=== PATIENT | male | born 1960 | race African-American/Black ===

== ENCOUNTER 2017-01-04 01:29 | Emergency (ER) | payer MEDICARE ==
[2017-01-04 01:52] VITALS: BP 118/75; PULSE 77; RESP 18; TEMP 97.4
[2017-01-04] MEDS ORDERED: ITRACONAZOLE ORAL SUSP 1,500 MG/150 ML BOTTLE PO STA (01:56)
[2017-01-04] MEDS ORDERED: ITRACONAZOLE 100 MG CAP PO STA (02:02)
--- NOTE | 2017-01-04 02:22 | ED ---
Recheck HPI - General Chief Complaint: Recheck/Abnormal Lab/Rx Stated Complaint: Med Refill Time Seen by Provider: 01/04/17 01:55 Source: patient Mode of arrival: ambulatory Limitations: no limitations - History of Present Illness Initial Comments: This patient is a 56-year-old man who is status post lung transplant. Patient states that he takes Sporanox daily as part of his transplant regimen. He has run out of the Sporanox which has reportedly been shipped to him. He requests a dose for tonight and prescription for a few days worth until his new supply arrives. The patient denies any symptoms currently. No fever or chills. No chest pain, dyspnea, or cough. MD Complaint: medication refill request -: hour(s) Returns Today for: request for prescription Context: ran out of medication Associated Symptoms: none - Related Data Home Medications Medication Instructions Recorded Confirmed Aspirin 81 mg PO DAILY 01/04/17 01/04/17 Calcium Carbonate [Tums] 500 mg PO BID 01/04/17 01/04/17 Cyproheptadine HCl [Periactin] 4 mg PO TID 01/04/17 01/04/17 Darbepoetin Carlito [Aranesp] 40 mcg WEEKLY 01/04/17 01/04/17 Ergocalciferol (Vitamin D2) 50,000 unit PO WEEKLY 01/04/17 01/04/17 [Vitamin D2] Folic Acid 1 mg PO DAILY 01/04/17 01/04/17 Gabapentin [Neurontin] 300 mg PO BID 01/04/17 01/04/17 Magnesium Oxide [Mag-Ox] 400 mg PO DAILY 01/04/17 01/04/17 Metoprolol Succinate [Toprol XL] 25 mg PO DAILY 01/04/17 01/04/17 Ondansetron [Zofran] 4 mg PO Q6HR PRN 01/04/17 01/04/17 Pantoprazole Sodium 40 mg PO BID 01/04/17 01/04/17 Tacrolimus [Tacrolimus] 3 mg PO BID 01/04/17 01/04/17 Valganciclovir HCl 450 mg PO WEEKLY 01/04/17 01/04/17 predniSONE [predniSONE TAPER] 5 mg PO DAILY 01/04/17 01/04/17 Previous Rx's Medication Instructions Recorded Itraconazole Oral Susp [Sporanox 200 mg PO DAILY #2000 mg 01/04/17 Oral Susp] Allergies Allergy/AdvReac Type Severity Reaction Status Date / Time meperidine [From Demerol] Allergy Rash/Hives Verified 01/04/17 01:52 Review of Systems ROS Statement: Those systems with pertinent positive or pertinent negative responses have been documented in the HPI. ROS Other: All systems not noted in ROS Statement are negative. Constitutional: Denies: fever, chills Respiratory: Denies: cough, dyspnea, wheezes, hemoptysis Cardiovascular: Denies: chest pain, palpitations Past Medical History Past Medical History: Diabetes Mellitus, Hypertension, Mitral Valve Prolapse ( MVP), Renal Disease Additional Past Medical History / Comment(s): Sarcodosis, Dialysis History of Any Multi-Drug Resistant Organisms: C-DIFF Date of last positivie culture/infection: April 2016 Past Surgical History: Back Surgery, Orthopedic Surgery Additional Past Surgical History / Comment(s): Bilateral lung transplant, Past Psychological History: No Psychological Hx Reported Smoking Status: Never smoker Past Alcohol Use History: None Reported Past Drug Use History: None Reported General Exam Limitations: no limitations General appearance: alert, in no apparent distress Respiratory exam: Present: normal lung sounds bilaterally. Absent: respiratory distress, wheezes, rales, rhonchi, stridor Cardiovascular Exam: Present: regular rate, normal rhythm, normal heart sounds. Absent: systolic murmur, diastolic murmur, rubs, gallop Course Vital Signs 01/04/17 01:43 Temperature 97.4 F L Pulse Rate 77 Respiratory 18 Rate Blood Pressure 118/75 O2 Sat by Pulse 98 Oximetry Disposition Clinical Impression: Encounter for medication refill Disposition: HOME SELF-CARE Condition: Good Instructions: Medicine Refill (ED) Prescriptions: Itraconazole Oral Susp [Sporanox Oral Susp] 200 mg PO DAILY #2000 mg Referrals: Hernán Qureshi DO [Primary Care Provider] - 1-2 days
== END 2017-01-04 02:24 | disposition home or self-care (01) ==
LOC: EC 01:29
DX: Z76.0 Encounter for issue of repeat prescription (principal); Z94.2 Lung transplant status; Z88.5 Allergy status to narcotic agent
CPT/HCPCS: 99281

== ENCOUNTER 2017-06-13 09:22 | Day surgery (SDC) | payer MEDICARE ==
[2017-06-12 08:55] VITALS: BMI 25.7
[~2017-06-13 09:22] MED LIST: LACTATED RINGERS 1,000 ML IV SCH; LIDOCAINE 1% 20 ML VIAL (10MG/ML) FOR IV START INTRADERMA PRN
[2017-06-13 09:39] VITALS: TEMP 97.6
[2017-06-13] MEDS ORDERED: SODIUM CHLORIDE 0.9% 1,000 ML IV ONE ×2 (09:46)
[2017-06-13 09:49] LABS: Glucose,Whole Blood 72 mg/dL (75-99)
[2017-06-13] MEDS ORDERED: PROPOFOL 10 MG/ML 20 ML VIAL IV ONE (09:59)
[2017-06-13] MEDS ORDERED: LIDOCAINE 1% INJ 10MG/ML (20 ML MDV) ONE (09:59)
[2017-06-13 10:11] LABS: Calcium 9.2 mg/dL (8.4-10.2); Potassium 3.9 mmol/L (3.5-5.1)
[2017-06-13 10:13] LABS: Anisocytosis Slight; Basophils % (A) 0 %; CH 29.5; CHCM 31.2; Eosinophils % (A) 0 %; HCT 34.1 % (39.0-53.0); HDW 2.47; HGB 10.3 gm/dL (13.0-17.5); Luc % (Auto) 2; Lymphocytes # (A) 1.3 k/uL (1.0-4.8); Lymphocytes % (A) 21 %; MCH 28.8 pg (25.0-35.0); MCHC 30.3 g/dL (31.0-37.0); MCV 95.1 fL (80.0-100.0); Mean Platelet Volume 11.3; Monocytes # (A) 0.4 k/uL (0-1.0); Monocytes % (A) 6 %; Neutrophils # (A) 4.5 k/uL (1.3-7.7); Neutrophils % (A) 71 %; RBC 3.58 m/uL (4.30-5.90); RDW 18.2 % (11.5-15.5); WBC 6.4 k/uL (3.8-10.6); WBC (Perox) 6.61
--- NOTE | 2017-06-13 10:21 | P.PCN ---
Date of Procedure: 06/13/17 Preoperative Diagnosis: Postoperative Diagnosis: Procedure(s) Performed: BRIEF HISTORY: Patient is a 57-year-old pleasant white female, scheduled for an elective colonoscopy as a part of evaluation of change in bowel habits. The patient is status post lung transplant performed with a diagnosis of a year ago. PROCEDURE PERFORMED: Colonoscopy. PREOPERATIVE DIAGNOSIS: Change in bowel habits. IV sedation per Anesthesia. PROCEDURE: After informed consent was obtained, the patient, was brought into the endoscopy unit. IV sedation was administered by Anesthesia under continuous monitoring. Digital rectal examination was normal. Initially the Olympus CF- 160 flexible video colonoscope was then inserted in the rectum, gradually advanced into the cecum without any difficulty. Careful examination was performed as the scope was gradually being withdrawn. Ileocecal valve and the appendiceal orifice were visualized and appeared normal. Prep was excellent. Mucosa of the cecum, ascending colon, transverse colon, descending colon, sigmoid colon, and rectum appeared normal. Scattered sigmoid diverticulosis seen. Retroflexion was performed in the rectum and small internal hemorrhoids were seen. The patient tolerated the procedure well. IMPRESSION: Normal-appearing colon from rectum to cecum with no evidence of colorectal neoplasia. Scattered sigmoid diverticulosis Small internal hemorrhoids RECOMMENDATIONS: Findings of this examination were discussed with the patient as well as his family. He was advised to have a repeat screening colonoscopy in 5 years. Implants: Indications for Procedure: Operative Findings: Description of Procedure:
[2017-06-13 10:49] VITALS: RESP 18
[2017-06-13 10:52] VITALS: BP 112/64; PULSE 69
== END 2017-06-13 11:29 | disposition home or self-care (01) ==
LOC: ORWHC2ENDO 09:22
PROVIDERS: ATTEND Internal Medicine Gastroenterology
DX: K57.30 Diverticulosis of large intestine without perforation or abscess without bleeding (principal); K64.8 Other hemorrhoids; I50.9 Heart failure, unspecified; E11.9 Type 2 diabetes mellitus without complications; I12.0 Hypertensive chronic kidney disease with stage 5 chronic kidney disease or end stage renal disease; N18.6 End stage renal disease; Z99.2 Dependence on renal dialysis; Z86.718 Personal history of other venous thrombosis and embolism; Z88.5 Allergy status to narcotic agent; K21.9 Gastro-esophageal reflux disease without esophagitis; Z95.810 Presence of automatic (implantable) cardiac defibrillator; Z94.2 Lung transplant status; Z79.82 Long term (current) use of aspirin; Z79.899 Other long term (current) drug therapy
CPT/HCPCS: 80048; 85025; 45378; J2001; J2704

== ENCOUNTER → 2017-10-08 | Outpatient (CLI) | payer MEDICARE ==
--- NOTE | 2017-10-08 11:48 | CT ---
EXAMINATION TYPE: CT abdomen wo con DATE OF EXAM: 10/08/2017 COMPARISON: 12/04/2012 HISTORY: 57-year-old male with abdominal pain, diarrhea TECHNIQUE: Contiguous axial scanning of the abdomen without IV contrast. Coronal and sagittal reconst ructions performed. CT DLP: 558 mGycm Automated exposure control for dose reduction was used. FINDINGS: Heart is upper limits of normal in size. Median sternotomy wires are present. Retained epicardial pac er leads. Right ventricular pacer lead. Trace right effusion. Strandy atelectasis at the left base. Borderline aneurysmal lower descending thoracic aorta at 3.0 cm. Some surgical material at the GE junction. Noncontrast appearance of the liver, adrenal glands, right kidney, and atrophic pancreas show no yue s abnormality. IVC filter is present. There is a punctate 1 mm nonobstructive left lower pole renal calculus, axial image 40. Redemonstrate d 2.5 cm lateral midpole left renal cyst and a subcentimeter hypodensity anteriorly at the lower pole too small for accurate CT characterization, also likely a cyst. The spleen is upper limits of normal in size at 12.2 cm but appears prominently thickened up to 7.4 c m versus 5.67 m, previously. Gallbladder is collapsed with a small calculi. No dilated small bowel, free fluid, or free air. No mesenteric or retroperitoneal lymphadenopathy. Small to moderate-sized omental fat-containing umbilical hernia. Some stranding here suspected to rep resent omental vessels. Normal appendix. Mild stool burden. No pericolonic inflammatory change.. Bones: Degenerative changes at the right SI joint and disc bulging in the lower lumbar spine. No osse ous destructive process. IMPRESSION: 1. SMALL TO MODERATE SIZED OMENTAL FAT-CONTAINING UMBILICAL HERNIA WAS PRESENT IN 2012 WELL. 2. PUNCTATE NONOBSTRUCTIVE LEFT LOWER POLE RENAL CALCULUS. 3. BORDERLINE SPLENOMEGALY WITH SPLEEN SIZE INCREASED FROM 2012. 4. CHOLELITHIASIS AND IVC FILTER.
== END | disposition home or self-care (01) ==
LOC: RADCTMAIN 09:47
PROVIDERS: ATTEND Family Medicine
DX: K42.9 Umbilical hernia without obstruction or gangrene (principal); N20.0 Calculus of kidney; R16.1 Splenomegaly, not elsewhere classified; K80.20 Calculus of gallbladder without cholecystitis without obstruction
CPT/HCPCS: 74150

== ENCOUNTER 2018-03-22 17:10 | Emergency (ER) | payer MEDICARE ==
[2018-03-22 17:25] VITALS: RESP 18; TEMP 98
[2018-03-22] MEDS ORDERED: SODIUM CHLORIDE 0.9% 1,000 ML IV STA (17:49)
[2018-03-22] MEDS ORDERED: MORPHINE SULFATE 4 MG/ML SYRINGE IV STA (17:49)
[2018-03-22] MEDS ORDERED: ONDANSETRON 4 MG/2 ML VIAL IVP STA (17:49)
[2018-03-22] MEDS ORDERED: cefTRIAXone IN SWFI 2,000 MG/20 ML SYRINGE IVP STA (17:49)
--- NOTE | 2018-03-22 17:57 | ED ---
General Adult HPI - General Chief complaint: Recheck/Abnormal Lab/Rx Stated complaint: Arm swelling Time Seen by Provider: 03/22/18 17:35 Source: patient Mode of arrival: ambulatory Limitations: no limitations - History of Present Illness Initial comments: 57 years old male had vascular surgery on Saturday at [facility] and 19 miles, he a fistula for about a year ago now left arm upper extremity is quite swollen he feels throbbing there arm is swollen from the left axilla over the left upper arm elbow left forearm and the left hand dorsal surface surface - Related Data Home Medications Medication Instructions Recorded Confirmed Aspirin 81 mg PO DAILY 01/04/17 06/13/17 Calcium Carbonate [Tums] 500 mg PO BID 01/04/17 06/13/17 Cyproheptadine HCl [Periactin] 4 mg PO TID 01/04/17 06/13/17 Darbepoetin Carlito [Aranesp] 40 mcg INJ MOWEFR 01/04/17 06/13/17 Ergocalciferol (Vitamin D2) 50,000 unit PO TH 01/04/17 06/13/17 [Vitamin D2] Folic Acid 1 mg PO DAILY 01/04/17 06/13/17 Ondansetron [Zofran] 4 mg PO Q6HR PRN 01/04/17 06/13/17 Pantoprazole Sodium 40 mg PO BID 01/04/17 06/13/17 Tacrolimus [Tacrolimus] 1.5 mg PO BID 01/04/17 06/13/17 Valganciclovir HCl 450 mg PO WEEKLY 01/04/17 06/13/17 predniSONE [predniSONE TAPER] 5 mg PO DAILY 01/04/17 06/13/17 amLODIPine [Norvasc] 5 mg PO SUTUTHSA 06/12/17 06/13/17 Previous Rx's Medication Instructions Recorded Itraconazole Oral Susp [Sporanox 200 mg PO DAILY #2000 mg 01/04/17 Oral Susp] Allergies Allergy/AdvReac Type Severity Reaction Status Date / Time meperidine [From Demerol] Allergy Rash/Hives Verified 03/22/18 17:25 Review of Systems ROS Statement: Those systems with pertinent positive or pertinent negative responses have been documented in the HPI. ROS Other: All systems not noted in ROS Statement are negative. Past Medical History Past Medical History: Diabetes Mellitus, Dialysis, Deep Vein Thrombosis (DVT), GERD/Reflux, Hypertension, Mitral Valve Prolapse (MVP), Renal Disease Additional Past Medical History / Comment(s): Sarcodosis, History of Any Multi-Drug Resistant Organisms: C-DIFF Date of last positivie culture/infection: April 2016 MDRO Source:: STOOL Past Surgical History: AICD, Back Surgery, Orthopedic Surgery, Pacemaker Additional Past Surgical History / Comment(s): Bilateral lung [id number]- 2016. COLONOSCOPY. RT HAND SURGERY. HEMODIALYSIS CATH. AV SHUNT LT ARM- Past Anesthesia/Blood Transfusion Reactions: Motion Sickness Type of Cardiac Device: Permanent Pacemaker, AICD Device Placement Date:: 03-28-2011 Past Psychological History: No Psychological Hx Reported Smoking Status: Never smoker Past Alcohol Use History: None Reported Past Drug Use History: None Reported - Past Family History Father Family Medical History: Cancer General Exam - General Exam Comments Initial Comments: General: The patient is awake and alert, noticed mild to moderate distress because of left arm swelling Skin: Skin is warm and dry and no rashes or lesions are noted. Eye: Pupils are equal, round and reactive to light, extra-ocular movements are intact; there is normal conjunctiva bilaterally. Ears, nose, mouth and throat: There are moist mucous membranes and no oral lesions. Neck: The neck is supple, there is no tenderness or JVD. Cardiovascular: There is a regular rate and rhythm. No murmur, rub or gallop is appreciated. Respiratory: To auscultation bilateral, no wheezing no rhonchi no distress respiratory gibson noticed Gastrointestinal: Soft, non-distended, non-tender abdomen without masses or organomegaly noted. There is no rebound or guarding present. Bowel sounds are unremarkable. Back: There is no tenderness to palpation in the midline. There is no obvious deformity. Musculoskeletal: Active arm is quite swollen, it swelling starts from the left axilla, proximal left upper extremity circumference is about twice the size of the right one the left forearm is quite swollen, capillary refill is within normal range. Her pulses are palpable him a no neurological deficit noticed him a pulses seems diminished compared to the right extremity week confirmed the wound with the Doppler Neurological: CN II-XII intact, Cranial nerves III through XII are intact. There are no obvious motor or sensory deficits. Coordination appears grossly intact. Speech is normal. Psychiatric: Cooperative, appropriate mood & affect, normal judgment. Limitations: no limitations Course Vital Signs 03/22/18 17:20 Temperature 98.0 F Pulse Rate 81 Respiratory 18 Rate Blood Pressure 118/68 O2 Sat by Pulse 100 Oximetry , Blood work was ordered ultrasound of the left upper extremity was ordered an empiric antibiotics were ordered. After that I spoke with the emergency physician Dr. Torres from [facility], she agreed that we don't need to do any blood work here that would further delay the transfer I did initially order some now patient is given ago in her family car. Patient and the family wanted to drive down there this said they have been there before they do not want ambulance at this point area, patient was giving him morphine and Zofran blood work and the venous and arterial Dopplers were held off to expedite the transfer - Reevaluation(s) Reevaluation #1: Medical differential diagnosis includes DVT, arterial occlusion, hematoma, seroma, compartment syndrome 03/22/18 18:22 Disposition Clinical Impression: Left arm swelling Disposition: OTHER INSTITUTION NOT DEFINED Condition: Fair Is patient prescribed a controlled substance at d/c from ED?: No If prescribed controlled substance>3 days was MAPS reviewed?: No When asked, does pt state using other controlled substances?: No Referrals: Hernán Qureshi DO [Primary Care Provider] - 1-2 days - Out of Hospital Transfer - Req. Specs Out of Hospital Transfer - Requested Specifics: Other Emergency Center ([facility] accepted the patient, patient was accepted by Dr. Torres.)
[2018-03-22 18:27] VITALS: BP 121/69; PULSE 79
== END 2018-03-22 18:39 | disposition other institution (70) ==
LOC: EC 17:10
DX: M79.89 Other specified soft tissue disorders (principal); Z98.890 Other specified postprocedural states; K21.9 Gastro-esophageal reflux disease without esophagitis; I10 Essential (primary) hypertension; N28.9 Disorder of kidney and ureter, unspecified; Z86.718 Personal history of other venous thrombosis and embolism; Z94.2 Lung transplant status; Z95.810 Presence of automatic (implantable) cardiac defibrillator; Z99.2 Dependence on renal dialysis; Z88.5 Allergy status to narcotic agent; Z79.52 Long term (current) use of systemic steroids; Z79.82 Long term (current) use of aspirin; Z79.899 Other long term (current) drug therapy
CPT/HCPCS: 99284

== ENCOUNTER 2018-04-29 11:29 | Emergency (ER) | payer MEDICARE ==
[2018-04-29 11:44] VITALS: RESP 18
[2018-04-29] MEDS ORDERED: SODIUM CHLORIDE 0.9% 500 ML IV ONE (12:13)
[2018-04-29] MEDS ORDERED: DICYCLOMINE 20 MG TAB PO STA (12:13)
[2018-04-29] MEDS ORDERED: ONDANSETRON 4 MG/2 ML VIAL IVP STA (12:13)
--- NOTE | 2018-04-29 12:17 | ED ---
General Adult HPI - General Chief complaint: Nausea/Vomiting/Diarrhea Stated complaint: Vomiting Time Seen by Provider: 04/29/18 11:52 Source: patient Mode of arrival: wheelchair Limitations: no limitations - History of Present Illness Initial comments: Patient is a 58-year-old male with a medical history lung transplant, sarcoidosis, end-stage renal disease currently on dialysis who presents with a chief complaint of nausea, vomiting and diarrhea since yesterday. The patient states that he ate at [employer] 2 hours prior to the onset of his symptoms. The patient states that he thinks he got food poisoning. He cannot identify any other inciting incidences. There are no aggravating or alleviating factors. Timing is been constant. Patient's dialysis schedule is Saturday, Saturday, Saturday. The patient states that he feels dehydrated because he had dialysis just prior to the onset of his symptoms. - Related Data Home Medications Medication Instructions Recorded Confirmed Aspirin 81 mg PO DAILY 01/04/17 04/29/18 Darbepoetin Carlito [Aranesp] 40 mcg INJ MOWEFR 01/04/17 04/29/18 Ergocalciferol (Vitamin D2) 50,000 unit PO TH 01/04/17 04/29/18 [Vitamin D2] Folic Acid 1 mg PO DAILY 01/04/17 04/29/18 Ondansetron [Zofran] 4 mg PO Q6HR PRN 01/04/17 04/29/18 Pantoprazole Sodium 40 mg PO BID 01/04/17 04/29/18 Tacrolimus [Tacrolimus] 3 mg PO BID 01/04/17 04/29/18 Valganciclovir HCl 450 mg PO MOWEFR 01/04/17 04/29/18 amLODIPine [Norvasc] 5 mg PO DAILY 06/12/17 04/29/18 Atorvastatin [Lipitor] 10 mg PO HS 04/29/18 04/29/18 Itraconazole [Sporanox] 100 mg PO BID 04/29/18 04/29/18 Montelukast [Singulair] 10 mg PO HS 04/29/18 04/29/18 predniSONE 5 mg PO DAILY 04/29/18 04/29/18 Previous Rx's Medication Instructions Recorded Dicyclomine [Bentyl] 20 mg PO QID #20 tablet 04/29/18 Ondansetron Odt [Zofran Odt] 4 mg PO Q8HR PRN #12 tab 04/29/18 Allergies Allergy/AdvReac Type Severity Reaction Status Date / Time meperidine [From Demerol] Allergy Rash/Hives Verified 04/29/18 11:44 Review of Systems ROS Statement: Those systems with pertinent positive or pertinent negative responses have been documented in the HPI. ROS Other: All systems not noted in ROS Statement are negative. Past Medical History Past Medical History: Diabetes Mellitus, Dialysis, Deep Vein Thrombosis (DVT), GERD/Reflux, Hypertension, Mitral Valve Prolapse (MVP), Renal Disease Additional Past Medical History / Comment(s): Sarcodosis, History of Any Multi-Drug Resistant Organisms: C-DIFF Date of last positivie culture/infection: April 2016 MDRO Source:: STOOL Past Surgical History: AICD, Back Surgery, Orthopedic Surgery, Pacemaker Additional Past Surgical History / Comment(s): Bilateral lung [id number]-3-05- 2016. COLONOSCOPY. RT HAND SURGERY. HEMODIALYSIS CATH. AV SHUNT LT ARM- Past Anesthesia/Blood Transfusion Reactions: Motion Sickness Type of Cardiac Device: Permanent Pacemaker, AICD Device Placement Date:: 03-28-2011 Past Psychological History: No Psychological Hx Reported Smoking Status: Never smoker Past Alcohol Use History: None Reported Past Drug Use History: None Reported - Past Family History Father Family Medical History: Cancer General Exam Limitations: no limitations General appearance: alert, in no apparent distress Head exam: Present: atraumatic, normocephalic Eye exam: Present: normal appearance ENT exam: Present: normal exam Neck exam: Present: normal inspection Respiratory exam: Present: normal lung sounds bilaterally. Absent: respiratory distress, wheezes Cardiovascular Exam: Present: regular rate, normal rhythm, other (Patient has a dialysis cath on the right anterior chest.) GI/Abdominal exam: Present: soft. Absent: distended, tenderness Rectal exam: Present: deferred Extremities exam: Present: normal inspection, other (Patient has a dialysis graft in the left medial upper extremity. There is an old dialysis fistula in the left before meals fossa.) Neurological exam: Present: alert, oriented X3, normal gait Psychiatric exam: Present: normal affect, normal mood Skin exam: Present: warm, dry, intact Course Vital Signs 04/29/18 04/29/18 11:42 14:19 Temperature 98.4 F Pulse Rate 85 84 Respiratory 18 18 Rate Blood Pressure 133/75 129/79 O2 Sat by Pulse 98 98 Oximetry Procedures - Phlebotomy Reason for Blood Draw by MD: MD to place line Estimated cc's Blood Obtained: 30 (US guided IV ) Medical Decision Making - Medical Decision Making Patient presents with a chief complaint of nausea, vomiting and diarrhea. On initial evaluation, vitals are stable, patient is in no acute distress. He will be given 500 mL of IV fluid. Basic labs will be checked along with EKG. Patient given Zofran and Bentyl for symptomatically relief. EKG performed at 12 :51 PM shows normal sinus rhythm with right axis deviation, ventricular rate is 82 bpm. EKG is otherwise unremarkable. 1:46 PM Reevaluation, patient's symptoms have improved. Laboratory evaluation is unremarkable. Potassium is 5.4, there are no significant EKG changes. Patient was given a by mouth challenge and is now able to tolerate by mouth. Patient is stable for discharge. He is instructed to follow up with primary care 1-2 days, return to the emergency department if symptoms worsen or change. - Lab Data Result diagrams: 04/29/18 12:47 04/29/18 12:47 Lab Results 04/29/18 04/29/18 Range/Units 12:47 12:47 WBC 10.0 (3.8-10.6) k/uL RBC 4.59 (4.30-5.90) m/uL Hgb 13.5 (13.0-17.5) gm/dL Hct 42.2 (39.0-53.0) % MCV 91.8 (80.0-100.0) fL MCH 29.4 (25.0-35.0) pg MCHC 32.1 (31.0-37.0) g/dL RDW 16.3 H (11.5-15.5) % Plt Count 103 L (150-450) k/uL Neutrophils % 72 % Lymphocytes % 18 % Monocytes % 8 % Eosinophils % 0 % Basophils % 0 % Neutrophils # 7.1 (1.3-7.7) k/uL Lymphocytes # 1.8 (1.0-4.8) k/uL Monocytes # 0.8 (0-1.0) k/uL Eosinophils # 0.0 (0-0.7) k/uL Basophils # 0.0 (0-0.2) k/uL Anisocytosis Slight Sodium 142 (137-145) mmol/L Potassium 5.3 H (3.5-5.1) mmol/L Chloride 98 (98-107) mmol/L Carbon Dioxide 24 (22-30) mmol/L Anion Gap 20 mmol/L BUN 57 H (9-20) mg/dL Creatinine 11.11 H* (0.66-1.25) mg/dL Est GFR (CKD-EPI)AfAm 5 (>60 ml/min/1.73 sqM) Est GFR (CKD-EPI)NonAf 4 (>60 ml/min/1.73 sqM) Glucose 147 H (74-99) mg/dL Calcium 7.4 L (8.4-10.2) mg/dL Magnesium 1.6 (1.6-2.3) mg/dL Total Bilirubin 0.5 (0.2-1.3) mg/dL AST 22 (17-59) U/L ALT 24 (21-72) U/L Alkaline Phosphatase 107 (38-126) U/L Total Protein 7.1 (6.3-8.2) g/dL Albumin 4.6 (3.5-5.0) g/dL Lipase 43 (23-300) U/L Disposition Clinical Impression: Food poisoning Disposition: HOME SELF-CARE Condition: Good Instructions: Acute Nausea and Vomiting (ED) Prescriptions: Dicyclomine [Bentyl] 20 mg PO QID #20 tablet Ondansetron Odt [Zofran Odt] 4 mg PO Q8HR PRN #12 tab PRN Reason: Nausea Is patient prescribed a controlled substance at d/c from ED?: No Referrals: Hernán Qureshi DO [Primary Care Provider] - 1-2 days
[2018-04-29 13:11] LABS: Albumin 4.6 g/dL (3.5-5.0); Calcium 7.4 mg/dL (8.4-10.2); Magnesium 1.6 mg/dL (1.6-2.3); Potassium 5.3 mmol/L (3.5-5.1); Total Bilirubin 0.5 mg/dL (0.2-1.3); Total Protein 7.1 g/dL (6.3-8.2)
[2018-04-29 13:25] LABS: Anisocytosis Slight; Basophils % (A) 0 %; Eosinophils % (A) 0 %; HCT 42.2 % (39.0-53.0); HGB 13.5 gm/dL (13.0-17.5); Lymphocytes # (A) 1.8 k/uL (1.0-4.8); Lymphocytes % (A) 18 %; MCH 29.4 pg (25.0-35.0); MCHC 32.1 g/dL (31.0-37.0); MCV 91.8 fL (80.0-100.0); Mean Platelet Volume 8.9; Monocytes # (A) 0.8 k/uL (0-1.0); Monocytes % (A) 8 %; Neutrophils # (A) 7.1 k/uL (1.3-7.7); Neutrophils % (A) 72 %; Platelet Count 103 k/uL (150-450); RBC 4.59 m/uL (4.30-5.90); RDW 16.3 % (11.5-15.5)
[2018-04-29 15:24] VITALS: BP 133/79; PULSE 80; TEMP 97.2
== END 2018-04-29 15:22 | disposition home or self-care (01) ==
LOC: EC 11:29
DX: A05.9 Bacterial foodborne intoxication, unspecified (principal); I12.0 Hypertensive chronic kidney disease with stage 5 chronic kidney disease or end stage renal disease; N18.6 End stage renal disease; K21.9 Gastro-esophageal reflux disease without esophagitis; D86.9 Sarcoidosis, unspecified; Z79.52 Long term (current) use of systemic steroids; Z79.82 Long term (current) use of aspirin; Z79.899 Other long term (current) drug therapy; Z88.5 Allergy status to narcotic agent; Z99.2 Dependence on renal dialysis
CPT/HCPCS: 99284; 96374; 36415; 93005; 80053; 83690; 83735; 85025; J2405

== ENCOUNTER 2018-10-29 12:17 | Day surgery (SDC) | payer MEDICARE ==
[2018-10-28 08:40] VITALS: BMI 26.3
[~2018-10-29 12:17] MED LIST changes: -LACTATED RINGERS 1,000 ML IV SCH; -LIDOCAINE 1% 20 ML VIAL (10MG/ML) FOR IV START INTRADERMA PRN; +ceFAZolin 1,000 MG in SODIUM CHLORIDE 0.9% IRRIGATIO 250 ML IRRIGATION ONE; +ceFAZolin IN SWFI 2 GM/20 ML SYRINGE IVP ONE
[2018-10-29] MEDS ORDERED: MIDAZOLAM 2 MG/2 ML VIAL ONE (13:45)
[2018-10-29] MEDS ORDERED: KETAMINE 10 MG/ML 20 ML VIAL ONE (13:45)
[2018-10-29] MEDS ORDERED: fentaNYL (PF) 50 MCG/ML 2 ML AMP ONE (13:45)
[2018-10-29] MEDS ORDERED: PROPOFOL 10 MG/ML 20 ML VIAL IV ONE (13:45)
[2018-10-29 13:54] LABS: Glucose,Whole Blood 79 mg/dL (75-99)
[2018-10-29] MEDS ORDERED: LIDOCAINE 1% INJ 10MG/ML (20 ML MDV) ONE (14:03)
[2018-10-29] MEDS ORDERED: LIDOCAINE 1% INJ 10MG/ML (20 ML MDV) SQ ONE (14:19)
[2018-10-29] MEDS: SODIUM CHLORIDE 0.9% 1,000 ML IV SCH (14:20)
[2018-10-29] MEDS ORDERED: HYDROcodone/APAP 5-325MG 1 EACH TAB PO PRN (15:07)
--- NOTE | 2018-10-29 15:27 | P.PCN ---
Date of Procedure: 10/29/18 Preoperative Diagnosis: Battery depletion, status post AICD implantation Postoperative Diagnosis: The same Procedure(s) Performed: Generator change, DFT testing Description of Procedure: This is a 58-year-old gentleman with history of sick sinus syndrome and also sarcoidosis, status post AICD implantation. Patient reached [facility] and was brought in for elective battery replacement. Patient also has neutropenia and has been getting Neupogen injection. His white count yesterday is about 4000. Patient family were explained the risks and benefits of the procedure which they fully understood and accepted. CONSENT: I have discussed the risks and benefits as related to the above mentioned procedure and both sedation/analgesia as well as necessary blood product administration. The patient has indicated understanding and acceptance of the risks of the procedure discussed. PROCEDURE: Patient was brought to the lab in a fasting state. Department of anesthesia provided IV anesthesia analgesia during the procedure.. The skin over the existing pulse generator was infiltrated with lidocaine. An incision was made in the skin and was deepened until the pectoral fascia was exposed. Hemostasis was obtained. There were extensive adhesions and careful dissection and freeing of medications and removal of capsule was Undertaken. The existing pulse generator was pulled out of the pocket. The leads were disconnected and were checked for thresholds. Conscious Sedation: Provided by department of anesthesia Duration 44 minutes THRESHOLDS: ATRIAL: The minimal patient threshold was 0.7 V at a pulse width of 0.4. The impedance is 494 P-wave: 0.9 mV VENTRICULAR: The minimum patient threshold was 1 V at pulse width of 1 ms. The impedance is 551. R-wave: 6.9 mV Shock impedance: RIGHT VENTRICLE IS 40 OHMS AND SVC IS 51 OHMS. THE LEADS: ATRIAL: This is manufactured by [employer]. Model number is 5076-52. The serial number is [id number] VENTRICULAR: This is manufactured by [employer]. Model number is 6947-65 and the serial number is [id number] THE EXPLANTED DEVICE: The explanted device is manufactured by [employer]. Serial number is [id number]. The model number is [id number] THE NEW DEVICE: This is manufactured by [employer]. Model number is [id number] and the serial number is [id number]. new The leads were then connected to a new pulse generator. Pacemaker seems to function normally. DFT TESTING: Patient was given a deep anesthesia by department of anesthesia. VF was induced with T shock. This was appropriately detected. A single shock of 15 J converted back to sinus rhythm. Patient tolerated the procedure well The pocket was irrigated with antibiotics. The pocket was closed in the usual fashion. Pectoral fascia was closed with 2-0 Prolene, the subcutaneous tissue was closed with 3-0 Prolene and the skin was closed with 4-0 Prolene. Patient tolerated the procedure well . Patient will be monitored for the next 24 hours. Prophylactic antibiotics be continued. Patient will be discharged home tomorrow if stable. PROGRAMMING: Jonah programming is programmed to AAIR to DDDR mode with a rate of 60 to 1:30. Ventricular fibrillation zone is programmed to a rate of 182. The shocks were programmed to 25 J followed by 35 J times 5V at fast ventricle tachycardia is programmed to a rate of 182-222. The therapies are programmed to burst pacing followed by shocks of 15 J followed by 25 J followed by 35 J 4. PLAN:. Continue prophylactic antibiotics. Continue monitoring on telemetry unit FALLOW UP: In one week in the office
[2018-10-29] MEDS ORDERED: ONDANSETRON 4 MG TAB PO PRN (15:38)
[2018-10-29] MEDS ORDERED: DARBEPOETIN ALFA 40 MCG INJ SCH (15:38)
[2018-10-29 16:09] LABS: Glucose,Whole Blood 85 mg/dL (75-99)
[2018-10-29] MEDS ORDERED: INSULIN LISPRO (For Pump) 100 UNIT/ML VIAL SQ-PUMP SCH (17:30)
[2018-10-29] MEDS: INSULIN ASPART 100 UNIT/ML 1 ML 10 ML VIAL SQ SCH ×2 (17:41→21:34)
[2018-10-29] MEDS: MAGNEBIND PO SCH ×2 (17:42→21:30)
[2018-10-29] MEDS: DICYCLOMINE 20 MG TAB PO SCH ×2 (17:45→21:29)
[2018-10-29] MEDS: PANTOPRAZOLE 40 MG TABLET PO SCH (17:45)
[2018-10-29] MEDS ORDERED: ATORVASTATIN 10 MG TAB PO SCH (21:00)
[2018-10-29] MEDS ORDERED: MONTELUKAST 10 MG TAB PO SCH (21:00)
[2018-10-29 21:01] LABS: Glucose,Whole Blood 218 mg/dL (75-99)
[2018-10-29] MEDS: ACETAMINOPHEN TAB 325 MG TAB PO PRN (21:26)
[2018-10-29] MEDS: ceFAZolin IN SWFI 2 GM/20 ML SYRINGE IVP SCH (21:27)
[2018-10-29] MEDS: DOCUSATE 100 MG CAP PO SCH (21:27)
[2018-10-29] MEDS: TACROLIMUS 1 MG CAP PO SCH (21:28)
[2018-10-30] MEDS: ceFAZolin IN SWFI 2 GM/20 ML SYRINGE IVP SCH ×2 (02:11→09:10)
[2018-10-30] MEDS: SODIUM CHLORIDE 0.9% 1,000 ML IV SCH (02:38)
[2018-10-30 06:45] LABS: Glucose,Whole Blood 109 mg/dL (75-99)
[2018-10-30] MEDS: INSULIN ASPART 100 UNIT/ML 1 ML 10 ML VIAL SQ SCH ×2 (07:55→11:58)
[2018-10-30] MEDS: PANTOPRAZOLE 40 MG TABLET PO SCH (08:01)
[2018-10-30] MEDS: DOCUSATE 100 MG CAP PO SCH (08:01)
[2018-10-30] MEDS: ACETAMINOPHEN TAB 325 MG TAB PO PRN (08:02)
[2018-10-30] MEDS: TACROLIMUS 1 MG CAP PO SCH (08:04)
[2018-10-30] MEDS: MAGNEBIND PO SCH (08:05)
[2018-10-30] MEDS: DICYCLOMINE 20 MG TAB PO SCH (08:05)
--- NOTE | 2018-10-30 08:29 | P.DS ---
Providers Date of admission: 10/29/2018 Attending physician: Rosalee Holman Primary care physician: Hernán Qureshi - Discharge Diagnosis(es) (1) Cardiac defibrillator in place Current Visit: Yes Status: Acute (2) ICD (implantable cardioverter-defibrillator) battery depletion Current Visit: Yes Status: Acute (3) History of lung transplant Current Visit: Yes Status: Acute (4) Leukopenia Current Visit: Yes Status: Acute (5) Sarcoidosis Current Visit: Yes Status: Acute Hospital Course: This 58-year-old gentleman with history of sick sinus syndrome and also sarcoidosis, who had AICD implantation was noted to have evidence of battery depletion. Patient is also status post lung transplant and known neutropenia. Patient was treated with Neupogen with a white count of about 4000. Patient had a battery replacement, Yesterday. Patient tolerated the procedure well. Patient also had DFT testing. Patient had extensive adhesions requiring careful dissection and was noted to have bruising. His dressing today shows some staining and there appears to be soft hematoma. No active bleeding noted. Patient is feeling better. He is completing his antibiotic course. He'll be discharged home later after completion of the antibiotics. He'll keep the dressing dry until seen in the office. Patient was given prophylactic antibiotics for one week. No heavy lifting, pushing or pulling with left arm. Patient will report if he has any fever, chills, or ankle swelling. Follow-up in the office in one week. Plan - Discharge Summary Discharge Rx Participant: No New Discharge Prescriptions: New Cephalexin [Keflex] 500 mg PO Q8HR #20 cap Continue Aspirin 81 mg PO DAILY Valganciclovir HCl 450 mg PO MOWEFR Pantoprazole Sodium 40 mg PO BID Tacrolimus 4 mg PO BID Ondansetron [Zofran] 4 mg PO Q6HR PRN PRN Reason: Nausea Folic Acid 1 mg PO DAILY Ergocalciferol (Vitamin D2) [Vitamin D2] 50,000 unit PO TH Darbepoetin Carlito [Aranesp] 40 mcg INJ MOWE amLODIPine [Norvasc] 5 mg PO DAILY Montelukast [Singulair] 10 mg PO HS Itraconazole [Sporanox] 200 mg PO DAILY predniSONE 5 mg PO DAILY Atorvastatin [Lipitor] 10 mg PO HS Dicyclomine [Bentyl] 20 mg PO QID #20 tablet Docusate [Colace] 100 mg PO BID Magnebind 300 2 tab PO TID Insulin Glargine [Lantus] 8 unit SQ DAILY Insulin Lispro [humaLOG] 0 units SQ ACHS Discharge Medication List Aspirin 81 mg PO DAILY 01/04/17 [History] Darbepoetin Carlito [Aranesp] 40 mcg INJ MOWE 01/04/17 [History] Ergocalciferol (Vitamin D2) [Vitamin D2] 50,000 unit PO TH 01/04/17 [History] Folic Acid 1 mg PO DAILY 01/04/17 [History] Ondansetron [Zofran] 4 mg PO Q6HR PRN 01/04/17 [History] Pantoprazole Sodium 40 mg PO BID 01/04/17 [History] Tacrolimus 4 mg PO BID 01/04/17 [History] Valganciclovir HCl 450 mg PO MOWEFR 01/04/17 [History] amLODIPine [Norvasc] 5 mg PO DAILY 06/12/17 [History] Atorvastatin [Lipitor] 10 mg PO HS 04/29/18 [History] Dicyclomine [Bentyl] 20 mg PO QID #20 tablet 04/29/18 [Rx] Itraconazole [Sporanox] 200 mg PO DAILY 04/29/18 [History] Montelukast [Singulair] 10 mg PO HS 04/29/18 [History] predniSONE 5 mg PO DAILY 04/29/18 [History] Docusate [Colace] 100 mg PO BID 09/22/18 [History] Magnebind 300 2 tab PO TID 09/22/18 [History] Insulin Glargine [Lantus] 8 unit SQ DAILY 10/29/18 [History] Insulin Lispro [humaLOG] 0 units SQ ACHS 10/29/18 [History] Cephalexin [Keflex] 500 mg PO Q8HR #20 cap 10/30/18 [Rx] Discharge Disposition: HOME SELF-CARE
[2018-10-30] MEDS ORDERED: ITRACONAZOLE 100 MG CAP PO SCH (09:00)
[2018-10-30] MEDS ORDERED: INSULIN DETEMIR 100 UNIT/ML 10 ML VIAL SQ SCH (09:00)
[2018-10-30] MEDS ORDERED: amLODIPine 5 MG TAB PO SCH (09:00)
[2018-10-30] MEDS ORDERED: predniSONE 5 MG TAB PO SCH (09:00)
[2018-10-30] MEDS ORDERED: ERGOCALCIFEROL 50,000 UNIT CAP PO SCH (09:00)
[2018-10-30 11:41] LABS: Glucose,Whole Blood 114 mg/dL (75-99)
[2018-10-30] MEDS ORDERED: FOLIC ACID 1 MG TAB PO SCH (12:00)
[2018-10-30 12:11] VITALS: BP 122/77; PULSE 72; RESP 16; TEMP 97.7
[2018-11-05] MEDS ORDERED: DARBEPOETIN ALFA 40 MCG INJ SCH (02:36)
== END 2018-10-30 15:52 | disposition home or self-care (01) ==
LOC: CATHEP 12:17 → 1SOBS 15:00 → CATHEP 10-30 15:52
PROVIDERS: ATTEND Internal Medicine Cardiovascular Disease
DX: I49.5 Sick sinus syndrome (principal); Z45.02 Encounter for adjustment and management of automatic implantable cardiac defibrillator; D86.9 Sarcoidosis, unspecified; Z95.810 Presence of automatic (implantable) cardiac defibrillator; Z94.2 Lung transplant status; D70.9 Neutropenia, unspecified; I13.2 Hypertensive heart and chronic kidney disease with heart failure and with stage 5 chronic kidney disease, or end stage renal disease; I50.32 Chronic diastolic (congestive) heart failure; N18.6 End stage renal disease; E11.22 Type 2 diabetes mellitus with diabetic chronic kidney disease; Z99.2 Dependence on renal dialysis; Z79.4 Long term (current) use of insulin; E78.5 Hyperlipidemia, unspecified; Z88.5 Allergy status to narcotic agent; Z79.82 Long term (current) use of aspirin; Z79.51 Long term (current) use of inhaled steroids; Z79.899 Other long term (current) drug therapy
CPT/HCPCS: 93641; 33263; 96372 ×2; C1721; J2250; J0690 ×3; J7507 ×2; J2001; J3010; J2704; J7512; Q5101 ×2

== ENCOUNTER 2018-10-31 06:14 | Emergency (ER) | payer MEDICARE ==
[2018-10-31 06:21] VITALS: BP 122/81; PULSE 69; RESP 16; TEMP 98
--- NOTE | 2018-10-31 06:23 | ED ---
General Adult HPI - General Chief complaint: Recheck/Abnormal Lab/Rx Stated complaint: Post Op Bleeding Time Seen by Provider: 10/31/18 06:22 Source: patient Mode of arrival: ambulatory Limitations: no limitations - History of Present Illness Initial comments: Joaquina Avery is a pleasant 58-year-old gentleman with an extensive and complicated past medical history most significant for pacemaker placement in the left chest by Dr. Barnes on October 29. Patient reports he was doing well after the pacemaker was placed, he did have multiple episodes of vomiting immediately postoperative however that resolved within a couple of hours. Patient reports he was doing well however he woke up this morning to get ready for dialysis and noticed that the dressing over his new pacemaker was saturated with blood so he came to the ER to have the wound checked. Patient denies other complaints. - Related Data Home Medications Medication Instructions Recorded Confirmed Aspirin 81 mg PO DAILY 01/04/17 10/29/18 Darbepoetin Carlito [Aranesp] 40 mcg INJ MOWE 01/04/17 10/29/18 Ergocalciferol (Vitamin D2) 50,000 unit PO TH 01/04/17 10/29/18 [Vitamin D2] Folic Acid 1 mg PO DAILY 01/04/17 10/29/18 Ondansetron [Zofran] 4 mg PO Q6HR PRN 01/04/17 10/29/18 Pantoprazole Sodium 40 mg PO BID 01/04/17 10/29/18 Tacrolimus 4 mg PO BID 01/04/17 10/29/18 Valganciclovir HCl 450 mg PO MOWEFR 01/04/17 10/29/18 amLODIPine [Norvasc] 5 mg PO DAILY 06/12/17 10/29/18 Atorvastatin [Lipitor] 10 mg PO HS 04/29/18 10/29/18 Itraconazole [Sporanox] 200 mg PO DAILY 04/29/18 10/29/18 Montelukast [Singulair] 10 mg PO HS 04/29/18 10/29/18 predniSONE 5 mg PO DAILY 04/29/18 10/29/18 Docusate [Colace] 100 mg PO BID 09/22/18 10/29/18 Magnebind 300 2 tab PO TID 09/22/18 10/29/18 Insulin Glargine [Lantus] 8 unit SQ DAILY 10/29/18 10/29/18 Insulin Lispro [humaLOG] 0 units SQ ACHS 10/29/18 10/29/18 Previous Rx's Medication Instructions Recorded Dicyclomine [Bentyl] 20 mg PO QID #20 tablet 04/29/18 Cephalexin [Keflex] 500 mg PO Q8HR #20 cap 10/30/18 Allergies Allergy/AdvReac Type Severity Reaction Status Date / Time meperidine [From Demerol] Allergy Rash/Hives Verified 10/29/18 10:19 Review of Systems ROS Statement: Those systems with pertinent positive or pertinent negative responses have been documented in the HPI. ROS Other: All systems not noted in ROS Statement are negative. Past Medical History Past Medical History: Diabetes Mellitus, Dialysis, Deep Vein Thrombosis (DVT), GERD/Reflux, Hypertension, Mitral Valve Prolapse (MVP), Renal Disease Additional Past Medical History / Comment(s): See Dr Holman's H&P, Sarcodosis,Hemodialysis MoWeFr,hx dvt left leg History of Any Multi-Drug Resistant Organisms: C-DIFF Date of last positivie culture/infection: April 2016 MDRO Source:: STOOL Past Surgical History: AICD, Back Surgery, Orthopedic Surgery, Pacemaker Additional Past Surgical History / Comment(s): Bilateral lung transplant w/ valve replacement(not sure which valve)-04-25-2016. COLONOSCOPY. RT HAND SURGERY. HEMODIALYSIS CATH. AV SHUNT LT UPPER ARM- 06/11/17 Past Anesthesia/Blood Transfusion Reactions: Motion Sickness Type of Cardiac Device: Permanent Pacemaker, AICD Device Placement Date:: 03-28-2011 Past Psychological History: No Psychological Hx Reported Smoking Status: Former smoker - Past Family History Father Family Medical History: Cancer, Osteoarthritis (OA) General Exam - General Exam Comments Initial Comments: Physical Exam GENERAL: Chronically ill-appearing HENT: Normocephalic, Atraumatic. EYES: PERRL, EOMI PULMONARY: Unlabored respirations. CARDIOVASCULAR: There is a regular rate and rhythm without any murmurs gallops or rubs. Pacemaker in place over left chest, well-healing, ABDOMEN: Soft and nontender with normal bowel sounds. SKIN: surgical incision has mild oozing from medial aspect of the incision : Deferred NEUROLOGIC: Patient is alert and oriented x3. Moving all extremities spontaneously MUSCULOSKELETAL: Normal extremities with adequate strength and full range of motion. No lower extremity swelling or edema. No calf tenderness. PSYCHIATRIC: Normal psychiatric evaluation. Limitations: no limitations Limitations: no limitations Course Vital Signs 10/31/18 06:17 Temperature 98.0 F Pulse Rate 69 Respiratory 16 Rate Blood Pressure 122/81 O2 Sat by Pulse 100 Oximetry Medical Decision Making - Medical Decision Making Patient was seen and evaluated, patient has mild oozing from medial aspect of incision, incision is otherwise healing well with no bleeding. There is no surrounding erythema. Patient reassured that the wound is healing well. On stressing was applied. Patient is discharged home in stable condition. Disposition Clinical Impression: Visit for wound check Disposition: HOME SELF-CARE Condition: Good Instructions: Care For Your Absorbable Stitches (ED) Is patient prescribed a controlled substance at d/c from ED?: No Referrals: Hernán Qureshi DO [Primary Care Provider] - 1-2 days Time of Disposition: 06:57
== END 2018-10-31 07:04 | disposition home or self-care (01) ==
LOC: EC 06:14
DX: Z48.01 Encounter for change or removal of surgical wound dressing (principal); K21.9 Gastro-esophageal reflux disease without esophagitis; I12.9 Hypertensive chronic kidney disease with stage 1 through stage 4 chronic kidney disease, or unspecified chronic kidney disease; E11.22 Type 2 diabetes mellitus with diabetic chronic kidney disease; N18.9 Chronic kidney disease, unspecified; Z99.2 Dependence on renal dialysis; Z86.718 Personal history of other venous thrombosis and embolism; Z87.891 Personal history of nicotine dependence; Z95.810 Presence of automatic (implantable) cardiac defibrillator; Z94.2 Lung transplant status; Z79.52 Long term (current) use of systemic steroids; Z79.4 Long term (current) use of insulin; Z79.82 Long term (current) use of aspirin; Z79.899 Other long term (current) drug therapy; Z88.5 Allergy status to narcotic agent
CPT/HCPCS: 99282

== ENCOUNTER → 2019-09-15 | Day surgery (SDC) | payer MEDICARE, BC ==
[2019-09-10 12:40] VITALS: BMI 26.4
[~2019-09-15] MED LIST changes: +BENZOCAINE SPRAY 1 CAN MUCOUS MEM ONE; +MIDAZOLAM 2 MG/2 ML VIAL IV ONE; +SODIUM CHLORIDE 0.9% 1,000 ML IV ONE; +SODIUM CHLORIDE 0.9% 1,000 ML IV SCH; -ceFAZolin 1,000 MG in SODIUM CHLORIDE 0.9% IRRIGATIO 250 ML IRRIGATION ONE; -ceFAZolin IN SWFI 2 GM/20 ML SYRINGE IVP ONE; +fentaNYL (PF) 50 MCG/ML 2 ML AMP IV ONE; +fentaNYL (PF) 50 MCG/ML 2 ML AMP ONE
[2019-09-15 07:30] VITALS: RESP 18; TEMP 97.8
--- NOTE | 2019-09-15 08:21 | P.PCN ---
Date of Procedure: 09/15/19 Preoperative Diagnosis: Atrial fibrillation Postoperative Diagnosis: The same Procedure(s) Performed: Attempted DIMITRY Description of Procedure: This patient is brought in for DIMITRY. Patient was given IV sedation with the 1.5 milligrams Versed, and also 50 mics of fentanyl. The throat was sprayed with Cetacaine. An Omni probe was introduced into the oropharynx. Patient had large tongue and narrow oropharynx. Difficult to advance the probe into the oropharynx. Because of technical difficulties and patient be inability to cooperate, the procedure was canceled. No immediate complications. Will discuss with Dr. Ramos regarding further management.
[2019-09-15 11:52] VITALS: PULSE 58
[2019-09-15 11:53] VITALS: BP 149/91
== END | disposition home or self-care (01) ==
LOC: CATHCVL 06:32
PROVIDERS: ATTEND Internal Medicine Cardiovascular Disease
DX: I48.0 Paroxysmal atrial fibrillation (principal); Z53.8 Procedure and treatment not carried out for other reasons; E78.5 Hyperlipidemia, unspecified; D86.9 Sarcoidosis, unspecified; E78.00 Pure hypercholesterolemia, unspecified; E11.22 Type 2 diabetes mellitus with diabetic chronic kidney disease; I13.2 Hypertensive heart and chronic kidney disease with heart failure and with stage 5 chronic kidney disease, or end stage renal disease; N18.5 Chronic kidney disease, stage 5; I50.32 Chronic diastolic (congestive) heart failure; Z99.2 Dependence on renal dialysis; Z94.0 Kidney transplant status; Z95.810 Presence of automatic (implantable) cardiac defibrillator; Z79.4 Long term (current) use of insulin; Z79.82 Long term (current) use of aspirin; Z79.52 Long term (current) use of systemic steroids; Z79.01 Long term (current) use of anticoagulants; Z79.899 Other long term (current) drug therapy; Z88.5 Allergy status to narcotic agent
CPT/HCPCS: 93312; J2250; J3010

== ENCOUNTER 2019-12-29 16:23 | Observation (INO) | payer MEDICARE, BC ==
--- NOTE | 2019-12-29 14:57 | NM ---
EXAMINATION TYPE: NM pul vent and perfuse DATE OF EXAM: 12/29/2019 COMPARISON: Chest x-ray 12/29/2019 HISTORY: Shortness of breath TECHNIQUE: Utilizing inhalation of 38 mCi Tc 99m DTPA aerosol and intravenous injection of 5.2 mCi o f Tc 99m MAA, ventilation and perfusion images are acquired post injection in multiple projections. FINDINGS: There is reduced uptake and ventilation images diffusely involving the mid and upper lung zones. This results in severely limited exam. Artifact from the cardiac device is seen overlying the left hemith orax. Be matched defects involving the apex of the right lung and bilateral lower lobe. IMPRESSION: Intermediate probability for pulmonary embolism
--- NOTE | 2019-12-29 15:02 | XR ---
EXAMINATION TYPE: XR chest 2V DATE OF EXAM: 12/29/2019 COMPARISON: 03/17/2015 TECHNIQUE: PA and lateral views submitted. HISTORY: Shortness of breath FINDINGS: Heart is enlarged and is postoperative change and cardiac device. Tiny bilateral effusions and diffus e interstitial pattern. Biapical thickening. There is a 3 mm nodule in the bilateral lung apex. IMPRESSION: 1. Correlate for mild CHF otherwise consider interstitial pneumonitis. 2. There is a small 3 mm nodule within the bilateral lung apices. Findings are too small to character ize, but may represent small granuloma. Short-term follow up CT of the chest could be obtained.
--- NOTE | 2019-12-29 17:15 | ED ---
General Adult HPI - General Chief complaint: Shortness of Breath Stated complaint: Dyspnea Time Seen by Provider: 12/29/19 16:49 Source: patient, family, RN notes reviewed Mode of arrival: wheelchair Limitations: no limitations - History of Present Illness Initial comments: Patient is a pleasant 9-year-old male presenting to the emergency Department wit h complaints of cough and dyspnea. Symptoms have been present 5- 6 days. No upper respiratory symptoms. No fevers. Patient does have history of previous blood clots. Patient is on Coumadin however is levels recently have been low. Patient did recently have clot removed from his fistula on the left side. Patient saw his doctor today and take an additional amount of Coumadin for a total of 5 mg. Patient had chest x-ray and VQ scan done today. VQ scan showed intermediate probability and patient was advised come to emergency department. No leg pain or leg swelling. Patient has known history of blood clots in his legs as well. Patient also does have IVC filter - Related Data Home Medications Medication Instructions Recorded Confirmed Aspirin 81 mg PO DAILY 01/04/17 09/15/19 Darbepoetin Carlito [Aranesp] 40 mcg INJ MOWE 01/04/17 09/15/19 Ergocalciferol (Vitamin D2) 50,000 unit PO TH 01/04/17 09/15/19 [Vitamin D2] Folic Acid 1 mg PO DAILY 01/04/17 09/15/19 Ondansetron [Zofran] 4 mg PO Q6HR PRN 01/04/17 09/15/19 Pantoprazole Sodium 40 mg PO BID 01/04/17 09/15/19 amLODIPine [Norvasc] 5 mg PO DAILY 06/12/17 09/15/19 Atorvastatin [Lipitor] 10 mg PO HS 04/29/18 09/15/19 Itraconazole [Sporanox] 200 mg PO DAILY 04/29/18 09/15/19 Montelukast [Singulair] 10 mg PO HS 04/29/18 09/15/19 predniSONE 5 mg PO DAILY 04/29/18 09/15/19 Magnebind 300 2 tab PO BID 09/22/18 09/15/19 Calcium Acetate [Phoslo] 1,334 mg PO BID 09/10/19 09/15/19 Dapsone 100 mg PO MOWEFR 09/10/19 09/15/19 Erythromycin [Chaitanya-Tab] 250 mg PO MOWEFR 09/10/19 09/15/19 Fluticasone Propionate 110 Mcg 1 puff INHALATION DAILY 09/10/19 09/15/19 [Flovent 110 Mcg Inhaler (Bulk)] Tacrolimus [Prograf] 2.5 mg PO HS 09/10/19 09/15/19 Tacrolimus [Prograf] 3 mg PO QAM 09/10/19 09/15/19 Allergies Allergy/AdvReac Type Severity Reaction Status Date / Time meperidine [From Demerol] Allergy Rash/Hives Verified 12/29/19 16:31 Review of Systems ROS Statement: Those systems with pertinent positive or pertinent negative responses have been documented in the HPI. ROS Other: All systems not noted in ROS Statement are negative. Constitutional: Denies: fever Eyes: Denies: eye pain ENT: Denies: ear pain Respiratory: Reports: cough, dyspnea Cardiovascular: Denies: chest pain Endocrine: Denies: fatigue Gastrointestinal: Denies: abdominal pain Genitourinary: Denies: dysuria Musculoskeletal: Denies: back pain Skin: Denies: rash Neurological: Denies: headache Past Medical History Past Medical History: Diabetes Mellitus, Deep Vein Thrombosis (DVT), Hypertension, Renal Disease Additional Past Medical History / Comment(s): See Dr Holman's H&P,Sarcodosis,Hemodialysis MoWeFr,hx dvt left leg History of Any Multi-Drug Resistant Organisms: C-DIFF Date of last positivie culture/infection: April 2016 MDRO Source:: STOOL Past Surgical History: AICD, Back Surgery, Orthopedic Surgery, Pacemaker Additional Past Surgical History / Comment(s): Bilateral lung transplant w/ valve replacement(not sure which valve)-04-25-2016. COLONOSCOPY. RT HAND SURGERY. HEMODIALYSIS CATH. AV SHUNT LT UPPER ARM- 06/11/17 Past Anesthesia/Blood Transfusion Reactions: Motion Sickness Type of Cardiac Device: Permanent Pacemaker, AICD Device Placement Date:: 03-28-2011 Past Psychological History: No Psychological Hx Reported Smoking Status: Former smoker Past Alcohol Use History: None Reported Past Drug Use History: None Reported - Past Family History Father Family Medical History: Cancer, Osteoarthritis (OA) General Exam Limitations: no limitations General appearance: alert, in no apparent distress Head exam: Present: normocephalic Eye exam: Present: normal appearance, PERRL ENT exam: Present: normal oropharynx Neck exam: Present: normal inspection Respiratory exam: Present: normal lung sounds bilaterally Cardiovascular Exam: Present: regular rate, normal rhythm GI/Abdominal exam: Present: soft. Absent: tenderness Extremities exam: Present: normal inspection, other (Left arm fistula). Absent: pedal edema Back exam: Present: normal inspection Neurological exam: Present: alert Psychiatric exam: Present: normal affect, normal mood Skin exam: Present: normal color Course Vital Signs 12/29/19 12/29/19 12/29/19 16:26 17:01 17:30 Temperature 97.4 F L Pulse Rate 72 82 Respiratory 20 22 15 Rate Blood Pressure 136/94 137/82 O2 Sat by Pulse 98 96 Oximetry 12/29/19 12/29/19 18:00 19:30 Temperature Pulse Rate 84 86 Respiratory 18 18 Rate Blood Pressure 132/85 134/90 O2 Sat by Pulse 95 98 Oximetry EKG Findings - EKG Comments: EKG Findings:: Normal sinus rhythm at 80. WI 1:30. QRS 82. QT 44. QTC 465. Right axis. Normal QRS. No acute ST change. Medical Decision Making - Medical Decision Making Patient reevaluated and resting comfortably in bed. Patient and family updated on results and plan. Case was discussed in detail with Dr. Gary, who will admit covering for Dr. Qureshi. He does request CTA of the chest with contrast and consult to nephrology for dialysis tomorrow. Only nephrology consult at this time. He does recommend heparin as well. Dr. Desai was also consult and who agrees with this and will do dialysis tomorrow. Patient and family updated regarding plan - Lab Data Result diagrams: 12/29/19 17:05 12/29/19 17:05 Lab Results 12/29/19 12/29/19 12/29/19 Range/Units 11:15 17:05 17:05 WBC 7.6 (3.8-10.6) k/uL RBC 3.98 L (4.30-5.90) m/uL Hgb 11.3 L (13.0-17.5) gm/dL Hct 37.2 L (39.0-53.0) % MCV 93.4 (80.0-100.0) fL MCH 28.5 (25.0-35.0) pg MCHC 30.5 L (31.0-37.0) g/dL RDW 18.4 H (11.5-15.5) % Plt Count 107 L (150-450) k/uL Neutrophils % 69 % Lymphocytes % 19 % Monocytes % 6 % Eosinophils % 3 % Basophils % 0 % Neutrophils # 5.2 (1.3-7.7) k/uL Lymphocytes # 1.4 (1.0-4.8) k/uL Monocytes # 0.5 (0-1.0) k/uL Eosinophils # 0.2 (0-0.7) k/uL Basophils # 0.0 (0-0.2) k/uL Hypochromasia Slight Anisocytosis Slight PT (9.0-12.0) sec INR (<1.2) APTT (22.0-30.0) sec Sodium 140 (137-145) mmol/L Potassium 5.5 H (3.5-5.1) mmol/L Chloride 96 L (98-107) mmol/L Carbon Dioxide 31 H (22-30) mmol/L Anion Gap 13 mmol/L BUN 58 H 60 H (9-20) mg/dL Creatinine 11.68 H* 12.22 H* (0.66-1.25) mg/dL Est GFR (CKD-EPI)AfAm 5 5 (>60 ml/min/1.73 sqM) Est GFR (CKD-EPI)NonAf 4 4 (>60 ml/min/1.73 sqM) Glucose 132 H (74-99) mg/dL Calcium 9.1 (8.4-10.2) mg/dL Total Bilirubin 0.5 (0.2-1.3) mg/dL AST 24 (17-59) U/L ALT 15 (4-49) U/L Alkaline Phosphatase 91 (38-126) U/L NT-Pro-B Natriuret Pep pg/mL Total Protein 7.5 (6.3-8.2) g/dL Albumin 4.3 (3.5-5.0) g/dL Influenza Type A RNA (Not Detectd) Influenza Type B (PCR) (Not Detectd) 12/29/19 12/29/19 12/29/19 Range/Units 17:05 17:05 17:27 WBC (3.8-10.6) k/uL RBC (4.30-5.90) m/uL Hgb (13.0-17.5) gm/dL Hct (39.0-53.0) % MCV (80.0-100.0) fL MCH (25.0-35.0) pg MCHC (31.0-37.0) g/dL RDW (11.5-15.5) % Plt Count (150-450) k/uL Neutrophils % % Lymphocytes % % Monocytes % % Eosinophils % % Basophils % % Neutrophils # (1.3-7.7) k/uL Lymphocytes # (1.0-4.8) k/uL Monocytes # (0-1.0) k/uL Eosinophils # (0-0.7) k/uL Basophils # (0-0.2) k/uL Hypochromasia Anisocytosis PT 11.8 (9.0-12.0) sec INR 1.2 H (<1.2) APTT 28.7 (22.0-30.0) sec Sodium (137-145) mmol/L Potassium (3.5-5.1) mmol/L Chloride (98-107) mmol/L Carbon Dioxide (22-30) mmol/L Anion Gap mmol/L BUN (9-20) mg/dL Creatinine (0.66-1.25) mg/dL Est GFR (CKD-EPI)AfAm (>60 ml/min/1.73 sqM) Est GFR (CKD-EPI)NonAf (>60 ml/min/1.73 sqM) Glucose (74-99) mg/dL Calcium (8.4-10.2) mg/dL Total Bilirubin (0.2-1.3) mg/dL AST (17-59) U/L ALT (4-49) U/L Alkaline Phosphatase (38-126) U/L NT-Pro-B Natriuret Pep 7520 pg/mL Total Protein (6.3-8.2) g/dL Albumin (3.5-5.0) g/dL Influenza Type A RNA Not Detected (Not Detectd) Influenza Type B (PCR) Not Detected (Not Detectd) - Radiology Data Radiology results: report reviewed (VQ scan indeterminate probability. Chest x- ray shows diffuse interstitial pattern, correlate for mild CHF or pneumonitis) Disposition Clinical Impression: Dyspnea, History of lung transplant, CRF (chronic renal failure) Disposition: ADMITTED IP TO THIS HOSP Is patient prescribed a controlled substance at d/c from ED?: No Referrals: Hernán Qureshi DO [Primary Care Provider] - 1-2 days Decision Time: 19:47
[2019-12-29 17:33] LABS: INR 1.2 (<1.2); Partial Thromboplastin Time 28.7 sec (22.0-30.0); Prothrombin Time 11.8 sec (9.0-12.0)
[2019-12-29 17:37] LABS: Albumin 4.3 g/dL (3.5-5.0); Calcium 9.1 mg/dL (8.4-10.2); Potassium 5.5 mmol/L (3.5-5.1); Total Bilirubin 0.5 mg/dL (0.2-1.3); Total Protein 7.5 g/dL (6.3-8.2)
[2019-12-29 17:54] LABS: Anisocytosis Slight; Basophils % (A) 0 %; Eosinophils # (A) 0.2 k/uL (0-0.7); Eosinophils % (A) 3 %; HCT 37.2 % (39.0-53.0); HGB 11.3 gm/dL (13.0-17.5); Hypochromasia Slight; Lymphocytes # (A) 1.4 k/uL (1.0-4.8); Lymphocytes % (A) 19 %; MCH 28.5 pg (25.0-35.0); MCHC 30.5 g/dL (31.0-37.0); MCV 93.4 fL (80.0-100.0); Mean Platelet Volume 10.5; Monocytes # (A) 0.5 k/uL (0-1.0); Monocytes % (A) 6 %; Neutrophils # (A) 5.2 k/uL (1.3-7.7); Neutrophils % (A) 69 %; Platelet Count 107 k/uL (150-450); RBC 3.98 m/uL (4.30-5.90); RDW 18.4 % (11.5-15.5); WBC 7.6 k/uL (3.8-10.6)
[2019-12-29] MEDS ORDERED: HEPARIN SODIUM,PORCINE 10,000 UNIT/ML 1 ML VIAL IV ONE (19:47)
[2019-12-29] MEDS ORDERED: HEPARIN SODIUM,PORCINE 5,000 UNIT/ML 1 ML VIAL IV PRN (19:47)
[2019-12-29] MEDS ORDERED: NALOXONE 0.4 MG/ML 1 ML VIAL IV PRN (19:49)
[2019-12-29] MEDS ORDERED: IPRATROPIUM-ALBUTEROL 3 ML NEB INHALATION PRN (19:51)
[2019-12-29] MEDS ORDERED: SODIUM CHLORIDE 0.9% 1,000 ML IV SCH (20:00)
[2019-12-29] MEDS ORDERED: HEPARIN SOD,PORK IN 0.45% NACL 25,000 UNIT in 0.45% NACL 1 250ML.BAG IV SCH (20:00)
--- NOTE | 2019-12-29 21:01 | CT ---
EXAMINATION TYPE: CT angio chest DATE OF EXAM: 12/29/2019 COMPARISON: None HISTORY: SOB CT DLP: 483.6 mGycm Automated exposure control for dose reduction was used. CONTRAST: Performed with IV Contrast, patient injected with 80 mL of Isovue 370. There are 3-D post processed images. There is some groundglass interstitial infiltrate in both lungs. Heart is enlarged. There are sternal wires. There is a left axillary pacemaker. Thoracic aorta is atheromatous without evidence of aneury sm. There is no dissection. The ascending aorta measures 3.8 cm. I see no filling defects in the pulmonary arteries. There is no mediastinal adenopathy. There is no e vidence of focal bone destruction. There is small right pleural effusion. There is minimal pleural ca lcification on the right side. There are bilateral renal cortical cysts. Spleen is large and measures 13 cm. IMPRESSION: No evidence of pulmonary embolism. Cardiomegaly and pulmonary edema that could relate to congestive h eart failure. Interstitial pulmonary infiltrates also consistent with the history of sarcoidosis.
[2019-12-29] MEDS ORDERED: ONDANSETRON 4 MG TAB PO PRN (22:37)
[2019-12-29] MEDS ORDERED: MONTELUKAST 10 MG TAB PO SCH (22:45)
[2019-12-29] MEDS ORDERED: ATORVASTATIN 10 MG TAB PO SCH (22:45)
[2019-12-29] MEDS ORDERED: METOPROLOL TARTRATE 25 MG TAB PO SCH (22:45)
[2019-12-29] MEDS ORDERED: CALCIUM CARB-MAG CARB-FOLIC 1 EACH TAB PO SCH (23:00)
[2019-12-29] MEDS ORDERED: WARFARIN 2.5 MG TAB PO SCH (23:00)
[2019-12-29] MEDS: INSULIN ASPART (NovoLOG) 100 UNIT/ML VIAL SQ SCH (23:31)
[2019-12-29] MEDS: TACROLIMUS 1 MG CAP PO SCH (23:31)
[2019-12-29 23:50] LABS: Glucose,Whole Blood 332 mg/dL (75-99)
[2019-12-30] MEDS ORDERED: PANTOPRAZOLE 40 MG TABLET PO SCH ×2 (00:30→09:00)
[2019-12-30 06:19] LABS: Anisocytosis Slight; Basophils % (A) 0 %; Eosinophils # (A) 0.2 k/uL (0-0.7); Eosinophils % (A) 3 %; HCT 35.4 % (39.0-53.0); HGB 10.8 gm/dL (13.0-17.5); Hypochromasia Slight; Lymphocytes # (A) 1.1 k/uL (1.0-4.8); Lymphocytes % (A) 19 %; MCH 28.7 pg (25.0-35.0); MCHC 30.5 g/dL (31.0-37.0); MCV 94.3 fL (80.0-100.0); Mean Platelet Volume 9.6; Monocytes # (A) 0.5 k/uL (0-1.0); Monocytes % (A) 8 %; Neutrophils % (A) 66 %; RBC 3.76 m/uL (4.30-5.90); RDW 18.4 % (11.5-15.5); WBC 6.1 k/uL (3.8-10.6)
[2019-12-30 06:21] LABS: Platelet Count 93 k/uL (150-450)
[2019-12-30 06:27] LABS: INR 1.3 (<1.2); Partial Thromboplastin Time 87.4 sec (22.0-30.0); Prothrombin Time 13.2 sec (9.0-12.0)
[2019-12-30 06:59] LABS: Glucose,Whole Blood 94 mg/dL (75-99)
[2019-12-30] MEDS: INSULIN ASPART (NovoLOG) 100 UNIT/ML VIAL SQ SCH (07:03)
[2019-12-30 07:13] LABS: Calcium 8.7 mg/dL (8.4-10.2); Potassium 5.4 mmol/L (3.5-5.1)
[2019-12-30] MEDS ORDERED: CALCIUM ACETATE 667 MG TAB PO SCH (07:30)
[2019-12-30] MEDS ORDERED: FLUTICASONE 110 MCG INHALER INHALATION SCH (08:00)
[2019-12-30] MEDS ORDERED: AZITHROMYCIN 250 MG TAB PO SCH (09:00)
[2019-12-30] MEDS ORDERED: DAPSONE 25 MG TAB PO SCH ×2 (09:00→20:00)
[2019-12-30] MEDS ORDERED: amLODIPine 5 MG TAB PO SCH (09:00)
[2019-12-30] MEDS ORDERED: LIDOCAINE-PRILOCAINE 2.5-2.5% CREAM 5 GM TUBE TOPICAL PRN (09:00)
[2019-12-30] MEDS ORDERED: predniSONE 5 MG TAB PO SCH (09:00)
[2019-12-30] MEDS ORDERED: APIXABAN 5 MG TAB PO SCH (10:15)
[2019-12-30] MEDS: TACROLIMUS 1 MG CAP PO SCH (10:28)
[2019-12-30 12:42] LABS: Hepatitis B Surface AB- Quant 14.1 mIU/mL; Hepatitis B Surface Antibody Reactive (Non-Reactive); Hepatitis B Surface Antigen Non-Reactive (Non-Reactive)
--- NOTE | 2019-12-30 14:20 | P.HPIM ---
History of Present Illness H&P Date: 12/30/19 Chief Complaint: Cough TU HISTORY AND PHYSICAL AND DISCHARGE SUMMARY: This is a 59-year-old -Russian male patient of Dr. Qureshi with past medical history of sarcoidosis with multiorgan involvement status post bilateral lung transplant done at [facility] in 2014, end-stage renal disease on hemodialysis Saturday via left arm AV fistula followed by Dr. Desai, DVT of the left lower extremity on Coumadin, hypertension, diabetes mellitus type 2, high-grade AV block and paroxysmal atrial fibrillation status post dual-chamber AICD, hypertension, chronic diastolic heart failure, pulmonary hypertension and chronic cor pulmonale, chronic thrombocytopenia. Patient complains of a cough for 7 days with little sputum production. He states he was slowly gradually getting worse. He denies any lower extremity edema. He sleeps with 4 pillows which is unchanged. His last dialysis was on Saturday with removal of 1.6 L. He states on October 29 he was taken off some of his anti-rejection medications. Patient has been on Coumadin which she states is for DVT. He states he tried Xarelto in the past but developed hematuria. His INR has been subtherapeutic and he took double dose of Coumadin yesterday as advised by his PCP. There was concern the patient may have a pulmonary embolism and patient was sent in to [facility] by his PCP for evaluation. VQ scan showed intermediate probability for pulmonary embolism. He had a chest x-ray reported as correlate for mild heart failure. 3 mm nodule bilateral lung apices. He was started on heparin drip which patient refuses he was afraid of getting fluid overload with IV fluids and heparin drip. This apparently was discontinued. He subsequently underwent a CAT scan and she'll of the chest that showed no evidence of pulmonary embolism. There could relate to congestive heart failure. Interstitial pulmonary trace also consistent with history of sarcoidosis. EKG was a normal sinus rhythm rate of [address] changes. WBC 7.6, hemoglobin 11.3, platelet count 107. INR 1.2. Sodium 140, potassium 5.5, chloride 96, CO2 31, BUN 16 creatinine 12.22. Blood sugar 132. ProBNP 7520. Liver function tests within normal limits. Influenza testing negative. Hepatitis was B surface antibody reactive. Patient was ordered for hemodialysis but due to machine malfunction this was delayed until later in the day. Consults in place with pulmonary medicine and nephrology and patient to be admitted to the cardiac stepdown unit, currently waiting for bed in the emergency center. Patient has an appointment with his pulmonary doctor at [facility] tomorrow and wanted to make it to his appointment but will try to contact [facility] physician and reschedule. Patient also had clots removed from AV fistula Saturday. Patient was evaluated by Dr. Damon in the emergency center and he recommended the patient be discharged home and plan follow up with his appointment at [facility] in the morning. Patient was instructed by Dr. Damon to resume anticoagulation to keep INR between 2 and 3 and discharged home on Coumadin 5 mg for 3 days and have his level checked by his primary care. Review of Systems Constitutional: Reports fatigue, Denies chills, Denies fever Eyes: denies blurred vision, denies pain Ears, nose, mouth and throat: Denies dysphagia, Denies nasal congestion, Denies nasal discharge, Denies sore throat, Denies vertigo Cardiovascular: Reports dyspnea on exertion, Reports shortness of breath, Denies chest pain, Denies edema, Denies leg edema Respiratory: Reports cough, Reports cough with sputum, Reports dyspnea, Denies excessive sputum, Denies hemoptysis, Denies home oxygen, Denies wheezing Gastrointestinal: Denies abdominal pain, Denies diarrhea, Denies loss of appetite, Denies nausea, Denies vomiting Genitourinary: Denies dysuria Musculoskeletal: Denies frequent falls, Denies gait dysfunction, Denies myalgias Integumentary: Denies pruritus, Denies rash, Denies wounds Neurological: Denies change in mentation, Denies change in speech, Denies numbness, Denies weakness Psychiatric: Denies anxiety, Denies depression Endocrine: Denies fatigue, Denies weight change Past Medical History Past Medical History: Diabetes Mellitus, Deep Vein Thrombosis (DVT), Hypertension, Renal Disease Additional Past Medical History / Comment(s): See Dr Holman's H&P,Sarcodosis,Hemodialysis MoWeFr,hx dvt left leg. 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 COLONOSCOPY. RT HAND SURGERY. HEMODIALYSIS CATH. AV SHUNT LT UPPER ARM- 06/11/17 Past Anesthesia/Blood Transfusion Reactions: Motion Sickness Type of Cardiac Device: Permanent Pacemaker, AICD Device Placement Date:: 03-28-2011 Past Psychological History: No Psychological Hx Reported Smoking Status: Never smoker Past Alcohol Use History: None Reported Additional Past Alcohol Use History / Comment(s): Patient states that he is a lifelong nonsmoker. No marijuana, illicit drug use or alcohol use. Patient lives with his fianc. Past Drug Use History: None Reported - Past Family History Father Family Medical History: Cancer, Osteoarthritis (OA) Additional Family Medical History / Comment(s): Father is with history of leukemia and sarcoidosis. Strong family history of sarcoidosis on his father's side. Mother Additional Family Medical History / Comment(s): Mother is after her fifth myocardial infarction with history of diabetes. Brother(s) Additional Family Medical History / Comment(s): Patient has a brother and sister with sarcoidosis. Patient has 6 children with no major medical problems. None have been diagnosed with sarcoidosis. Medications and Allergies Home Medications Medication Instructions Recorded Confirmed Type Darbepoetin Carlito [Aranesp] 40 mcg INJ MOWE 01/04/17 12/29/19 History Ergocalciferol (Vitamin D2) 50,000 unit PO TH 01/04/17 12/29/19 History [Vitamin D2] Ondansetron [Zofran] 4 mg PO Q6HR PRN 01/04/17 12/29/19 History Pantoprazole Sodium 40 mg PO DAILY 01/04/17 12/29/19 History amLODIPine [Norvasc] 5 mg PO DAILY 06/12/17 12/29/19 History Atorvastatin [Lipitor] 10 mg PO HS 04/29/18 12/29/19 History Montelukast [Singulair] 10 mg PO HS 04/29/18 12/29/19 History predniSONE 5 mg PO DAILY 04/29/18 12/29/19 History Magnebind 300 2 tab PO TID 09/22/18 12/29/19 History Calcium Acetate [Phoslo] 667 mg PO TID 09/10/19 12/29/19 History Dapsone 100 mg PO MOWEFR 09/10/19 12/29/19 History Fluticasone Propionate 110 Mcg 1 puff INHALATION DAILY 09/10/19 12/29/19 History [Flovent 110 Mcg Inhaler (Bulk)] Tacrolimus [Prograf] 4 mg PO BID 09/10/19 12/29/19 History Azithromycin 250 mg PO MOWEFR 12/29/19 12/29/19 History Lidocaine-Prilocaine Cream [Emla 1 applic TOPICAL BID 12/29/19 12/29/19 History Cream 2.5%/2.5%] Metoprolol Tartrate 12.5 mg PO BID 12/29/19 12/29/19 History Warfarin [Coumadin] 1.25 mg PO TUTH 12/29/19 12/29/19 History Warfarin [Coumadin] 2.5 mg PO SUMOWEFRSA 12/29/19 12/29/19 History Allergies Allergy/AdvReac Type Severity Reaction Status Date / Time meperidine [From Demerol] Allergy Rash/Hives Verified 12/29/19 20:53 Physical Exam Vitals: Vital Signs Temp Pulse Pulse Resp BP BP Pulse Ox 12/30/19 07:29 97.2 F L 74 18 119/77 91 L 12/30/19 03:22 97.5 F L 85 17 125/80 96 12/29/19 23:05 83 17 136/84 98 12/29/19 20:30 84 16 135/89 12/29/19 19:30 86 18 134/90 98 12/29/19 18:00 84 18 132/85 95 12/29/19 17:30 82 15 137/82 96 12/29/19 17:01 22 12/29/19 16:26 97.4 F L 72 20 136/94 98 Intake and Output 12/29/19 12/30/19 12/30/19 22:59 06:59 14:59 Intake Total 99.688 Output Total 0 Balance 0 99.688 Intake: Intake, IV Titration 99.688 Amount Heparin Sod,Pork in 0.45% 99.688 NaCl 25,000 unit In 0.45 % NaCl 1 250ml.bag @ 18 UNITS/KG/HR 14.696 mls/hr IV .[id number] [facility] Rx#: [id number] Output: Urine 0 Other: Voiding Method Urinal # Voids 0 Weight 81.647 kg Gen: This is a 59-year-old F can Russian male. He is laying on the ER stretcher and appears to be comfortable at rest. Occasional cough noted. HEENT: Head is atraumatic, normocephalic. Pupils equal, round. Sclerae is ani cteric. NECK: Supple. No JVD. No lymphadenopathy. No thyromegaly. LUNGS: Crackles to the bilateral bases. No intercostal retractions. No accessory muscle usage. HEART: Regular rate and rhythm. No murmur. ABDOMEN: Soft. Bowel sounds are present. No masses. No tenderness. EXTREMITIES: No pedal edema. No calf tenderness. Dorsalis pedis palpable bilaterally. AV fistula to the left arm. NEUROLOGICAL: Patient is awake, alert and oriented x3. Cranial nerves 2 through 12 are grossly intact. Results CBC & Chem 7: 12/30/19 05:52 12/30/19 05:52 Labs: Abnormal Lab Results - Last 24 Hours (Table) 12/29/19 12/29/19 12/29/19 Range/Units 11:15 17:05 17:05 RBC 3.98 L (4.30-5.90) m/uL Hgb 11.3 L (13.0-17.5) gm/dL Hct 37.2 L (39.0-53.0) % MCHC 30.5 L (31.0-37.0) g/dL RDW 18.4 H (11.5-15.5) % Plt Count 107 L (150-450) k/uL PT (9.0-12.0) sec INR (<1.2) APTT (22.0-30.0) sec Potassium 5.5 H (3.5-5.1) mmol/L Chloride 96 L (98-107) mmol/L Carbon Dioxide 31 H (22-30) mmol/L BUN 58 H 60 H (9-20) mg/dL Creatinine 11.68 H* 12.22 H* (0.66-1.25) mg/dL Glucose 132 H (74-99) mg/dL POC Glucose (mg/dL) (75-99) mg/dL 12/29/19 12/29/19 12/30/19 Range/Units 17:05 23:18 02:30 RBC (4.30-5.90) m/uL Hgb (13.0-17.5) gm/dL Hct (39.0-53.0) % MCHC (31.0-37.0) g/dL RDW (11.5-15.5) % Plt Count (150-450) k/uL PT (9.0-12.0) sec INR 1.2 H (<1.2) APTT >200.0 H* (22.0-30.0) sec Potassium (3.5-5.1) mmol/L Chloride (98-107) mmol/L Carbon Dioxide (22-30) mmol/L BUN (9-20) mg/dL Creatinine (0.66-1.25) mg/dL Glucose (74-99) mg/dL POC Glucose (mg/dL) 332 H (75-99) mg/dL 12/30/19 12/30/19 12/30/19 Range/Units 05:52 05:52 05:52 RBC 3.76 L (4.30-5.90) m/uL Hgb 10.8 L (13.0-17.5) gm/dL Hct 35.4 L (39.0-53.0) % MCHC 30.5 L (31.0-37.0) g/dL RDW 18.4 H (11.5-15.5) % Plt Count 93 L (150-450) k/uL PT 13.2 H (9.0-12.0) sec INR 1.3 H (<1.2) APTT 87.4 H (22.0-30.0) sec Potassium 5.4 H (3.5-5.1) mmol/L Chloride (98-107) mmol/L Carbon Dioxide (22-30) mmol/L BUN 71 H (9-20) mg/dL Creatinine 13.02 H* (0.66-1.25) mg/dL Glucose (74-99) mg/dL POC Glucose (mg/dL) (75-99) mg/dL Thrombosis Risk Factor Assmnt - DVT/VTE Prophylaxis DVT/VTE Prophylaxis: Pharmacologic Prophylaxis ordered - Choose All That Apply Any of the Below Risk Factors Present?: Yes Each Factor Represents 1 point: Age 41-60 years, Medical pt on bed rest, Obesity (BMI >25) Other Risk Factors: Yes Each Risk Factor Represents 3 Points: History of DVT/PE Other congenital or acquired thrombophilia - If yes, enter type in comment: No Thrombosis Risk Factor Assessment Total Risk Factor Score: 6 Thrombosis Risk Factor Assessment Level: High Risk Assessment and Plan Plan: 1. Cough and shortness of breath secondary to fluid overload, acute on chronic diastolic heart failure. Patient scheduled for hemodialysis today. CTA of the chest ruled out pulmonary embolism, influenza testing negative. Consult with Dr. Damon. 2. History of sarcoidosis with multiorgan involvement status post bilateral lung transplant done at [facility] in 2014. Patient to reschedule [facility] appointment. Continue azithromycin 250 mg Saturday, dapsone 100 mg Saturday, prednisone 5 mg daily, Prograf 4 mg twice daily, Flovent daily, singular 10 mg at bedtime, DuoNeb treatments 4 times daily as needed. 3. End-stage renal disease on hemodialysis Saturday via left arm AV fistula. Consult with nephrology. Continue PhosLo 667 mg 3 times daily, mag #400 mg 3 times daily. 4. DVT of the left lower extremity. Patient is subtherapeutic on Coumadin. Coumadin will be discontinued. Heparin discontinued as patient refuses. Patient will be started on eliquis 5 mg twice daily. 5. Diabetes mellitus type 2. Continue NovoLog scale before meals and at bedtime 6. Hypertension. Continue amlodipine 5 mg daily, Lopressor 12.5 mg twice daily. 7. History of high-grade AV block and paroxysmal atrial fibrillation status post dual-chamber AICD. Continue Lopressor 12.5 mg twice daily. 8. History of pulmonary hypertension and chronic cor pulmonale. 9. Chronic thrombocytopenia. 10. Recent clot removal from AV fistula. 11. Anemia of chronic kidney disease, stable. 12. GERD and GI prophylaxis. Protonix. 13. DVT prophylaxis. Eliquis. Patient placed as an observation status. Discharge plan: home Discharge Medication List Darbepoetin Carlito [Aranesp] 40 mcg INJ MOWE 01/04/17 [History] Ergocalciferol (Vitamin D2) [Vitamin D2] 50,000 unit PO TH 01/04/17 [History] Ondansetron [Zofran] 4 mg PO Q6HR PRN 01/04/17 [History] Pantoprazole Sodium 40 mg PO DAILY 01/04/17 [History] amLODIPine [Norvasc] 5 mg PO DAILY 06/12/17 [History] Atorvastatin [Lipitor] 10 mg PO HS 04/29/18 [History] Montelukast [Singulair] 10 mg PO HS 04/29/18 [History] predniSONE 5 mg PO DAILY 04/29/18 [History] Magnebind 300 2 tab PO TID 09/22/18 [History] Calcium Acetate [Phoslo] 667 mg PO TID 09/10/19 [History] Dapsone 100 mg PO MOWEFR 09/10/19 [History] Fluticasone Propionate 110 Mcg [Flovent 110 Mcg Inhaler (Bulk)] 1 puff INHALATION DAILY 09/10/19 [History] Tacrolimus [Prograf] 4 mg PO BID 09/10/19 [History] Azithromycin 250 mg PO MOWEFR 12/29/19 [History] Lidocaine-Prilocaine Cream [Emla Cream 2.5%/2.5%] 1 applic TOPICAL BID 12/29/19 [History] Metoprolol Tartrate 12.5 mg PO BID 12/29/19 [History] Warfarin [Coumadin] 1.25 mg PO TUTH 12/29/19 [History] Warfarin [Coumadin] 2.5 mg PO SUMOWEFRSA 12/29/19 [History] Impression and plan of care have been directed as dictated by the signing physician. Sydney Gallegos nurse practitioner acting as scribe for signing physician.
--- NOTE | 2019-12-30 15:39 | P.CNPUL ---
History of Present Illness Consult date: 12/30/19 Reason for consult: dyspnea History of present illness: A very pleasant 59-year-old -[place] male patient with known history of pulmonary sarcoidosis complicated by pulmonary fibrosis subsequent bilateral lung transportation it was done in [facility] back in 2014. Postop, the patient developed acute kidney injury ultimately developed end-stage renal disease and currently is on hemodialysis 3 times a week Mondays and Wednesdays and Fridays through a AV fistula in the left upper extremity. The patient also has CHF, cardiomyopathy, dual-chamber AICD placement, chronic systolic and diastolic heart failure, hypertension, secondary pulmonary hypertension with cor pulmonale and he also states that he has undergone some sort of an aortic valve surgery possibly 8 CAD. The patient has diabetes mellitus type 2, hypertension and he is also seeking kidney transplantation. In fact he has a follow-up appointment at the [facility] regarding this issue. The patient has also had history of DVT. He is on anticoagulation for now. Utilizes Coumadin. He came into the MRSA problem yesterday because of worsening shortness of breath. CT angios German was done. No evidence of any pulmonary embolism. Note that the VQ scan was of an intermediate probability but the CT angiogram showed no evidence of any PE. It showed some limited groundglass changes and the patient felt that he was having some increased fluid overload. This morning, the patient was given dialysis and he completed dialysis. His proBNP level was 7 5 20. A total of 2.5 L of fluid was removed and the patient felt much better. He feels that his breathing is back to his baseline. I took him off oxygen. He denies having any chest pain. No cough sputum production chest that is so wheezing. No leukocytosis. No other complaints. His immunosuppression medications include a combination of Prograf and prednisone. He is a nonsmoker. No history of any acute or chronic lung rejection. Review of Systems Constitutional: Reports fatigue, Denies chills, Denies fever Eyes: denies blurred vision, denies pain Ears, nose, mouth and throat: Denies dysphagia, Denies nasal congestion, Denies nasal discharge, Denies sore throat, Denies vertigo Cardiovascular: Reports dyspnea on exertion, Reports shortness of breath, Denies chest pain, Denies edema, Denies leg edema Respiratory: Reports cough, Reports cough with sputum, Reports dyspnea, Denies excessive sputum, Denies hemoptysis, Denies home oxygen, Denies wheezing Gastrointestinal: Denies abdominal pain, Denies diarrhea, Denies loss of appetite, Denies nausea, Denies vomiting Genitourinary: Denies dysuria Musculoskeletal: Denies frequent falls, Denies gait dysfunction, Denies myalgias Integumentary: Denies pruritus, Denies rash, Denies wounds Neurological: Denies change in mentation, Denies change in speech, Denies numbness, Denies weakness Psychiatric: Denies anxiety, Denies depression Endocrine: Denies fatigue, Denies weight change Past Medical History Past Medical History: Diabetes Mellitus, Deep Vein Thrombosis (DVT), Hypertension, Renal Disease Additional Past Medical History / Comment(s): Sarcoidosis, bilateral lung transplantation, end-stage renal disease currently on hemodialysis, history of DVT mental anticoagulation with warfarin, diabetes mellitus type 2, high degree AV block and the patient has been approximately atrial fibrillation and the patient has a dual-chamber AICD placement, CHF with chronic systolic and diastolic heart failure, hypertension, secondary pulmonary hypertension, History of Any Multi-Drug Resistant Organisms: C-DIFF Date of last positivie culture/infection: April 2016 MDRO Source:: STOOL Past Surgical History: AICD, Back Surgery, Orthopedic Surgery, Pacemaker Additional Past Surgical History / Comment(s): Bilateral lung transplant w/ valve replacement(not sure which valve)-04-25-2016. COLONOSCOPY. RT HAND SURGERY. HEMODIALYSIS CATH. AV SHUNT LT UPPER ARM- 06/11/17 Past Anesthesia/Blood Transfusion Reactions: Motion Sickness Type of Cardiac Device: Permanent Pacemaker, AICD Device Placement Date:: 03-28-2011 Past Psychological History: No Psychological Hx Reported Smoking Status: Never smoker Past Alcohol Use History: None Reported Additional Past Alcohol Use History / Comment(s): Patient states that he is a lifelong nonsmoker. No marijuana, illicit drug use or alcohol use. Patient lives with his fianc. Past Drug Use History: None Reported - Past Family History Father Family Medical History: Cancer, Osteoarthritis (OA) Additional Family Medical History / Comment(s): Father is with history of leukemia and sarcoidosis. Strong family history of sarcoidosis on his father's side. Mother Additional Family Medical History / Comment(s): Mother is after her fifth myocardial infarction with history of diabetes. Brother(s) Additional Family Medical History / Comment(s): Patient has a brother and sister with sarcoidosis. Patient has 6 children with no major medical problems. None have been diagnosed with sarcoidosis. Medications and Allergies Home Medications Medication Instructions Recorded Confirmed Type Darbepoetin Carlito [Aranesp] 40 mcg INJ MOWE 01/04/17 12/29/19 History Ergocalciferol (Vitamin D2) 50,000 unit PO TH 01/04/17 12/29/19 History [Vitamin D2] Ondansetron [Zofran] 4 mg PO Q6HR PRN 01/04/17 12/29/19 History Pantoprazole Sodium 40 mg PO DAILY 01/04/17 12/29/19 History amLODIPine [Norvasc] 5 mg PO DAILY 06/12/17 12/29/19 History Atorvastatin [Lipitor] 10 mg PO HS 04/29/18 12/29/19 History Montelukast [Singulair] 10 mg PO HS 04/29/18 12/29/19 History predniSONE 5 mg PO DAILY 04/29/18 12/29/19 History Magnebind 300 2 tab PO TID 09/22/18 12/29/19 History Calcium Acetate [Phoslo] 667 mg PO TID 09/10/19 12/29/19 History Dapsone 100 mg PO MOWEFR 09/10/19 12/29/19 History Fluticasone Propionate 110 Mcg 1 puff INHALATION DAILY 09/10/19 12/29/19 History [Flovent 110 Mcg Inhaler (Bulk)] Tacrolimus [Prograf] 4 mg PO BID 09/10/19 12/29/19 History Azithromycin 250 mg PO MOWEFR 12/29/19 12/29/19 History Lidocaine-Prilocaine Cream [Emla 1 applic TOPICAL BID 12/29/19 12/29/19 History Cream 2.5%/2.5%] Metoprolol Tartrate 12.5 mg PO BID 12/29/19 12/29/19 History Warfarin [Coumadin] 1.25 mg PO TUTH 12/29/19 12/29/19 History Warfarin [Coumadin] 2.5 mg PO SUMOWEFRSA 12/29/19 12/29/19 History Allergies Allergy/AdvReac Type Severity Reaction Status Date / Time meperidine [From Demerol] Allergy Rash/Hives Verified 12/29/19 20:53 Physical Exam Vitals: Vital Signs Temp Pulse Pulse Resp BP BP Pulse Ox 12/30/19 14:31 97.8 F 87 18 132/97 98 12/30/19 07:29 97.2 F L 74 18 119/77 91 L 12/30/19 03:22 97.5 F L 85 17 125/80 96 12/29/19 23:05 83 17 136/84 98 12/29/19 20:30 84 16 135/89 12/29/19 19:30 86 18 134/90 98 12/29/19 18:00 84 18 132/85 95 12/29/19 17:30 82 15 137/82 96 12/29/19 17:01 22 12/29/19 16:26 97.4 F L 72 20 136/94 98 Intake and Output 12/30/19 12/30/19 12/30/19 06:59 14:59 22:59 Intake Total 99.688 Balance 99.688 Intake: Intake, IV Titration 99.688 Amount Heparin Sod,Pork in 0.45% 99.688 NaCl 25,000 unit In 0.45 % NaCl 1 250ml.bag @ 18 UNITS/KG/HR 14.696 mls/hr IV .Q17H1M [facility] Rx#: [id number] Other: Voiding Method Urinal # Voids 0 Gen. appearance, comfortable likely distress currently on room air oxygen pulse ox is around 92% Head exam was generally normal. There was no scleral icterus or corneal arcus. Mucous membranes were moist. Neck was supple and without jugular venous distension, thyromegaly, or carotid bruits. Carotids were easily palpable bilaterally. There was no adenopathy. Lungs were clear to auscultation and percussion, and with normal diaphragmatic excursion. No wheezes or rales were noted. Cardiac exam revealed the PMI to be normally situated and sized. The rhythm was regular and no extrasystoles were noted during several minutes of auscultation. The first and second heart sounds were normal and physiologic splitting of the second heart sound was noted. There were no murmurs, rubs, clicks, or gallops. The patient has a normal sinus rhythm. Abdominal exam revealed normal bowel sounds. The abdomen was soft, non-tender, and without masses, organomegaly, or appreciable enlargement of the abdominal aorta. Examination of the extremities revealed easily palpable radial, femoral and pedal pulses. There was no cyanosis, clubbing or edema. The patient has a functioning AV fistula in the left upper extremity. Examination of the skin revealed no evidence of significant rashes, suspicious appearing nevi or other concerning lesions. Neurologically awake and alert and there is no focal neurological deficits. Results - Laboratory Findings CBC and BMP: 12/30/19 05:52 12/30/19 05:52 PT/INR, D-dimer PT 13.2 sec (9.0-12.0) H 12/30/19 05:52 INR 1.3 (<1.2) H 12/30/19 05:52 Abnormal lab findings: Abnormal Labs 12/29/19 12/29/19 12/29/19 02:30 11:15 17:05 RBC 3.98 L Hgb 11.3 L Hct 37.2 L MCHC 30.5 L RDW 18.4 H Plt Count 107 L PT INR APTT Potassium Chloride Carbon Dioxide BUN 58 H Creatinine 11.68 H* Glucose POC Glucose (mg/dL) Hep Bs Antibody Reactive H 12/29/19 12/29/19 12/29/19 17:05 17:05 23:18 RBC Hgb Hct MCHC RDW Plt Count PT INR 1.2 H APTT Potassium 5.5 H Chloride 96 L Carbon Dioxide 31 H BUN 60 H Creatinine 12.22 H* Glucose 132 H POC Glucose (mg/dL) 332 H Hep Bs Antibody 12/30/19 12/30/19 12/30/19 02:30 05:52 05:52 RBC 3.76 L Hgb 10.8 L Hct 35.4 L MCHC 30.5 L RDW 18.4 H Plt Count 93 L PT 13.2 H INR 1.3 H APTT >200.0 H* 87.4 H Potassium Chloride Carbon Dioxide BUN Creatinine Glucose POC Glucose (mg/dL) Hep Bs Antibody 12/30/19 05:52 RBC Hgb Hct MCHC RDW Plt Count PT INR APTT Potassium 5.4 H Chloride Carbon Dioxide BUN 71 H Creatinine 13.02 H* Glucose POC Glucose (mg/dL) Hep Bs Antibody Assessment and Plan Plan: 1 Acute shortness of breath with an acute hypoxic respiratory failure most likely secondary to fluid overload. The patient told with hemodialysis. A total of 2.5 L of fluid was removed and the patient's pulse ox is 94% on room air for now. CAT scan of the chest was noted. There is no evidence of pneumonia. The some limited unless changes probably related to interstitial fluids. No evidence of any pulmonary embolism. 2 History of sarcoidosis 3 bilateral lung transplantation maintained on immunosuppression with a combination of Prograf and prednisone 4 end-stage renal disease on dialysis 3 times a week 5 diabetes mellitus type 2 6 history of DVT of the left lower extremity within on long-term articulation with warfarin, PT/INR was subtherapeutic at the time of admission 7 chronic anemia with a hemoglobin stable at 10.2 8 cardiomyopathy with systolic and diastolic heart failure. The patient has also history of high-grade AV block and paroxysmal atrial fibrillation. The patient is a dual-chamber AICD in place. There is also a questionable history of aortic valve intervention, possibly a TAVR procedure. I'm not absolutely sure of that. 9 hypertension 10 secondary pulmonary hypertension 11 mild hyperkalemia with a potassium level of 5.5, improved Plan The patient is oxygenation is improved and the patient's pulse ox is 94-95% on room air The patient is not having any wrist with difficulties for now No signs of pneumonia Dialysis was completed and the patient is back to his dry weight. The patient can be discharged home today as the patient has a upcoming appointment treatment clinic in regards to possibility of kidney chest mentation evaluation. Clear for discharge from a pulmonary standpoint Resume anticoagulation and make sure the patient and she is an INR of 2-3 mother patient was discharged home on 5 mg of Coumadin for 3 days and his level to be checked and those need to be adjusted by the primary care.
[2019-12-30 17:26] VITALS: BP 102/81; PULSE 80; RESP 20; TEMP 97.9
[2019-12-30] MEDS ORDERED: WARFARIN 2.5 MG TAB PO SCH (18:00)
--- NOTE | 2019-12-30 20:05 | CONS ---
CONSULTATION REASON FOR CONSULT: End-stage renal disease. HISTORY OF PRESENT ILLNESS: Patient is a 59-year-old -[place] male with end-stage renal disease, on hemodialysis on a Saturday, Saturday, Saturday schedule. He also has a history of double lung transplant at [facility] and is scheduled for an evaluation for kidney transplant at [facility] tomorrow. The patient was admitted to the hospital with complaints of shortness of breath. He recently had intervention on his left arm AV fistula. He did not miss any hemodialysis. Patient denies any fever or chills. No nausea, vomiting or abdominal pain. Patient did have a CT of the chest which did not show any evidence of PE. PAST MEDICAL HISTORY: End-stage renal disease, currently on hemodialysis, type 2 diabetes, history of DVT, sarcoidosis, CKD mineral bone disorder, history of double lung transplant. PAST SURGICAL HISTORY: Lung transplant, cardiac valve replacement, colonoscopy, hand surgery, AV fistula left arm with recent intervention, pacemaker placement, AICD. SOCIAL HISTORY: Negative for smoking, drug abuse or alcohol abuse. MEDICATIONS: Medications at home prior to admission included Aranesp, vitamin D2, Zofran, pantoprazole, Norvasc, Lipitor, Singulair, prednisone, PhosLo, Dapsone, Prograf, azithromycin, Coumadin, metoprolol. ALLERGIES: Include DEMEROL. REVIEW OF SYSTEM: As per HPI. Other systems are negative. PHYSICAL EXAMINATION: On examination, patient is comfortable, awake, not in any acute distress. Blood pressure was 125/80, heart rate of 87 per minute. Patient is afebrile. EXAMINATION OF THE HEART: S1 and S2. EXAMINATION OF LUNGS: Decreased breath sounds at bases. ABDOMEN: Soft, non-tender. Examination of lower extremities shows no significant edema. [facility]ATION [facility] AIDE exam is grossly intact. LABS: Sodium 140, potassium 5.4, chloride 102. BUN 71, creatinine 13.0, hemoglobin 10.8 g/dL. ASSESSMENT: 1. End-stage renal disease, on hemodialysis on a Saturday, Saturday, Saturday schedule via left arm AV fistula. 2. Mild hyperkalemia. 3. Volume overload. Expect improvement with hemodialysis today. The patient wants to be discharged so he can make it to the appointment at [facility] for evaluation for kidney transplant. He will resume his treatment again on Saturday as outpatient. We will plan for increased ultrafiltration; however, patient states that he gets significant cramps with larger UFs. We will discuss this further as outpatient and plan for possible levocarnitine use to help minimize his cramps and maintain adequate dry weight as outpatient. 4. History of double lung transplant. Previous history of sarcoidosis. 5. History of deep venous thrombosis, maintained on Coumadin. 6. Chronic kidney disease mineral bone disorder, maintained on PhosLo. PLAN: Hemodialysis today. If patient is feeling better he could be discharged and follow up as outpatient for repeat dialysis. MMODL / IJN: [id number] /
== END 2019-12-30 17:48 | disposition home or self-care (01) ==
LOC: EC 16:23 → 3SCARD 19:49 → INTOOBSV 19:49 → 3SCARD 12-30 01:40
PROVIDERS: ADMIT Internal Medicine; ATTEND Internal Medicine
DX: E87.70 Fluid overload, unspecified (principal); I50.33 Acute on chronic diastolic (congestive) heart failure; D86.89 Sarcoidosis of other sites; Z94.2 Lung transplant status; N18.6 End stage renal disease; Z99.2 Dependence on renal dialysis; Z95.828 Presence of other vascular implants and grafts; I82.402 Acute embolism and thrombosis of unspecified deep veins of left lower extremity; R79.1 Abnormal coagulation profile; E11.22 Type 2 diabetes mellitus with diabetic chronic kidney disease; I13.2 Hypertensive heart and chronic kidney disease with heart failure and with stage 5 chronic kidney disease, or end stage renal disease; I44.30 Unspecified atrioventricular block; I48.0 Paroxysmal atrial fibrillation; Z95.810 Presence of automatic (implantable) cardiac defibrillator; I27.29 Other secondary pulmonary hypertension; D69.6 Thrombocytopenia, unspecified; D63.1 Anemia in chronic kidney disease; K21.9 Gastro-esophageal reflux disease without esophagitis; M89.8X9 Other specified disorders of bone, unspecified site; E87.5 Hyperkalemia; I42.9 Cardiomyopathy, unspecified; I50.22 Chronic systolic (congestive) heart failure; Z79.01 Long term (current) use of anticoagulants; R91.1 Solitary pulmonary nodule; E66.9 Obesity, unspecified; Z68.27 Body mass index [BMI] 27.0-27.9, adult; Z86.718 Personal history of other venous thrombosis and embolism; Z79.82 Long term (current) use of aspirin; Z79.899 Other long term (current) drug therapy; Z79.52 Long term (current) use of systemic steroids; Z79.2 Long term (current) use of antibiotics; Z79.51 Long term (current) use of inhaled steroids; Z88.5 Allergy status to narcotic agent; Z86.19 Personal history of other infectious and parasitic diseases; Z98.890 Other specified postprocedural states; Z95.2 Presence of prosthetic heart valve; Z87.898 Personal history of other specified conditions; Z87.891 Personal history of nicotine dependence; Z80.6 Family history of leukemia; Z82.61 Family history of arthritis; Z84.89 Family history of other specified conditions; Z82.49 Family history of ischemic heart disease and other diseases of the circulatory system; Z83.3 Family history of diabetes mellitus
CPT/HCPCS: 96376; 96365; 96366 ×2; 99285; 36415; 94640; 93005; 83880; 80053; 80048; 82565; 84520; 85025 ×2; 85610 ×2; 85730 ×2; 86706; 87340; 87502; 71046; 71275; 78582; G0378; G0257; A9540; A9567; J1644 ×2; J7507 ×2; J7512; Q9967; 90935

== ENCOUNTER → 2020-07-21 | Outpatient (CLI) | payer MEDICARE, BC ==
--- NOTE | 2020-07-21 16:10 | CT ---
EXAMINATION TYPE: CT abdomen wo/w con DATE OF EXAM: 07/21/2020 COMPARISON: CT abdomen October 08, 2017. HISTORY: Right kidney cancer. CT DLP: 706.7 mGycm, Automated Exposure Control for Dose Reduction was Utilized. CONTRAST: CT scan of the abdomen is performed with oral and without and with IV Contrast, patient injected with 100ml mL of Isovue 300. FINDINGS: LUNG BASES: Sternal wires partially imaged. Persistent cardiomegaly with partial visualization of pacemaker/defib rillator wire in the right ventricle and epicardial pacer wires. Mild to moderate linear scarring lef t lung base greater than right is present. LIVER/GB: No significant abnormality is appreciated. PANCREAS: Mild generalized cerebral placed atrophy of the pancreas redemonstrated. SPLEEN: Stable mild splenomegaly at 13.1 cm long axis axial image 17. ADRENALS: No significant abnormality is seen. KIDNEYS: Left kidney shows no nephrolithiasis. Postcontrast images show symmetric cortical medullary uptake with a few scattered simple-appearing thin-walled cysts. Largest is partially exophytic measur ing 2.3 cm posterior laterally mid pole level left kidney axial image 37. There is an anterior 1.3 cm partially exophytic thin-walled cyst with thin septa lower pole level axial image 42. Right kidney shows 1-2 obstructing calculi measuring 2 mm in size for reference lower pole medially c oronal image 49. There are multiple embolization coils towards the right renal hilum on current study . Postcontrast images show heterogeneous enhancement with multifocal areas of nonenhancement. In kendall tion there is peripheral low dense rim-enhancing a partially exophytic lesion lower pole level measur ing 6.3 x 6.0 cm-image 37 by roughly 6.5 cm cranial caudal dimension coronal image 48. Lesion has mod erate surrounding ill-defined fluid and fat stranding extending inferiorly. BOWEL: Mild wall thickening and mural enhancement of the distal ileum coronal image 38 for reference. Correlate clinically. LYMPH NODES: No suspicious greater than 1 cm abdominal lymph nodes are appreciated. OSSEOUS STRUCTURES: Mild height loss with some sclerosis superior T10 endplate. OTHER: Stable infrarenal IVC filter. Stable moderate to large sized fat-containing umbilical hernia. IMPRESSION: As above. Right kidney findings presumed posttreatment change related to right kidney rickey plasm. The 6.5 cm low dense partially exophytic lesion laterally mid to lower pole level right kidney favors postsurgical seroma. Other etiologies not excluded. Areas of nonenhancement throughout the ri ght kidney noted, new vascular embolization coils upper pole level right hilar region are noted. Javier elate clinically. Addendum can be performed if more recent outside CT and better history is provided.
== END | disposition home or self-care (01) ==
LOC: RADCTMAIN 14:36
PROVIDERS: ATTEND Family Medicine
DX: C64.1 Malignant neoplasm of right kidney, except renal pelvis (principal); N28.9 Disorder of kidney and ureter, unspecified; Z87.448 Personal history of other diseases of urinary system; Z98.890 Other specified postprocedural states
CPT/HCPCS: 74170; Q9967

== ENCOUNTER 2020-08-16 19:27 | Inpatient (IN) | payer MEDICARE, BC ==
[2020-08-16] MEDS ORDERED: ACETAMINOPHEN SUPPOSITORY 650 MG SUPP RECTAL STA (19:38)
--- NOTE | 2020-08-16 19:43 | ED ---
General Adult HPI - General Chief complaint: Altered Mental Status Stated complaint: Altered Mental Status Time Seen by Provider: 08/16/20 19:33 Source: EMS Mode of arrival: EMS Limitations: altered mental status - History of Present Illness Initial comments: Dictation was produced using PlaySay dictation software. please excuse any grammatical, word or spelling errors. This patient was cared for during a federal and state declared state of [facility] secondary to Covid 19 Chief Complaint: 60-year-old male past medical history DVT, diabetes, ESRD, sarcoidosis presents today with fever and altered mental status. History of Present Illness: It is a 60-year-old male he has multiple comorbidities. Patient has history of end-stage renal disease. He gets dialysis Saturday was a Saturday. He was brought to the emergency department for altered mental status. Patient has been having elevated temperatures. Patient's sister is at bedside to able to provide HPI. Patient began complaining of worsening abdominal symptoms for the last 48 hours. He did go to dialysis yesterday and was en route eventful. Today became confused. Patient unable to provide HPI this time. He is very confused. The ROS documented in this emergency department record has been reviewed and confirmed by me. Those systems with pertinent positive or negative responses have been documented in the HPI. All other systems are other negative and/or noncontributory. PHYSICAL EXAM: General Impression: Alert and oriented x1/3, not in acute distress HEENT: Normocephalic atraumatic, extra-ocular movements intact, pupils equal and reactive to light bilaterally, dry mucous membranes Cardiovascular: Heart regular rate and rhythm Chest: No tachypnea, no retractions Abdomen: abdomen soft, diffuse abdominal tenderness, non-distended, no organomegaly Musculoskeletal: Pulses present and equal in all extremities, no peripheral edema, all joints ranged with medications Motor: no focal deficits noted Neurological: CN II-XII grossly intact, no focal motor or sensory deficits noted, negative Brudzinski's, negative Kernig's, negative Lhermitte's Skin: Intact with no visualized rashes Psych: Normal affect and mood ED course: 60 y Old male presents with fever, altered mental status. His multiple comorbidities. vitals upon arrival shows some dry vomitus 0.7, rest vital signs within acceptable limits. Given patient's fever and altered mental status is concern for severe sepsis. Computed tomography scan of the brain shows no acute processes. Computed tomography scan of the abdomen and pelvis shows no significant no acute findings compared to most previous computed tomography scan. There is a gallstone measuring 2.4 cm without any obvious surrounding inflammatory changes. Chest x- ray is nonacute. Laboratory evaluation shows leukopenia 1.5 the WBCs. Thrombocytopenia measured 55. Metabolic panel shows potassium 6.4. Creatinine is 13.26. Rest of labs unremarkable. At this point there is no obvious source of patient's pyrexia. Given the patient' receives dialysis regularly there is concern for bacteremia. Patient given broad-spectrum antibiotics. Patient is not given 30 mL per KG fluid bolus because he is a dialysis patient does not make urine. Noted to avoid fluid overload we will not provide patient 30 mL per KG bolus. Patient given 1 L.Case was discussed with ICU doctor Dr. Damon who is willing to accept patients care. He is agreeable with broad-spectrum antibiotics. Case is discussed with Dr. Anderson is willing to accept patients cares hospitalist. Case is discussed with Dr. Desai netbackup administrator on-call who will provide dialysis for patient tonight for couple hours. He is agreeable for Apolinar's insulin calcium in the meantime. EKG interpretation: Ventricular rate 87, sinus rhythm, MD interval 140, Q RS 76, QTC 418. No MD prolongation, no QTC prolongation, no ST or T-wave changes noted. . Overall, this EKG is unremarkable - Related Data Home Medications Medication Instructions Recorded Confirmed Pantoprazole Sodium 40 mg PO DAILY 01/04/17 08/16/20 predniSONE 5 mg PO DAILY 04/29/18 08/16/20 Tacrolimus [Prograf] 5 mg PO BID 09/10/19 08/16/20 Lidocaine-Prilocaine Cream [Emla 1 applic TOPICAL DAILY PRN 12/29/19 08/16/20 Cream 2.5%/2.5%] Albuterol Nebulized [Ventolin 2.5 mg INHALATION RT-QID PRN 08/16/20 08/16/20 Nebulized] Ammonium Lactate Cream [Lac-Hydrin 1 applic TOPICAL BID PRN 08/16/20 08/16/20 12% Cream] Benzonatate [Tessalon Perles] 100 mg PO TID PRN 08/16/20 08/16/20 Budesonide [Pulmicort] 1 mg INHALATION RT-QID PRN 08/16/20 08/16/20 Carvedilol [Coreg] 25 mg PO BID 08/16/20 08/16/20 Fluticasone Propionate [Flovent 2 puff INHALATION RT-BID 08/16/20 08/16/20 Hfa 110 mcg] Folic Acid-Vit B Complex-Vit C 1 mg PO DAILY 08/16/20 08/16/20 [Nephrocaps] Metoclopramide [Reglan] 5 mg PO TID PRN 08/16/20 08/16/20 Ondansetron Odt [Zofran Odt] 4 mg PO Q8H PRN 08/16/20 08/16/20 Sulfamethox-Tmp 400-80Mg [Bactrim 1 tab PO DIRECTED 08/16/20 08/16/20 SS 400-80 mg] Tamsulosin HCl [Flomax] 0.4 mg PO DAILY 08/16/20 08/16/20 Valganciclovir HCl 900 mg PO MOWEFR 08/16/20 08/16/20 Warfarin (Unkown Dose) 1 dose PO DAILY 08/16/20 08/16/20 Allergies Allergy/AdvReac Type Severity Reaction Status Date / Time meperidine [From Demerol] Allergy Rash/Hives Verified 08/16/20 20:23 Review of Systems ROS Statement: Those systems with pertinent positive or pertinent negative responses have been documented in the HPI. ROS Other: All systems not noted in ROS Statement are negative. Past Medical History Past Medical History: Diabetes Mellitus, Deep Vein Thrombosis (DVT), Hypertension, Renal Disease Additional Past Medical History / Comment(s): See Dr Holman's H&P,Sarcodosis,Hemodialysis MoWeFr,hx dvt left leg. 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 COLONOSCOPY. RT HAND SURGERY. HEMODIALYSIS CATH. AV SHUNT LT UPPER ARM- 06/11/17 Past Anesthesia/Blood Transfusion Reactions: Motion Sickness Type of Cardiac Device: Permanent Pacemaker, AICD Device Placement Date:: 03-28-2011 Past Psychological History: No Psychological Hx Reported Past Alcohol Use History: None Reported Past Drug Use History: None Reported - Past Family History Father Family Medical History: Cancer, Osteoarthritis (OA) Additional Family Medical History / Comment(s): Father is with history of leukemia and sarcoidosis. Strong family history of sarcoidosis on his father's side. Mother Additional Family Medical History / Comment(s): Mother is after her fifth myocardial infarction with history of diabetes. Brother(s) Additional Family Medical History / Comment(s): Patient has a brother and sister with sarcoidosis. Patient has 6 children with no major medical problems. None have been diagnosed with sarcoidosis. General Exam Limitations: altered mental status Course Vital Signs 08/16/20 19:29 Temperature 102.7 F H Pulse Rate 87 Respiratory 20 Rate Blood Pressure 137/85 O2 Sat by Pulse 100 Oximetry Medical Decision Making - Lab Data Result diagrams: 08/16/20 19:43 08/16/20 19:43 Lab Results 08/16/20 08/16/20 08/16/20 Range/Units 19:43 19:43 19:43 WBC 1.5 L (3.8-10.6) k/uL RBC 4.39 (4.30-5.90) m/uL Hgb 13.6 (13.0-17.5) gm/dL Hct 43.1 (39.0-53.0) % MCV 98.1 (80.0-100.0) fL MCH 31.0 (25.0-35.0) pg MCHC 31.6 (31.0-37.0) g/dL RDW 16.7 H (11.5-15.5) % Plt Count 55 L (150-450) k/uL Anisocytosis Slight Macrocytosis Slight Sodium 137 (137-145) mmol/L Potassium 6.4 H* (3.5-5.1) mmol/L Chloride 97 L (98-107) mmol/L Carbon Dioxide 27 (22-30) mmol/L Anion Gap 13 mmol/L BUN 72 H (9-20) mg/dL Creatinine 13.26 H* (0.66-1.25) mg/dL Est GFR (CKD-EPI)AfAm 4 (>60 ml/min/1.73 sqM) Est GFR (CKD-EPI)NonAf 4 (>60 ml/min/1.73 sqM) Glucose 136 H (74-99) mg/dL Plasma Lactic Acid Kurt 1.7 (0.7-2.0) mmol/L Calcium 9.4 (8.4-10.2) mg/dL Total Bilirubin 0.7 (0.2-1.3) mg/dL AST 46 (17-59) U/L ALT 42 (4-49) U/L Alkaline Phosphatase 143 H (38-126) U/L Total Protein 7.8 (6.3-8.2) g/dL Albumin 4.6 (3.5-5.0) g/dL Critical Care Time Critical Care Time: Yes Total Critical Care Time: 33 Disposition Clinical Impression: Severe sepsis Disposition: ADMITTED IP TO THIS [facility] Condition: Critical Referrals: Hernán Qureshi DO [Primary Care Provider] - 1-2 days Decision Time: 20:48
[2020-08-16] MEDS ORDERED: PIPERACILLIN-TAZOBACTAM 3.375 GM in SODIUM CHLORIDE 0.9% 100 ML IVPB STA (19:50)
[2020-08-16] MEDS ORDERED: VANCOMYCIN IV PER PHARMACY 1 EACH MISC MISCELLANE PRN (19:50)
[2020-08-16 19:56] LABS: Anisocytosis Slight; HCT 43.1 % (39.0-53.0); HGB 13.6 gm/dL (13.0-17.5); MCHC 31.6 g/dL (31.0-37.0); MCV 98.1 fL (80.0-100.0); Macrocytosis Slight; Mean Platelet Volume 10.4; Platelet Count 55 k/uL (150-450); RBC 4.39 m/uL (4.30-5.90); RDW 16.7 % (11.5-15.5); WBC 1.5 k/uL (3.8-10.6)
[2020-08-16] MEDS: SODIUM CHLORIDE 0.9% 500 ML 500 ML IV SCH ×2 (20:00→20:30)
[2020-08-16] MEDS ORDERED: VANCOMYCIN 1,500 MG in SODIUM CHLORIDE 0.9% 250 ML IVPB ONE (20:00)
[2020-08-16 20:08] LABS: Albumin 4.6 g/dL (3.5-5.0); Calcium 9.4 mg/dL (8.4-10.2); Total Bilirubin 0.7 mg/dL (0.2-1.3); Total Protein 7.8 g/dL (6.3-8.2)
--- NOTE | 2020-08-16 20:10 | XR ---
EXAMINATION TYPE: XR chest 1V portable DATE OF EXAM: 08/16/2020 COMPARISON: Chest x-ray and CTA chest December 29 2019 HISTORY: Fever. TECHNIQUE: Single frontal view of the chest is obtained. FINDINGS: There is some chronic parenchymal change bilaterally without suspicious new focal air spac e opacity, pleural effusion, or pneumothorax seen. The cardiac silhouette size remains enlarged with multilead pacemaker/defibrillator redemonstrated. Overlying sternal wires with atherosclerotic and ectatic thoracic aorta redemonstrated The osseous structures are intact. IMPRESSION: Cardiomegaly without acute pulmonary process.
[2020-08-16 20:12] LABS: Potassium 6.4 mmol/L (3.5-5.1)
--- NOTE | 2020-08-16 20:18 | CT ---
EXAMINATION TYPE: CT brain wo con DATE OF EXAM: 08/16/2020 HISTORY: Altered mental status and lethargic post dialysis yesterday. CT DLP: 1276.4 mGycm. Automated Exposure Control for Dose Reduction was Utilized. TECHNIQUE: CT scan of the head is performed without contrast. COMPARISON: CT brain February 02, 2013. FINDINGS: There is no acute intracranial hemorrhage or midline shift identified. There is diffuse v entricular and sulcal prominence consistent with diffuse age-related cerebral atrophy. There is low- attenuation in the periventricular white matter consistent with chronic small vessel ischemic change. The globes are intact and the visualized sinuses are clear. IMPRESSION: No acute intracranial hemorrhage or midline shift. There is [id number] diffuse ag e-related cerebral atrophy and mild chronic small vessel ischemic change currently with interval dege nerative progression from 2013 study noted.
--- NOTE | 2020-08-16 20:24 | CT ---
EXAMINATION TYPE: CT abdomen pelvis w con DATE OF EXAM: 08/16/2020 COMPARISON: CT abdomen July 21, 2020 HISTORY: Altered mental status and lethargic post dialysis yesterday. CT DLP: 1109.7 mGycm, Automated Exposure Control for Dose Reduction was Utilized. CONTRAST: CT scan of the abdomen and pelvis is performed without oral but with IV Contrast, patient injected wi th 100ml mL of Isovue 300. FINDINGS: LUNG BASES: Overlying sternal wires partially imaged. Persistent cardiomegaly and partial visualizati on of right-sided pacemaker along with anterior epicardial pacer wires. Mild to moderate linear scarr ing left lung base redemonstrated. LIVER/GB: Visualized liver remains heterogeneously hypodense consistent with diffuse fatty infiltrati on. Dependent rim dense 2.4 cm gallstone with additional smaller calcified gallstone. No new surround ing inflammatory change. PANCREAS: Stable mild mid body atrophy. SPLEEN: Stable mild splenomegaly at 13.6 cm long axis X image 21. ADRENALS: No significant abnormality is seen. KIDNEYS: Metallic embolization coils right hilar region redemonstrated. Streak artifact limits evalua tion at this level. Persistent symmetric cortical medullary uptake without hydronephrosis bilaterally . A few scattered simple-appearing thin-walled cysts throughout the left kidney including smaller non specific exophytic lesion anteriorly lower pole level. There is persistent lateral right mid to lower renal focal thin-walled fluid collection measuring 5.1 x 5.2 x 6.0 cm axial image 40 and coronal eduin ge 68 felt decreased in size from prior study. [id number] ill-defined fluid inferiorly is redem onstrated also slightly improved BOWEL: Sigmoid colonic diverticulosis. No CT evidence for acute diverticulitis. No suspicious new bow el dilatation. PROSTATE/SEMINAL VESICLES: No gross abnormality seen. LYMPH NODES: No greater than 1cm abdominal or pelvic lymph nodes are appreciated. OSSEOUS STRUCTURES: No significant abnormality is seen. OTHER: Moderate-sized fat-containing umbilical hernia axial image 53 redemonstrated. Stable infrarena l IVC filter IMPRESSION: No significant new or acute finding is seen to account for patient's clinical symptoms. Improving right lateral mid to lower pole thin walled fluid collection and surrounding ill-defined fl uid favors resolving postsurgical change.
[2020-08-16] MEDS ORDERED: ACETAMINOPHEN SUPPOSITORY 650 MG SUPP RECTAL PRN (20:43)
[2020-08-16] MEDS ORDERED: NALOXONE 0.4 MG/ML 1 ML VIAL IV PRN (20:43)
[2020-08-16] MEDS ORDERED: INSULIN REGULAR 100 UNIT/ML VIAL IV ONE (20:46)
[2020-08-16] MEDS ORDERED: DEXTROSE 50% SYRINGE 50 ML IVP STA (20:47)
[2020-08-16] MEDS ORDERED: CALCIUM GLUCONATE 1 GM in SODIUM CHLORIDE 0.9% 100 ML IVPB ONE (20:47)
[2020-08-16 20:57] LABS: Eosinophils # (M) 0.02 k/uL (0-0.7); Lymphocytes # (M) 0.45 k/uL (1.0-4.8); Monocytes # (M) 0.08 k/uL (0-1.0); Neutrophils # (M) 0.96 k/uL (1.3-7.7); Neutrophils % (M) 64 %; Nucleated Red Blood Cells 0 /100 WBC (0-0); Total Cells Counted 100
[2020-08-16 21:00] LABS: INR 1.6 (<1.2); Partial Thromboplastin Time 31.6 sec (22.0-30.0); Prothrombin Time 15.6 sec (9.0-12.0)
[2020-08-16] MEDS: SODIUM CHLORIDE 0.9% 1,000 ML IV SCH ×2 (21:33→22:18)
--- NOTE | 2020-08-16 21:33 | US ---
EXAMINATION TYPE: US gallbladder DATE OF EXAM: 08/16/2020 COMPARISON: EXAMINATION TYPE: US gallbladder DATE OF EXAM: 08/16/2020 COMPARISON: CT earlier today. CLINICAL HISTORY: rule out acute cholecystitis. Rule out acute cholecystitis. Hx mass on right kidney , surgery was performed to remove per patient's sister in the room. EXAM MEASUREMENTS: Liver Length: 17.4 cm Gallbladder Wall: 0.41 cm CBD: Not visualized Right Kidney: 8.1 x 4.9 x 4.6 cm Very limited exam due to gas. Pancreas: Slightly limited Liver: Appears coarse. Measures upper limits of normal. Gallbladder: Hyperechoic areas seen within the gallbladder. Largest appears to measure: 1.0 x 0.7 x 0.8 cm. Wall seen best in sagittal view, measures thickened. Evidence for sonographic Alcazar's sign: Yes CBD: Not visualized Right Kidney: Hyperechoic area seen measurin.9 x 0.8 x 0.4 cm. Complex area seen laterally me asurin.9 x 7.0 x 4.6 cm. Visualized pancreas fairly homogeneous in appearance without worrisome mass or ductal dilatation. Vis ualized liver heterogeneously hyperechoic. No suspicious ductal dilatation. No surrounding ascites. G allbladder has small stones towards the gallbladder neck. Gallbladder wall is mildly thickened at 4 m m. Positive sonographic Alcazar's sign. Right kidney is small in size with poor visualization of perin ephric nonsimple fluid collection laterally mid to lower pole level seen better on recent CT IMPRESSION: Gallstones redemonstrated. Acute cholecystitis cannot be excluded as there is mild gallbl adder wall thickening and positive sonographic Alcazar's sign in patient with right-sided pain. Underl monique hepatocellular disease or fatty infiltration liver felt present. Correlate clinically. Consider HIDA scan follow-up.
[2020-08-16 22:03] LABS: Glucose,Whole Blood 157 mg/dL (75-99)
[2020-08-17] MEDS ORDERED: ONDANSETRON ODT 4 MG TAB PO PRN (03:23)
[2020-08-17] MEDS ORDERED: BUDESONIDE 1 MG/2 ML NEBU INHALATION PRN (03:23)
[2020-08-17] MEDS ORDERED: BENZONATATE 100 MG CAP PO PRN (03:23)
[2020-08-17] MEDS ORDERED: LIDOCAINE-PRILOCAINE 2.5-2.5% CREAM 5 GM TUBE TOPICAL PRN (03:23)
[2020-08-17] MEDS ORDERED: AMMONIUM LACTATE 12% CREAM 140 GM TUBE TOPICAL PRN (03:23)
[2020-08-17] MEDS ORDERED: METOCLOPRAMIDE 5 MG TAB PO PRN (03:23)
[2020-08-17] MEDS ORDERED: ONDANSETRON 4 MG/2 ML VIAL IVP PRN (03:52)
[2020-08-17 03:56] LABS: INR 1.7 (<1.2); Prothrombin Time 16.4 sec (9.0-12.0)
[2020-08-17 04:00] LABS: Albumin 3.7 g/dL (3.5-5.0); Anisocytosis Slight; Calcium 8.5 mg/dL (8.4-10.2); HCT 38.5 % (39.0-53.0); Hypochromasia Slight; MCH 30.7 pg (25.0-35.0); MCHC 31.2 g/dL (31.0-37.0); MCV 98.4 fL (80.0-100.0); Macrocytosis Slight; Magnesium 1.7 mg/dL (1.6-2.3); Mean Platelet Volume 10.6; Phosphorus 5.4 mg/dL (2.5-4.5); Platelet Count 52 k/uL (150-450); Potassium 4.9 mmol/L (3.5-5.1); RBC 3.91 m/uL (4.30-5.90); RDW 16.8 % (11.5-15.5); Total Bilirubin 0.8 mg/dL (0.2-1.3); Total Protein 6.5 g/dL (6.3-8.2); WBC 1.5 k/uL (3.8-10.6)
[2020-08-17 04:35] LABS: Band Neutrophils % 15 %; Monocytes # (M) 0.11 k/uL (0-1.0); Myelocytes # (M) 0.02 k/uL (0); Myelocytes % 1 %; Neutrophils % (M) 64 %; Nucleated Red Blood Cells 0 /100 WBC (0-0); Total Cells Counted 200
[2020-08-17 05:56] LABS: Glucose,Whole Blood 75 mg/dL (75-99)
[2020-08-17] MEDS ORDERED: INSULIN ASPART (NovoLOG) 100 UNIT/ML VIAL SQ SCH (06:00)
[2020-08-17] MEDS ORDERED: Magnesium Replacement Protocol 1 EACH MISC MISCELLANE PRN (06:14)
[2020-08-17] MEDS: MAGNESIUM SULFATE-D5W PMX 1 GM in DEXTROSE/WATER 1 100ML.BAG IVPB SCH ×2 (06:21→08:43)
[2020-08-17] MEDS ORDERED: carvediloL 12.5 MG TAB PO SCH (07:30)
--- NOTE | 2020-08-17 08:06 | XR ---
EXAMINATION TYPE: XR chest 1V DATE OF EXAM: 08/17/2020 CLINICAL HISTORY: Pneumonia TECHNIQUE: Semiupright portable view of the chest COMPARISON: 08/16/2020 chest radiograph FINDINGS: Left-sided dual-chamber AICD, sternotomy wires, mediastinal surgical clips redemonstrated. Cardiomegaly. Pulmonary vasculature normal. No focal consolidation, pleural effusion, or pneumothorax . IMPRESSION: Cardiomegaly. No acute cardiopulmonary process.
[2020-08-17] MEDS: FLUTICASONE 110 MCG INHALER INHALATION SCH ×4 (08:17→20:06)
[2020-08-17] MEDS: TAMSULOSIN 0.4 MG CAP.ER.24H PO SCH (08:41)
[2020-08-17] MEDS: predniSONE 5 MG TAB PO SCH (08:41)
[2020-08-17] MEDS: FOLIC ACID-VIT B COMPLEX-VIT C 1 CAP PO SCH (08:42)
[2020-08-17] MEDS: SULFAMETHOX-TMP 400-80MG 1 EACH TAB PO SCH (08:42)
[2020-08-17] MEDS: TACROLIMUS 1 MG CAP PO SCH ×2 (08:42→20:01)
[2020-08-17] MEDS ORDERED: PANTOPRAZOLE 40 MG TABLET PO SCH (09:00)
[2020-08-17] MEDS ORDERED: WARFARIN PO SCH (09:00)
--- NOTE | 2020-08-17 10:52 | P.CNNES ---
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 Upon presented to the hospital the patient's sister was in the hospital and was able to help for providing history. Patient has been complaining of worsening abdominal symptoms for the last 48 hours. This seems that the patient went for dialysis 2 days ago. Yesterday the patient was confused. Upon asking the patient what brought him to the hospital he stated that he does not know. Workup in the hospital consisted of: Initial Vitals: Blood pressure of 137/85, heart rate of 87, temperature of 102.7 Fahrenheit oral, respiratory of 20 and pulse ox of [address] of the head was reported as no acute intracranial hemorrhage or midline shift. There is mild to moderate diffuse age-related cerebral atrophy and mild chronic small vessel ischemic change currently with interval degenerative aggression from 2013 study noted. I personally reviewed the CT of the head and I don't see any acute ischemia or hemorrhage or any appreciable significant encephalomalacia seen on the CT of the head. There is mild atrophy of the bilateral frontal region that seems appropriate for the patient's age. EKG was reported as sinus rhythm with sinus arrhythmia with short FL rightward axis. Ventricle rate of 87. Borderline EKG. Chest x-ray was reported as cardiomegaly without acute pulmonary process. Ultrasound of the gallbladder was reported as gallstones redemonstrated. Acute cholecystitis cannot be excluded as there is mild gallbladder wall thickening and positive sonographic Alcazar sign in the patient with a right sided pain. Underlying hepatocellular disease or fatty infiltration of liver felt present. Consider HIDA scan follow-up. CT of the abdomen was reported as no significant new or acute finding is seen in the token for the patient clinical symptoms. Improving right lateral mid to lower pole thin wall fluid collection and surrounding ill-defined fluid favors resolving postsurgical change. The patient denied any history of seizures Or family history of the seizures. Regarding the patient's of history: He is a product of term, vaginal delivery and without any complication. Of Note the patient is on prednisone 5 mg daily or sarcoidosis. Patient is also on tacrolimus 5 mg twice a day and that's likely due to his lung transplant. Patient takes Valganciclovir since that the donor was as CMV positive. The patient is on the temporal limbus 5 mg twice a day for his the lung transplant. Review of Systems Review of system: The 12 point system was reviewed and apparent positive and negative per HPI. Past Medical History Past Medical History: Diabetes Mellitus, Deep Vein Thrombosis (DVT), Hypertension, Renal Disease Additional Past Medical History / Comment(s): See Dr Holman's H&P,Sarcodosis,Hemodialysis MoWeFr,hx dvt left leg. 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 COLONOSCOPY. RT HAND SURGERY. HEMODIALYSIS CATH. AV SHUNT LT UPPER ARM- 06/11/17 Past Anesthesia/Blood Transfusion Reactions: Motion Sickness Type of Cardiac Device: Permanent Pacemaker, AICD Device Placement Date:: 03-28-2011 Past Psychological History: No Psychological Hx Reported Smoking Status: Never smoker Past Alcohol Use History: None Reported Additional Past Alcohol Use History / Comment(s): Patient states that he is a lifelong nonsmoker. No marijuana, illicit drug use or alcohol use. Patient josephine sandy with his fianc. Past Drug Use History: None Reported - Past Family History Father Family Medical History: Cancer, Osteoarthritis (OA) Additional Family Medical History / Comment(s): Father is with history of leukemia and sarcoidosis. Strong family history of sarcoidosis on his father's side. Mother Additional Family Medical History / Comment(s): Mother is after her fifth myocardial infarction with history of diabetes. Brother(s) Additional Family Medical History / Comment(s): Patient has a brother and sister with sarcoidosis. Patient has 6 children with no major medical problems. None have been diagnosed with sarcoidosis. Medications and Allergies Home Medications Medication Instructions Recorded Confirmed Type Pantoprazole Sodium 40 mg PO BID 01/04/17 08/17/20 History predniSONE 5 mg PO DAILY 04/29/18 08/17/20 History Tacrolimus [Prograf] 5 mg PO BID 09/10/19 08/17/20 History Lidocaine-Prilocaine Cream [Emla 1 applic TOPICAL DAILY PRN 12/29/19 08/17/20 History Cream 2.5%/2.5%] Albuterol Nebulized [Ventolin 2.5 mg INHALATION RT-QID PRN 08/16/20 08/17/20 History Nebulized] Ammonium Lactate Cream [Lac-Hydrin 1 applic TOPICAL BID PRN 08/16/20 08/17/20 History 12% Cream] Carvedilol [Coreg] 12.5 mg PO BID 08/16/20 08/17/20 History Fluticasone Propionate [Flovent 2 puff INHALATION RT-BID 08/16/20 08/17/20 Hist ory Hfa 110 mcg] Folic Acid-Vit B Complex-Vit C 1 mg PO DAILY 08/16/20 08/17/20 History [Nephrocaps] Metoclopramide [Reglan] 5 mg PO TID PRN 08/16/20 08/17/20 History Ondansetron Odt [Zofran Odt] 4 mg PO Q8H PRN 08/16/20 08/17/20 History Sulfamethox-Tmp 400-80Mg [Bactrim 1 tab PO MOWEFR 08/16/20 08/17/20 History SS 400-80 mg] Tamsulosin HCl [Flomax] 0.4 mg PO DAILY 08/16/20 08/17/20 History Valganciclovir HCl 450 mg PO MOWEFR 08/16/20 08/17/20 History Midodrine [ProAmatine] 5 mg PO DAILY PRN 08/17/20 08/17/20 History Warfarin [Coumadin] 2.5 mg PO MOWETHSA 08/17/20 08/17/20 History Warfarin [Coumadin] 3.75 mg PO SUTUFR 08/17/20 08/17/20 History Allergies Allergy/AdvReac Type Severity Reaction Status Date / Time meperidine [From Demerol] Allergy Rash/Hives Verified 08/16/20 20:23 Physical Examination - Vital Signs Vital Signs: Vital Signs Temp Pulse Resp BP BP Pulse Ox 08/17/20 07:00 69 16 99/65 94 L 08/17/20 06:00 69 16 112/67 92 L 08/17/20 05:00 69 23 112/63 91 L 08/17/20 04:00 100.1 F H 73 16 99/69 90 L 08/17/20 03:00 69 21 108/67 93 L 08/17/20 02:00 68 17 107/61 92 L 08/17/20 01:00 70 23 106/68 93 L 08/17/20 00:27 98.5 F 18 118/73 08/17/20 00:00 98.5 F 66 22 109/71 95 08/16/20 23:00 69 22 121/89 94 L 08/16/20 22:00 102 F H 82 14 111/66 95 08/16/20 21:40 80 22 127/75 96 08/16/20 19:29 102.7 F H 87 20 137/85 100 Intake and Output 08/16/20 08/17/20 08/17/20 22:59 06:59 14:59 Intake Total 20 160 120 Output Total 500 Balance 20 -340 120 Intake: IV 20 160 120 Magnesium Sulfate-D5w Pmx 100 1 gm In Dextrose/Water 1 100ml.bag @ 100 mls/hr IVPB Q1H [facility] Rx#: [id number] Sodium Chloride 0.9% 1, 20 160 20 000 ml @ 20 mls/hr IV . Q24H [facility] Rx#:[id number] Output: Hemodialysis 500 Other: Weight 79.379 kg 73 kg GENERAL: The patient is lying in bed and is not in acute distress. CHEST: The heart rate is regular rate rhythm. No murmurs to auscultation. LUNG: Clear to auscultation bilaterally no wheezing noted throughout. Not labored breathing. ABDOMEN/GI: Bowel sounds present in all 4 quadrants. No tenderness to palpation throughout. NEUROLOGICAL: Higher mental function: The patient is awake, alert, oriented to self, place and time. Patient is following commands. No aphasia and no neglect. Cranial nerves: The pupils are round, equal and reactive to light and accommodation. Visual medina are full to confrontation throughout. Extraocular movement is intact no nystagmus is noted. Facial sensation is normal to touch throughout. The facial strength is normal throughout. Hearing is normal bilaterally to hand rub. Tongue is midline and moved [id number] without any difficulty. No dysarthria is noted. Shoulder shrug is normal bilaterally. Motor: Gait is defered. The strength is 5 over 5 throughout. Normal tone and bulk. Cerebellum: Normal finger to nose heel to chin bilaterally. Sensation: Sensation is normal to touch throughout. Reflexes (right/left): 2+ throughout. Plantars are downgoing bilaterally. Results Patient 1 blood cell is 1.5 on initial presentation and the repeated one. The platelets is 55. Initial potassium is 6.4 on repeated one next day is 4.9. Initial creatinine is 13.26 on repeated the day next day is 9.39. AST 46 ALTs of 42. All call phosphatase is 143 Calcium of 9.4. Plasma lactic acid venous: 1.7. Coagulation study: PT of 15.6, INR 1.6, PTT of 31.6. Patient last hemoglobin A1c was on 06/07/2020 and it was 5.6. - Laboratory Findings CBC and BMP: 08/17/20 02:53 08/17/20 02:53 Abnormal Lab Findings: Abnormal Labs 08/16/20 08/16/20 08/16/20 19:43 19:43 19:43 WBC 1.5 L RBC Hgb Hct RDW 16.7 H Plt Count 55 L Neutrophils # (Manual) 0.96 L Lymphocytes # (Manual) 0.45 L Myelocytes # (Manual) PT 15.6 H INR 1.6 H APTT 31.6 H Sodium Potassium 6.4 H* Chloride 97 L BUN 72 H Creatinine 13.26 H* Glucose 136 H POC Glucose (mg/dL) Phosphorus Alkaline Phosphatase 143 H 08/16/20 08/17/20 08/17/20 22:02 02:53 02:53 WBC 1.5 L RBC 3.91 L Hgb 12.0 L Hct 38.5 L RDW 16.8 H Plt Count 52 L Neutrophils # (Manual) 1.10 L Lymphocytes # (Manual) 0.20 L Myelocytes # (Manual) 0.02 H PT INR APTT Sodium 136 L Potassium Chloride BUN 48 H Creatinine 9.39 H* Glucose POC Glucose (mg/dL) 157 H Phosphorus 5.4 H Alkaline Phosphatase 08/17/20 03:38 WBC RBC Hgb Hct RDW Plt Count Neutrophils # (Manual) Lymphocytes # (Manual) Myelocytes # (Manual) PT 16.4 H INR 1.7 H APTT Sodium Potassium Chloride BUN Creatinine Glucose POC Glucose (mg/dL) Phosphorus Alkaline Phosphatase Assessment and Plan Assessment: 60-year-old gentleman with a medical history of end-stage (M,W,F) via left arm AV fistula renal disease on dialysis, diabetes lightest type II, chronic thrombocytopenia, high degree AV block and proximal atrial fibrillation status post dual chamber AICD, DVT of left lower extremity on Coumadin, 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 Upon presented to the hospital the patient's sister was in the hospital and was able to help for providing history. Patient has been complaining of worsening abdominal symptoms for the last 48 hours. This seems that the patient went for dialysis 2 days ago. Yesterday the patient was confused. 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 Ordered ammonia level and TSH level. He is on Coumadin for his history of the DVT as well as proximal A. fib and his INR was subtherapeutic, not sure if it's because of his chronic thrombocytopenia, that the his primary team is avoiding therapeutic to avoid any bleeding. We'll defer the management to the primary team Regarding the saw possible acute cholecystitis we'll defer the management to the ID team as well as the ICU team. We'll defer patient the management of end-stage renal disease on dialysis to the nephrology. We'll defer the rest of the medical management to the primary team as well as ICU team. the plan was discussed with the patient and his nurse Thank you for the consult. Lyndon York M.D. Neuro-hospitalist Time with Patient: Greater than 30
--- NOTE | 2020-08-17 11:18 | P.NPCON ---
History of Present Illness - Reason for Consult end stage renal disease - History of Present Illness reason for consultation: End-stage renal disease History of present illness: Patient is a 60-year-old male seen in consultation for end-stage renal disease. He is maintained on hemodialysis on Saturday schedule. Patient also has history of bilateral lung transplants for which she follows at [facility]. Patient presented to the hospital with confusion. He tells me that he passed out and doesn't remember much as to why came to the hospital. potassium level was 6.4 on admission and he did undergo a short hemodialysis treatment last night. Repeat potassium level normal. He scheduled to undergo his scheduled dialysis treatment today. He is currently in the intensive care unit. Feels quite lethargic. Does admit to vomiting and loose bowel movements. No chest pain. he did have a temperature of 102.7F on admission. It was 100.1F this morning. Blood cultures are positive for gram-positive cocci. He is maintained on IV vancomycin. He has an AV graft in the left upper extremity for dialysis access. chest x-ray was negative. no acute changes noted on abdomen CT. Vital signs are stable. General: The patient appeared well nourished and normally developed. HEENT: Head exam is unremarkable. Neck is without jugular venous distension. LUNGS: Breath sounds decreased. HEART: Rate and Rhythm are regular. ABDOMEN: soft, nontender. EXTREMITITES: No clubbing, cyanosis, or edema. Past Medical History Past Medical History: Diabetes Mellitus, Deep Vein Thrombosis (DVT), Hypertension, Renal Disease Additional Past Medical History / Comment(s): See Dr Holman's H&P,Sarcodosis,Hemodialysis MoWeFr,hx dvt left leg. 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 COLONOSCOPY. RT HAND SURGERY. HEMODIALYSIS CATH. AV SHUNT LT UPPER ARM- 06/11/17 Past Anesthesia/Blood Transfusion Reactions: Motion Sickness Type of Cardiac Device: Permanent Pacemaker, AICD Device Placement Date:: 03-28-2011 Past Psychological History: No Psychological Hx Reported Smoking Status: Never smoker Past Alcohol Use History: None Reported Additional Past Alcohol Use History / Comment(s): Patient states that he is a lifelong nonsmoker. No marijuana, illicit drug use or alcohol use. Patient lives with his fianc. Past Drug Use History: None Reported - Past Family History Father Family Medical History: Cancer, Osteoarthritis (OA) Additional Family Medical History / Comment(s): Father is with history of leukemia and sarcoidosis. Strong family history of sarcoidosis on his fath er's side. Mother Additional Family Medical History / Comment(s): Mother is after her fifth myocardial infarction with history of diabetes. Brother(s) Additional Family Medical History / Comment(s): Patient has a brother and sister with sarcoidosis. Patient has 6 children with no major medical problems. None have been diagnosed with sarcoidosis. Medications and Allergies Home Medications Medication Instructions Recorded Confirmed Type Pantoprazole Sodium 40 mg PO BID 01/04/17 08/17/20 History predniSONE 5 mg PO DAILY 04/29/18 08/17/20 History Tacrolimus [Prograf] 5 mg PO BID 09/10/19 08/17/20 History Lidocaine-Prilocaine Cream [Emla 1 applic TOPICAL DAILY PRN 12/29/19 08/17/20 History Cream 2.5%/2.5%] Albuterol Nebulized [Ventolin 2.5 mg INHALATION RT-QID PRN 08/16/20 08/17/20 History Nebulized] Ammonium Lactate Cream [Lac-Hydrin 1 applic TOPICAL BID PRN 08/16/20 08/17/20 History 12% Cream] Carvedilol [Coreg] 12.5 mg PO BID 08/16/20 08/17/20 History Fluticasone Propionate [Flovent 2 puff INHALATION RT-BID 08/16/20 08/17/20 History Hfa 110 mcg] Folic Acid-Vit B Complex-Vit C 1 mg PO DAILY 08/16/20 08/17/20 History [Nephrocaps] Metoclopramide [Reglan] 5 mg PO TID PRN 08/16/20 08/17/20 History Ondansetron Odt [Zofran Odt] 4 mg PO Q8H PRN 08/16/20 08/17/20 History Sulfamethox-Tmp 400-80Mg [Bactrim 1 tab PO MOWEFR 08/16/20 08/17/20 History SS 400-80 mg] Tamsulosin HCl [Flomax] 0.4 mg PO DAILY 08/16/20 08/17/20 History Valganciclovir HCl 450 mg PO MOWEFR 08/16/20 08/17/20 History Midodrine [ProAmatine] 5 mg PO DAILY PRN 08/17/20 08/17/20 History Warfarin [Coumadin] 2.5 mg PO MOWETHSA 08/17/20 08/17/20 History Warfarin [Coumadin] 3.75 mg PO SUTUFR 08/17/20 08/17/20 History Allergies Allergy/AdvReac Type Severity Reaction Status Date / Time meperidine [From Demerol] Allergy Rash/Hives Verified 08/16/20 20:23 Physical Exam Vitals: Vital Signs Temp Pulse Resp BP BP Pulse Ox 08/17/20 10:00 68 12 127/72 92 L 08/17/20 09:00 69 20 109/61 94 L 08/17/20 08:19 96 08/17/20 08:00 100.1 F H 70 17 124/64 95 08/17/20 07:00 69 16 99/65 94 L 08/17/20 06:00 69 16 112/67 92 L 08/17/20 05:00 69 23 112/63 91 L 08/17/20 04:00 100.1 F H 73 16 99/69 90 L 08/17/20 03:00 69 21 108/67 93 L 08/17/20 02:00 68 17 107/61 92 L 08/17/20 01:00 70 23 106/68 93 L 08/17/20 00:27 98.5 F 18 118/73 08/17/20 00:00 98.5 F 66 22 109/71 95 08/16/20 23:00 69 22 121/89 94 L 08/16/20 22:00 102 F H 82 14 111/66 95 08/16/20 21:40 80 22 127/75 96 08/16/20 19:29 102.7 F H 87 20 137/85 100 Intake and Output 08/16/20 08/17/20 08/17/20 22:59 06:59 14:59 Intake Total 20 160 280 Output Total 500 0 Balance 20 -340 280 Intake: IV 20 160 280 Magnesium Sulfate-D5w Pmx 200 1 gm In Dextrose/Water 1 100ml.bag @ 100 mls/hr IVPB Q1H [facility] Rx#: [id number] Sodium Chloride 0.9% 1, 20 160 80 000 ml @ 20 mls/hr IV . Q24H [facility] Rx#:[id number] Output: Urine 0 Hemodialysis 500 Other: Weight 79.379 kg 73 kg Results - Lab Results Most recent lab results Calcium 8.5 mg/dL (8.4-10.2) 08/17/20 02:53 Phosphorus 5.4 mg/dL (2.5-4.5) H 08/17/20 02:53 Magnesium 1.7 mg/dL (1.6-2.3) 08/17/20 02:53 08/17/20 02:53 08/17/20 02:53 Assessment and Plan Plan: assessment: 1. end-stage renal disease maintained on hemodialysis on Saturday rid schedule. 2. sepsis secondary to gram-positive bacteremia maintained on IV vancomycin. ?source. No acute changes noted on CT abdomen and pelvis. Possible cholecystitis. 3. History of bilateral lung transplant maintained on Prograf and prednisone. Follows at [facility]. 4. hyperkalemia secondary to chronic kidney disease and Bactrim. Improved postdialysis. 5. Chronic kidney disease mineral bone disease. phosphorus level 5.4. Plan: Hemodialysis today. Check a.m. Prograf level. Follow-up cultures. Monitor vancomycin levels. Target level 15. Follow-up echocardiogram. Thank you for the consultation. I will continue to follow the patient with you during his hospital stay.
[2020-08-17 11:58] LABS: Glucose,Whole Blood 92 mg/dL (75-99)
[2020-08-17] MEDS: INSULIN ASPART (NovoLOG) 100 UNIT/ML VIAL SQ SCH ×3 (12:58→20:02)
--- NOTE | 2020-08-17 13:25 | P.GSCN ---
History of Present Illness Consult date: 08/17/20 Reason for Consult: Right upper quadrant pain History of present illness: This a 6-year-old male with multiple medical issues related to sarcoidosis. Patient has had complaints of abdominal pain. Patient states she's had intermittent right upper quadrant pain for several months. Patient had a ultrasound performed which showed evidence of cholelithiasis and gallbladder wall thickening. Patient's admitted to the ICU for workup of sepsis. 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 Past Medical History Past Medical History: Diabetes Mellitus, Deep Vein Thrombosis (DVT), Hypertension, Renal Disease Additional Past Medical History / Comment(s): See Dr Holman's H&P,Sarcodosis,Hemodialysis MoWeFr,hx dvt left leg. 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 COLONOSCOPY. RT HAND SURGERY. HEMODIALYSIS CATH. AV SHUNT LT UPPER ARM- 06/11/17 Past Anesthesia/Blood Transfusion Reactions: Motion Sickness Type of Cardiac Device: Permanent Pacemaker, AICD Device Placement Date:: 03-28-2011 Past Psychological History: No Psychological Hx Reported Smoking Status: Never smoker Past Alcohol Use History: None Reported Additional Past Alcohol Use History / Comment(s): Patient states that he is a lifelong nonsmoker. No marijuana, illicit drug use or alcohol use. Patient lives with his fianc. Past Drug Use History: None Reported - Past Family History Father Family Medical History: Cancer, Osteoarthritis (OA) Additional Family Medical History / Comment(s): Father is with history of leukemia and sarcoidosis. Strong family history of sarcoidosis on his father's side. Mother Additional Family Medical History / Comment(s): Mother is after her fifth myocardial infarction with history of diabetes. Brother(s) Additional Family Medical History / Comment(s): Patient has a brother and sister with sarcoidosis. Patient has 6 children with no major medical problems. None have been diagnosed with sarcoidosis. Medications and Allergies Home Medications Medication Instructions Recorded Confirmed Type Pantoprazole Sodium 40 mg PO BID 01/04/17 08/17/20 History predniSONE 5 mg PO DAILY 04/29/18 08/17/20 History Tacrolimus [Prograf] 5 mg PO BID 09/10/19 08/17/20 History Lidocaine-Prilocaine Cream [Emla 1 applic TOPICAL DAILY PRN 12/29/19 08/17/20 History Cream 2.5%/2.5%] Albuterol Nebulized [Ventolin 2.5 mg INHALATION RT-QID PRN 08/16/20 08/17/20 History Nebulized] Ammonium Lactate Cream [Lac-Hydrin 1 applic TOPICAL BID PRN 08/16/20 08/17/20 History 12% Cream] Carvedilol [Coreg] 12.5 mg PO BID 08/16/20 08/17/20 History Fluticasone Propionate [Flovent 2 puff INHALATION RT-BID 08/16/20 08/17/20 History Hfa 110 mcg] Folic Acid-Vit B Complex-Vit C 1 mg PO DAILY 08/16/20 08/17/20 History [Nephrocaps] Metoclopramide [Reglan] 5 mg PO TID PRN 08/16/20 08/17/20 History Ondansetron Odt [Zofran Odt] 4 mg PO Q8H PRN 08/16/20 08/17/20 History Sulfamethox-Tmp 400-80Mg [Bactrim 1 tab PO MOWEFR 08/16/20 08/17/20 History SS 400-80 mg] Tamsulosin HCl [Flomax] 0.4 mg PO DAILY 08/16/20 08/17/20 History Valganciclovir HCl 450 mg PO MOWEFR 08/16/20 08/17/20 History Midodrine [ProAmatine] 5 mg PO DAILY PRN 08/17/20 08/17/20 History Warfarin [Coumadin] 2.5 mg PO MOWETHSA 08/17/20 08/17/20 History Warfarin [Coumadin] 3.75 mg PO SUTUFR 08/17/20 08/17/20 History Allergies Allergy/AdvReac Type Severity Reaction Status Date / Time meperidine [From Demerol] Allergy Rash/Hives Verified 08/16/20 20:23 Surgical - Exam Vital Signs Temp Pulse Resp BP Pulse Ox 102.7 F H 87 20 137/85 100 08/16/20 19:29 08/16/20 19:29 08/16/20 19:29 08/16/20 19:29 08/16/20 19:29 - General well developed, well nourished, moderate distress, moderate pain - Eyes PERRL - ENT normal pinna - Neck no masses - Respiratory normal expansion - Cardiovascular Rhythm: regular - Abdomen Abdomen soft. There is tenderness right upper quadrant with palpation. Hernia: umbilical (3 cm umbilical hernia) Results - Labs 08/17/20 02:53 08/17/20 02:53 Abnormal Lab Results - Last 24 Hours (Table) 08/16/20 08/16/20 08/16/20 Range/Units 19:43 19:43 19:43 WBC 1.5 L (3.8-10.6) k/uL RBC (4.30-5.90) m/uL Hgb (13.0-17.5) gm/dL Hct (39.0-53.0) % RDW 16.7 H (11.5-15.5) % Plt Count 55 L (150-450) k/uL Neutrophils # (Manual) 0.96 L (1.3-7.7) k/uL Lymphocytes # (Manual) 0.45 L (1.0-4.8) k/uL Myelocytes # (Manual) (0) k/uL PT 15.6 H (9.0-12.0) sec INR 1.6 H (<1.2) APTT 31.6 H (22.0-30.0) sec Sodium (137-145) mmol/L Potassium 6.4 H* (3.5-5.1) mmol/L Chloride 97 L (98-107) mmol/L BUN 72 H (9-20) mg/dL Creatinine 13.26 H* (0.66-1.25) mg/dL Glucose 136 H (74-99) mg/dL POC Glucose (mg/dL) (75-99) mg/dL Phosphorus (2.5-4.5) mg/dL Alkaline Phosphatase 143 H (38-126) U/L Creatine Kinase (55-170) U/L 08/16/20 08/17/20 08/17/20 Range/Units 22:02 02:53 02:53 WBC 1.5 L (3.8-10.6) k/uL RBC 3.91 L (4.30-5.90) m/uL Hgb 12.0 L (13.0-17.5) gm/dL Hct 38.5 L (39.0-53.0) % RDW 16.8 H (11.5-15.5) % Plt Count 52 L (150-450) k/uL Neutrophils # (Manual) 1.10 L (1.3-7.7) k/uL Lymphocytes # (Manual) 0.20 L (1.0-4.8) k/uL Myelocytes # (Manual) 0.02 H (0) k/uL PT (9.0-12.0) sec INR (<1.2) APTT (22.0-30.0) sec Sodium 136 L (137-145) mmol/L Potassium (3.5-5.1) mmol/L Chloride (98-107) mmol/L BUN 48 H (9-20) mg/dL Creatinine 9.39 H* (0.66-1.25) mg/dL Glucose (74-99) mg/dL POC Glucose (mg/dL) 157 H (75-99) mg/dL Phosphorus 5.4 H (2.5-4.5) mg/dL Alkaline Phosphatase (38-126) U/L Creatine Kinase (55-170) U/L 08/17/20 08/17/20 Range/Units 03:38 09:48 WBC (3.8-10.6) k/uL RBC (4.30-5.90) m/uL Hgb (13.0-17.5) gm/dL Hct (39.0-53.0) % RDW (11.5-15.5) % Plt Count (150-450) k/uL Neutrophils # (Manual) (1.3-7.7) k/uL Lymphocytes # (Manual) (1.0-4.8) k/uL Myelocytes # (Manual) (0) k/uL PT 16.4 H (9.0-12.0) sec INR 1.7 H (<1.2) APTT (22.0-30.0) sec Sodium (137-145) mmol/L Potassium (3.5-5.1) mmol/L Chloride (98-107) mmol/L BUN (9-20) mg/dL Creatinine (0.66-1.25) mg/dL Glucose (74-99) mg/dL POC Glucose (mg/dL) (75-99) mg/dL Phosphorus (2.5-4.5) mg/dL Alkaline Phosphatase (38-126) U/L Creatine Kinase 34 L (55-170) U/L Microbiology - Last 24 Hours (Table) 08/16/20 19:43 Blood Culture Gram Stain - Preliminary Blood Blood Culture - Preliminary Streptococcus species 08/16/20 19:43 Blood Culture - Final Blood Diabetes panel 08/16/20 08/17/20 Range/Units 19:43 02:53 Sodium 137 136 L (137-145) mmol/L Potassium 6.4 H* 4.9 (3.5-5.1) mmol/L Chloride 97 L 99 (98-107) mmol/L Carbon Dioxide 27 27 (22-30) mmol/L BUN 72 H 48 H (9-20) mg/dL Creatinine 13.26 H* 9.39 H* (0.66-1.25) mg/dL Glucose 136 H 82 (74-99) mg/dL Calcium 9.4 8.5 (8.4-10.2) mg/dL AST 46 40 (17-59) U/L ALT 42 34 (4-49) U/L Alkaline Phosphatase 143 H 110 (38-126) U/L Total Protein 7.8 6.5 (6.3-8.2) g/dL Albumin 4.6 3.7 (3.5-5.0) g/dL Thyroid panel 08/17/20 Range/Units 02:53 TSH 0.605 (0.465-4.680) mIU/L Calcium panel 08/16/20 08/17/20 Range/Units 19:43 02:53 Calcium 9.4 8.5 (8.4-10.2) mg/dL Phosphorus 5.4 H (2.5-4.5) mg/dL Albumin 4.6 3.7 (3.5-5.0) g/dL Pituitary panel 08/16/20 08/17/20 08/17/20 Range/Units 19:43 02:53 02:53 Sodium 137 136 L (137-145) mmol/L Potassium 6.4 H* 4.9 (3.5-5.1) mmol/L Chloride 97 L 99 (98-107) mmol/L Carbon Dioxide 27 27 (22-30) mmol/L BUN 72 H 48 H (9-20) mg/dL Creatinine 13.26 H* 9.39 H* (0.66-1.25) mg/dL Glucose 136 H 82 (74-99) mg/dL Calcium 9.4 8.5 (8.4-10.2) mg/dL TSH 0.605 (0.465-4.680) mIU/L Adrenal panel 08/16/20 08/17/20 Range/Units 19:43 02:53 Sodium 137 136 L (137-145) mmol/L Potassium 6.4 H* 4.9 (3.5-5.1) mmol/L Chloride 97 L 99 (98-107) mmol/L Carbon Dioxide 27 27 (22-30) mmol/L BUN 72 H 48 H (9-20) mg/dL Creatinine 13.26 H* 9.39 H* (0.66-1.25) mg/dL Glucose 136 H 82 (74-99) mg/dL Calcium 9.4 8.5 (8.4-10.2) mg/dL Total Bilirubin 0.7 0.8 (0.2-1.3) mg/dL AST 46 40 (17-59) U/L ALT 42 34 (4-49) U/L Alkaline Phosphatase 143 H 110 (38-126) U/L Total Protein 7.8 6.5 (6.3-8.2) g/dL Albumin 4.6 3.7 (3.5-5.0) g/dL - Imaging Additional studies: Ultrasound the abdomen shows evidence of cholelithiasis and thickened gallbladder wall. Positive Alcazar sign Assessment and Plan Assessment: Cholelithiasis with acute cholecystitis. Patient will be observed currently. He has a complicated medical history. He'll receive supportive care. We will await his blood cultures.
--- NOTE | 2020-08-17 13:33 | P.HPIM ---
History of Present Illness H&P Date: 08/17/20 HISTORY OF PRESENT ILLNESS This is a 59-year-old -Filipino male patient of Dr. Qureshi with past medical history of sarcoidosis with multiorgan involvement status post bilateral lung transplant done at [facility] in 2014, end-stage renal disease on hemodialysis Saturday via left arm AV fistula followed by Dr. Desai, DVT of the left lower extremity on Coumadin, hypertension, diabetes mellitus type 2, high-grade AV block and paroxysmal atrial fibrillation status post dual-chamber AICD, hypertension, chronic diastolic heart failure, pulmonary hypertension and chronic cor pulmonale, chronic thrombocytopenia, patient reported history of mitral valve replacement. Patient presented to [facility] emergency center due to increasing confusion that started yesterday as well as fever. Patient also had abdominal symptoms. At the time of evaluation, patient is confused about why he came in the hospital. He presented with a temperature of 102.7, heart rate 87, blood pressure 137/85, pulse ox 100% on room air. CAT scan of the brain revealed no acute intracranial hemorrhage or midline shift. Mild to moderate diffuse age-related cerebral atrophy and mild chronic small vessel ischemic change with interval progression since 2012. EKG was a sinus rhythm with sinus arrhythmia at rate of 87. Chest x-ray reveals cardiomegaly without acute pulmonary process. Ultrasound gallbladder revealed gallstones redemonstrated. Acute cholecystitis cannot be excluded as there is mild gallbladder wall thickening in positive sonographic Alcazar sign. Hepatocellular disease or fatty filtration of the liver felt present. Consider HIDA scan. CAT scan of the abdomen showed no significant new or acute finding. Initial lab work revealed a WBC 1.5, hemoglobin 13.6, platelet count 55. INR 1.6. Sodium 137, potassium 6.4, chloride 97, CO2 27, BUN 72, creatinine 13.26. When sugar 136. Alkaline phosphatase 143, AST 46 and ALT 42. TSH 0.605. Patient was admitted to the intensive care unit and consults in place with utilization review rn, neurology, infectious disease, nephrology, general surgery. Patient continues to have confusion. Blood cultures subsequently positive for Streptococcus and repeat blood culture ordered. Patient normally does not have any urine production. REVIEW OF SYSTEMS Unable to obtain due to mental status changes. SOCIAL HISTORY Patient is a lifelong nonsmoker. No marijuana, illicit drug use or alcohol use. Patient lives with his fianc. He normally drives himself to dialysis treatments. FAMILY HISTORY Father is with history of leukemia and sarcoidosis. There is a strong family history of sarcoidosis on the father's side. Mother is after her fifth myocardial infarction with history of diabetes. Patient has 1 brother and 1 sister with sarcoidosis. He has 6 children with no major medical problems and none have been diagnosed with sarcoidosis. PHYSICAL EXAMINATION Gen: This is a 60-year-old -Filipino male. He is resting in ICU bed and appears to be comfortable. Patient continues to mild confusion. HEENT: Head is atraumatic, normocephalic. Pupils equal, round. Sclerae is anicteric. NECK: Supple. No JVD. No lymphadenopathy. No thyromegaly. LUNGS: Clear to auscultation. No wheezes or rhonchi. No intercostal retractions. HEART: Regular rate and rhythm. Systolic murmur. ABDOMEN: Soft. Bowel sounds are present. No masses. No tenderness. EXTREMITIES: No pedal edema. No calf tenderness. Dorsalis pedis palpable bilaterally. AV fistula to the left arm. NEUROLOGICAL: Patient is awake, alert and oriented to person, place, he cannot remember why he came in the hospital or details regarding that, patient able to remember the dose on Valcyte. Cranial nerves 2 through 12 are grossly intact. ASSESSMENT AND PLAN 1. Sepsis with streptococcal bacteremia, source to be identified. Patient has been admitted into the intensive care unit. Consult with infectious disease. Patient is currently on vancomycin and ceftriaxone will be added. Repeat blood cultures been ordered. 2. Septic metabolic encephalopathy. Continue treatment as in #1. Consult with neurology appreciated. EEG has been ordered for today. 3. Leukopenia possibly secondary to sepsis but has been low in past. 4. Thrombocytopenia, chronic most likely exacerbated by sepsis. 5. Hyperkalemia, resolved. 6. End-stage renal disease. Patient underwent hemodialysis last evening and repeat scheduled for today. Nephrology consult appreciated.. 7. History of sarcoidosis with multiorgan involvement status post bilateral lung transplant at [facility] in 2014 . Continue antirejection medication as prescribed at home. 8. Possible cholecystitis, not thought to be source of sepsis. Consult with general surgery. 9. DVT of the left lower extremity on chronic Coumadin. Continue Coumadin, pharmacy to dose. 10. Diabetes mellitus type 2. 11. History of high-grade AV block and paroxysmal atrial fibrillation status post dual-chamber AICD. Continue Lopressor 12.5 mg twice daily. 12. Hypertension Patient will be admitted to the hospital for a minimum of 2 night stay. DISCHARGE PLAN Most likely return home. Impression and plan of care have been directed as dictated by the signing physician. Sydney Gallegos nurse practitioner acting as scribe for signing physician. Past Medical History Past Medical History: Diabetes Mellitus, Deep Vein Thrombosis (DVT), Hyper tension, Renal Disease Additional Past Medical History / Comment(s): See Dr Holman's H&P,Sarcodosis,Hemodialysis MoWeFr,hx dvt left leg. 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 COLONOSCOPY. RT HAND SURGERY. HEMODIALYSIS CATH. AV SHUNT LT UPPER ARM- 06/11/17 Past Anesthesia/Blood Transfusion Reactions: Motion Sickness Type of Cardiac Device: Permanent Pacemaker, AICD Device Placement Date:: 03-28-2011 Past Psychological History: No Psychological Hx Reported Smoking Status: Never smoker Past Alcohol Use History: None Reported Additional Past Alcohol Use History / Comment(s): Patient states that he is a lifelong nonsmoker. No marijuana, illicit drug use or alcohol use. Patient lives with his fianc. Past Drug Use History: None Reported - Past Family History Father Family Medical History: Cancer, Osteoarthritis (OA) Additional Family Medical History / Comment(s): Father is with history of leukemia and sarcoidosis. Strong family history of sarcoidosis on his father's side. Mother Additional Family Medical History / Comment(s): Mother is after her fifth myocardial infarction with history of diabetes. Brother(s) Additional Family Medical History / Comment(s): Patient has a brother and sister with sarcoidosis. Patient has 6 children with no major medical problems. None have been diagnosed with sarcoidosis. Medications and Allergies Home Medications Medication Instructions Recorded Confirmed Type Pantoprazole Sodium 40 mg PO BID 01/04/17 08/17/20 History predniSONE 5 mg PO DAILY 04/29/18 08/17/20 History Tacrolimus [Prograf] 5 mg PO BID 09/10/19 08/17/20 History Lidocaine-Prilocaine Cream [Emla 1 applic TOPICAL DAILY PRN 12/29/19 08/17/20 History Cream 2.5%/2.5%] Albuterol Nebulized [Ventolin 2.5 mg INHALATION RT-QID PRN 08/16/20 08/17/20 History Nebulized] Ammonium Lactate Cream [Lac-Hydrin 1 applic TOPICAL BID PRN 08/16/20 08/17/20 History 12% Cream] Carvedilol [Coreg] 12.5 mg PO BID 08/16/20 08/17/20 History Fluticasone Propionate [Flovent 2 puff INHALATION RT-BID 08/16/20 08/17/20 History Hfa 110 mcg] Folic Acid-Vit B Complex-Vit C 1 mg PO DAILY 08/16/20 08/17/20 History [Nephrocaps] Metoclopramide [Reglan] 5 mg PO TID PRN 08/16/20 08/17/20 History Ondansetron Odt [Zofran Odt] 4 mg PO Q8H PRN 08/16/20 08/17/20 History Sulfamethox-Tmp 400-80Mg [Bactrim 1 tab PO MOWEFR 08/16/20 08/17/20 History SS 400-80 mg] Tamsulosin HCl [Flomax] 0.4 mg PO DAILY 08/16/20 08/17/20 History Valganciclovir HCl 450 mg PO MOWEFR 08/16/20 08/17/20 History Midodrine [ProAmatine] 5 mg PO DAILY PRN 08/17/20 08/17/20 History Warfarin [Coumadin] 2.5 mg PO MOWETHSA 08/17/20 08/17/20 History Warfarin [Coumadin] 3.75 mg PO SUTUFR 08/17/20 08/17/20 History Allergies Allergy/AdvReac Type Severity Reaction Status Date / Time meperidine [From Demerol] Allergy Rash/Hives Verified 08/16/20 20:23 Physical Exam Vitals: Vital Signs Temp Pulse Resp BP BP Pulse Ox 08/17/20 08:19 96 08/17/20 08:00 100.1 F H 70 17 124/64 95 08/17/20 07:00 69 16 99/65 94 L 08/17/20 06:00 69 16 112/67 92 L 08/17/20 05:00 69 23 112/63 91 L 08/17/20 04:00 100.1 F H 73 16 99/69 90 L 08/17/20 03:00 69 21 108/67 93 L 08/17/20 02:00 68 17 107/61 92 L 08/17/20 01:00 70 23 106/68 93 L 08/17/20 00:27 98.5 F 18 118/73 08/17/20 00:00 98.5 F 66 22 109/71 95 08/16/20 23:00 69 22 121/89 94 L 08/16/20 22:00 102 F H 82 14 111/66 95 08/16/20 21:40 80 22 127/75 96 08/16/20 19:29 102.7 F H 87 20 137/85 100 Intake and Output 08/16/20 08/17/20 08/17/20 22:59 06:59 14:59 Intake Total 20 160 240 Output Total 500 Balance 20 -340 240 Intake: IV 20 160 240 Magnesium Sulfate-D5w Pmx 200 1 gm In Dextrose/Water 1 100ml.bag @ 100 mls/hr IVPB Q1H [facility] Rx#: [id number] Sodium Chloride 0.9% 1, 20 160 40 000 ml @ 20 mls/hr IV . Q24H [facility] Rx#:[id number] Output: Hemodialysis 500 Other: Weight 79.379 kg 73 kg Results CBC & Chem 7: 08/18/20 03:55 08/18/20 03:55 Labs: Abnormal Lab Results - Last 24 Hours (Table) 08/16/20 08/16/20 08/16/20 Range/Units 19:43 19:43 19:43 WBC 1.5 L (3.8-10.6) k/uL RBC (4.30-5.90) m/uL Hgb (13.0-17.5) gm/dL Hct (39.0-53.0) % RDW 16.7 H (11.5-15.5) % Plt Count 55 L (150-450) k/uL Neutrophils # (Manual) 0.96 L (1.3-7.7) k/uL Lymphocytes # (Manual) 0.45 L (1.0-4.8) k/uL Myelocytes # (Manual) (0) k/uL PT 15.6 H (9.0-12.0) sec INR 1.6 H (<1.2) APTT 31.6 H (22.0-30.0) sec Sodium (137-145) mmol/L Potassium 6.4 H* (3.5-5.1) mmol/L Chloride 97 L (98-107) mmol/L BUN 72 H (9-20) mg/dL Creatinine 13.26 H* (0.66-1.25) mg/dL Glucose 136 H (74-99) mg/dL POC Glucose (mg/dL) (75-99) mg/dL Phosphorus (2.5-4.5) mg/dL Alkaline Phosphatase 143 H (38-126) U/L 08/16/20 08/17/20 08/17/20 Range/Units 22:02 02:53 02:53 WBC 1.5 L (3.8-10.6) k/uL RBC 3.91 L (4.30-5.90) m/uL Hgb 12.0 L (13.0-17.5) gm/dL Hct 38.5 L (39.0-53.0) % RDW 16.8 H (11.5-15.5) % Plt Count 52 L (150-450) k/uL Neutrophils # (Manual) 1.10 L (1.3-7.7) k/uL Lymphocytes # (Manual) 0.20 L (1.0-4.8) k/uL Myelocytes # (Manual) 0.02 H (0) k/uL PT (9.0-12.0) sec INR (<1.2) APTT (22.0-30.0) sec Sodium 136 L (137-145) mmol/L Potassium (3.5-5.1) mmol/L Chloride (98-107) mmol/L BUN 48 H (9-20) mg/dL Creatinine 9.39 H* (0.66-1.25) mg/dL Glucose (74-99) mg/dL POC Glucose (mg/dL) 157 H (75-99) mg/dL Phosphorus 5.4 H (2.5-4.5) mg/dL Alkaline Phosphatase (38-126) U/L 08/17/20 Range/Units 03:38 WBC (3.8-10.6) k/uL RBC (4.30-5.90) m/uL Hgb (13.0-17.5) gm/dL Hct (39.0-53.0) % RDW (11.5-15.5) % Plt Count (150-450) k/uL Neutrophils # (Manual) (1.3-7.7) k/uL Lymphocytes # (Manual) (1.0-4.8) k/uL Myelocytes # (Manual) (0) k/uL PT 16.4 H (9.0-12.0) sec INR 1.7 H (<1.2) APTT (22.0-30.0) sec Sodium (137-145) mmol/L Potassium (3.5-5.1) mmol/L Chloride (98-107) mmol/L BUN (9-20) mg/dL Creatinine (0.66-1.25) mg/dL Glucose (74-99) mg/dL POC Glucose (mg/dL) (75-99) mg/dL Phosphorus (2.5-4.5) mg/dL Alkaline Phosphatase (38-126) U/L Microbiology - Last 24 Hours (Table) 08/16/20 19:43 Blood Culture Gram Stain - Preliminary Blood 08/16/20 19:43 Blood Culture - Final Blood Thrombosis Risk Factor Assmnt - Choose All That Apply Each Factor Represents 1 point: Age 41-60 years, Medical pt on bed rest, Sepsis (< 1month) Other Risk Factors: Yes Each Risk Factor Represents 2 Points: Patient confined to bed Each Risk Factor Represents 3 Points: History of DVT/PE Thrombosis Risk Factor Assessment Total Risk Factor Score: 8 Thrombosis Risk Factor Assessment Level: High Risk
--- NOTE | 2020-08-17 13:49 | P.CNPUL ---
History of Present Illness Consult date: 08/17/20 Chief complaint: Altered mental status, fever History of present illness: This is a 59-year-old -[place] male patient is known to me from previous evaluation. 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 back in 2014 and the patient has been maintained on immunosuppressive agents in addition to long-term treatment with Bactrim, Zithromax and ganciclovir due to his positive CMV status.. The patient also has end-stage renal disease and currently is on hemo dialysis 3 times a week. He also has other comorbidities including cardiomyopathy and the patient has a dual-chamber AICD in place and addition to history of hypertension, chronic secondary pulmonary hypertension and cor pulmonale, previous history of mitral valve replacement, hypertension and prev ious history of DVT of the left lower extremity maintained on anticoagulation with warfarin on outpatient basis. Noted the patient undergoes hemodialysis through his AV fistula which is present in the left upper extremity. He also is known to have an umbilical hernia which has not caused any issues over the years. The patient came into the ED yesterday because of an altered mental status. He was also having high-grade fever. He had a temperature of 102.7. He was hemodynamically stable with a pulse ox of 99% on room air. Chest x-ray shows cardiomegaly. The ICD was in a good location. No acute pulmonary infiltrates. CAT scan of the brain showed no acute abnormalities. He has mild to moderate diffuse age-related atrophy on the CAT scan of the brain. No evidence of any acute bleeds. EKG showed a sinus rhythm. Based on some abdominal discomfort, the patient has been given a CAT scan of the abdomen that showed no significant abnormalities in the gallbladder. There was an umbilical hernia. There was also some on complicated diverticulosis. The cystic structure in the right kidney was noted. This has gone small in size. I'm assuming this in the same location where the patient had a bleed within the cyst and has right kidney. As for the ultrasound the of the gallbladder, it was abnormal with some mild gallbladder wall thickening and positive sonographic Alcazar's signs. There was hepatocellular disease/fatty infiltration of the liver. The patient's AST was 46, ALT is 42 and alkaline phosphatase 143. Note that his examination is not quite reliable as the patient is having some mild diffuse tenderness throughout his abdominal wall. The blood cultures showing g hany-positive cocci and the patient was given a dose of vancomycin pending further cultures. The preliminary findings is consistent with Streptococcus. The patient is immunosuppressed as mentioned. The patient has a white second of 1.5. The patient has 15% bands. The patient has a BUN of 48 with a creatinine of 9.3. Sodium level is at 136. The ammonia level is at 34. TSH is within normal limits. CPK is at 34. Glucose of 82. INR is 1.7 of the of 16.4. Note that this is a subtherapeutic PT/INR as the patient has been taking warfarin on outpatient basis. Review of Systems Constitutional: Reports fever, Reports weakness Eyes: denies as per HPI, denies blurred vision, denies bulging eye, denies decreased vision, denies diplopia, denies discharge, denies dry eye, denies irritation, denies itching, denies pain, denies photophobia, denies loss of peripheral vision, denies loss of vision, denies tunnel vision/blind spots Ears: deny: decreased hearing, ear discharge, earache, tinnitus Ears, nose, mouth and throat: Reports as per HPI Cardiovascular: Reports as per HPI Respiratory: Reports as per HPI Gastrointestinal: Reports as per HPI, Reports abdominal pain Genitourinary: Reports as per HPI (Patient is on hemodialysis) Musculoskeletal: Reports as per HPI Musculoskeletal: absent: ankle pain, ankle stiffness, ankle swelling Integumentary: Reports as per HPI Neurological: Reports as per HPI, Reports confusion Psychiatric: Reports as per HPI Endocrine: Reports as per HPI Hematologic/Lymphatic: Reports as per HPI Allergic/Immunologic: Reports as per HPI Past Medical History Past Medical History: Diabetes Mellitus, Deep Vein Thrombosis (DVT), Hypertension, Renal Disease Additional Past Medical History / Comment(s): Sarcoidosis, 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 hx dvt left leg, 12/25/19 clots removed from left arm fistula History of Any Multi-Drug Resistant Organisms: C-DIFF Date of last positivie culture/infection: April 2016 MDRO Source:: STOOL Past Surgical History: AICD, Back Surgery, Orthopedic Surgery, Pacemaker Additional Past Surgical History / Comment(s): Bilateral lung transplant w/ valve replacement(not sure which valve)-04-25-2016. COLONOSCOPY. RT HAND SURGERY. HEMODIALYSIS CATH. AV SHUNT LT UPPER ARM- 06/11/17 Past Anesthesia/Blood Transfusion Reactions: Motion Sickness Type of Cardiac Device: Permanent Pacemaker, AICD Device Placement Date:: 03-28-2011 Past Psychological History: No Psychological Hx Reported Smoking Status: Never smoker Past Alcohol Use History: None Reported Additional Past Alcohol Use History / Comment(s): Patient states that he is a lifelong nonsmoker. No marijuana, illicit drug use or alcohol use. Patient lives with his fianc. Past Drug Use History: None Reported - Past Family History Father Family Medical History: Cancer, Osteoarthritis (OA) Additional Family Medical History / Comment(s): Father is with history of leukemia and sarcoidosis. Strong family history of sarcoidosis on his father's side. Mother Additional Family Medical History / Comment(s): Mother is after her fifth myocardial infarction with history of diabetes. Brother(s) Additional Family Medical History / Comment(s): Patient has a brother and sister with sarcoidosis. Patient has 6 children with no major medical problems. None have been diagnosed with sarcoidosis. Medications and Allergies Home Medications Medication Instructions Recorded Confirmed Type Pantoprazole Sodium 40 mg PO BID 01/04/17 08/17/20 History predniSONE 5 mg PO DAILY 04/29/18 08/17/20 History Tacrolimus [Prograf] 5 mg PO BID 09/10/19 08/17/20 History Lidocaine-Prilocaine Cream [Emla 1 applic TOPICAL DAILY PRN 12/29/19 08/17/20 History Cream 2.5%/2.5%] Albuterol Nebulized [Ventolin 2.5 mg INHALATION RT-QID PRN 08/16/20 08/17/20 History Nebulized] Ammonium Lactate Cream [Lac-Hydrin 1 applic TOPICAL BID PRN 08/16/20 08/17/20 History 12% Cream] Carvedilol [Coreg] 12.5 mg PO BID 08/16/20 08/17/20 History Fluticasone Propionate [Flovent 2 puff INHALATION RT-BID 08/16/20 08/17/20 History Hfa 110 mcg] Folic Acid-Vit B Complex-Vit C 1 mg PO DAILY 08/16/20 08/17/20 History [Nephrocaps] Metoclopramide [Reglan] 5 mg PO TID PRN 08/16/20 08/17/20 History Ondansetron Odt [Zofran Odt] 4 mg PO Q8H PRN 08/16/20 08/17/20 History Sulfamethox-Tmp 400-80Mg [Bactrim 1 tab PO MOWEFR 08/16/20 08/17/20 History SS 400-80 mg] Tamsulosin HCl [Flomax] 0.4 mg PO DAILY 08/16/20 08/17/20 History Valganciclovir HCl 450 mg PO MOWEFR 08/16/20 08/17/20 History Midodrine [ProAmatine] 5 mg PO DAILY PRN 08/17/20 08/17/20 History Warfarin [Coumadin] 2.5 mg PO MOWETHSA 08/17/20 08/17/20 History Warfarin [Coumadin] 3.75 mg PO SUTUFR 08/17/20 08/17/20 History Allergies Allergy/AdvReac Type Severity Reaction Status Date / Time meperidine [From Demerol] Allergy Rash/Hives Verified 08/16/20 20:23 Physical Exam Vitals: Vital Signs Temp Pulse Resp BP BP Pulse Ox 08/17/20 13:00 70 18 112/64 94 L 08/17/20 12:00 98.7 F 80 26 H 110/80 94 L 08/17/20 11:00 74 26 H 110/76 93 L 08/17/20 10:00 68 12 127/72 92 L 08/17/20 09:00 69 20 109/61 94 L 08/17/20 08:19 96 08/17/20 08:00 100.1 F H 70 17 124/64 95 08/17/20 07:00 69 16 99/65 94 L 08/17/20 06:00 69 16 112/67 92 L 08/17/20 05:00 69 23 112/63 91 L 08/17/20 04:00 100.1 F H 73 16 99/69 90 L 08/17/20 03:00 69 21 108/67 93 L 08/17/20 02:00 68 17 107/61 92 L 08/17/20 01:00 70 23 106/68 93 L 08/17/20 00:27 98.5 F 18 118/73 08/17/20 00:00 98.5 F 66 22 109/71 95 08/16/20 23:00 69 22 121/89 94 L 08/16/20 22:00 102 F H 82 14 111/66 95 08/16/20 21:40 80 22 127/75 96 08/16/20 19:29 102.7 F H 87 20 137/85 100 Intake and Output 08/16/20 08/17/20 08/17/20 22:59 06:59 14:59 Intake Total 20 160 590 Output Total 500 0 Balance 20 -340 590 Intake: IV 20 160 340 Magnesium Sulfate-D5w Pmx 200 1 gm In Dextrose/Water 1 100ml.bag @ 100 mls/hr IVPB Q1H [facility] Rx#: [id number] Sodium Chloride 0.9% 1, 20 160 140 000 ml @ 20 mls/hr IV . Q24H [facility] Rx#:[id number] Oral 250 Output: Urine 0 Hemodialysis 500 Other: Weight 79.379 kg 73 kg Gen. appearance, comfortable likely distress currently on room air oxygen pulse ox is around 92% Head exam was generally normal. There was no scleral icterus or corneal arcus. Mucous membranes were moist. Neck was supple and without jugular venous distension, thyromegaly, or carotid bruits. Carotids were easily palpable bilaterally. There was no adenopathy. Lungs were clear to auscultation and percussion, and with normal diaphragmatic excursion. No wheezes or rales were noted. Cardiac exam revealed the PMI to be normally situated and sized. The rhythm was regular and no extrasystoles were noted during several minutes of auscultation. The first and second heart sounds were normal and physiologic splitting of the second heart sound was noted. There were no murmurs, rubs, clicks, or gallops. The patient has a normal sinus rhythm. Abdominal exam revealed normal bowel sounds. The abdomen was soft, tender, and without masses, organomegaly, or appreciable enlargement of the abdominal aorta. The patient has some mild direct tenderness throughout the abdominal wall. There is an umbilical hernia which is easily reducible. There is some limited right upper quadrant tenderness. There is also limited periumbilical and left lower quadrant and left upper quadrant tenderness also. Examination of the extremities revealed easily palpable radial, femoral and pedal pulses. There was no cyanosis, clubbing or edema. The patient has a functioning AV fistula in the left upper extremity. Examination of the skin revealed no evidence of significant rashes, suspicious appearing nevi or other concerning lesions. Neurologically awake and alert and there is no focal neurological deficits. Results - Laboratory Findings CBC and BMP: 08/17/20 02:53 08/17/20 02:53 PT/INR, D-dimer PT 16.4 sec (9.0-12.0) H 08/17/20 03:38 INR 1.7 (<1.2) H 08/17/20 03:38 Abnormal lab findings: Abnormal Labs 08/16/20 08/16/20 08/16/20 19:43 19:43 19:43 WBC 1.5 L RBC Hgb Hct RDW 16.7 H Plt Count 55 L Neutrophils # (Manual) 0.96 L Lymphocytes # (Manual) 0.45 L Myelocytes # (Manual) PT 15.6 H INR 1.6 H APTT 31.6 H Sodium Potassium 6.4 H* Chloride 97 L BUN 72 H Creatinine 13.26 H* Glucose 136 H POC Glucose (mg/dL) Phosphorus Alkaline Phosphatase 143 H Creatine Kinase 08/16/20 08/17/20 08/17/20 22:02 02:53 02:53 WBC 1.5 L RBC 3.91 L Hgb 12.0 L Hct 38.5 L RDW 16.8 H Plt Count 52 L Neutrophils # (Manual) 1.10 L Lymphocytes # (Manual) 0.20 L Myelocytes # (Manual) 0.02 H PT INR APTT Sodium 136 L Potassium Chloride BUN 48 H Creatinine 9.39 H* Glucose POC Glucose (mg/dL) 157 H Phosphorus 5.4 H Alkaline Phosphatase Creatine Kinase 08/17/20 08/17/20 03:38 09:48 WBC RBC Hgb Hct RDW Plt Count Neutrophils # (Manual) Lymphocytes # (Manual) Myelocytes # (Manual) PT 16.4 H INR 1.7 H APTT Sodium Potassium Chloride BUN Creatinine Glucose POC Glucose (mg/dL) Phosphorus Alkaline Phosphatase Creatine Kinase 34 L Assessment and Plan Plan: 1 sepsis secondary to gram-positive bacteria, likely Streptococcus and we are still awaiting final cultures and sensitivities. The patient was given vancomycin in the emergency department. Exact source is not clear. Doubt pneumonia. Could be a skin source. There is also the possibility of an acute cholecystitis although this may not be truly the source of bacteremia in this patient. The patient is currently afebrile hemodynamically stable. 2 altered mental status secondary to above, improving 3 chronic neutropenia and the patient has been on Prograf as an i mmunosuppressive agents with a white cell count of 1.5, and the patient is maintained on a combination of Prograft/prednisone in addition to Zithromax and Bactrim and Valcyte on outpatient basis 4 History of sarcoidosis, stage IV requiring transportation that was done at [facility] second 2014 5 bilateral lung transplantation maintained on immunosuppression with a combination of Prograf and prednisone 6 end-stage renal disease on dialysis 3 times a week 7 diabetes mellitus type 2 8 history of DVT of the left lower extremity within on long-term articulation with warfarin, PT/INR was subtherapeutic at the time of admission 9 chronic anemia 10 cardiomyopathy with systolic and diastolic heart failure. The patient has also history of high-grade AV block and paroxysmal atrial fibrillation. The patient is a dual-chamber AICD in place. There is also a questionable history of aortic valve intervention, possibly a TAVR procedure. I'm not absolutely sure of that. 11 hypertension 12 secondary pulmonary hypertension 13 umbilical hernia without evidence of any strangulation or incarceration 14 diverticulosis, complicated 15 bleeding right renal cyst most coiling/embolization, and the repeat CAT scan of the abdomen and pelvis that was done yesterday showed an interval reduction in the patient's collection in the right kidney which is currently measuring 5.1 x 6 cm in size and has decreased in size compared to the previous CAT scan from July 2020. Plan May drop the IV vancomycin once the culture sensitivities are available and continue with IV Rocephin Surgical evaluation regarding the gallbladder abnormality The patient's fever pattern will be monitored Check Prograft level Check echocardiogram to assess the valve and LV function. The patient has had a previous valve surgery which probably is a TaVR versus a mitral valve procedure Continue hemodialysis per nephrology Continue anticoagulation with warfarin at a regular dose with daily monitoring of the PT/INR We'll continue to follow and keep the patient ICU for now.
--- NOTE | 2020-08-17 14:21 | EEG ---
ELECTROENCEPHALOGRAM REPORT DATE OF SERVICE: 08/17/2020 CLINICAL HISTORY: This is a 60-year-old gentleman with a history of end-stage renal disease on dialysis, sarcoidosis, status post lung transplant, who presented to the Emergency Department on 08/16/2020 for altered mental status. This video EEG was obtained to evaluate for seizure and epileptiform activity. RELEVANT MEDICATION: The patient is not on any centrally active medication. EEG TYPE: A routine 21 channel was performed with video using the 10-20 electrode placement system. DESCRIPTION: Wakefulness is only obtained. During wakefulness, there is a posterior dominant rhythm of [id number] voltage that is poorly react poorly reactive of 6-7 hertz activity over the bilateral hemisphere. There are occasional anterior to posterior lag with triphasic morphology seen during stimulated state.There is no physiological stage 2 sleep seen. There are frequent moderate to high voltage of 1-2 hertz generalized rhythmic delta activity with frontal predominance (GRDA). ACTIVATION PROCEDURE: Photic stimulation did not evoke a posterior driving response. Hyperventilation was not performed because of the patient clinical history. EEG DIAGNOSIS: This is an abnormal routine EEG with background slowing, as well as generalized rhythmic delta activity and triphasic are suggestive of moderate encephalopathy. The triphasic waves are likely due to toxic-metabolic abnormality. There are no focal slowing, epileptiform activity or seizures seen during this study. Clinical correlation is recommended. ERUM / NASRINN: [id number] / MTDD
[2020-08-17] MEDS: ALBUTEROL NEBULIZED 2.5 MG/3 ML INHALATION PRN ×2 (15:34→19:59)
[2020-08-17] MEDS ORDERED: VANCOMYCIN 1,500 MG in SODIUM CHLORIDE 0.9% 250 ML IVPB ONE ×2 (16:00→21:00)
[2020-08-17 16:47] LABS: Glucose,Whole Blood 106 mg/dL (75-99)
[2020-08-17] MEDS: PANTOPRAZOLE 40 MG TABLET PO SCH (17:27)
[2020-08-17] MEDS: carvediloL 12.5 MG TAB PO SCH (17:27)
[2020-08-17] MEDS ORDERED: WARFARIN 3 MG TAB PO ONE (18:00)
--- NOTE | 2020-08-17 19:18 | ECHOF ---
Referral Reason:positive blood culture MEASUREMENTS -------- HEIGHT: 180.3 cm WEIGHT: 72.6 kg BP: 127/72 RVIDd: 2.9 cm (< 3.3) IVSd: 1.5 cm (0.6 - 1.1) LVIDd: 4.7 cm (3.9 - 5.3) LVPWd: 1.5 cm (0.6 - 1.1) IVSs: 1.9 cm LVIDs: 3.2 cm LVPWs: 1.8 cm LA Diam: 3.8 cm (2.7 - 3.8) LAESV Index (A-L): 25.15 ml/m Ao Diam: 3.9 cm (2.0 - 3.7) AV Cusp: 2.6 cm (1.5 - 2.6) MV EXCURSION: 18.872 mm (> 18.000) MV EF SLOPE: 96 mm/s (70 - 150) EPSS: 0.9 cm MV E Antonino: 0.93 m/s MV DecT: 204 ms MV A Antonino: 0.73 m/s MV E/A Ratio: 1.27 RAP: 5.00 mmHg RVSP: 35.84 mmHg FINDINGS -------- Paced rhythm. This was a technically good study. The left ventricular size is normal. There is moderate concentric left ventricular hypertrophy. O verall left ventricular systolic function is low-normal with, an EF between 50 - 55 %. Apical septu m LV wall motion is hypokinetic. The right ventricle is normal in size. Normal LA size by volume 22+/-6 ml/m2. The right atrium is normal in size. Interatrial and interventricular septum intact. The aortic valve is trileaflet and appears structurally normal. The mitral valve is normal. Mild tricuspid regurgitation present. There is mild pulmonary hypertension. The right ventricular systolic pressure, as measured by Doppler, is 35.84mmHg. There is no pulmonic regurgitation present. The aortic root is dilated measuring 3.9cm. Normal inferior vena cava with normal inspiratory collapse consistent with estimated right atrial pre ssure of 5 mmHg. There is no pericardial effusion. CONCLUSIONS -------- 1. The left ventricular size is normal. 2. There is moderate concentric left ventricular hypertrophy. 3. Overall left ventricular systolic function is low-normal with, an EF between 50 - 55 %. 4. Apical septum LV wall motion is hypokinetic. 5. Mild tricuspid regurgitation present. 6. There is mild pulmonary hypertension. 7. The right ventricular systolic pressure, as measured by Doppler, is 35.84mmHg. 8. The aortic root is dilated measuring 3.9cm. 9. There is no pericardial effusion. PESTICIDE APPLICATOR: Gabrielle Boudreaux RDCS
[2020-08-17 19:59] LABS: Glucose,Whole Blood 187 mg/dL (75-99)
--- NOTE | 2020-08-17 22:42 | P.CONS ---
History of Present Illness - Reason for Consult Consult date: 08/17/20 Sepsis Requesting physician: Jean-Paul Monroe - Chief Complaint Fever and confusion x one day - History of Present Illness Patient is 60-year-old male with a past medical history significant for end-stage renal disease on hemodialysis Saturday through the left arm AV fistula patient has been brought to [facility] ER last night for evaluation of mental status changes and elevated temperature patient seemed to be confused by his sister and apparently the patient complaining of abdominal symptoms mostly abdominal pain for the last 2 days in addition to some vomiting, patient on presentation to the hospital did have a temperature of 102F patient was leukopenic with a white count 1.5 patient did have normal liver enzymes, patient did have CT of abdominal pelvis which was reported to be negative, there was improving the right lateral mid to lower pole and one for collection surrounding ill-defined fluid. Was resolving postsurgical change, ultrasound of the gallbladder did shows gallstone redemonstrated acute cholestasis cannot be excluded patient has been admitted to the ICU has been treated with Rocephin and vancomycin infectious disease was consulted concern for possible sepsis patient is currently not on any pressor support and is undergoing hemodialysis, patient chest x-ray reported negative for any acute cardiopulmonary process Review of Systems Positive point has been mentioned in the HPI rest of the systems are negative Past Medical History Past Medical History: Diabetes Mellitus, Deep Vein Thrombosis (DVT), Hypertension, Renal Disease Additional Past Medical History / Comment(s): See Dr Holman's H&P,Sarcodosis,Hemodialysis MoWeFr,hx dvt left leg. 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 COLONOSCOPY. RT HAND SURGERY. HEMODIALYSIS CATH. AV SHUNT LT UPPER ARM- 06/11/17 Past Anesthesia/Blood Transfusion Reactions: Motion Sickness Type of Cardiac Device: Permanent Pacemaker, AICD Device Placement Date:: 03-28-2011 Past Psychological History: No Psychological Hx Reported Smoking Status: Never smoker Past Alcohol Use History: None Reported Additional Past Alcohol Use History / Comment(s): Patient states that he is a lifelong nonsmoker. No marijuana, illicit drug use or alcohol use. Patient lives with his fianc. Past Drug Use History: None Reported - Past Family History Father Family Medical History: Cancer, Osteoarthritis (OA) Additional Family Medical History / Comment(s): Father is with history of leukemia and sarcoidosis. Strong family history of sarcoidosis on his father's side. Mother Additional Family Medical History / Comment(s): Mother is after her fifth myocardial infarction with history of diabetes. Brother(s) Additional Family Medical History / Comment(s): Patient has a brother and sister with sarcoidosis. Patient has 6 children with no major medical problems. None have been diagnosed with sarcoidosis. Medications and Allergies Home Medications Medication Instructions Recorded Confirmed Type Pantoprazole Sodium 40 mg PO BID 01/04/17 08/17/20 History predniSONE 5 mg PO DAILY 04/29/18 08/17/20 History Tacrolimus [Prograf] 5 mg PO BID 09/10/19 08/17/20 History Lidocaine-Prilocaine Cream [Emla 1 applic TOPICAL DAILY PRN 12/29/19 08/17/20 History Cream 2.5%/2.5%] Albuterol Nebulized [Ventolin 2.5 mg INHALATION RT-QID PRN 08/16/20 08/17/20 History Nebulized] Ammonium Lactate Cream [Lac-Hydrin 1 applic TOPICAL BID PRN 08/16/20 08/17/20 History 12% Cream] Carvedilol [Coreg] 12.5 mg PO BID 08/16/20 08/17/20 History Fluticasone Propionate [Flovent 2 puff INHALATION RT-BID 08/16/20 08/17/20 History Hfa 110 mcg] Folic Acid-Vit B Complex-Vit C 1 mg PO DAILY 08/16/20 08/17/20 History [Nephrocaps] Metoclopramide [Reglan] 5 mg PO TID PRN 08/16/20 08/17/20 History Ondansetron Odt [Zofran Odt] 4 mg PO Q8H PRN 08/16/20 08/17/20 History Sulfamethox-Tmp 400-80Mg [Bactrim 1 tab PO MOWEFR 08/16/20 08/17/20 History SS 400-80 mg] Tamsulosin HCl [Flomax] 0.4 mg PO DAILY 08/16/20 08/17/20 History Valganciclovir HCl 450 mg PO MOWEFR 08/16/20 08/17/20 History Midodrine [ProAmatine] 5 mg PO DAILY PRN 08/17/20 08/17/20 History Warfarin [Coumadin] 2.5 mg PO MOWETHSA 08/17/20 08/17/20 History Warfarin [Coumadin] 3.75 mg PO SUTUFR 08/17/20 08/17/20 History Allergies Allergy/AdvReac Type Severity Reaction Status Date / Time meperidine [From Demerol] Allergy Rash/Hives Verified 08/16/20 20:23 Physical Exam Vitals: Vital Signs Temp Pulse Pulse Resp BP BP Pulse Ox 08/17/20 21:00 67 22 150/83 93 L 08/17/20 20:12 66 16 08/17/20 20:00 98.5 F 64 16 147/91 94 L 08/17/20 19:00 74 19 130/68 92 L 08/17/20 18:00 77 18 138/81 94 L 08/17/20 17:17 98.4 F 73 18 133/80 08/17/20 17:00 66 19 121/59 93 L 08/17/20 16:00 70 23 132/62 94 L 08/17/20 15:47 67 08/17/20 15:36 65 08/17/20 15:00 66 22 118/81 93 L 08/17/20 14:00 70 21 114/72 96 08/17/20 13:00 70 18 112/64 94 L 08/17/20 12:00 98.7 F 80 26 H 110/80 94 L 08/17/20 11:00 74 26 H 110/76 93 L 08/17/20 10:00 68 12 127/72 92 L 08/17/20 09:00 69 20 109/61 94 L 08/17/20 08:19 96 08/17/20 08:00 100.1 F H 70 17 124/64 95 08/17/20 07:00 69 16 99/65 94 L 08/17/20 06:00 69 16 112/67 92 L 08/17/20 05:00 69 23 112/63 91 L 08/17/20 04:00 100.1 F H 73 16 99/69 90 L 08/17/20 03:00 69 21 108/67 93 L 08/17/20 02:00 68 17 107/61 92 L 08/17/20 01:00 70 23 106/68 93 L 08/17/20 00:27 98.5 F 18 118/73 08/17/20 00:00 98.5 F 66 22 109/71 95 08/16/20 23:00 69 22 121/89 94 L 08/16/20 22:00 102 F H 82 14 111/66 95 08/16/20 21:40 80 22 127/75 96 Intake and Output 08/17/20 08/17/20 08/17/20 06:59 14:59 22:59 Intake Total 160 660 740 Output Total 500 0 1000 Balance -340 660 -260 Intake: IV 160 360 140 Magnesium Sulfate-D5w Pmx 200 1 gm In Dextrose/Water 1 100ml.bag @ 100 mls/hr IVPB Q1H [facility] Rx#: [id number] Sodium Chloride 0.9% 1, 160 160 140 000 ml @ 20 mls/hr IV . Q24H [facility] Rx#:[id number] Intake, IV Titration 50 250 Amount Vancomycin 1,500 mg In 250 Sodium Chloride 0.9% 250 ml @ 125 mls/hr IVPB ONCE ONE Rx#:[id number] cefTRIAXone 1 gm In 50 Sodium Chloride 0.9% 50 ml @ 100 mls/hr IVPB Q24HR [facility] Rx#:[id number] Oral 250 350 Output: Urine 0 Hemodialysis 500 1000 Other: # Bowel Movements 1 Weight 73 kg GENERAL DESCRIPTION: Middle-aged male lying in bed, no distress. No tachypnea or accessory muscle of respiration use. HEENT: Shows Pallor , no scleral icterus. Oral mucous membrane is dry. No pharyngeal erythema or thrush NECK: Trachea central, no thyromegaly. LUNGS: Unlabored breathing. Clear to auscultation anteriorly. No wheeze or crackle. HEART: S1, S2, regular rate and rhythm. No loud murmur ABDOMEN: Soft, mild upper abdominal tenderness , guarding or rigidity, no organomegaly EXTREMITIES: No edema of feet. SKIN: No rash, no masses palpable. NEUROLOGICAL: The patient is awake, alert, oriented x3, mood and affect normal. Results CBC & Chem 7: 08/17/20 02:53 08/17/20 02:53 Labs: Abnormal Lab Results - Last 24 Hours (Table) 08/16/20 08/17/20 08/17/20 Range/Units 22:02 02:53 02:53 WBC 1.5 L (3.8-10.6) k/uL RBC 3.91 L (4.30-5.90) m/uL Hgb 12.0 L (13.0-17.5) gm/dL Hct 38.5 L (39.0-53.0) % RDW 16.8 H (11.5-15.5) % Plt Count 52 L (150-450) k/uL Neutrophils # (Manual) 1.10 L (1.3-7.7) k/uL Lymphocytes # (Manual) 0.20 L (1.0-4.8) k/uL Myelocytes # (Manual) 0.02 H (0) k/uL PT (9.0-12.0) sec INR (<1.2) Sodium 136 L (137-145) mmol/L BUN 48 H (9-20) mg/dL Creatinine 9.39 H* (0.66-1.25) mg/dL POC Glucose (mg/dL) 157 H (75-99) mg/dL Phosphorus 5.4 H (2.5-4.5) mg/dL Creatine Kinase (55-170) U/L 08/17/20 08/17/20 08/17/20 Range/Units 03:38 09:48 16:45 WBC (3.8-10.6) k/uL RBC (4.30-5.90) m/uL Hgb (13.0-17.5) gm/dL Hct (39.0-53.0) % RDW (11.5-15.5) % Plt Count (150-450) k/uL Neutrophils # (Manual) (1.3-7.7) k/uL Lymphocytes # (Manual) (1.0-4.8) k/uL Myelocytes # (Manual) (0) k/uL PT 16.4 H (9.0-12.0) sec INR 1.7 H (<1.2) Sodium (137-145) mmol/L BUN (9-20) mg/dL Creatinine (0.66-1.25) mg/dL POC Glucose (mg/dL) 106 H (75-99) mg/dL Phosphorus (2.5-4.5) mg/dL Creatine Kinase 34 L (55-170) U/L 08/17/20 Range/Units 19:58 WBC (3.8-10.6) k/uL RBC (4.30-5.90) m/uL Hgb (13.0-17.5) gm/dL Hct (39.0-53.0) % RDW (11.5-15.5) % Plt Count (150-450) k/uL Neutrophils # (Manual) (1.3-7.7) k/uL Lymphocytes # (Manual) (1.0-4.8) k/uL Myelocytes # (Manual) (0) k/uL PT (9.0-12.0) sec INR (<1.2) Sodium (137-145) mmol/L BUN (9-20) mg/dL Creatinine (0.66-1.25) mg/dL POC Glucose (mg/dL) 187 H (75-99) mg/dL Phosphorus (2.5-4.5) mg/dL Creatine Kinase (55-170) U/L Microbiology - Last 24 Hours (Table) 08/16/20 19:43 Blood Culture Gram Stain - Preliminary Blood Blood Culture - Preliminary Streptococcus species 08/16/20 19:43 Blood Culture - Final Blood Assessment and Plan Assessment: 1- patient presented to hospital with fever and abdominal pain in this patient mild right upper quadrant tenderness patient currently with no other obvious focus of infection in this patient left arm AV graft site looks clean patient is a dialysis patient hardly makes any urine CT of abdominal pelvis did not reveal any other acute abnormality. Chest x-ray has been negative, will need to cover for enteric gram-negative the likely pathogen the patient fever responded to Rocephin (1) Sepsis Current Visit: Yes Status: Acute Code(s): A41.9 - SEPSIS, UNSPECIFIED ORGANISM SNOMED Code(s): 25417611 Plan: 1- Rocephin 1 g daily and to continue 2-discontinue vancomycin We will follow on clinical condition and cultures to further adjust medication if needed Thank you for this consultation will follow this patient with you Time with Patient: Greater than 30
[2020-08-18 04:20] LABS: INR 1.6 (<1.2); Prothrombin Time 16.2 sec (9.0-12.0)
[2020-08-18 04:24] LABS: Anisocytosis Slight; HCT 39.2 % (39.0-53.0); HGB 12.1 gm/dL (13.0-17.5); Hypochromasia Slight; MCH 29.7 pg (25.0-35.0); MCHC 30.9 g/dL (31.0-37.0); MCV 96.2 fL (80.0-100.0); Mean Platelet Volume 10.7; RBC 4.08 m/uL (4.30-5.90); RDW 16.9 % (11.5-15.5)
[2020-08-18 04:27] LABS: Platelet Count 47 k/uL (150-450)
[2020-08-18 04:28] LABS: WBC 1.2 k/uL (3.8-10.6)
[2020-08-18 04:33] LABS: Calcium 8.6 mg/dL (8.4-10.2); Magnesium 2.3 mg/dL (1.6-2.3); Potassium 4.7 mmol/L (3.5-5.1)
[2020-08-18 04:58] LABS: Band Neutrophils % 10 %; Eosinophils # (M) 0.06 k/uL (0-0.7); Lymphocytes # (M) 0.35 k/uL (1.0-4.8); Metamyelocytes # (M) 0.01 k/uL (0); Metamyelocytes % 1 %; Monocytes # (M) 0.06 k/uL (0-1.0); Neutrophils % (M) 51 %; Nucleated Red Blood Cells 0 /100 WBC (0-0); Total Cells Counted 200
[2020-08-18 06:53] LABS: Glucose,Whole Blood 93 mg/dL (75-99)
[2020-08-18] MEDS: INSULIN ASPART (NovoLOG) 100 UNIT/ML VIAL SQ SCH ×4 (06:56→22:18)
[2020-08-18] MEDS: carvediloL 12.5 MG TAB PO SCH ×2 (07:00→17:13)
[2020-08-18] MEDS: PANTOPRAZOLE 40 MG TABLET PO SCH ×2 (07:00→17:13)
[2020-08-18] MEDS: FLUTICASONE 110 MCG INHALER INHALATION SCH ×2 (07:45→20:57)
[2020-08-18] MEDS: FOLIC ACID-VIT B COMPLEX-VIT C 1 CAP PO SCH (08:58)
[2020-08-18] MEDS: predniSONE 5 MG TAB PO SCH (08:58)
[2020-08-18] MEDS: TAMSULOSIN 0.4 MG CAP.ER.24H PO SCH ×2 (08:58→09:08)
[2020-08-18] MEDS: TACROLIMUS 1 MG CAP PO SCH ×2 (08:58→22:18)
--- NOTE | 2020-08-18 10:18 | P.PN ---
Subjective Progress Note Date: 08/18/20 Patient was seen at bedside and he states that he's doing well. He denies of any weakness, numbness or visual disturbance. He feel his thinking more clearly. Objective - Vital Signs Vital signs: Vital Signs Temp 98.4 F 08/18/20 00:00 Pulse 64 08/18/20 07:00 Resp 16 08/18/20 07:00 BP 127/78 08/18/20 07:00 Pulse Ox 95 08/18/20 07:00 Intake & Output 08/17/20 08/18/20 08/18/20 18:59 06:59 18:59 Intake Total 1240 260 Output Total 1000 0 0 Balance 240 260 0 Weight 73.7 kg Intake: IV 440 160 Magnesium Sulfate-D5w Pmx 200 1 gm In Dextrose/Water 1 100ml.bag @ 100 mls/hr IVPB Q1H [facility] Rx#: [id number] Sodium Chloride 0.9% 1, 240 160 000 ml @ 20 mls/hr IV . Q24H [facility] Rx#:[id number] Intake, IV Titration 300 Amount Vancomycin 1,500 mg In 250 Sodium Chloride 0.9% 250 ml @ 125 mls/hr IVPB ONCE ONE Rx#:[id number] cefTRIAXone 1 gm In 50 Sodium Chloride 0.9% 50 ml @ 100 mls/hr IVPB Q24HR [facility] Rx#:[id number] Oral 500 100 Output: Urine 0 0 0 Hemodialysis 1000 Other: # Bowel Movements 1 1 - Exam GENERAL: The patient is lying in bed and is not in acute distress. CHEST: The heart rate is regular rate rhythm. No murmurs to auscultation. LUNG: Clear to auscultation bilaterally no wheezing noted throughout. Not labored breathing. ABDOMEN/GI: Bowel sounds present in all 4 quadrants. No tenderness to palpation throughout. NEUROLOGICAL: Higher mental function: The patient is awake, alert, oriented to self, place and time. Patient is following commands. No aphasia and no neglect. Cranial nerves: The pupils are round, equal and reactive to light and accommodation. Visual medina are full to confrontation throughout. Extraocular movement is intact no nystagmus is noted. Facial sensation is normal to touch throughout. The facial strength is normal throughout. Hearing is normal bilaterally to hand rub. Tongue is midline and moved [id number] without any difficulty. No dysarthria is noted. Shoulder shrug is normal bilaterally. Motor: Gait is defered. The strength is 5 over 5 throughout. Normal tone and bulk. Cerebellum: Normal finger to nose heel to chin bilaterally. Sensation: Sensation is normal to touch throughout. Reflexes (right/left): 2+ throughout. Plantars are downgoing bilaterally. - Labs CBC & Chem 7: 08/18/20 03:55 08/18/20 03:55 Labs: Abnormal Lab Results - Last 24 Hours (Table) 08/17/20 08/17/20 08/17/20 Range/Units 09:48 16:45 19:58 WBC (3.8-10.6) k/uL RBC (4.30-5.90) m/uL Hgb (13.0-17.5) gm/dL MCHC (31.0-37.0) g/dL RDW (11.5-15.5) % Plt Count (150-450) k/uL Neutrophils # (Manual) (1.3-7.7) k/uL Lymphocytes # (Manual) (1.0-4.8) k/uL Metamyelocytes # (Man) (0) k/uL PT (9.0-12.0) sec INR (<1.2) BUN (9-20) mg/dL Creatinine (0.66-1.25) mg/dL POC Glucose (mg/dL) 106 H 187 H (75-99) mg/dL Creatine Kinase 34 L (55-170) U/L 08/18/20 08/18/20 08/18/20 Range/Units 03:55 03:55 03:55 WBC 1.2 L* (3.8-10.6) k/uL RBC 4.08 L (4.30-5.90) m/uL Hgb 12.1 L (13.0-17.5) gm/dL MCHC 30.9 L (31.0-37.0) g/dL RDW 16.9 H (11.5-15.5) % Plt Count 47 L (150-450) k/uL Neutrophils # (Manual) 0.70 L (1.3-7.7) k/uL Lymphocytes # (Manual) 0.35 L (1.0-4.8) k/uL Metamyelocytes # (Man) 0.01 H (0) k/uL PT 16.2 H (9.0-12.0) sec INR 1.6 H (<1.2) BUN 37 H (9-20) mg/dL Creatinine 8.73 H* (0.66-1.25) mg/dL POC Glucose (mg/dL) (75-99) mg/dL Creatine Kinase (55-170) U/L Microbiology - Last 24 Hours (Table) 08/16/20 19:43 Blood Culture Gram Stain - Preliminary Blood Blood Culture - Preliminary Streptococcus species 08/16/20 19:43 Blood Culture - Final Blood Assessment and Plan Assessment: 60-year-old gentleman with a medical history of end-stage (M,W,F) via left arm AV fistula renal disease on dialysis, diabetes lightest type II, chronic thrombocytopenia, high degree AV block and proximal atrial fibrillation status post dual chamber AICD, DVT of left lower extremity on Coumadin, 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 Upon presented to the hospital the patient's sister was in the hospital and was able to help for providing history. Patient has been complaining of worsening abdominal symptoms for the last 48 hours. This seems that the patient went for dialysis 2 days ago. Yesterday the patient was confused. 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 Overall the EEG is suggestive of Moderate encephalopathy. The triphasic morphology is likely due to toxic-metabolic cause. There are no focal slowing, epileptiform discharges or seizure during the study. Ammonia leve <9. TSH: 0.605. He is on Coumadin for his history of the DVT as well as proximal A. fib and his INR was subtherapeutic, not sure if it's because of his chronic thrombocytopenia, that the his primary team is avoiding therapeutic to avoid any bleeding. We'll defer the management to the primary team Regarding the possible acute cholecystitis we'll defer the management to the ID team as well as the ICU team. We'll defer patient the management of end-stage renal disease on dialysis to the nephrology. We'll defer the rest of the medical management to the primary team as well as ICU team. the plan was discussed with the patient and his nurse There is no further work-up from neurology perspective. Will sign off. Please reconsult if needed. Lynodn York M.D. Neuro-hospitalist Time with Patient: Less than 30
--- NOTE | 2020-08-18 10:41 | P.PN ---
Subjective patient is seen in follow-up for end-stage renal disease. He is maintained on hemodialysis on Saturday schedule. Tolerated dialysis well yesterday. Blood cultures positive for non-hemolytic strep. Maintained on antibiotics. Oral intake fair. Hemodynamically stable. No nausea or vomiting. Vital signs are stable. General: The patient appeared well nourished and normally developed. HEENT: Head exam is unremarkable. Neck is without jugular venous distension. LUNGS: Lungs are clear to auscultation and percussion. Breath sounds decreased. HEART: Rate and Rhythm are regular. ABDOMEN: soft, nontender. EXTREMITITES: No clubbing, cyanosis, or edema. Objective - Vital Signs Vital signs: Vital Signs Temp 97.8 F 08/18/20 08:00 Pulse 67 08/18/20 09:00 Resp 16 08/18/20 09:00 BP 145/85 08/18/20 09:00 Pulse Ox 94 L 08/18/20 09:00 Intake & Output 08/17/20 08/18/20 08/18/20 18:59 06:59 18:59 Intake Total 1240 260 100 Output Total 1000 0 0 Balance 240 260 100 Weight 73.7 kg Intake: IV 440 160 0 Magnesium Sulfate-D5w Pmx 200 1 gm In Dextrose/Water 1 100ml.bag @ 100 mls/hr IVPB Q1H [facility] Rx#: [id number] Sodium Chloride 0.9% 1, 240 160 0 000 ml @ 20 mls/hr IV . Q24H [facility] Rx#:[id number] Intake, IV Titration 300 Amount Vancomycin 1,500 mg In 250 Sodium Chloride 0.9% 250 ml @ 125 mls/hr IVPB ONCE ONE Rx#:[id number] cefTRIAXone 1 gm In 50 Sodium Chloride 0.9% 50 ml @ 100 mls/hr IVPB Q24HR [facility] Rx#:[id number] Oral 500 100 100 Output: Urine 0 0 0 Hemodialysis 1000 Other: # Bowel Movements 1 1 1 - Labs CBC & Chem 7: 08/18/20 03:55 08/18/20 03:55 Labs: Abnormal Lab Results - Last 24 Hours (Table) 08/17/20 08/17/20 08/18/20 Range/Units 16:45 19:58 03:55 WBC (3.8-10.6) k/uL RBC (4.30-5.90) m/uL Hgb (13.0-17.5) gm/dL MCHC (31.0-37.0) g/dL RDW (11.5-15.5) % Plt Count (150-450) k/uL Neutrophils # (Manual) (1.3-7.7) k/uL Lymphocytes # (Manual) (1.0-4.8) k/uL Metamyelocytes # (Man) (0) k/uL PT 16.2 H (9.0-12.0) sec INR 1.6 H (<1.2) BUN (9-20) mg/dL Creatinine (0.66-1.25) mg/dL POC Glucose (mg/dL) 106 H 187 H (75-99) mg/dL 08/18/20 08/18/20 Range/Units 03:55 03:55 WBC 1.2 L* (3.8-10.6) k/uL RBC 4.08 L (4.30-5.90) m/uL Hgb 12.1 L (13.0-17.5) gm/dL MCHC 30.9 L (31.0-37.0) g/dL RDW 16.9 H (11.5-15.5) % Plt Count 47 L (150-450) k/uL Neutrophils # (Manual) 0.70 L (1.3-7.7) k/uL Lymphocytes # (Manual) 0.35 L (1.0-4.8) k/uL Metamyelocytes # (Man) 0.01 H (0) k/uL PT (9.0-12.0) sec INR (<1.2) BUN 37 H (9-20) mg/dL Creatinine 8.73 H* (0.66-1.25) mg/dL POC Glucose (mg/dL) (75-99) mg/dL Microbiology - Last 24 Hours (Table) 08/16/20 19:43 Blood Culture Gram Stain - Preliminary Blood Blood Culture - Preliminary Non Hemolytic Strep 08/16/20 19:43 Blood Culture - Final Blood Assessment and Plan Plan: assessment: 1. end-stage renal disease maintained on hemodialysis on Saturday schedule. 2. sepsis secondary to nonhemolytic strep bacteremia maintained on IV vancomyc in. ?source. No acute changes noted on CT abdomen and pelvis. Possible cholecystitis. 3. History of bilateral lung transplant maintained on Prograf and prednisone. Follows at [facility]. 4. hyperkalemia secondary to chronic kidney disease and Bactrim. Improved postdialysis. 5. Chronic kidney disease mineral bone disease. phosphorus level 5.4. Plan: Hemodialysis tomorrow. follow-up Prograf level. Follow-up cultures.
--- NOTE | 2020-08-18 11:23 | P.CRDCN ---
History of Present Illness History of present illness: HISTORY OF PRESENTING ILLNESS This is a pleasant 60-year-old -[place] male past medical history significant for sarcoidosis status post bilateral lung transplantation, end- stage renal disease on hemodialysis, diabetes mellitus, hypertension, nonischemic cardiomyopathy with recent improved LV function, paroxysmal atrial fibrillation and history of DVT in the left leg. He follows in the office with Dr. Holman. We have been asked to see in consultation for cardiac evaluation/clearance for surgery. The patient is seen and examined sitting in bed in no acute distress with his fiance at the bedside. She states yesterday she got home and found him shaking, febrile, confused and vomiting. On arrival to ER he was febrile with a temp of 102.7F. Imaging of his abdomen revealed gallstones with possible cholecystitis and gallbladder wall thickening. He also has positive blood cultures, sepsis, metabolic encephalopathy, leukopenia, hyperkalemia and thrombocytopenia. He has been seen and evaluated by the surgical team and they've planned for clinical observation at this time. Echocardiogram obtained on admission reveals preserved LV systolic function with ejection fraction 50-55%, apical septal wall motion hypokinesia, mild tricuspid regurgitation and mild pulmonary hypertension with an RVSP of 35 mmHg. DIAGNOSTICS EKG reveals atrial paced rhythm heart rate 87. Chest xray negative for an acute cardiopulmonary process. Laboratory reviewed, WBC 1.2, hemoglobin 12.1, platelets 47, INR 1.6, sodium 140, potassium 4.7, creatinine 8.73, magnesium 2.3, TSH 0.605 and ammonia 34. Current cardiac medications include midodrine 5 mg daily as needed, Coreg 12.5 mg twice a day and Coumadin. REVIEW OF SYSTEMS At the time of my exam: CONSTITUTIONAL: Denies fever or chills. CARDIOVASCULAR: Denies chest pain, shortness of breath, orthopnea, PND or palpitations. RESPIRATORY: Denies cough. GASTROINTESTINAL: Denies abdominal pain, diarrhea, constipation, nausea or vom iting. MUSCULOSKELETAL: Denies myalgias. NEUROLOGIC: Denies numbness, tingling or weakness. ENDOCRINE: Denies fatigue, weight change, polydipsia or polyurina. GENITOURINARY: Denies burning, hematuria or urgency with micturation. HEMATOLOGIC: Denies history of anemia or bleeding. PHYSICAL EXAMINATION Blood pressure 145/85 heart rate 67 afebrile and maintaining oxygen saturation on room air. CONSTITUTIONAL: No apparent distress. HEENT: Head is normocephalic. Pupils are equal, round. Sclerae anicteric. Mucous membranes of the mouth are moist. No JVD. Left carotid bruit, possible radiation from a valve. No right carotid bruit noted. CHEST EXAMINATION: Lungs are clear to auscultation. No chest wall tenderness is noted on palpation or with deep breathing. HEART EXAMINATION: Regular rate and rhythm. S1, S2 heard. Systolic ejection murmur at the left sternal border, no gallops or rub. ABDOMEN: Soft, nontender. Positive bowel sounds. EXTREMITIES: 2+ peripheral pulses, no lower extremity edema and no calf tenderness. NEUROLOGIC EXAMINATION: Patient is awake, alert and oriented x3. ASSESSMENT Sepsis with streptococcal bacteremia source unknown Septic metabolic encephalopathy History of sarcoidosis status post bilateral lung transplantation End-stage renal disease on hemodialysis Paroxysmal atrial fibrillation on Coumadin History of nonischemic cardiomyopathy Hypertension Diabetes mellitus PLAN Given his current clinical picture, he is not an appropriate surgical candidate at this time unless surgery is absolutely necessary. Recommend optimization of underlying sepsis first. The patient and his spouse are adamant that they would like surgery performed at the [facility] if any should be required. Thank you kindly for this consultation. Nurse Practitioner note has been reviewed, I agree with a documented findings and plan of care. Patient was seen and examined. Past Medical History Past Medical History: Diabetes Mellitus, Deep Vein Thrombosis (DVT), Hypertension, Renal Disease Additional Past Medical History / Comment(s): See Dr Holman's H&P,Sarcodosis,Hemodialysis MoWeFr,hx dvt left leg. 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 COLONOSCOPY. RT HAND SURGERY. HEMODIALYSIS CATH. AV SHUNT LT UPPER ARM- 06/11/17 Past Anesthesia/Blood Transfusion Reactions: Motion Sickness Type of Cardiac Device: Permanent Pacemaker, AICD Device Placement Date:: 03-28-2011 Past Psychological History: No Psychological Hx Reported Smoking Status: Never smoker Past Alcohol Use History: None Reported Additional Past Alcohol Use History / Comment(s): Patient states that he is a lifelong nonsmoker. No marijuana, illicit drug use or alcohol use. Patient lives with his fianc. Past Drug Use History: None Reported - Past Family History Father Family Medical History: Cancer, Osteoarthritis (OA) Additional Family Medical History / Comment(s): Father is with history of leukemia and sarcoidosis. Strong family history of sarcoidosis on his father's side. Mother Additional Family Medical History / Comment(s): Mother is after her fifth myocardial infarction with history of diabetes. Brother(s) Additional Family Medical History / Comment(s): Patient has a brother and sister with sarcoidosis. Patient has 6 children with no major medical problems. None have been diagnosed with sarcoidosis. Medications and Allergies Home Medications Medication Instructions Recorded Confirmed Type Pantoprazole Sodium 40 mg PO BID 01/04/17 08/17/20 History predniSONE 5 mg PO DAILY 04/29/18 08/17/20 History Tacrolimus [Prograf] 5 mg PO BID 09/10/19 08/17/20 History Lidocaine-Prilocaine Cream [Emla 1 applic TOPICAL DAILY PRN 12/29/19 08/17/20 History Cream 2.5%/2.5%] Albuterol Nebulized [Ventolin 2.5 mg INHALATION RT-QID PRN 08/16/20 08/17/20 History Nebulized] Ammonium Lactate Cream [Lac-Hydrin 1 applic TOPICAL BID PRN 08/16/20 08/17/20 History 12% Cream] Carvedilol [Coreg] 12.5 mg PO BID 08/16/20 08/17/20 History Fluticasone Propionate [Flovent 2 puff INHALATION RT-BID 08/16/20 08/17/20 History Hfa 110 mcg] Folic Acid-Vit B Complex-Vit C 1 mg PO DAILY 08/16/20 08/17/20 History [Nephrocaps] Metoclopramide [Reglan] 5 mg PO TID PRN 08/16/20 08/17/20 History Ondansetron Odt [Zofran Odt] 4 mg PO Q8H PRN 08/16/20 08/17/20 History Sulfamethox-Tmp 400-80Mg [Bactrim 1 tab PO MOWEFR 08/16/20 08/17/20 History SS 400-80 mg] Tamsulosin HCl [Flomax] 0.4 mg PO DAILY 08/16/20 08/17/20 History Valganciclovir HCl 450 mg PO MOWEFR 08/16/20 08/17/20 History Midodrine [ProAmatine] 5 mg PO DAILY PRN 08/17/20 08/17/20 History Warfarin [Coumadin] 2.5 mg PO MOWETHSA 08/17/20 08/17/20 History Warfarin [Coumadin] 3.75 mg PO SUTUFR 08/17/20 08/17/20 History Allergies Allergy/AdvReac Type Severity Reaction Status Date / Time meperidine [From Demerol] Allergy Rash/Hives Verified 08/16/20 20:23 Physical Exam Vitals: Vital Signs Temp Pulse Resp BP BP Pulse Ox 08/17/20 13:00 70 18 112/64 94 L 08/17/20 12:00 98.7 F 80 26 H 110/80 94 L 08/17/20 11:00 74 26 H 110/76 93 L 08/17/20 10:00 68 12 127/72 92 L 08/17/20 09:00 69 20 109/61 94 L 08/17/20 08:19 96 08/17/20 08:00 100.1 F H 70 17 124/64 95 08/17/20 07:00 69 16 99/65 94 L 08/17/20 06:00 69 16 112/67 92 L 08/17/20 05:00 69 23 112/63 91 L 08/17/20 04:00 100.1 F H 73 16 99/69 90 L 08/17/20 03:00 69 21 108/67 93 L 08/17/20 02:00 68 17 107/61 92 L 08/17/20 01:00 70 23 106/68 93 L 08/17/20 00:27 98.5 F 18 118/73 08/17/20 00:00 98.5 F 66 22 109/71 95 08/16/20 23:00 69 22 121/89 94 L 08/16/20 22:00 102 F H 82 14 111/66 95 08/16/20 21:40 80 22 127/75 96 08/16/20 19:29 102.7 F H 87 20 137/85 100 Intake and Output 08/16/20 08/17/20 08/17/20 22:59 06:59 14:59 Intake Total 20 160 590 Output Total 500 0 Balance 20 -340 590 Intake: IV 20 160 340 Magnesium Sulfate-D5w Pmx 200 1 gm In Dextrose/Water 1 100ml.bag @ 100 mls/hr IVPB Q1H [facility] Rx#: [id number] Sodium Chloride 0.9% 1, 20 160 140 000 ml @ 20 mls/hr IV . Q24H [facility] Rx#:[id number] Oral 250 Output: Urine 0 Hemodialysis 500 Other: Weight 79.379 kg 73 kg Results 08/18/20 03:55 08/18/20 03:55 Cardiac Enzymes 08/16/20 08/17/20 Range/Units 19:43 02:53 AST 46 40 (17-59) U/L Coagulation 08/16/20 08/17/20 Range/Units 19:43 03:38 PT 15.6 H 16.4 H (9.0-12.0) sec APTT 31.6 H (22.0-30.0) sec CBC 08/16/20 08/17/20 Range/Units 19:43 02:53 WBC 1.5 L 1.5 L (3.8-10.6) k/uL RBC 4.39 3.91 L (4.30-5.90) m/uL Hgb 13.6 12.0 L (13.0-17.5) gm/dL Hct 43.1 38.5 L (39.0-53.0) % Plt Count 55 L 52 L (150-450) k/uL Comprehensive Metabolic Panel 08/16/20 08/17/20 Range/Units 19:43 02:53 Sodium 137 136 L (137-145) mmol/L Potassium 6.4 H* 4.9 (3.5-5.1) mmol/L Chloride 97 L 99 (98-107) mmol/L Carbon Dioxide 27 27 (22-30) mmol/L BUN 72 H 48 H (9-20) mg/dL Creatinine 13.26 H* 9.39 H* (0.66-1.25) mg/dL Glucose 136 H 82 (74-99) mg/dL Calcium 9.4 8.5 (8.4-10.2) mg/dL AST 46 40 (17-59) U/L ALT 42 34 (4-49) U/L Alkaline Phosphatase 143 H 110 (38-126) U/L Total Protein 7.8 6.5 (6.3-8.2) g/dL Albumin 4.6 3.7 (3.5-5.0) g/dL Current Medications Generic Name Dose Route Start Last Admin Trade Name Freq PRN Reason Stop Dose Admin Acetaminophen 650 mg 08/16/20 20:43 Acetaminophen Suppository 650 Mg Supp RECTAL Q4HR PRN Fever And/ Or Mild Pain Albuterol Sulfate 2.5 mg 08/17/20 03:23 Albuterol Nebulized 2.5 Mg/3 Ml INHALATION RT-QID PRN Shortness Of Breath Benzonatate 100 mg 08/17/20 03:23 Benzonatate 100 Mg Cap PO TID PRN Cough Budesonide 1 mg 08/17/20 03:23 Budesonide 1 Mg/2 Ml Nebu INHALATION RT-QID PRN Shortness Of Breath Carvedilol 12.5 mg 08/17/20 17:30 Carvedilol 12.5 Mg Tab PO BID-W/MEALS [facility] Fluticasone Propionate 2 puff 08/17/20 08:00 08/17/20 08:17 Fluticasone 110 Mcg Inhaler INHALATION 2 puff RT-BID [facility] Administration Sodium Chloride 1,000 mls @ 20 mls/hr 08/16/20 20:45 08/16/20 22:18 Saline 0.9% IV 20 mls/hr .Q24H [facility] Administration Vancomycin HCl 1,500 mg/ 250 mls @ 125 mls/hr 08/17/20 16:00 Sodium Chloride IVPB 08/17/20 17:59 ONCE ONE Ceftriaxone Sodium 1 gm/ 50 mls @ 100 mls/hr 08/17/20 13:00 08/17/20 13:01 Sodium Chloride IVPB 100 mls/hr Q24HR [facility] Administration Insulin Aspart 0 unit 08/17/20 12:30 08/17/20 12:58 Insulin Aspart (Novolog) 100 Unit/Ml Vial SQ Not Given ACHS [facility] Protocol Lactic Acid 1 applic 08/17/20 03:23 Ammonium Lactate 12% Cream 140 Gm Tube TOPICAL BID PRN Dry Skin Lidocaine/Prilocaine 1 applic 08/17/20 03:23 Lidocaine-Prilocaine 2.5-2.5% Cream 5 Gm Tube TOPICAL DAILY PRN PORT ACCESS BEFORE DIALYSIS Metoclopramide HCl 5 mg 08/17/20 03:23 Metoclopramide 5 Mg Tab PO TID PRN Nausea Miscellaneous Information 1 each 08/16/20 19:50 Vancomycin Iv Per Pharmacy 1 Each [facility] [place] DIRECTED PRN Per Protocol Protocol Miscellaneous Information 0 each 08/17/20 05:27 Warfarin Per Pharmacy MISCELLANE DIRECTED PRN NO DOSE Miscellaneous Information 1 each 08/17/20 06:14 Magnesium Replacement Protocol 1 Each Mis MISCELLANE DAILY PRN Per Protocol Protocol Multivit/Ca Carb/B Cmplx/FA/Prenat 1 each 08/17/20 09:00 08/17/20 08:42 Folic Acid-Vit B Complex-Vit C 1 Cap PO 1 each DAILY [facility] Administration Naloxone HCl 0.2 mg 08/16/20 20:43 Naloxone 0.4 Mg/Ml 1 Ml Vial IV Q2M PRN Opioid Reversal Ondansetron HCl 4 mg 08/17/20 03:23 Ondansetron Odt 4 Mg Tab PO Q8H PRN Nausea Ondansetron HCl 4 mg 08/17/20 03:52 08/17/20 03:55 Ondansetron 4 Mg/2 Ml Vial IVP 4 mg Q6HR PRN Administration Nausea And Vomiting Pantoprazole Sodium 40 mg 08/17/20 17:30 Pantoprazole 40 Mg Tablet PO AC-BID [facility] Prednisone 5 mg 08/17/20 09:00 08/17/20 08:41 Prednisone 5 Mg Tab PO 5 mg DAILY [facility] Administration Tacrolimus 5 mg 08/17/20 09:00 08/17/20 08:42 Tacrolimus 1 Mg Cap PO 5 mg BID [facility] Administration Tamsulosin HCl 0.4 mg 08/17/20 09:00 08/17/20 08:41 Tamsulosin 0.4 Mg Cap.Er.24h PO 0.4 mg DAILY [facility] Administration Trimethoprim/Sulfamethoxazole 1 each 08/17/20 09:00 08/17/20 08:42 Sulfamethox-Tmp 400-80mg 1 Each Tab PO 1 each MoWeFr@0900 [facility] Administration Valganciclovir 450 mg 08/19/20 09:00 Valganciclovir 450 Mg Tab PO MoWeFr@0900 [facility] Warfarin Sodium 3 mg 08/17/20 18:00 Warfarin 3 Mg Tab PO 08/17/20 18:01 ONCE@1800 ONE Intake and Output 08/16/20 08/17/20 08/17/20 22:59 06:59 14:59 Intake Total 20 160 590 Output Total 500 0 Balance 20 -340 590 Intake: IV 20 160 340 Magnesium Sulfate-D5w Pmx 200 1 gm In Dextrose/Water 1 100ml.bag @ 100 mls/hr IVPB Q1H [facility] Rx#: [id number] Sodium Chloride 0.9% 20 160 140 000 ml @ 20 mls/hr IV . Q24H [facility] Rx#:[id number] Oral 250 Output: Urine 0 Hemodialysis 500 Other: Weight 79.379 kg 73 kg 08/17/20 02:53 08/17/20 02:53
[2020-08-18 11:41] LABS: Glucose,Whole Blood 153 mg/dL (75-99)
--- NOTE | 2020-08-18 11:57 | P.PN ---
Subjective Progress Note Date: 08/18/20 HISTORY OF PRESENT ILLNESS This is a 59-year-old -[place] male patient of Dr. Qureshi with past medical history of sarcoidosis with multiorgan involvement status post bilateral lung transplant done at [facility] in 2014, end-stage renal disease on hemodialysis Saturday via left arm AV fistula followed by Dr. Desai, DVT of the left lower extremity on Coumadin, hypertension, diabetes mellitus type 2, high-grade AV block and paroxysmal atrial fibrillation status post dual-chamber AICD, hypertension, chronic diastolic heart failure, pulmonary hypertension and chronic cor pulmonale, chronic thrombocytopenia, patient reported history of mitral valve replacement. Patient presented to [facility] emergency center due to increasing confusion that started yesterday as well as fever. Patient also had abdominal symptoms. At the time of evaluation, patient is confused about why he came in the hospital. He presented with a temperature of 102.7, heart rate 87, blood pressure 137/85, pulse ox 100% on room air. CAT scan of the brain revealed no acute intracranial hemorrhage or midline shift. Mild to moderate diffuse age-related cerebral atrophy and mild chronic small vessel ischemic change with interval progression since 2012. EKG was a sinus rhythm with sinus arrhythmia at rate of 87. Chest x-ray reveals cardiomegaly without acute pulmonary process. Ultrasound gallbladder revealed gallstones redemonstrated. Acute cholecystitis cannot be excluded as there is mild gallbladder wall thickening in positive sonographic Alcazar sign. Hepatocellular disease or fatty filtration of the liver felt present. Consider HIDA scan. CAT scan of the abdomen showed no significant new or acute finding. Initial lab work revealed a WBC 1.5, hemoglobin 13.6, platelet count 55. INR 1.6. Sodium 137, potassium 6.4, chloride 97, CO2 27, BUN 72, creatinine 13.26. When sugar 136. Alkaline phosphatase 143, AST 46 and ALT 42. TSH 0.605. Patient was admitted to the intensive care unit and consults in place with contracting engineer, neurology, infectious disease, nephrology, general surgery. Patient continues to have confusion. Blood cultures subsequently positive for Streptococcus and repeat blood culture ordered. Patient normally does not have any urine production. 08/18: Patient is seen and the intensive care unit today. He is awake and alert, mental status is back to baseline. Patient has been afebrile, heart rate 76, b lood pressure 145/85, pulse ox 95% on room air. Repeat blood work reveals WBC 1.2, hemoglobin 12.1, platelet count 47. INR 1.6. Electrolytes normal. BUN 37 creatinine 8.73. Blood sugars running between 92 and 187. TSH 0.605. EEG is abnormal suggestive of moderate encephalopathy. Patient is followed by neurology and has now signed off. Patient is scheduled for hemodialysis tomorrow. Patient was seen by Dr. Holder with recommendations to continue Rocephin, discontinue vancomycin. Patient is also followed by pulmonary medicine and cardiology. General surgery has evaluated the patient with no plan for surgical intervention. Echocardiogram reveals EF of 50-55% with moderate concentric left hypertrophy, mild tricuspid regurgitation, mild pulmonary hypertension. REVIEW OF SYSTEMS Constitutional: No fever, no chills, no night sweats. No weight change. No wea kness, fatigue or lethargy. No daytime sleepiness. EENT: No headache. No blurred vision or double vision, no loss of vision. No loss of Hearing, no ringing in the ears, no dizziness. No nasal drainage or congestion. No epistaxis. No sore throat. Lungs: No shortness of breath, cough, no sputum production. No wheezing. Cardiovascular: No chest pain, no lower extremity edema. No palpitations. No paroxysmal nocturnal dyspnea. No orthopnea. No lightheadedness or dizziness. No syncopal episodes. Abdominal: No abdominal pain. No nausea, vomiting. No diarrhea. No constipation. No bloody or tarry stools.. No loss of appetite. Genitourinary: No dysuria, increased frequency, urgency. No urinary retention. Musculoskeletal: No myalgias. No muscle weakness, no gait dysfunction, no opal quent falls. No back pain. No neck pain. Integumentary: No wounds, no lesions. No rash or pruritus. No unusual bruising. No change in hair or nails. Neurologic: No aphasia. No facial droop. No change in mentation. No head injury. No headache. No paralysis. No paresthesia. Psychiatric: No depression. No anxiety. No mood swings. Endocrine: No abnormal blood sugars. No weight change. No excessive sweating or thirst. No cold intolerance. PHYSICAL EXAMINATION Gen: This is a 60-year-old -[place] male. He is resting in ICU bed and appears to be comfortable. Patient continues to mild confusion. HEENT: Head is atraumatic, normocephalic. Pupils equal, round. Sclerae is anicteric. NECK: Supple. No JVD. No lymphadenopathy. No thyromegaly. LUNGS: Clear to auscultation. No wheezes or rhonchi. No intercostal retractions. HEART: Regular rate and rhythm. Systolic murmur. ABDOMEN: Soft. Bowel sounds are present. No masses. No tenderness. EXTREMITIES: No pedal edema. No calf tenderness. Dorsalis pedis palpable bilaterally. AV fistula to the left arm. NEUROLOGICAL: Patient is awake, alert and oriented to person, place, he cannot remember why he came in the hospital or details regarding that, patient able to remember the dose on Valcyte. Cranial nerves 2 through 12 are grossly intact. ASSESSMENT AND PLAN 1. Sepsis with streptococcal bacteremia, source to be identified. Patient has been admitted into the intensive care unit. Consult with infectious disease. Patient is currently on ceftriaxone. Repeat blood cultures been ordered. 2. Septic metabolic encephalopathy. Continue treatment as in #1. Consult with neurology appreciated. EEG as above. Mental status is back to baseline and neurology has signed off.. 3. Leukopenia possibly secondary to sepsis but has been low in past from antirejection medicine. 4. Thrombocytopenia, chronic most likely exacerbated by sepsis. 5. Hyperkalemia, resolved. 6. End-stage renal disease. Patient underwent hemodialysis last evening and repeat scheduled for today. Nephrology consult appreciated.. 7. History of sarcoidosis with multiorgan involvement status post bilateral lung transplant at [facility] in 2015 . Continue antirejection medication as prescribed at home. 8. Possible cholecystitis, not thought to be source of sepsis. Consult with general surgery. 9. DVT of the left lower extremity on chronic Coumadin. Continue Coumadin, p harmacy to dose. 10. Diabetes mellitus type 2. 11. History of high-grade AV block and paroxysmal atrial fibrillation status post dual-chamber AICD. Continue Lopressor 12.5 mg twice daily. 12. Hypertension 13. GI prophylaxis. Protonix 14. DVT prophylaxis. Coumadin. DISCHARGE PLAN Most likely return home. Impression and plan of care have been directed as dictated by the signing physician. Sydney Gallegos nurse practitioner acting as scribe for signing physician. Objective - Vital Signs Vital signs: Vital Signs Temp 97.8 F 10/08/20 08:00 Pulse 68 08/18/20 08:00 Resp 16 08/18/20 08:00 BP 117/56 08/18/20 08:00 Pulse Ox 95 08/18/20 08:00 Intake & Output 08/17/20 08/18/20 08/18/20 18:59 06:59 18:59 Intake Total 1240 260 100 Output Total 1000 0 0 Balance 240 260 100 Weight 73.7 kg Intake: IV 440 160 0 Magnesium Sulfate-D5w Pmx 200 1 gm In Dextrose/Water 1 100ml.bag @ 100 mls/hr IVPB Q1H [facility] Rx#: [id number] Sodium Chloride 0.9% 1, 240 160 0 000 ml @ 20 mls/hr IV . Q24H [facility] Rx#:[id number] Intake, IV Titration 300 Amount Vancomycin 1,500 mg In 250 Sodium Chloride 0.9% 250 ml @ 125 mls/hr IVPB ONCE ONE Rx#:[id number] cefTRIAXone 1 gm In 50 Sodium Chloride 0.9% 50 ml @ 100 mls/hr IVPB Q24HR [facility] Rx#:[id number] Oral 500 100 100 Output: Urine 0 0 0 Hemodialysis 1000 Other: # Bowel Movements 1 1 1 - Labs CBC & Chem 7: 08/18/20 03:55 08/18/20 03:55 Labs: Abnormal Lab Results - Last 24 Hours (Table) 08/17/20 08/17/20 08/17/20 Range/Units 09:48 16:45 19:58 WBC (3.8-10.6) k/uL RBC (4.30-5.90) m/uL Hgb (13.0-17.5) gm/dL MCHC (31.0-37.0) g/dL RDW (11.5-15.5) % Plt Count (150-450) k/uL Neutrophils # (Manual) (1.3-7.7) k/uL Lymphocytes # (Manual) (1.0-4.8) k/uL Metamyelocytes # (Man) (0) k/uL PT (9.0-12.0) sec INR (<1.2) BUN (9-20) mg/dL Creatinine (0.66-1.25) mg/dL POC Glucose (mg/dL) 106 H 187 H (75-99) mg/dL Creatine Kinase 34 L (55-170) U/L 08/18/20 08/18/20 08/18/20 Range/Units 03:55 03:55 03:55 WBC 1.2 L* (3.8-10.6) k/uL RBC 4.08 L (4.30-5.90) m/uL Hgb 12.1 L (13.0-17.5) gm/dL MCHC 30.9 L (31.0-37.0) g/dL RDW 16.9 H (11.5-15.5) % Plt Count 47 L (150-450) k/uL Neutrophils # (Manual) 0.70 L (1.3-7.7) k/uL Lymphocytes # (Manual) 0.35 L (1.0-4.8) k/uL Metamyelocytes # (Man) 0.01 H (0) k/uL PT 16.2 H (9.0-12.0) sec INR 1.6 H (<1.2) BUN 37 H (9-20) mg/dL Creatinine 8.73 H* (0.66-1.25) mg/dL POC Glucose (mg/dL) (75-99) mg/dL Creatine Kinase (55-170) U/L Microbiology - Last 24 Hours (Table) 08/16/20 19:43 Blood Culture Gram Stain - Preliminary Blood Blood Culture - Preliminary Streptococcus species 08/16/20 19:43 Blood Culture - Final Blood
--- NOTE | 2020-08-18 14:09 | P.PN ---
Subjective Progress Note Date: 08/18/20 CHIEF COMPLAINT: Abdominal pain HISTORY OF PRESENT ILLNESS: Patient seen and examined in the ICU with Dr. ramos. Patient is being followed for cholelithiasis with acute cholecystitis. He does report some abdominal pain. He denies any nausea or vomiting. He did have a low-grade temp yesterday of 100.1. White count 1.2 platelet of 47. Blood culture Streptococcus species. Patient is being treated for sepsis and bacteremia. PHYSICAL EXAM: VITAL SIGNS: Reviewed. GENERAL: Well-developed in no acute distress. HEENT: No sclera icterus. Extraocular movements grossly intact. Moist buccal mucosa. Head is atraumatic, normocephalic. ABDOMEN: Soft. Nondistended. Tenderness right upper quadrant NEUROLOGIC: Alert and oriented. Cranial nerves II through XII grossly intact. ASSESSMENT: 1. Cholelithiasis with acute cholecystitis 2. Sepsis with streptococcal bacteremia PLAN: -Continue close observation due to patient's complicated medical history -Continue supportive care -Continue antibiotics per ID Physician Biological Technical Officer note has been reviewed by physician. Signing provider agrees with the documented findings, assessment, and plan of care. Objective - Vital Signs Vital signs: Vital Signs Temp 97.8 F 08/18/20 08:00 Pulse 67 08/18/20 09:00 Resp 16 08/18/20 09:00 BP 145/85 08/18/20 09:00 Pulse Ox 94 L 08/18/20 09:00 Intake & Output 08/17/20 08/18/20 08/18/20 18:59 06:59 18:59 Intake Total 1240 260 100 Output Total 1000 0 0 Balance 240 260 100 Weight 73.7 kg Intake: IV 440 160 0 Magnesium Sulfate-D5w Pmx 200 1 gm In Dextrose/Water 1 100ml.bag @ 100 mls/hr IVPB Q1H [facility] Rx#: [id number] Sodium Chloride 0.9% 1, 240 160 0 000 ml @ 20 mls/hr IV . Q24H [facility] Rx#:[id number] Intake, IV Titration 300 Amount Vancomycin 1,500 mg In 250 Sodium Chloride 0.9% 250 ml @ 125 mls/hr IVPB ONCE ONE Rx#:[id number] cefTRIAXone 1 gm In 50 Sodium Chloride 0.9% 50 ml @ 100 mls/hr IVPB Q24HR [facility] Rx#:[id number] Oral 500 100 100 Output: Urine 0 0 0 Hemodialysis 1000 Other: # Bowel Movements 1 1 1 - Labs CBC & Chem 7: 08/18/20 03:55 08/18/20 03:55 Labs: Abnormal Lab Results - Last 24 Hours (Table) 08/17/20 08/17/20 08/18/20 Range/Units 16:45 19:58 03:55 WBC (3.8-10.6) k/uL RBC (4.30-5.90) m/uL Hgb (13.0-17.5) gm/dL MCHC (31.0-37.0) g/dL RDW (11.5-15.5) % Plt Count (150-450) k/uL Neutrophils # (Manual) (1.3-7.7) k/uL Lymphocytes # (Manual) (1.0-4.8) k/uL Metamyelocytes # (Man) (0) k/uL PT 16.2 H (9.0-12.0) sec INR 1.6 H (<1.2) BUN (9-20) mg/dL Creatinine (0.66-1.25) mg/dL POC Glucose (mg/dL) 106 H 187 H (75-99) mg/dL 08/18/20 08/18/20 08/18/20 Range/Units 03:55 03:55 11:40 WBC 1.2 L* (3.8-10.6) k/uL RBC 4.08 L (4.30-5.90) m/uL Hgb 12.1 L (13.0-17.5) gm/dL MCHC 30.9 L (31.0-37.0) g/dL RDW 16.9 H (11.5-15.5) % Plt Count 47 L (150-450) k/uL Neutrophils # (Manual) 0.70 L (1.3-7.7) k/uL Lymphocytes # (Manual) 0.35 L (1.0-4.8) k/uL Metamyelocytes # (Man) 0.01 H (0) k/uL PT (9.0-12.0) sec INR (<1.2) BUN 37 H (9-20) mg/dL Creatinine 8.73 H* (0.66-1.25) mg/dL POC Glucose (mg/dL) 153 H (75-99) mg/dL Microbiology - Last 24 Hours (Table) 08/17/20 09:48 Blood Culture - Preliminary Blood No Growth after 24 hours 08/16/20 19:43 Blood Culture Gram Stain - Preliminary Blood Blood Culture - Preliminary Non Hemolytic Strep
--- NOTE | 2020-08-18 14:57 | P.PN ---
Subjective Progress Note Date: 08/18/20 This is a 59-year-old -[place]omin[place] male patient is known to me from previous evaluation. 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 The patient also has end-stage renal disease and currently is on hemodialysis 3 times a week. He also has other comorbidities including cardiomyopathy and the patient has a dual-chamber AICD in place and addition to history of hypertension, chronic secondary pulmonary hypertension and cor pulmonale, previous history of mitral valve replacement, hypertension and previous history of DVT of the left lower extremity maintained on anticoagulation with warfarin on outpatient basis. Noted the patient undergoes hemodialysis through his AV fistula which is present in the left upper extremity. He also is known to have an umbilical hernia which has not caused any issues over the years. The patient came into the ED yesterday because of an altered mental status. He was also having high-grade fever. He had a temperature of 102.7. He was hemodynamically stable with a pulse ox of 99% on room air. Chest x-ray shows cardiomegaly. The ICD was in a good location. No acute pulmonary infiltrates. CAT scan of the brain showed no acute abnormalities. He has mild to moderate diffuse age-related atrophy on the CAT scan of the brain. No evidence of any acute bleeds. EKG showed a sinus rhythm. Based on some abdominal discomfort, the patient has been given a CAT scan of the abdomen that showed no significant abnormalities in the gallbladder. There was an umbilical hernia. There was also some on complicated diverticulosis. The cystic structure in the right kidney was noted. This has gone small in size. I'm assuming this in the same location where the patient had a bleed within the cyst and has right kidney. As for the ultrasound the of the gallbladder, it was abnormal with some mild gallbladder wall thickening and positive sonographic Alcazar's signs. There was hepatocellular disease/fatty infiltration of the liver. The patient's AST was 46, ALT is 42 and alkaline phosphatase 143. Note that his examination is not quite reliable as the patient is having some mild diffuse tenderness throughout his abdominal wall. The blood cultures showing gram-positive cocci and the patient was given a dose of vancomycin pending further cultures. The preliminary findings is consistent w ith Streptococcus. The patient is immunosuppressed as mentioned. The patient has a white second of 1.5. The patient has 15% bands. The patient has a BUN of 48 with a creatinine of 9.3. Sodium level is at 136. The ammonia level is at 34. TSH is within normal limits. CPK is at 34. Glucose of 82. INR is 1.7 of the of 16.4. Note that this is a subtherapeutic PT/INR as the patient has been taking warfarin on outpatient basis. On 08/18/2020 and seeing the patient for a follow-up in the intensive care unit. Note that the patient's blood culture turner machine to be positive for Streptococcus species and final cultures and sensitivities are still pending. The patient on IV Rocephin. Much improved compared to yesterday. No more fever. Hemodynamically stable. Awake and alert and there is no confusional altered mentation at this point in time. No sedated abdominal tenderness. There was a concern for an acute cholecystitis and the patient's liver functions are essentially within normal limits. Also, the patient had a cystic structure in the right kidney which has shrunken in size probably an area of bleed within the cyst involving the right kidney. He is post lung transplantation and is also post cardiac surgery/bypass with an underlying cardiomyopathy and the patient is a dual-chamber AICD in place. The patient has also history of mitral valve repair/basement. Note that a repeat echo cardiac exam was done and the patient was found to have a preserved LV function with an ejection fraction of 50-55%. There was mild pulmonary hypertension. Right ventricular systolic pressure was estimated to be 35 mmHg. Aortic valve appeared to be normal. Mitral valve appeared to be normal. No valvular vegetation. There was a mild aneurysmal dilatation of the aortic with measuring around 3.9 cm in size. No pericardial effusion. RV size is within normal limits. On today's blood work, the patient's white cell count is at 1.2. Platelet count is at 47 with a hemoglobin of 12.1. BUN is 37 with a creatinine of 8.7. INR is at 1.6. Objective - Vital Signs Vital signs: Vital Signs Temp 97.8 F 08/18/20 12:00 Pulse 69 08/18/20 12:00 Resp 22 08/18/20 12:00 BP 160/74 08/18/20 12:00 Pulse Ox 95 08/18/20 12:00 Intake & Output 08/17/20 08/18/20 08/18/20 18:59 06:59 18:59 Intake Total 1240 260 200 Output Total 1000 0 0 Balance 240 260 200 Weight 73.7 kg Intake: IV 440 160 0 Magnesium Sulfate-D5w Pmx 200 1 gm In Dextrose/Water 1 100ml.bag @ 100 mls/hr IVPB Q1H [facility] Rx#: [id number] Sodium Chloride 0.9% 1, 240 160 0 000 ml @ 20 mls/hr IV . Q24H [facility] Rx#:[id number] Intake, IV Titration 300 Amount Vancomycin 1,500 mg In 250 Sodium Chloride 0.9% 250 ml @ 125 mls/hr IVPB ONCE ONE Rx#:[id number] cefTRIAXone 1 gm In 50 Sodium Chloride 0.9% 50 ml @ 100 mls/hr IVPB Q24HR [facility] Rx#:[id number] Oral 500 100 200 Output: Urine 0 0 0 Hemodialysis 1000 Other: # Bowel Movements 1 1 1 - Exam Gen. appearance, comfortable likely distress currently on room air oxygen pulse ox is around 92% Head exam was generally normal. There was no scleral icterus or corneal arcus. Mucous membranes were moist. Neck was supple and without jugular venous distension, thyromegaly, or carotid bruits. Carotids were easily palpable bilaterally. There was no adenopathy. Lungs were clear to auscultation and percussion, and with normal diaphragmatic excursion. No wheezes or rales were noted. Cardiac exam revealed the PMI to be normally situated and sized. The rhythm was regular and no extrasystoles were noted during several minutes of auscultation. The first and second heart sounds were normal and physiologic splitting of the second heart sound was noted. There were no murmurs, rubs, clicks, or gallops. The patient has a normal sinus rhythm. Abdominal exam revealed normal bowel sounds. The abdomen was soft, tender, and without masses, organomegaly, or appreciable enlargement of the abdominal aorta. The patient has some mild direct tenderness throughout the abdominal wall. Th ere is an umbilical hernia which is easily reducible. There is some limited right upper quadrant tenderness. There is also limited periumbilical and left lower quadrant and left upper quadrant tenderness also. Examination of the extremities revealed easily palpable radial, femoral and pedal pulses. There was no cyanosis, clubbing or edema. The patient has a functioning AV fistula in the left upper extremity. Examination of the skin revealed no evidence of significant rashes, suspicious appearing nevi or other concerning lesions. Neurologically awake and alert and there is no focal neurological deficits. - Labs CBC & Chem 7: 08/18/20 03:55 08/18/20 03:55 Labs: Abnormal Lab Results - Last 24 Hours (Table) 08/17/20 08/17/20 08/18/20 Range/Units 16:45 19:58 03:55 WBC (3.8-10.6) k/uL RBC (4.30-5.90) m/uL Hgb (13.0-17.5) gm/dL MCHC (31.0-37.0) g/dL RDW (11.5-15.5) % Plt Count (150-450) k/uL Neutrophils # (Manual) (1.3-7.7) k/uL Lymphocytes # (Manual) (1.0-4.8) k/uL Metamyelocytes # (Man) (0) k/uL PT 16.2 H (9.0-12.0) sec INR 1.6 H (<1.2) BUN (9-20) mg/dL Creatinine (0.66-1.25) mg/dL POC Glucose (mg/dL) 106 H 187 H (75-99) mg/dL 08/18/20 08/18/20 08/18/20 Range/Units 03:55 03:55 11:40 WBC 1.2 L* (3.8-10.6) k/uL RBC 4.08 L (4.30-5.90) m/uL Hgb 12.1 L (13.0-17.5) gm/dL MCHC 30.9 L (31.0-37.0) g/dL RDW 16.9 H (11.5-15.5) % Plt Count 47 L (150-450) k/uL Neutrophils # (Manual) 0.70 L (1.3-7.7) k/uL Lymphocytes # (Manual) 0.35 L (1.0-4.8) k/uL Metamyelocytes # (Man) 0.01 H (0) k/uL PT (9.0-12.0) sec INR (<1.2) BUN 37 H (9-20) mg/dL Creatinine 8.73 H* (0.66-1.25) mg/dL POC Glucose (mg/dL) 153 H (75-99) mg/dL Microbiology - Last 24 Hours (Table) 08/17/20 09:48 Blood Culture - Preliminary Blood No Growth after 24 hours 08/16/20 19:43 Blood Culture Gram Stain - Preliminary Blood Blood Culture - Preliminary Non Hemolytic Strep Assessment and Plan Plan: 1 sepsis secondary to gram-positive bacteria, likely Streptococcus/alphahemolytic strep and we are still awaiting final cultures and sensitivities. The patient is currently on IV Rocephin. 2-D echo cardiac German shows no evidence of any valvular vegetation. 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 10 cardiomyopathy with systolic and diastolic heart failure. The patient has also history of high-grade AV block and paroxysmal atrial fibrillation. The patient is a dual-chamber AICD in place. There is also a questionable history of valvular surgery, probably involving the mitral valve which was probably repairs. 11 hypertension 12 secondary pulmonary hypertension, not so elevated blood pressure based on the most his echocardiogram 13 umbilical hernia without evidence of any strangulation or incarceration 14 diverticulosis, complicated 15 bleeding right renal cyst most coiling/embolization, and the repeat CAT scan of the abdomen and pelvis that was done yesterday showed an interval reduction in the patient's collection in the right kidney which is currently measuring 5.1 x 6 cm in size and has decreased in size compared to the previous CAT scan from July 2020. 16 umbilical hernia 17 chronic anemia/thrombocytopenia Plan IV Rocephin Surgical evaluation regarding the gallbladder abnormality is appreciated The patient's fever pattern will be monitored, currently afebrile and repeat blood cultures been negative Check Prograft level Continue hemodialysis per nephrology Continue anticoagulation with warfarin at a regular dose with daily monitoring of the PT/INR, with careful monitoring of the platelet count 90 the patient's platelet count is below and a dose of the Coumadin was increased up to 4 m to achieve a therapeutic INR of 2-3. We'll continue to follow and keep the patient ICU for now.
[2020-08-18 16:58] LABS: Glucose,Whole Blood 220 mg/dL (75-99)
[2020-08-18] MEDS ORDERED: WARFARIN 2 MG TAB PO ONE (18:00)
[2020-08-18 21:45] LABS: Glucose,Whole Blood 192 mg/dL (75-99)
--- NOTE | 2020-08-18 22:18 | PN ---
PROGRESS NOTE DATE OF SERVICE: 08/18/2020 REASON FOR FOLLOWUP: Fever, likely abdominal source. INTERVAL HISTORY: The patient is currently afebrile. The patient is feeling better. Complaining of feeling nauseated but no vomiting. No abdominal pain. Still complaining of diarrhea. He mentioned he had 3 loose stools today. No chest pain or shortness of breath or cough. PHYSICAL EXAMINATION: Blood pressure 135/84 with a pulse of 64, temperature 97.6. He is 95% on room air. General description is a middle-aged male lying in bed in no distress. RESPIRATORY SYSTEM: Unlabored breathing. Clear to auscultation anteriorly. HEART: S1, S2. Regular rate and rhythm. ABDOMEN: Soft. No tenderness. LABS: Hemoglobin is 12.1, white count 1.2, BUN of 37, creatinine 8.73. Blood culture has nonhemolytic Strep. Repeat blood culture has been negative so far. DIAGNOSTIC IMPRESSION AND PLAN: 1. Patient with fever with possible abdominal source on admission, predominantly nausea, vomiting and diarrhea. The patient had an abnormal ultrasound with a concern for cholecystitis with predominantly GI symptoms. Stool studies have been ordered. The patient's fever responded to the Rocephin; to continue. 2. Positive blood cultures for nonhemolytic Streptococcus that should be covered with the Rocephin. Follow-up blood culture has been negative. Will wait for final identification of this pathogen and will continue with supportive care. MMODL / IJN: [id number] /
[2020-08-18] MEDS: SODIUM CHLORIDE 0.9% 1,000 ML IV SCH (22:34)
[2020-08-19 05:27] LABS: INR 1.6 (<1.2); Prothrombin Time 15.8 sec (9.0-12.0)
[2020-08-19 07:10] LABS: Glucose,Whole Blood 99 mg/dL (75-99)
[2020-08-19] MEDS: INSULIN ASPART (NovoLOG) 100 UNIT/ML VIAL SQ SCH ×4 (07:11→22:22)
[2020-08-19] MEDS: FLUTICASONE 110 MCG INHALER INHALATION SCH ×2 (08:11→22:04)
[2020-08-19] MEDS: PANTOPRAZOLE 40 MG TABLET PO SCH ×2 (08:52→17:18)
[2020-08-19] MEDS: FOLIC ACID-VIT B COMPLEX-VIT C 1 CAP PO SCH (08:52)
[2020-08-19] MEDS: carvediloL 12.5 MG TAB PO SCH ×2 (08:52→17:18)
[2020-08-19] MEDS: predniSONE 5 MG TAB PO SCH (08:52)
[2020-08-19] MEDS: TAMSULOSIN 0.4 MG CAP.ER.24H PO SCH (08:53)
[2020-08-19] MEDS: SULFAMETHOX-TMP 400-80MG 1 EACH TAB PO SCH (08:53)
[2020-08-19] MEDS: TACROLIMUS 1 MG CAP PO SCH ×2 (08:53→22:58)
--- NOTE | 2020-08-19 10:37 | P.PN ---
Subjective patient is seen in follow-up for end-stage renal disease. He is maintained on hemodialysis on Saturday schedule. Blood cultures positive for non-hemolytic strep. Maintained on antibiotics. Oral intake fair. Hemodynamically stable. No nausea or vomiting. overall feels better today. Vital signs are stable. General: The patient appeared well nourished and normally developed. HEENT: Head exam is unremarkable. Neck is without jugular venous distension. LUNGS: Lungs are clear to auscultation and percussion. Breath sounds decreased. HEART: Rate and Rhythm are regular. ABDOMEN: soft, nontender. EXTREMITITES: No clubbing, cyanosis, or edema. Objective - Vital Signs Vital signs: Vital Signs Temp 97.6 F 08/19/20 08:00 Pulse 63 08/19/20 08:00 Resp 14 08/19/20 08:00 BP 122/70 08/19/20 08:00 Pulse Ox 94 L 08/19/20 08:00 Intake & Output 08/18/20 08/19/20 08/19/20 18:59 06:59 18:59 Intake Total 200 0 Output Total 0 0 Balance 200 0 Weight 72.6 kg Intake: IV 0 0 Sodium Chloride 0.9% 1, 0 0 000 ml @ 20 mls/hr IV . Q24H [facility] Rx#:[id number] Oral 200 0 Output: Urine 0 0 Other: Voiding Method Toilet # Bowel Movements 1 1 - Labs CBC & Chem 7: 08/18/20 03:55 08/18/20 03:55 Labs: Abnormal Lab Results - Last 24 Hours (Table) 08/18/20 08/18/20 08/18/20 Range/Units 11:40 16:56 21:43 PT (9.0-12.0) sec INR (<1.2) POC Glucose (mg/dL) 153 H 220 H 192 H (75-99) mg/dL 08/19/20 Range/Units 05:02 PT 15.8 H (9.0-12.0) sec INR 1.6 H (<1.2) POC Glucose (mg/dL) (75-99) mg/dL Microbiology - Last 24 Hours (Table) 08/16/20 19:43 Blood Culture Gram Stain - Final Blood Blood Culture - Final Non Hemolytic Strep 08/17/20 09:48 Blood Culture - Preliminary Blood No Growth after 24 hours Assessment and Plan Plan: assessment: 1. end-stage renal disease maintained on hemodialysis on Saturday schedule. 2. sepsis secondary to nonhemolytic strep bacteremia maintained on IV antibiotics. ?source. No acute changes noted on CT abdomen and pelvis. Possible cholecystitis. 3. History of bilateral lung transplant maintained on Prograf and prednisone. Follows at [facility]. 4. hyperkalemia secondary to chronic kidney disease and Bactrim. Improved postdialysis. 5. Chronic kidney disease mineral bone disease. phosphorus level 5.4. Plan: Hemodialysis today. follow-up Prograf level. add PhosLo with meals.
[2020-08-19 12:02] LABS: Glucose,Whole Blood 184 mg/dL (75-99)
--- NOTE | 2020-08-19 12:03 | P.PN ---
Subjective Progress Note Date: 08/19/20 CHIEF COMPLAINT: Abdominal pain HISTORY OF PRESENT ILLNESS: Patient seen and examined in the ICU. Patient is being followed for cholelithiasis with acute cholecystitis. He does report some abdominal pain. He did have some nausea. He does report abdominal pain that improves with bowel movement. Denies any blood in his stool. His stools are loose. Stools studies were collected today. He is afebrile. Labs are pending for today. Repeat blood cultures negative. Patient scheduled for hemodialysis today PHYSICAL EXAM: VITAL SIGNS: Reviewed. GENERAL: Well-developed in no acute distress. HEENT: No sclera icterus. Extraocular movements grossly intact. Moist buccal mucosa. Head is atraumatic, normocephalic. ABDOMEN: Soft. Nondistended. Diffuse tenderness with palpation NEUROLOGIC: Alert and oriented. Cranial nerves II through XII grossly intact. ASSESSMENT: 1. Cholelithiasis with acute cholecystitis 2. Sepsis with nonhemolytic streptococcal bacteremia 3. End-stage renal disease. Hemodialysis per nephrology 4. History of bilateral lung transplant 5. History of sarcoidosis PLAN: -Continue close observation due to patient's complicated medical history -Continue supportive care -Continue antibiotics per ID Physician [employer] note has been reviewed by physician. Signing provider agrees with the documented findings, assessment, and plan of care. Objective - Vital Signs Vital signs: Vital Signs Temp 97.6 F 08/19/20 08:00 Pulse 63 08/19/20 08:00 Resp 14 08/19/20 08:00 BP 122/70 08/19/20 08:00 Pulse Ox 94 L 08/19/20 08:00 Intake & Output 08/18/20 08/19/20 08/19/20 18:59 06:59 18:59 Intake Total 200 0 Output Total 0 0 Balance 200 0 Weight 72.6 kg Intake: IV 0 0 Sodium Chloride 0.9% 1, 0 0 000 ml @ 20 mls/hr IV . Q24H [facility] Rx#:[id number] Oral 200 0 Output: Urine 0 0 Other: Voiding Method Toilet # Bowel Movements 1 1 - Labs CBC & Chem 7: 08/18/20 03:55 08/18/20 03:55 Labs: Abnormal Lab Results - Last 24 Hours (Table) 08/18/20 08/18/20 08/19/20 Range/Units 16:56 21:43 05:02 PT 15.8 H (9.0-12.0) sec INR 1.6 H (<1.2) POC Glucose (mg/dL) 220 H 192 H (75-99) mg/dL Microbiology - Last 24 Hours (Table) 08/16/20 19:43 Blood Culture Gram Stain - Final Blood Blood Culture - Final Non Hemolytic Strep 08/17/20 09:48 Blood Culture - Preliminary Blood No Growth after 24 hours
[2020-08-19] MEDS: CALCIUM ACETATE 667 MG TAB PO SCH ×2 (12:15→17:18)
--- NOTE | 2020-08-19 13:21 | P.PN ---
Subjective Progress Note Date: 08/19/20 HISTORY OF PRESENT ILLNESS This is a 59-year-old -Citizen Of [place] male patient of Dr. 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 Desai, DVT of the left lower extremity on Coumadin, hypertension, diabetes mellitus type 2, high-grade AV block and paroxysmal atrial fibrillation status post dual-chamber AICD, hypertension, chronic diastolic heart failure, pulmonary hypertension and chronic cor pulmonale, chronic thrombocytopenia, patient reported history of mitral valve replacement. Patient presented to [facility] emergency center due to increasing confusion that started yesterday as well as fever. Patient also had abdominal symptoms. At the time of evaluation, patient is confused about why he came in the hospital. He presented with a temperature of 102.7, heart rate 87, blood pressure 137/85, pulse ox 100% on room air. CAT scan of the brain revealed no acute intracranial hemorrhage or midline shift. Mild to moderate diffuse age-related cerebral atrophy and mild chronic small vessel ischemic change with interval progression since 2012. EKG was a sinus rhythm with sinus arrhythmia at rate of 87. Chest x-ray reveals cardiomegaly without acute pulmonary process. Ultrasound gallbladder revealed gallstones redemonstrated. Acute cholecystitis cannot be excluded as there is mild gallbladder wall thickening in positive sonographic Alcazar sign. Hepatocellular disease or fatty filtration of the liver felt present. Consider HIDA scan. CAT scan of the abdomen showed no significant new or acute finding. Initial lab work revealed a WBC 1.5, hemoglobin 13.6, platelet count 55. INR 1.6. Sodium 137, potassium 6.4, chloride 97, CO2 27, BUN 72, creatinine 13.26. When sugar 136. Alkaline phosphatase 143, AST 46 and ALT 42. TSH 0.605. Patient was admitted to the intensive care unit and consults in place with rn registry, neurology, infectious disease, nephrology, general surgery. Patient continues to have confusion. Blood cultures subsequently positive for Streptococcus and repeat blood culture ordered. Patient normally does not have any urine production. 08/18: Patient is seen and the intensive care unit today. He is awake and alert, mental status is back to baseline. Patient has been afebrile, heart rate 76, b lood pressure 145/85, pulse ox 95% on room air. Repeat blood work reveals WBC 1.2, hemoglobin 12.1, platelet count 47. INR 1.6. Electrolytes normal. BUN 37 creatinine 8.73. Blood sugars running between 92 and 187. TSH 0.605. EEG is abnormal suggestive of moderate encephalopathy. Patient is followed by neurology and has now signed off. Patient is scheduled for hemodialysis tomorrow. Patient was seen by Dr. Holder with recommendations to continue Rocephin, discontinue vancomycin. Patient is also followed by pulmonary medicine and cardiology. General surgery has evaluated the patient with no plan for surgical intervention. Echocardiogram reveals EF of 50-55% with moderate concentric left hypertrophy, mild tricuspid regurgitation, mild pulmonary hypertension. 08/19: Patient remains in the intensive care unit. He is on a Saturday schedule for hemodialysis and followed closely by nephrology. PhosLo added by Dr. Desai. Patient has been afebrile, heart rate 60, blood pressure 114/59, pulse ox 96% on room air. Regarding Patient states that he has a lesion on his right kidney that is being closely followed by [facility]. On CAT scan done on July 21 as an outpatient there is a 6.5 cm low-density partially exophytic lesion laterally mid lower pole right kidney favors postsurgical seroma. On repeat CAT scan from this admission, the fluid collection is measuring 5.1 x 5.2 x 6 cm, decreased in size. Repeat blood work today reveals INR 1.6-pharmacy is dosing Coumadin. Blood sugars are running between 99 and 192. Regarding his leukopenia. Patient states he has had a problem with this since he had transplant done. He has been on Neupogen in the past. Initial blood culture is nonhemolytic strep and finalized. Repeat blood cultures showing no growth at 48 hours. Plan is to increase activity today, PT added. REVIEW OF SYSTEMS Constitutional: No fever, no chills, no night sweats. No weight change. Reports generalized weakness, reports fatigue. EENT: No headache. No blurred vision or double vision, no loss of vision. No loss of Hearing, no ringing in the ears, no dizziness. No nasal drainage or congestion. No epistaxis. No sore throat. Lungs: No shortness of breath, cough, no sputum production. No wheezing. Cardiovascular: No chest pain, no lower extremity edema. No palpitations. No paroxysmal nocturnal dyspnea. No orthopnea. No lightheadedness or dizziness. No syncopal episodes. Abdominal: No abdominal pain. No nausea, vomiting. No diarrhea. No constipation. No bloody or tarry stools.. No loss of appetite. Genitourinary: No urine production. Musculoskeletal: No myalgias. Generalized muscle weakness, no gait dysfunction, no frequent falls. No back pain. No neck pain. Integumentary: No wounds, no lesions. No rash or pruritus. No unusual bruising. No change in hair or nails. Neurologic: No aphasia. No facial droop. No change in mentation. No head injury. No headache. No paralysis. No paresthesia. Psychiatric: No depression. No anxiety. No mood swings. Endocrine: Reports abnormal blood sugars. PHYSICAL EXAMINATION Gen: This is a 60-year-old -Citizen Of [place] male. He is resting in ICU bed and appears to be comfortable. HEENT: Head is atraumatic, normocephalic. Pupils equal, round. Sclerae is anicteric. NECK: Supple. No JVD. No lymphadenopathy. No thyromegaly. LUNGS: Clear to auscultation. No wheezes or rhonchi. No intercostal retractions. HEART: Regular rate and rhythm. Systolic murmur. ABDOMEN: Soft. Bowel sounds are present. No masses. No tenderness. EXTREMITIES: No pedal edema. No calf tenderness. Dorsalis pedis palpable bilaterally. AV fistula to the left arm. NEUROLOGICAL: Patient is awake, alert and oriented 3. Cranial nerves 2 through 12 are grossly intact. ASSESSMENT AND PLAN 1. Sepsis with streptococcal bacteremia, source to be identified. Patient has been admitted into the intensive care unit. Consult with infectious disease. Patient is currently on ceftriaxone. Repeat blood cultures been ordered. 2. Septic metabolic encephalopathy. Continue treatment as in #1. Consult with neurology appreciated. EEG as above. Mental status is back to baseline and neurology has signed off. 3. Leukopenia chronic possibly worsened by sepsis. 4. Thrombocytopenia, chronic most likely exacerbated by sepsis. 5. Hyperkalemia, resolved. 6. End-stage renal disease. Patient underwent hemodialysis last evening and repeat scheduled for today. Nephrology consult appreciated.. 7. 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 Continue antirejection medication as prescribed at home. 8. Possible cholecystitis, not thought to be source of sepsis. Consult with general surgery. No plan for surgical intervention. 9. DVT of the left lower extremity on chronic Coumadin. Continue Coumadin, pharmacy to dose. 10. Diabetes mellitus type 2 uncontrolled with hyperglycemia. Continue insulin scale before meals and at bedtime. 11. History of high-grade AV block and paroxysmal atrial fibrillation status post dual-chamber AICD. Continue Lopressor 12.5 mg twice daily. 12. Hypertension. Continue Coreg 12.5 mg twice daily. 13. GI prophylaxis. Protonix 14. DVT prophylaxis. Coumadin. DISCHARGE PLAN Most likely return home. Impression and plan of care have been directed as dictated by the signing physician. Sydney Gallegos nurse practitioner acting as scribe for signing physician. Objective - Vital Signs Vital signs: Vital Signs Temp 97.9 F 08/19/20 04:00 Pulse 60 08/19/20 04:00 Resp 15 08/19/20 04:00 BP 114/59 08/19/20 04:00 Pulse Ox 96 08/19/20 04:00 Intake & Output 08/18/20 08/19/20 08/19/20 18:59 06:59 18:59 Intake Total 200 0 Output Total 0 0 Balance 200 0 Weight 72.6 kg Intake: IV 0 0 Sodium Chloride 0.9% 1, 0 0 000 ml @ 20 mls/hr IV . Q24H [facility] Rx#:[id number] Oral 200 0 Output: Urine 0 0 Other: Voiding Method Toilet # Bowel Movements 1 1 - Labs CBC & Chem 7: 08/18/20 03:55 08/18/20 03:55 Labs: Abnormal Lab Results - Last 24 Hours (Table) 08/18/20 08/18/20 08/18/20 Range/Units 11:40 16:56 21:43 PT (9.0-12.0) sec INR (<1.2) POC Glucose (mg/dL) 153 H 220 H 192 H (75-99) mg/dL 08/19/20 Range/Units 05:02 PT 15.8 H (9.0-12.0) sec INR 1.6 H (<1.2) POC Glucose (mg/dL) (75-99) mg/dL Microbiology - Last 24 Hours (Table) 08/17/20 09:48 Blood Culture - Preliminary Blood No Growth after 24 hours 08/16/20 19:43 Blood Culture Gram Stain - Preliminary Blood Blood Culture - Preliminary Non Hemolytic Strep
--- NOTE | 2020-08-19 13:54 | P.PN ---
Subjective Progress Note Date: 08/19/20 This is a 59-year-old -[place] male patient is known to me from previous evaluation. The patient has history of lung transplantation related to stage IV sarcoidosis and this was done at the [facility] back in 2014 and the patient has been maintained on immunosuppressive agents in addition to long-term treatment with Bactrim, Zithromax and ganciclovir due to his positive CMV status.. The patient also has end-stage renal disease and currently is on hemodialysis 3 times a week. He also has other comorbidities including cardiomyopathy and the patient has a dual-chamber AICD in place and addition to history of hypertension, chronic secondary pulmonary hypertension and cor pulmonale, previous history of mitral valve replacement, hypertension and previous history of DVT of the left lower extremity maintained on anticoagulation with warfarin on outpatient basis. Noted the patient undergoes hemodialysis through his AV fistula which is present in the left upper extremity. He also is known to have an umbilical hernia which has not caused any issues over the years. The patient came into the ED yesterday because of an altered mental status. He was also having high-grade fever. He had a temperature of 102.7. He was hemodynamically stable with a pulse ox of 99% on room air. Chest x-ray shows cardiomegaly. The ICD was in a good location. No acute pulmonary infiltrates. CAT scan of the brain showed no acute abnormalities. He has mild to moderate diffuse age-related atrophy on the CAT scan of the brain. No evidence of any acute bleeds. EKG showed a sinus rhythm. Based on some abdominal discomfort, the patient has been given a CAT scan of the abdomen that showed no significant abnormalities in the gallbladder. There was an umbilical hernia. There was also some on complicated diverticulosis. The cystic structure in the right kidney was noted. This has gone small in size. I'm assuming this in the same location where the patient had a bleed within the cyst and has right kidney. As for the ultrasound the of the gallbladder, it was abnormal with some mild gallbladder wall thickening and positive sonographic Alcazar's signs. There was hepatocellular disease/fatty infiltration of the liver. The patient's AST was 46, ALT is 42 and alkaline phosphatase 143. Note that his examination is not quite reliable as the patient is having some mild diffuse tenderness throughout his abdominal wall. The blood cultures showing gram-positive cocci and the patient was given a dose of vancomycin pending further cultures. The preliminary findings is consistent w ith Streptococcus. The patient is immunosuppressed as mentioned. The patient has a white second of 1.5. The patient has 15% bands. The patient has a BUN of 48 with a creatinine of 9.3. Sodium level is at 136. The ammonia level is at 34. TSH is within normal limits. CPK is at 34. Glucose of 82. INR is 1.7 of the of 16.4. Note that this is a subtherapeutic PT/INR as the patient has been taking warfarin on outpatient basis. On 08/18/2020 and seeing the patient for a follow-up in the intensive care unit. Note that the patient's blood culture returner to be positive for Streptococcus species and final cultures and sensitivities are still pending. The patient on IV Rocephin. Much improved compared to yesterday. No more fever. Hemodynamically stable. Awake and alert and there is no confusional altered mentation at this point in time. No sedated abdominal tenderness. There was a concern for an acute cholecystitis and the patient's liver functions are essentially within normal limits. Also, the patient had a cystic structure in the right kidney which has shrunken in size probably an area of bleed within the cyst involving the right kidney. He is post lung transplantation and is also post cardiac surgery/bypass with an underlying cardiomyopathy and the patient is a dual-chamber AICD in place. The patient has also history of mitral valve repair/basement. Note that a repeat echo cardiac exam was done and the patient was found to have a preserved LV function with an ejection fraction of 50-55%. There was mild pulmonary hypertension. Right ventricular systolic pressure was estimated to be 35 mmHg. Aortic valve appeared to be normal. Mitral valve appeared to be normal. No valvular vegetation. There was a mild aneurysmal dilatation of the aortic with measuring around 3.9 cm in size. No pericardial effusion. RV size is within normal limits. On today's blood work, the patient's white cell count is at 1.2. Platelet count is at 47 with a hemoglobin of 12.1. BUN is 37 with a creatinine of 8.7. INR is at 1.6. On 08/19/2020, the patient is afebrile. He remains on IV Rocephin regarding alphahemolytic streptococcal bacteremia. The patient's hemodynamics is stable. The patient undergoing dialysis today. No altered mentation. No cough or sputu m production. No chest pain. No shortness of breath. No other significant events overnight. The patient's white cell count is at 1.2 from yesterday's labs. No new labs from today. The patient is on warfarin. The PT/INR is subtherapeutic. The dose has been adjusted deformity grams on a daily basis. PT/INR is being monitored. The patient will be transferred out of the intensive care unit today. No nausea. No vomiting. No abdominal pain. No chest pain. Objective - Vital Signs Vital signs: Vital Signs Temp 97.6 F 08/19/20 08:00 Pulse 63 08/19/20 08:00 Resp 14 08/19/20 08:00 BP 122/70 08/19/20 08:00 Pulse Ox 94 L 08/19/20 08:00 Intake & Output 08/18/20 08/19/20 08/19/20 18:59 06:59 18:59 Intake Total 200 0 Output Total 0 0 Balance 200 0 Weight 72.6 kg Intake: IV 0 0 Sodium Chloride 0.9% 1, 0 0 000 ml @ 20 mls/hr IV . Q24H [facility] Rx#:[id number] Oral 200 0 Output: Urine 0 0 Other: Voiding Method Toilet # Bowel Movements 1 1 - Exam Gen. appearance, comfortable likely distress currently on room air oxygen pulse ox is around 92% Head exam was generally normal. There was no scleral icterus or corneal arcus. Mucous membranes were moist. Neck was supple and without jugular venous distension, thyromegaly, or carotid bruits. Carotids were easily palpable bilaterally. There was no adenopathy. Lungs were clear to auscultation and percussion, and with normal diaphragmatic excursion. No wheezes or rales were noted. Cardiac exam revealed the PMI to be normally situated and sized. The rhythm was regular and no extrasystoles were noted during several minutes of auscultation. The first and second heart sounds were normal and physiologic splitting of the second heart sound was noted. There were no murmurs, rubs, clicks, or gallops. The patient has a normal sinus rhythm. Abdominal exam revealed normal bowel sounds. The abdomen was soft, tender, and without masses, organomegaly, or appreciable enlargement of the abdominal aorta. The patient has some mild direct tenderness throughout the abdominal wall. There is an umbilical hernia which is easily reducible. There is some limited right upper quadrant tenderness. There is also limited periumbilical and left lower quadrant and left upper quadrant tenderness also. Examination of the extremities revealed easily palpable radial, femoral and pedal pulses. There was no cyanosis, clubbing or edema. The patient has a functioning AV fistula in the left upper extremity. Examination of the skin revealed no evidence of significant rashes, suspicious appearing nevi or other concerning lesions. Neurologically awake and alert and there is no focal neurological deficits. - Labs CBC & Chem 7: 08/18/20 03:55 08/18/20 03:55 Labs: Abnormal Lab Results - Last 24 Hours (Table) 08/18/20 08/18/20 08/19/20 Range/Units 16:56 21:43 05:02 PT 15.8 H (9.0-12.0) sec INR 1.6 H (<1.2) POC Glucose (mg/dL) 220 H 192 H (75-99) mg/dL 08/19/20 Range/Units 12:00 PT (9.0-12.0) sec INR (<1.2) POC Glucose (mg/dL) 184 H (75-99) mg/dL Microbiology - Last 24 Hours (Table) 08/17/20 09:48 Blood Culture - Preliminary Blood No Growth after 48 hours 08/16/20 19:43 Blood Culture Gram Stain - Final Blood Blood Culture - Final Non Hemolytic Strep Assessment and Plan Plan: 1 sepsis secondary to alphahemolytic strep The patient is currently on IV Rocephin. Repeat cultures are negative. The patient is afebrile. The patient is hemodynamically stable. No signs of ongoing septicemia. 2 altered mental status secondary to above, recovered 3 chronic neutropenia and the patient has been on Prograf as an immunosuppress jeison agents with a white cell count of 1.2, and the patient is maintained on a combination of Prograft/prednisone in addition to Zithromax and Bactrim and Valcyte on outpatient basis 4 History of sarcoidosis, stage IV requiring transportation that was done at [facility] second 2014 5 bilateral lung transplantation maintained on immunosuppression with a combination of Prograf and prednisone 6 end-stage renal disease on dialysis 3 times a week 7 diabetes mellitus type 2 8 history of DVT of the left lower extremity within on long-term articulation with warfarin, PT/INR was subtherapeutic at the time of admission 9 questionable cholecystitis based on sonographic findings, normal LFTs with relatively benign examination. 10 cardiomyopathy with systolic and diastolic heart failure. The patient has also history of high-grade AV block and paroxysmal atrial fibrillation. The patient is a dual-chamber AICD in place. There is also a questionable history of valvular surgery, probably involving the mitral valve which was probably repairs. 11 hypertension 12 secondary pulmonary hypertension, not so elevated blood pressure based on the most his echocardiogram 13 umbilical hernia without evidence of any strangulation or incarceration 14 diverticulosis, complicated 15 bleeding right renal cyst most coiling/embolization, and the repeat CAT scan of the abdomen and pelvis that was done yesterday showed an interval reduction in the patient's collection in the right kidney which is currently measuring 5.1 x 6 cm in size and has decreased in size compared to the previous CAT scan from July 2020. 16 umbilical hernia 17 chronic anemia/thrombocytopenia Plan IV Rocephin Surgical evaluation regarding the gallbladder abnormality is appreciated The patient's fever pattern is improved Continue hemodialysis per nephrology Continue anticoagulation with warfarin at a regular dose with daily monitoring of the PT/INR, with careful monitoring of the platelet count 90 the patient's platelet count is below and a dose of the Coumadin was increased up to 4 m to achieve a therapeutic INR of 2-3. We'll continue I will transfer this patient out of the intensive care unit cornelia richmond
[2020-08-19 16:46] LABS: Glucose,Whole Blood 103 mg/dL (75-99)
--- NOTE | 2020-08-19 17:16 | PN ---
PROGRESS NOTE DATE OF SERVICE: 08/19/2020 REASON FOR FOLLOWUP: Fever, possible cholecystitis. INTERVAL COURSE: The patient is currently afebrile. The patient is feeling better. Breathing comfortably. Patient denies any further nausea. No vomiting. Abdominal pain has improved. Still has some diarrhea but slowed down. No chest pain, shortness of breath or cough. PHYSICAL EXAMINATION: Blood pressure 122/70 with a pulse of 63, temperature is 97.6, he is 94% on room air. General description is a middle-aged male, lying in bed in no distress. RESPIRATORY SYSTEM: Unlabored breathing, clear to auscultation anteriorly. HEART: S1, S2. Regular rate and rhythm. ABDOMEN: Soft, no tenderness. LABS: Hemoglobin is 12.1, white count 1.2, BUN of 37, creatinine 8.73. Blood cultures with nonhemolytic strep. Blood culture repeat has been negative. DIAGNOSTIC IMPRESSION AND PLAN: Patient admitted to the hospital with sepsis, concern for possible abdominal source and a question of cholecystitis with non-hemolytic strep bacteremia. Rocephin will be continued. Follow up blood cultures have been negative and continue supportive care. MMODL / IJN: [id number] /
[2020-08-19] MEDS ORDERED: WARFARIN 5 MG TAB PO ONE (18:00)
[2020-08-19 20:13] LABS: Glucose,Whole Blood 282 mg/dL (75-99)
[2020-08-19] MEDS: SODIUM CHLORIDE 0.9% 1,000 ML IV SCH ×2 (22:24→22:26)
[2020-08-20 06:29] LABS: Glucose,Whole Blood 159 mg/dL (75-99)
[2020-08-20] MEDS: INSULIN ASPART (NovoLOG) 100 UNIT/ML VIAL SQ SCH ×4 (06:57→21:41)
[2020-08-20] MEDS: carvediloL 12.5 MG TAB PO SCH ×2 (06:57→17:36)
[2020-08-20] MEDS: CALCIUM ACETATE 667 MG TAB PO SCH ×3 (06:57→17:43)
[2020-08-20] MEDS: PANTOPRAZOLE 40 MG TABLET PO SCH ×2 (06:57→17:36)
[2020-08-20 07:53] LABS: Anisocytosis Slight; HCT 37.1 % (39.0-53.0); HGB 11.4 gm/dL (13.0-17.5); Hypochromasia Slight; MCH 30.2 pg (25.0-35.0); MCHC 30.7 g/dL (31.0-37.0); MCV 98.4 fL (80.0-100.0); Macrocytosis Slight; Mean Platelet Volume 10.2; RBC 3.77 m/uL (4.30-5.90); RDW 16.7 % (11.5-15.5)
[2020-08-20 07:58] LABS: INR 1.4 (<1.2); Platelet Count 44 k/uL (150-450); Prothrombin Time 13.7 sec (9.0-12.0); WBC 1.4 k/uL (3.8-10.6)
[2020-08-20 08:05] LABS: Calcium 8.4 mg/dL (8.4-10.2); Potassium 4.8 mmol/L (3.5-5.1)
[2020-08-20] MEDS: FLUTICASONE 110 MCG INHALER INHALATION SCH ×2 (08:43→21:15)
[2020-08-20] MEDS: TAMSULOSIN 0.4 MG CAP.ER.24H PO SCH ×2 (09:05→09:06)
[2020-08-20] MEDS: predniSONE 5 MG TAB PO SCH (09:16)
[2020-08-20] MEDS: TACROLIMUS 1 MG CAP PO SCH ×2 (09:16→22:04)
[2020-08-20] MEDS: FOLIC ACID-VIT B COMPLEX-VIT C 1 CAP PO SCH (09:16)
[2020-08-20] MEDS ORDERED: ACETAMINOPHEN TAB 325 MG TAB PO PRN (11:15)
[2020-08-20 11:31] LABS: Glucose,Whole Blood 115 mg/dL (75-99)
--- NOTE | 2020-08-20 12:32 | P.PN ---
Subjective Progress Note Date: 08/20/20 Principal diagnosis: Sepsis secondary to alphahemolytic strep This is a 59-year-old -[place]aur[place] male patient is known to me from previous evaluation. 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 The patient also has end-stage renal disease and currently is on hemodialysis 3 times a week. He also has other comorbidities including cardiomyopathy and the patient has a dual-chamber AICD in place and addition to history of hypertension, chronic secondary pulmonary hypertension and cor pulmonale, previous history of mitral valve replacement, hypertension and previous history of DVT of the left lower extremity maintained on anticoagulation with warfarin on outpatient basis. Noted the patient undergoes hemodialysis through his AV fistula which is present in the left upper extremity. He also is known to have an umbilical hernia which has not caused any issues over the years. The patient came into the ED yesterday because of an altered mental status. He was also having high-grade fever. He had a tem perature of 102.7. He was hemodynamically stable with a pulse ox of 99% on room air. Chest x-ray shows cardiomegaly. The ICD was in a good location. No acute pulmonary infiltrates. CAT scan of the brain showed no acute abnormalities. He has mild to moderate diffuse age-related atrophy on the CAT scan of the brain. No evidence of any acute bleeds. EKG showed a sinus rhythm. Based on some a bdominal discomfort, the patient has been given a CAT scan of the abdomen that showed no significant abnormalities in the gallbladder. There was an umbilical hernia. There was also some on complicated diverticulosis. The cystic structure in the right kidney was noted. This has gone small in size. I'm assuming this in the same location where the patient had a bleed within the cyst and has right kidney. As for the ultrasound the of the gallbladder, it was abnormal with some mild gallbladder wall thickening and positive sonographic Alcazar's signs. There was hepatocellular disease/fatty infiltration of the liver. The patient's AST was 46, ALT is 42 and alkaline phosphatase 143. Note that his examination is not quite reliable as the patient is having some mild diffuse tenderness throughout his abdominal wall. The blood cultures showing gram-positive cocci and the patient was given a dose of vancomycin pending further cultures. The preliminary findings is consistent with Streptococcus. The patient is immunosuppressed as mentioned. The patient has a white second of 1.5. The patient has 15% bands. The patient has a BUN of 48 with a creatinine of 9.3. Sodium level is at 136. The ammonia level is at 34. TSH is within normal limits. CPK is at 34. Glucose of 82. INR is 1.7 of the of 16.4. Note that this is a subtherapeutic PT/INR as the patient has been taking warfarin on outpatient basis. On 08/18/2020 and seeing the patient for a follow-up in the intensive care unit. 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 The patient on IV Rocephin. Much improved compared to yesterday. No more fever. Hemodynamically stable. Awake and alert and there is no confusional altered mentation at this point in time. No sedated abdominal tenderness. There was a concern for an acute cholecystitis and the patient's liver functions are essentially within normal limits. Also, the patient had a cystic structure in the right kidney which has shrunken in size probably an area of bleed within the cyst involving the right kidney. He is post lung transplantation and is also post cardiac surgery/bypass with an underlying cardiomyopathy and the patient is a dual-chamber AICD in place. The patient has also history of mitral valve repair/basement. Note that a repeat echo cardiac exam was done and the patient was found to have a preserved LV function with an ejection fraction of 50-55%. There was mild pulmonary hypertension. Right ventricular systolic pressure was estimated to be 35 mmHg. Aortic valve appeared to be normal. Mitral valve appeared to be normal. No valvular vegetation. There was a mild aneurysmal dilatation of the aortic with measuring around 3.9 cm in size. No pericardial effusion. RV size is within normal limits. On today's blood work, the patient's white cell count is at 1.2. Platelet count is at 47 with a hemoglobin of 12.1. BUN is 37 with a creatinine of 8.7. INR is at 1.6. On 08/19/2020, the patient is afebrile. He remains on IV Rocephin regarding alphahemolytic streptococcal bacteremia. The patient's hemodynamics is stable. The patient undergoing dialysis today. No altered mentation. No cough or sputum production. No chest pain. No shortness of breath. No other significant events overnight. The patient's white cell count is at 1.2 from yesterday's labs. No new labs from today. The patient is on warfarin. The PT/INR is subtherapeutic. The dose has been adjusted deformity grams on a daily basis. PT/INR is being monitored. The patient will be transferred out of the intensive care unit today. No nausea. No vomiting. No abdominal pain. No chest pain. The patient is seen today 08/20/2020 in follow-up on the selective care unit. He is awake and alert in no acute distress. He denies any shortness of breath, cough or congestion. He is maintaining good O2 saturations in the upper 90s on room air. He's been afebrile. Hemodynamically stable. White count 1.4. Hemoglobin 11.4. INR 1.4. Sodium 138. Potassium 4.8. Creatinine 9.06. Objective - Vital Signs Vital signs: Vital Signs Temp 98.0 F 08/20/20 12:09 Pulse 78 08/20/20 12:09 Resp 18 08/20/20 12:09 BP 118/70 08/20/20 12:09 Pulse Ox 98 08/20/20 11:13 Intake & Output 08/19/20 08/20/20 08/20/20 18:59 06:59 18:59 Intake Total 500 240 Output Total 1300 Balance 500 -1060 Weight 71.7 kg Intake: Oral 500 240 Output: Hemodialysis 1300 Other: Voiding Method Toilet Toilet Toilet # Bowel Movements 1 - Exam Gen. appearance, very pleasant 60-year-old -Maur[place] gentleman, comfortable no acute distress, currently on room air oxygen pulse ox is around 98% Head exam was generally normal. There was no scleral icterus or corneal arcus. Mucous membranes were moist. Neck was supple and without jugular venous distension, thyromegaly, or carotid bruits. Carotids were easily palpable bilaterally. There was no adenopathy. Lungs were clear to auscultation and percussion, and with normal diaphragmatic excursion. No wheezes or rales were noted. Cardiac exam revealed the PMI to be normally situated and sized. The rhythm was regular and no extrasystoles were noted during several minutes of auscultation. The first and second heart sounds were normal and physiologic splitting of the second heart sound was noted. There were no murmurs, rubs, clicks, or gallops. The patient has a normal sinus rhythm. Abdominal exam revealed normal bowel sounds. The abdomen was soft, tender, and without masses, organomegaly, or appreciable enlargement of the abdominal aorta. The patient has some mild direct tenderness throughout the abdominal wall. There is an umbilical hernia which is easily reducible. There is some limited right upper quadrant tenderness. There is also limited periumbilical and left lower quadrant and left upper quadrant tenderness also. Examination of the extremities revealed easily palpable radial, femoral and pedal pulses. There was no cyanosis, clubbing or edema. The patient has a functioning AV fistula in the left upper extremity. Examination of the skin revealed no evidence of significant rashes, suspicious appearing nevi or other concerning lesions. Neurologically awake and alert and there is no focal neurological deficits. - Labs CBC & Chem 7: 08/20/20 07:06 08/20/20 07:06 Labs: Abnormal Lab Results - Last 24 Hours (Table) 08/19/20 08/19/20 08/20/20 Range/Units 16:45 20:05 06:27 WBC (3.8-10.6) k/uL RBC (4.30-5.90) m/uL Hgb (13.0-17.5) gm/dL Hct (39.0-53.0) % MCHC (31.0-37.0) g/dL RDW (11.5-15.5) % Plt Count (150-450) k/uL PT (9.0-12.0) sec INR (<1.2) BUN (9-20) mg/dL Creatinine (0.66-1.25) mg/dL Glucose (74-99) mg/dL POC Glucose (mg/dL) 103 H 282 H 159 H (75-99) mg/dL 08/20/20 08/20/20 08/20/20 Range/Units 07:06 07:06 07:06 WBC 1.4 L* (3.8-10.6) k/uL RBC 3.77 L (4.30-5.90) m/uL Hgb 11.4 L (13.0-17.5) gm/dL Hct 37.1 L (39.0-53.0) % MCHC 30.7 L (31.0-37.0) g/dL RDW 16.7 H (11.5-15.5) % Plt Count 44 L (150-450) k/uL PT 13.7 H (9.0-12.0) sec INR 1.4 H (<1.2) BUN 35 H (9-20) mg/dL Creatinine 9.06 H* (0.66-1.25) mg/dL Glucose 147 H (74-99) mg/dL POC Glucose (mg/dL) (75-99) mg/dL 08/20/20 Range/Units 11:29 WBC (3.8-10.6) k/uL RBC (4.30-5.90) m/uL Hgb (13.0-17.5) gm/dL Hct (39.0-53.0) % MCHC (31.0-37.0) g/dL RDW (11.5-15.5) % Plt Count (150-450) k/uL PT (9.0-12.0) sec INR (<1.2) BUN (9-20) mg/dL Creatinine (0.66-1.25) mg/dL Glucose (74-99) mg/dL POC Glucose (mg/dL) 115 H (75-99) mg/dL Microbiology - Last 24 Hours (Table) 08/17/20 09:48 Blood Culture - Preliminary Blood No Growth after 72 hours 08/19/20 09:30 Stool Culture - Preliminary Stool 08/16/20 19:43 Blood Culture Gram Stain - Final Blood Blood Culture - Final Non Hemolytic Strep Assessment and Plan Assessment: 1 sepsis secondary to alphahemolytic strep The patient is currently on IV Rocephin. Repeat cultures are negative. The patient is afebrile. The patient is hemodynamically stable. No signs of ongoing septicemia. 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 10 cardiomyopathy with systolic and diastolic heart failure. The patient has also history of high-grade AV block and paroxysmal atrial fibrillation. The patient is a dual-chamber AICD in place. There is also a questionable history of valvular surgery, probably involving the mitral valve which was probably repairs. 11 hypertension 12 secondary pulmonary hypertension, not so elevated blood pressure based on the most his echocardiogram 13 umbilical hernia without evidence of any strangulation or incarceration 14 diverticulosis, complicated 15 bleeding right renal cyst most coiling/embolization, and the repeat CAT scan of the abdomen and pelvis that was done yesterday showed an interval reduction in the patient's collection in the right kidney which is currently measuring 5.1 x 6 cm in size and has decreased in size compared to the previous CAT scan from July 2020. 16 umbilical hernia 17 chronic anemia/thrombocytopenia Plan The patient was seen and evaluated by Dr. Damon He is stable from the pulmonary and critical care standpoint Home once cleared medically I, the cosigning physician, performed a history & physical examination of the patient. Lungs sounds are clear. Maintaining good O2 saturations in the 90s on room air. I discussed the assessment and plan of care with my nurse practitioner, Anum Hughes. I attest to the above note as dictated by her.
--- NOTE | 2020-08-20 13:30 | P.PN ---
Subjective Progress Note Date: 08/20/20 This is a 59-year-old -Surinamese male patient of Dr. Qureshi with past medical history of sarcoidosis with multiorgan involvement status post bilateral lung transplant done at [facility] in 2014, end-stage renal disease on hemodialysis Saturday via left arm AV fistula followed by Dr. Desai, DVT of the left lower extremity on Coumadin, hypertension, diabetes mellitus type 2, high-grade AV block and paroxysmal atrial fibrillation status post dual-chamber AICD, hypertension, chronic diastolic heart failure, pulmonary hypertension and chronic cor pulmonale, chronic thrombocytopenia, patient reported history of mitral valve replacement. Patient presented to [facility] emergency center due to increasing confusion that started yesterday as well as fever. Patient also had abdominal symptoms. At the time of evaluation, patient is confused about why he came in the hospital. He presented with a temperature of 102.7, heart rate 87, blood pressure 137/85, pulse ox 100% on room air. CAT scan of the brain revealed no acute intracranial hemorrhage or midline shift. Mild to moderate diffuse age-related cerebral atrophy and mild chronic small vessel ischemic change with interval progression since 2012. EKG was a sinus rhythm with sinus arrhythmia at rate of 87. Chest x-ray reveals cardiomegaly without acute pulmonary process. Ultrasound gallblad thuy revealed gallstones redemonstrated. Acute cholecystitis cannot be excluded as there is mild gallbladder wall thickening in positive sonographic Alcazar sign. Hepatocellular disease or fatty filtration of the liver felt present. Consider HIDA scan. CAT scan of the abdomen showed no significant new or acute finding. Initial lab work revealed a WBC 1.5, hemoglobin 13.6, platelet count 55. INR 1.6. Sodium 137, potassium 6.4, chloride 97, CO2 27, BUN 72, creatinine 13.26. When sugar 136. Alkaline phosphatase 143, AST 46 and ALT 42. TSH 0.605. 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 Patient continues to have confusion. Blood cultures subsequently positive for Streptococcus and repeat blood culture ordered. Patient normally does not have any urine production. 08/18: Patient is seen and the intensive care unit today. He is awake and alert, mental status is back to baseline. Patient has been afebrile, heart rate 76, blood pressure 145/85, pulse ox 95% on room air. Repeat blood work reveals WBC 1.2, hemoglobin 12.1, platelet count 47. INR 1.6. Electrolytes normal. BUN 37 creatinine 8.73. Blood sugars running between 92 and 187. TSH 0.605. EEG is abnormal suggestive of moderate encephalopathy. Patient is followed by neurology and has now signed off. Patient is scheduled for hemodialysis tomorrow. Patient was seen by Dr. Holder with recommendations to continue Rocephin, discontinue vancomycin. Patient is also followed by pulmonary medicine and cardiology. General surgery has evaluated the patient with no plan for surgical intervention. Echocardiogram reveals EF of 50-55% with moderate concentric left hypertrophy, mild tricuspid regurgitation, mild pulmonary hypertension. 08/19: Patient remains in the intensive care unit. He is on a Saturday schedule for hemodialysis and followed closely by nephrology. PhosLo added by Dr. Desai. Patient has been afebrile, heart rate 60, blood pressure 114/59, pulse ox 96% on room air. Regarding Patient states that he has a lesion on his right kidney that is being closely followed by [facility]. On CAT scan done on July 21 as an outpatient there is a 6.5 cm low-density partially exophytic lesion laterally mid lower pole right kidney favors postsurgical seroma. On repeat CAT scan from this admission, the fluid collection is measuring 5.1 x 5.2 x 6 cm, decreased in size. Repeat blood work today reveals INR 1.6-pharmacy is dosing Coumadin. Blood sugars are running between 99 and 192. Regarding his leukopenia. Patient states he has had a problem with this since he had transplant done. He has been on Neupogen in the past. Initial blood culture is nonhemolytic strep and finalized. Repeat blood cultures showing no growth at 48 hours. Plan is to increase activity today, PT added. 08/20: Patient seen today resting in bed, reports he is feeling a little bit better today. On hemodialysis Saturday and followed by nephcolleen parada. Vital signs are stable, patient remains afebrile, pulse 78, blood pressure 140/69, respirations 18, pulse ox 98% on room air. Patient remains on Rocephin IV. Continue to work with PT and increasing activity. Repeat CBC CMP in a.m. REVIEW OF SYSTEMS Constitutional: No fever, no chills, no night sweats. No weight change. Reports generalized weakness, reports fatigue. EENT: No headache. No blurred vision or double vision, no loss of vision. No loss of Hearing, no ringing in the ears, no dizziness. No nasal drainage or congestion. No epistaxis. No sore throat. Lungs: No shortness of breath, cough, no sputum production. No wheezing. Cardiovascular: No chest pain, no lower extremity edema. No palpitations. No paroxysmal nocturnal dyspnea. No orthopnea. No lightheadedness or dizziness. No syncopal episodes. Abdominal: No abdominal pain. No nausea, vomiting. No diarrhea. No constipation. No bloody or tarry stools.. No loss of appetite. Genitourinary: No urine production. Musculoskeletal: No myalgias. Generalized muscle weakness, no gait dysfunction, no frequent falls. No back pain. No neck pain. Integumentary: No wounds, no lesions. No rash or pruritus. No unusual bruising. No change in hair or nails. Neurologic: No aphasia. No facial droop. No change in mentation. No head injury. No headache. No paralysis. No paresthesia. Psychiatric: No depression. No anxiety. No mood swings. Endocrine: Reports abnormal blood sugars. PHYSICAL EXAMINATION Gen: This is a 60-year-old -Surinames[place] male. He is resting in bed and appears to be comfortable. HEENT: Head is atraumatic, normocephalic. Pupils equal, round. Sclerae is anicteric. NECK: Supple. No JVD. No lymphadenopathy. No thyromegaly. LUNGS: Diminished to auscultation. No wheezes or rhonchi. No intercostal retractions. HEART: Regular rate and rhythm. S1, S2. Systolic murmur. ABDOMEN: Soft. Bowel sounds are present. No masses. No tenderness. EXTREMITIES: No pedal edema. No calf tenderness. Dorsalis pedis palpable bilaterally. AV fistula to the left arm. NEUROLOGICAL: Patient is awake, alert and oriented 3. Cranial nerves 2 through 12 are grossly intact. ASSESSMENT AND PLAN 1. Sepsis with streptococcal bacteremia, source to be identified. Patient has been transferred to stepdown unit. Consult with infectious disease. Patient is currently on ceftriaxone. Repeat blood cultures been ordered. 2. Septic metabolic encephalopathy. Continue treatment as in #1. Consult with neurology appreciated. EEG as above. Mental status is back to baseline and neurology has signed off. 3. Leukopenia chronic possibly worsened by sepsis. 4. Thrombocytopenia, chronic most likely exacerbated by sepsis. 5. Hyperkalemia, resolved. 6. End-stage renal disease. Patient underwent hemodialysis last evening and repeat scheduled for today. Nephrology consult appreciated.. 7. History of sarcoidosis with multiorgan involvement status post bilateral lung transplant at [facility] in 2015 . Continue antirejection medication as prescribed at home. 8. Possible cholecystitis, not thought to be source of sepsis. Consult with general surgery. No plan for surgical intervention. 9. DVT of the left lower extremity on chronic Coumadin. Continue Coumadin, pharmacy to dose. 10. Diabetes mellitus type 2 uncontrolled with hyperglycemia. Continue insulin scale before meals and at bedtime. 11. History of high-grade AV block and paroxysmal atrial fibrillation status post dual-chamber AICD. Continue Lopressor 12.5 mg twice daily. 12. Hypertension. Continue Coreg 12.5 mg twice daily. 13. GI prophylaxis. Protonix 14. DVT prophylaxis. Coumadin. DISCHARGE PLAN Most likely return home. Impression and plan of care have been directed as dictated by the signing physician. Camila Acevedo nurse practitioner acting as scribe for signing physician. Objective - Vital Signs Vital signs: Vital Signs Temp 98.0 F 08/20/20 12:09 Pulse 78 08/20/20 12:09 Resp 18 08/20/20 12:09 BP 118/70 08/20/20 12:09 Pulse Ox 98 08/20/20 11:13 Intake & Output 08/19/20 08/20/20 08/20/20 18:59 06:59 18:59 Intake Total 500 240 Output Total 1300 Balance 500 -1060 Weight 71.7 kg Intake: Oral 500 240 Output: Hemodialysis 1300 Other: Voiding Method Toilet Toilet Toilet # Bowel Movements 1 - Labs CBC & Chem 7: 08/20/20 07:06 08/20/20 07:06 Labs: Abnormal Lab Results - Last 24 Hours (Table) 08/19/20 08/19/20 08/20/20 Range/Units 16:45 20:05 06:27 WBC (3.8-10.6) k/uL RBC (4.30-5.90) m/uL Hgb (13.0-17.5) gm/dL Hct (39.0-53.0) % MCHC (31.0-37.0) g/dL RDW (11.5-15.5) % Plt Count (150-450) k/uL PT (9.0-12.0) sec INR (<1.2) BUN (9-20) mg/dL Creatinine (0.66-1.25) mg/dL Glucose (74-99) mg/dL POC Glucose (mg/dL) 103 H 282 H 159 H (75-99) mg/dL 08/20/20 08/20/20 08/20/20 Range/Units 07:06 07:06 07:06 WBC 1.4 L* (3.8-10.6) k/uL RBC 3.77 L (4.30-5.90) m/uL Hgb 11.4 L (13.0-17.5) gm/dL Hct 37.1 L (39.0-53.0) % MCHC 30.7 L (31.0-37.0) g/dL RDW 16.7 H (11.5-15.5) % Plt Count 44 L (150-450) k/uL PT 13.7 H (9.0-12.0) sec INR 1.4 H (<1.2) BUN 35 H (9-20) mg/dL Creatinine 9.06 H* (0.66-1.25) mg/dL Glucose 147 H (74-99) mg/dL POC Glucose (mg/dL) (75-99) mg/dL 08/20/20 Range/Units 11:29 WBC (3.8-10.6) k/uL RBC (4.30-5.90) m/uL Hgb (13.0-17.5) gm/dL Hct (39.0-53.0) % MCHC (31.0-37.0) g/dL RDW (11.5-15.5) % Plt Count (150-450) k/uL PT (9.0-12.0) sec INR (<1.2) BUN (9-20) mg/dL Creatinine (0.66-1.25) mg/dL Glucose (74-99) mg/dL POC Glucose (mg/dL) 115 H (75-99) mg/dL Microbiology - Last 24 Hours (Table) 08/17/20 09:48 Blood Culture - Preliminary Blood No Growth after 72 hours 08/19/20 09:30 Stool Culture - Preliminary Stool 08/16/20 19:43 Blood Culture Gram Stain - Final Blood Blood Culture - Final Non Hemolytic Strep
--- NOTE | 2020-08-20 14:30 | PN ---
PROGRESS NOTE Patient is seen for followup for end-stage renal disease. He is currently maintained on a Saturday, Saturday, Saturday schedule for dialysis. Patient is currently maintained on antibiotics for alpha hemolytic strep bacteremia. He is being followed by ID. He does have a history of bilateral lung transplantation, maintained on immunosuppression. There was concern for a possible infection in his kidney previously. The patient has also had recent episode of bleeding in his right kidney and there was plan for possible nephrectomy down the road. He has been seen by Urology at [facility], not sure if patient has followed up here. Currently he is not being followed by Urology. PHYSICAL EXAMINATION: On examination today, blood pressure was 140/69, heart rate 60 per minute, he is afebrile. Examination of the heart S1, S2. Examination of the lungs, bilateral breath sounds are heard. Abdomen is soft, nontender. Examination of lower extremities shows no significant edema. TELECOMMUNICATIONS FACILITY EXAMINER exam grossly intact. LAB: Show sodium 138, potassium 4.8, chloride 104, BUN 35, creatinine 9.06, hemoglobin 11.4 g/dL, white cell count 1.4. ASSESSMENT: 1. End-stage renal disease, on hemodialysis on a Saturday, Saturday, Saturday schedule. 2. Sepsis with bacteremia with nonhemolytic strep, maintained on IV antibiotics. 3. History of bilateral lung transplant, maintained on Prograf and prednisone, follows at [facility]. 4. Chronic kidney disease mineral bone disorder, fairly stable. 5. History of recent bleeding in the right kidney around April. CT scan currently shows no evidence of hydronephrosis. Multiple cysts are noted in the left kidney and a fluid collection noted in the right kidney as well. PLAN: Continue antibiotics as per ID. Hemodialysis on Saturday. The patient will need to follow up with Urology as there were plans for right nephrectomy down the road. MMODL / IJN: [id number] /
--- NOTE | 2020-08-20 15:16 | P.PN ---
Subjective Progress Note Date: 08/20/20 CHIEF COMPLAINT: Cholecystitis HISTORY OF PRESENT ILLNESS: The patient is a 60-year-old male with end-stage renal disease, hemodialysis, presentation of sepsis including gallstones. No reports of abdominal pain. ROS: No reports of nausea and vomiting. No new chest pain. No productive sputum PHYSICAL EXAM: VITAL SIGNS: Reviewed CONSTITUTIONAL: Well developed and in no acute distress. EYES: Conjuctivae without sclera icterus. Extraocular movements grossly intact. HEAD, EARS, NOSE, THROAT: Moist buccal mucosa. Head is atraumatic, normocephalic. Hears conversational speech. No nasal drainage. NECK: Supple. No thyroidomegaly. RESPIRATORY: Non-labored respirations and equal bilateral excursions. CARDIOVASCULAR: Palpable 2+ radial pulses. ABDOMEN: Soft. No peritonitis. MUSCULOSKELETAL: No clubbing. No cyanosis. SKIN: Good skin turgor. Well perfused. NEUROLOGIC: Cranial nerves II through XII grossly intact. No focal or lateralizing signs. PSYCH: Appropriate affect. Alert and oriented to person, place and time. CLINICAL LABS: White blood cell count low, 1.4 STUDIES: Ultrasound of the gallbladder independently reviewed demonstrate multiple gallstones including thickened gallbladder wall. ASSESSMENT: 1. Gallstone 2. Sepsis PLAN: 1. Recommend IV antibiotics for history of sepsis. 2. No acute surgical intervention at this time due to patient's multiple comor bidities. 3. Abdominal pain is stable. Objective - Vital Signs Vital signs: Vital Signs Temp 98.0 F 08/20/20 12:09 Pulse 78 08/20/20 12:09 Resp 18 08/20/20 12:09 BP 118/70 08/20/20 12:09 Pulse Ox 98 08/20/20 11:13 Intake & Output 08/19/20 08/20/20 08/20/20 18:59 06:59 18:59 Intake Total 500 310 Output Total 1300 Balance 500 -990 Weight 71.7 kg Intake: IV 70 Sodium Chloride 0.9% 1, 20 000 ml @ 20 mls/hr IV . Q24H [facility] Rx#:[id number] cefTRIAXone 1 gm In 50 Sodium Chloride 0.9% 50 ml @ 100 mls/hr IVPB Q24HR [facility] Rx#:[id number] Oral 500 240 Output: Hemodialysis 1300 Other: Voiding Method Toilet Toilet Toilet # Bowel Movements 1 - Labs CBC & Chem 7: 08/20/20 07:06 08/20/20 07:06 Labs: Abnormal Lab Results - Last 24 Hours (Table) 08/19/20 08/19/20 08/20/20 Range/Units 16:45 20:05 06:27 WBC (3.8-10.6) k/uL RBC (4.30-5.90) m/uL Hgb (13.0-17.5) gm/dL Hct (39.0-53.0) % MCHC (31.0-37.0) g/dL RDW (11.5-15.5) % Plt Count (150-450) k/uL PT (9.0-12.0) sec INR (<1.2) BUN (9-20) mg/dL Creatinine (0.66-1.25) mg/dL Glucose (74-99) mg/dL POC Glucose (mg/dL) 103 H 282 H 159 H (75-99) mg/dL 08/20/20 08/20/20 08/20/20 Range/Units 07:06 07:06 07:06 WBC 1.4 L* (3.8-10.6) k/uL RBC 3.77 L (4.30-5.90) m/uL Hgb 11.4 L (13.0-17.5) gm/dL Hct 37.1 L (39.0-53.0) % MCHC 30.7 L (31.0-37.0) g/dL RDW 16.7 H (11.5-15.5) % Plt Count 44 L (150-450) k/uL PT 13.7 H (9.0-12.0) sec INR 1.4 H (<1.2) BUN 35 H (9-20) mg/dL Creatinine 9.06 H* (0.66-1.25) mg/dL Glucose 147 H (74-99) mg/dL POC Glucose (mg/dL) (75-99) mg/dL 08/20/20 Range/Units 11:29 WBC (3.8-10.6) k/uL RBC (4.30-5.90) m/uL Hgb (13.0-17.5) gm/dL Hct (39.0-53.0) % MCHC (31.0-37.0) g/dL RDW (11.5-15.5) % Plt Count (150-450) k/uL PT (9.0-12.0) sec INR (<1.2) BUN (9-20) mg/dL Creatinine (0.66-1.25) mg/dL Glucose (74-99) mg/dL POC Glucose (mg/dL) 115 H (75-99) mg/dL Microbiology - Last 24 Hours (Table) 08/17/20 09:48 Blood Culture - Preliminary Blood No Growth after 72 hours 08/19/20 09:30 Stool Culture - Preliminary Stool Assessment and Plan (1) Gallstones Current Visit: Yes Status: Acute Code(s): K80.20 - CALCULUS OF GALLBLADDER W/O CHOLECYSTITIS W/O OBSTRUCTION SNOMED Code(s): 852779169 (2) Sepsis Current Visit: Yes Status: Acute Code(s): A41.9 - SEPSIS, UNSPECIFIED ORGANISM SNOMED Code(s): 15216886 (3) CRF (chronic renal failure) Current Visit: No Status: Acute Code(s): N18.9 - CHRONIC KIDNEY DISEASE, UNSPECIFIED SNOMED Code(s): 14671545 (4) Leukopenia Current Visit: No Status: Acute Code(s): D72.819 - DECREASED WHITE BLOOD CELL COUNT, UNSPECIFIED SNOMED Code(s): 13765116 (5) Sarcoidosis Current Visit: No Status: Acute Code(s): D86.9 - SARCOIDOSIS, UNSPECIFIED SNOMED Code(s): 69793952
[2020-08-20 17:11] LABS: Glucose,Whole Blood 260 mg/dL (75-99)
[2020-08-20] MEDS ORDERED: WARFARIN 5 MG TAB PO ONE (18:00)
[2020-08-20 20:12] LABS: Glucose,Whole Blood 167 mg/dL (75-99)
--- NOTE | 2020-08-20 20:23 | PN ---
PROGRESS NOTE DATE OF SERVICE: 08/20/2020. REASON FOR FOLLOWUP: Fever and question of cholecystitis. INTERVAL HISTORY: Patient is currently afebrile. The patient has been feeling better. Breathing comfortably. The patient denies having any chest pain. No shortness of breath or cough. Abdominal pain has improved. No further nausea, vomiting or diarrhea. PHYSICAL EXAMINATION: Blood pressure 120/75, pulse of 77, temperature 97.9. He is 100% on room air. General description: The patient is a middle-aged male up in the bed in no distress. Respiratory system: Unlabored breathing, clear to auscultation. Heart S1, S2. Regular rate and rhythm. Abdomen soft, no tenderness. LABS: Hemoglobin 11.4, white count 1.4, BUN of 35, creatinine 9.06. DIAGNOSTIC IMPRESSION AND PLAN: Patient admitted to the hospital with sepsis with non-hemolytic strep bacteremia. Follow-up blood cultures have been negative and question of cholecystitis. Patient overall improvement on Rocephin. Transition to oral antibiotic on discharge to finish a course of therapy. Continue supportive care. MMODL / IJN: [id number] /
[2020-08-20] MEDS: SODIUM CHLORIDE 0.9% 1,000 ML IV SCH (21:42)
[2020-08-21 05:37] VITALS: RESP 16
[2020-08-21 06:31] LABS: Glucose,Whole Blood 103 mg/dL (75-99)
[2020-08-21] MEDS: PANTOPRAZOLE 40 MG TABLET PO SCH (06:47)
[2020-08-21] MEDS: carvediloL 12.5 MG TAB PO SCH (06:47)
[2020-08-21] MEDS: INSULIN ASPART (NovoLOG) 100 UNIT/ML VIAL SQ SCH (06:47)
[2020-08-21] MEDS: CALCIUM ACETATE 667 MG TAB PO SCH (06:47)
[2020-08-21] MEDS: FLUTICASONE 110 MCG INHALER INHALATION SCH (08:09)
[2020-08-21 08:14] LABS: Anisocytosis Slight; HCT 35.9 % (39.0-53.0); HGB 11.2 gm/dL (13.0-17.5); Hypochromasia Moderate; MCH 31.1 pg (25.0-35.0); MCHC 31.1 g/dL (31.0-37.0); MCV 99.8 fL (80.0-100.0); Macrocytosis Slight; Mean Platelet Volume 10.3; RDW 16.3 % (11.5-15.5)
[2020-08-21] MEDS: TAMSULOSIN 0.4 MG CAP.ER.24H PO SCH (08:18)
[2020-08-21 08:19] LABS: INR 1.5 (<1.2); Prothrombin Time 14.9 sec (9.0-12.0)
[2020-08-21 08:21] LABS: Platelet Count 42 k/uL (150-450); WBC 1.4 k/uL (3.8-10.6)
[2020-08-21 08:23] VITALS: BP 136/68; PULSE 66; TEMP 97.8
[2020-08-21 08:24] LABS: Calcium 8.6 mg/dL (8.4-10.2); Potassium 5.2 mmol/L (3.5-5.1)
[2020-08-21] MEDS: FOLIC ACID-VIT B COMPLEX-VIT C 1 CAP PO SCH (08:24)
[2020-08-21] MEDS: predniSONE 5 MG TAB PO SCH (08:24)
[2020-08-21] MEDS: TACROLIMUS 1 MG CAP PO SCH (08:24)
[2020-08-21] MEDS ORDERED: FILGRASTIM-SNDZ 300 MCG/0.5 ML SYRINGE SQ SCH (10:30)
--- NOTE | 2020-08-21 11:15 | P.DS ---
Providers Date of admission: 08/16/20 20:43 Expected date of discharge: 08/21/20 Attending physician: Jean-Paul Monroe Consults: 08/16/20 20:26 Consult Physician Routine Consulting Provider: Rashmi Holder Consult Reason/Comments: sepsis Do you want consulting provider notified?: Yes 08/16/20 20:27 Consult Physician Routine Consulting Provider: Lyndon York Consult Reason/Comments: altered mental status Do you want consulting provider notified?: Yes Consult Physician Routine Consulting Provider: Niharika Peters Consult Reason/Comments: esrd Do you want consulting provider notified?: Yes 08/16/20 20:39 Consult Physician Routine Consulting Provider: Keyonna Damon Consult Reason/Comments: severe sepsis Do you want consulting provider notified?: Already Contacted 08/16/20 22:20 Consult Physician Routine Consulting Provider: Duarte Sanders Consult Reason/Comments: acute cholecystitis Do you want consulting provider notified?: Yes 08/17/20 11:09 Consult Physician Routine Consulting Provider: Joseph Amor Consult Reason/Comments: cardiac clearance Do you want consulting provider notified?: Yes Primary care physician: Hernán Qureshi [facility] Course: This is a 59-year-old -[place] male patient of Dr. 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 Desai, DVT of the left lower extremity on Coumadin, hypertension, diabetes mellitus type 2, high-grade AV block and paroxysmal atrial fibrillation status post dual-chamber AICD, hypertension, chronic diastolic heart failure, pulmonary hypertension and chronic cor pulmonale, chronic thrombocytopenia, patient reported history of mitral valve replacement. Patient presented to [facility] emergency center due to increasing confusion that started yesterday as well as fever. Patient also had abdominal symptoms. At the time of evaluation, patient is confused about why he came in the hospital. He presented with a temperature of 102.7, heart rate 87, blood pressure 137/85, pulse ox 100% on room air. CAT scan of the brain revealed no acute intracranial hemorrhage or midline shift. Mild to moderate diffuse age-related cerebral atrophy and mild chronic small vessel ischemic change with interval progression since 2012. EKG was a sinus rhythm with sinus arrhythmia at rate of 87. Chest x-ray reveals cardiomegaly without acute pulmonary process. Ultrasound gallblad thuy revealed gallstones redemonstrated. Acute cholecystitis cannot be excluded as there is mild gallbladder wall thickening in positive sonographic Alcazar sign. Hepatocellular disease or fatty filtration of the liver felt present. Consider HIDA scan. CAT scan of the abdomen showed no significant new or acute finding. Initial lab work revealed a WBC 1.5, hemoglobin 13.6, platelet count 55. INR 1.6. Sodium 137, potassium 6.4, chloride 97, CO2 27, BUN 72, creatinine 13.26. When sugar 136. Alkaline phosphatase 143, AST 46 and ALT 42. TSH 0.605. Patient was admitted to the intensive care unit and consults in place with motion picture camera lens technician, neurology, infectious disease, nephrology, general surgery. Patient continues to have confusion. Blood cultures subsequently positive for Streptococcus and repeat blood culture ordered. Patient normally does not have any urine production. 08/18: Patient is seen and the intensive care unit today. He is awake and alert, mental status is back to baseline. Patient has been afebrile, heart rate 76, blood pressure 145/85, pulse ox 95% on room air. Repeat blood work reveals WBC 1.2, hemoglobin 12.1, platelet count 47. INR 1.6. Electrolytes normal. BUN 37 creatinine 8.73. Blood sugars running between 92 and 187. TSH 0.605. EEG is abnormal suggestive of moderate encephalopathy. Patient is followed by neurology and has now signed off. Patient is scheduled for hemodialysis tomorrow. Patient was seen by Dr. Holder with recommendations to continue Rocephin, discontinue vancomycin. Patient is also followed by pulmonary medicine and cardiology. General surgery has evaluated the patient with no plan for surgical intervention. Echocardiogram reveals EF of 50-55% with moderate concentric left hypertrophy, mild tricuspid regurgitation, mild pulmonary hypertension. 08/19: Patient remains in the intensive care unit. He is on a Saturday schedule for hemodialysis and followed closely by nephrology. Gail added by Dr. Desai. Patient has been afebrile, heart rate 60, blood pressure 114/59, pulse ox 96% on room air. Regarding Patient states that he has a lesion on his right kidney that is being closely followed by [facility]. On CAT scan done on July 21 as an outpatient there is a 6.5 cm low-density partially exophytic lesion laterally mid lower pole right kidney favors postsurgical seroma. On repeat CAT scan from this admission, the fluid collection is measuring 5.1 x 5.2 x 6 cm, decreased in size. Repeat blood work today reveals INR 1.6-pharmacy is dosing Coumadin. Blood sugars are running between 99 and 192. Regarding his leukopenia. Patient states he has had a problem with this since he had transplant done. He has been on Neupogen in the past. Initial blood culture is nonhemolytic strep and finalized. Repeat blood cultures showing no growth at 48 hours. Plan is to increase activity today, PT added. 08/20: Patient seen today resting in bed, reports he is feeling a little bit better today. On hemodialysis Saturday and followed by nephrology. Vital signs are stable, patient remains afebrile, pulse 78, blood pressure 140/69, respirations 18, pulse ox 98% on room air. Patient remains on Rocephin IV. Continue to work with PT and increasing activity. Repeat CBC CMP in a.m. 08/21: Patient examined at bedside. Patient is okay with being discharged home today, denies any abdominal pain, nausea or vomiting, tolerating diet. Vital signs are stable, patient remains afebrile blood pressure 136/68, heart rate 66, respirations 16, pulse ox 97% on room air. White blood cells 1.4 we will give dose of Neupogen today and continue following with Dr. Peters on outpatient for hemodialysis Saturday and Saturday. Spoke with shraddha Lopez to send patient home on Ceftin 500 mg daily for 10 days. Patient will follow-up with Dr. Titus, Dr Sanders, and Dr. Hernandez as outpatient. Discharge diagnosis 1. Sepsis with streptococcal bacteremia, source to be identified. 2. Septic metabolic encephalopathy. 3. Leukopenia 4. Thrombocytopenia, 5. Hyperkalemia, 6. End-stage renal disease. 7. History of sarcoidosis with multiorgan involvement status post bilateral lung transplant at [facility] in 2014. 8. Possible cholecystitis, not thought to be source of sepsis. 9. DVT of the left lower extremity on chronic Coumadin. 10. Diabetes mellitus type 2 uncontrolled with hyperglycemia. 11. History of high-grade AV block and paroxysmal atrial fibrillation status post dual-chamber AICD. 12. Hypertension. DISCHARGE PLAN Discharge home today Impression and plan of care have been directed as dictated by the signing physician. Camila Acevedo nurse practitioner acting as scribe for signing physician. Patient Condition at Discharge: Stable Plan - Discharge Summary Discharge Rx Participant: No New Discharge Prescriptions: New Cefuroxime Axetil [Ceftin] 500 mg PO DAILY 10 Days #10 tab Calcium Acetate [PhosLo] 667 mg PO TID-W/MEALS #90 tab Continue Pantoprazole Sodium 40 mg PO BID predniSONE 5 mg PO DAILY Tacrolimus [Prograf] 5 mg PO BID Lidocaine-Prilocaine Cream [Emla Cream 2.5%/2.5%] 1 applic TOPICAL DAILY PRN PRN Reason: PORT ACCESS BEFORE DIALYSIS Fluticasone Propionate [Flovent Hfa 110 mcg] 2 puff INHALATION RT-BID Ammonium Lactate Cream [Lac-Hydrin 12% Cream] 1 applic TOPICAL BID PRN PRN Reason: Dry Skin Albuterol Nebulized [Ventolin Nebulized] 2.5 mg INHALATION RT-QID PRN PRN Reason: Shortness Of Breath Carvedilol [Coreg] 12.5 mg PO BID Metoclopramide [Reglan] 5 mg PO TID PRN PRN Reason: Nausea Ondansetron Odt [Zofran ODT] 4 mg PO Q8H PRN PRN Reason: Nausea Tamsulosin HCl [Flomax] 0.4 mg PO DAILY Valganciclovir HCl 450 mg PO MOWEFR Folic Acid-Vit B Complex-Vit C [Nephrocaps] 1 mg PO DAILY Sulfamethox-Tmp 400-80Mg [Bactrim SS 400-80 mg] 1 tab PO MOWEFR Midodrine [ProAmatine] 5 mg PO DAILY PRN PRN Reason: Blood Pressure - Low Warfarin [Coumadin] 3.75 mg PO SUTUFR Warfarin [Coumadin] 2.5 mg PO MOWETHSA Discharge Medication List Pantoprazole Sodium 40 mg PO BID 01/04/17 [History] predniSONE 5 mg PO DAILY 04/29/18 [History] Tacrolimus [Prograf] 5 mg PO BID 09/10/19 [History] Lidocaine-Prilocaine Cream [Emla Cream 2.5%/2.5%] 1 applic TOPICAL DAILY PRN 12/29/19 [History] Albuterol Nebulized [Ventolin Nebulized] 2.5 mg INHALATION RT-QID PRN 08/16/20 [History] Ammonium Lactate Cream [Lac-Hydrin 12% Cream] 1 applic TOPICAL BID PRN 08/16/20 [History] Carvedilol [Coreg] 12.5 mg PO BID 08/16/20 [History] Fluticasone Propionate [Flovent Hfa 110 mcg] 2 puff INHALATION RT-BID 08/16/20 [History] Folic Acid-Vit B Complex-Vit C [Nephrocaps] 1 mg PO DAILY 08/16/20 [History] Metoclopramide [Reglan] 5 mg PO TID PRN 08/16/20 [History] Ondansetron Odt [Zofran ODT] 4 mg PO Q8H PRN 08/16/20 [History] Sulfamethox-Tmp 400-80Mg [Bactrim SS 400-80 mg] 1 tab PO MOWEFR 08/16/20 [History] Tamsulosin HCl [Flomax] 0.4 mg PO DAILY 08/16/20 [History] Valganciclovir HCl 450 mg PO MOWEFR 08/16/20 [History] Midodrine [ProAmatine] 5 mg PO DAILY PRN 08/17/20 [History] Warfarin [Coumadin] 2.5 mg PO MOWETHSA 08/17/20 [History] Warfarin [Coumadin] 3.75 mg PO SUTUFR 08/17/20 [History] Calcium Acetate [PhosLo] 667 mg PO TID-W/MEALS #90 tab 08/21/20 [Rx] Cefuroxime Axetil [Ceftin] 500 mg PO DAILY 10 Days #10 tab 08/21/20 [Rx] Follow up Appointment(s)/Referral(s): Ray Hernandez MD [REFERRING] - 1 Week (Office closed - please call to schedule follow up. ) Hernán Qureshi DO [Primary Care Provider] - 1-2 days (Office closed - please call to schedule follow up. ) Jin Desai DO [STAFF PHYSICIAN] - 1 Week (Office closed - please call to schedule follow up ) Rashmi Holder MD [STAFF PHYSICIAN] - 1 Week (Office closed - please call to schedule follow up. ) Duarte Sanders MD [STAFF PHYSICIAN] - 1 Week (Office closed - please call to schedule follow up. ) Patient Instructions/Handouts: Sepsis (GEN) Discharge Disposition: HOME SELF-CARE
--- NOTE | 2020-08-21 12:02 | P.PN ---
Subjective Progress Note Date: 08/21/20 Principal diagnosis: Sepsis secondary to alphahemolytic strep This is a 59-year-old -Sudanese male patient is known to me from previous evaluation. 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 The patient also has end-stage renal disease and currently is on hemodialysis 3 times a week. He also has other comorbidities including cardiomyopathy and the patient has a dual-chamber AICD in place and addition to history of hypertension, chronic secondary pulmonary hypertension and cor pulmonale, previous history of mitral valve replacement, hypertension and previous history of DVT of the left lower extremity maintained on anticoagulation with warfarin on outpatient basis. Noted the patient undergoes hemodialysis through his AV fistula which is present in the left upper extremity. He also is known to have an umbilical hernia which has not caused any issues over the years. The patient came into the ED yesterday because of an altered mental status. He was also having high-grade fever. He had a tem perature of 102.7. He was hemodynamically stable with a pulse ox of 99% on room air. Chest x-ray shows cardiomegaly. The ICD was in a good location. No acute pulmonary infiltrates. CAT scan of the brain showed no acute abnormalities. He has mild to moderate diffuse age-related atrophy on the CAT scan of the brain. No evidence of any acute bleeds. EKG showed a sinus rhythm. Based on some a bdominal discomfort, the patient has been given a CAT scan of the abdomen that showed no significant abnormalities in the gallbladder. There was an umbilical hernia. There was also some on complicated diverticulosis. The cystic structure in the right kidney was noted. This has gone small in size. I'm assuming this in the same location where the patient had a bleed within the cyst and has right kidney. As for the ultrasound the of the gallbladder, it was abnormal with some mild gallbladder wall thickening and positive sonographic Alcazar's signs. There was hepatocellular disease/fatty infiltration of the liver. The patient's AST was 46, ALT is 42 and alkaline phosphatase 143. Note that his examination is not quite reliable as the patient is having some mild diffuse tenderness throughout his abdominal wall. The blood cultures showing gram-positive cocci and the patient was given a dose of vancomycin pending further cultures. The preliminary findings is consistent with Streptococcus. The patient is immunosuppressed as mentioned. The patient has a white second of 1.5. The patient has 15% bands. The patient has a BUN of 48 with a creatinine of 9.3. Sodium level is at 136. The ammonia level is at 34. TSH is within normal limits. CPK is at 34. Glucose of 82. INR is 1.7 of the of 16.4. Note that this is a subtherapeutic PT/INR as the patient has been taking warfarin on outpatient basis. On 08/18/2020 and seeing the patient for a follow-up in the intensive care unit. Note that the patient's blood culture board turner to be positive for Streptococcus species and final cultures and sensitivities are still pending. The patient on IV Rocephin. Much improved compared to yesterday. No more fever. Hemodynamically stable. Awake and alert and there is no confusional altered mentation at this point in time. No sedated abdominal tenderness. There was a concern for an acute cholecystitis and the patient's liver functions are essentially within normal limits. Also, the patient had a cystic structure in the right kidney which has shrunken in size probably an area of bleed within the cyst involving the right kidney. He is post lung transplantation and is also post cardiac surgery/bypass with an underlying cardiomyopathy and the patient is a dual-chamber AICD in place. The patient has also history of mitral valve repair/basement. Note that a repeat echo cardiac exam was done and the patient was found to have a preserved LV function with an ejection fraction of 50-55%. There was mild pulmonary hypertension. Right ventricular systolic pressure was estimated to be 35 mmHg. Aortic valve appeared to be normal. Mitral valve appeared to be normal. No valvular vegetation. There was a mild aneurysmal dilatation of the aortic with measuring around 3.9 cm in size. No pericardial effusion. RV size is within normal limits. On today's blood work, the patient's white cell count is at 1.2. Platelet count is at 47 with a hemoglobin of 12.1. BUN is 37 with a creatinine of 8.7. INR is at 1.6. On 08/19/2020, the patient is afebrile. He remains on IV Rocephin regarding alphahemolytic streptococcal bacteremia. The patient's hemodynamics is stable. The patient undergoing dialysis today. No altered mentation. No cough or sputum production. No chest pain. No shortness of breath. No other significant events overnight. The patient's white cell count is at 1.2 from yesterday's labs. No new labs from today. The patient is on warfarin. The PT/INR is subtherapeutic. The dose has been adjusted deformity grams on a daily basis. PT/INR is being monitored. The patient will be transferred out of the intensive care unit today. No nausea. No vomiting. No abdominal pain. No chest pain. The patient is seen today 08/20/2020 in follow-up on the selective care unit. He is awake and alert in no acute distress. He denies any shortness of breath, cough or congestion. He is maintaining good O2 saturations in the upper 90s on room air. He's been afebrile. Hemodynamically stable. White count 1.4. Hemoglobin 11.4. INR 1.4. Sodium 138. Potassium 4.8. Creatinine 9.06. The patient is seen today 08/21/2020 in follow-up on the selective care unit. He is currently resting quite comfortably in bed. Some vague mid abdominal discomfort. No nausea or vomiting. Tolerating breakfast. No shortness of breath, cough or congestion. Maintaining good O2 saturations in the 90s on room air. White count 1.4. Hemoglobin 11.2. INR 1.5. Sodium 138. Potassium 5.2. Creatinine 10.82. Due for dialysis tomorrow Objective - Vital Signs Vital signs: Vital Signs Temp 97.8 F 08/21/20 08:00 Pulse 66 08/21/20 08:00 Resp 16 08/21/20 08:00 BP 136/68 08/21/20 08:00 Pulse Ox 97 08/21/20 08:00 Intake & Output 08/20/20 08/21/20 08/21/20 18:59 06:59 18:59 Intake Total 550 200 240 Output Total 1300 Balance -750 200 240 Weight 70.8 kg Intake: IV 70 Sodium Chloride 0.9% 1, 20 000 ml @ 20 mls/hr IV . Q24H [facility] Rx#:[id number] cefTRIAXone 1 gm In 50 Sodium Chloride 0.9% 50 ml @ 100 mls/hr IVPB Q24HR [facility] Rx#:[id number] Oral 480 200 240 Output: Hemodialysis 1300 Other: Voiding Method Toilet Toilet Toilet # Voids 1 - Exam Gen. appearance, very pleasant 60-year-old -Sudanese gentleman, comfor table no acute distress, currently on room air oxygen pulse ox is in the 90s Head exam was generally normal. There was no scleral icterus or corneal arcus. Mucous membranes were moist. Neck was supple and without jugular venous distension, thyromegaly, or carotid bruits. Carotids were easily palpable bilaterally. There was no adenopathy. Lungs were clear to auscultation and percussion, and with normal diaphragmatic excursion. No wheezes or rales were noted. Cardiac exam revealed the PMI to be normally situated and sized. The rhythm was regular and no extrasystoles were noted during several minutes of auscultation. The first and second heart sounds were normal and physiologic splitting of the second heart sound was noted. There were no murmurs, rubs, clicks, or gallops. The patient has a normal sinus rhythm. Abdominal exam revealed normal bowel sounds. The abdomen was soft, tender, and without masses, organomegaly, or appreciable enlargement of the abdominal aorta. The patient has some mild direct tenderness throughout the abdominal wall. There is an umbilical hernia which is easily reducible. There is some limited right upper quadrant tenderness. There is also limited periumbilical and left lower quadrant and left upper quadrant tenderness also. Examination of the extremities revealed easily palpable radial, femoral and pedal pulses. There was no cyanosis, clubbing or edema. The patient has a functioning AV fistula in the left upper extremity. Examination of the skin revealed no evidence of significant rashes, suspicious appearing nevi or other concerning lesions. Neurologically awake and alert and there is no focal neurological deficits. - Labs CBC & Chem 7: 08/21/20 07:58 08/21/20 07:58 Labs: Abnormal Lab Results - Last 24 Hours (Table) 08/20/20 08/20/20 08/21/20 Range/Units 17:08 20:07 06:27 WBC (3.8-10.6) k/uL RBC (4.30-5.90) m/uL Hgb (13.0-17.5) gm/dL Hct (39.0-53.0) % RDW (11.5-15.5) % Plt Count (150-450) k/uL PT (9.0-12.0) sec INR (<1.2) Potassium (3.5-5.1) mmol/L Carbon Dioxide (22-30) mmol/L BUN (9-20) mg/dL Creatinine (0.66-1.25) mg/dL Glucose (74-99) mg/dL POC Glucose (mg/dL) 260 H 167 H 103 H (75-99) mg/dL 08/21/20 08/21/20 08/21/20 Range/Units 07:58 07:58 07:58 WBC 1.4 L* (3.8-10.6) k/uL RBC 3.60 L (4.30-5.90) m/uL Hgb 11.2 L (13.0-17.5) gm/dL Hct 35.9 L (39.0-53.0) % RDW 16.3 H (11.5-15.5) % Plt Count 42 L (150-450) k/uL PT 14.9 H (9.0-12.0) sec INR 1.5 H (<1.2) Potassium 5.2 H (3.5-5.1) mmol/L Carbon Dioxide 21 L (22-30) mmol/L BUN 48 H (9-20) mg/dL Creatinine 10.82 H* (0.66-1.25) mg/dL Glucose 151 H (74-99) mg/dL POC Glucose (mg/dL) (75-99) mg/dL Microbiology - Last 24 Hours (Table) 08/17/20 09:48 Blood Culture - Preliminary Blood No Growth after 72 hours Assessment and Plan Assessment: 1 sepsis secondary to alphahemolytic strep The patient is currently on IV Rocephin. Repeat cultures are negative. The patient is afebrile. The patient is hemodynamically stable. No signs of ongoing septicemia. 2 altered mental status secondary to above, recovered 3 chronic neutropenia and the patient has been on Prograf as an immunosuppressive agents with a white cell count of 1.2, and the patient is maintained on a combination of Prograft/prednisone in addition to Zithromax and Bactrim and Valcyte on outpatient basis 4 History of sarcoidosis, stage IV requiring transportation that was done at [facility] second 2014 5 bilateral lung transplantation maintained on immunosuppression with a combination of Prograf and prednisone 6 end-stage renal disease on dialysis 3 times a week 7 diabetes mellitus type 2 8 history of DVT of the left lower extremity within on long-term articulation with warfarin, PT/INR was subtherapeutic at the time of admission 9 questionable cholecystitis based on sonographic findings, normal LFTs with relatively benign examination. 10 cardiomyopathy with systolic and diastolic heart failure. The patient has also history of high-grade AV block and paroxysmal atrial fibrillation. The patient is a dual-chamber AICD in place. There is also a questionable history of valvular surgery, probably involving the mitral valve which was probably repairs. 11 hypertension 12 secondary pulmonary hypertension, not so elevated blood pressure based on the most his echocardiogram 13 umbilical hernia without evidence of any strangulation or incarceration 14 diverticulosis, complicated 15 bleeding right renal cyst most coiling/embolization, and the repeat CAT scan of the abdomen and pelvis that was done yesterday showed an interval reduction in the patient's collection in the right kidney which is currently measuring 5.1 x 6 cm in size and has decreased in size compared to the previous CAT scan from July 2020. 16 umbilical hernia 17 chronic anemia/thrombocytopenia Plan The patient was seen and evaluated by Dr. Damon Cleared for discharge from the pulmonary and critical care standpoint I, the cosigning physician, performed a history & physical examination of the patient. Lungs sounds are clear. Maintaining good O2 saturations in the 90s on room air. I discussed the assessment and plan of care with my nurse practitioner, Anum Hughes. I attest to the above note as dictated by her.
[2020-08-21] MEDS ORDERED: WARFARIN 3 MG TAB PO ONE (18:00)
== END 2020-08-21 11:30 | disposition home or self-care (01) | DRG 871 ==
LOC: EC 19:27 → 2SICU 20:43 → 3SCARD 08-19 18:33
PROVIDERS: ADMIT Internal Medicine Geriatric Medicine; ATTEND Internal Medicine Geriatric Medicine
PROC: 5A1D70Z Performance of Urinary Filtration, Intermittent, Less than 6 Hours Per Day (ICD-10-PCS; principal; 2020-08-17)
DX: A40.9 Streptococcal sepsis, unspecified (principal); G93.41 Metabolic encephalopathy; N18.6 End stage renal disease; D84.9 Immunodeficiency, unspecified; I13.2 Hypertensive heart and chronic kidney disease with heart failure and with stage 5 chronic kidney disease, or end stage renal disease; I42.8 Other cardiomyopathies; K80.00 Calculus of gallbladder with acute cholecystitis without obstruction; Z94.2 Lung transplant status; I50.32 Chronic diastolic (congestive) heart failure; D69.6 Thrombocytopenia, unspecified; I27.29 Other secondary pulmonary hypertension; D70.9 Neutropenia, unspecified; D63.1 Anemia in chronic kidney disease; K76.0 Fatty (change of) liver, not elsewhere classified; R65.20 Severe sepsis without septic shock; E11.22 Type 2 diabetes mellitus with diabetic chronic kidney disease; Z20.828 Contact with and (suspected) exposure to other viral communicable diseases; E11.65 Type 2 diabetes mellitus with hyperglycemia; I48.0 Paroxysmal atrial fibrillation; Z99.2 Dependence on renal dialysis; D86.9 Sarcoidosis, unspecified; E87.5 Hyperkalemia; I44.30 Unspecified atrioventricular block; K42.9 Umbilical hernia without obstruction or gangrene; K57.90 Diverticulosis of intestine, part unspecified, without perforation or abscess without bleeding; E83.89 Other disorders of mineral metabolism; N28.1 Cyst of kidney, acquired; R55 Syncope and collapse; K76.9 Liver disease, unspecified; Z79.01 Long term (current) use of anticoagulants; Z79.51 Long term (current) use of inhaled steroids; Z79.52 Long term (current) use of systemic steroids; Z79.899 Other long term (current) drug therapy; Z86.718 Personal history of other venous thrombosis and embolism; Z95.2 Presence of prosthetic heart valve; Z95.810 Presence of automatic (implantable) cardiac defibrillator; Z98.890 Other specified postprocedural states; Z88.5 Allergy status to narcotic agent; Z83.3 Family history of diabetes mellitus; Z82.49 Family history of ischemic heart disease and other diseases of the circulatory system; Z80.6 Family history of leukemia; Z82.61 Family history of arthritis; Z84.89 Family history of other specified conditions
CPT/HCPCS: 36415; 70450; 71045; 74177; 76705; 80048; 80053; 80197; 82140; 82550; 83605; 83735; 84100; 84443; 85025; 85027; 85610; 85730; 87040; 87045; 87046; 87077; 87186; 87324; 90935; 93005; 93306; 94640; 95816; 96365; 96368; 96375; 99291

== ENCOUNTER 2020-12-22 22:22 | Inpatient (IN) | payer BC, MEDICARE ==
[2020-12-22] MEDS ORDERED: SODIUM CHLORIDE 0.9% 1,000 ML IV STA ×2 (22:39)
[2020-12-22] MEDS ORDERED: IBUPROFEN 800 MG TAB PO STA (22:39)
[2020-12-22] MEDS ORDERED: ACETAMINOPHEN TAB 500 MG TAB PO STA (22:39)
--- NOTE | 2020-12-22 23:31 | ED ---
Fever HPI - General Chief Complaint: Fever Stated Complaint: Fever Time Seen by Provider: 12/22/20 22:24 Source: patient, EMS, RN notes reviewed, old records reviewed Mode of arrival: EMS Limitations: no limitations - History of Present Illness Initial Comments: This is a 60-year-old male DF for evaluation of fever. Patient is severe fever weakness not feeling well. Refusing covert test and states she's been tested for covert multiple times. He has not of covert. Patient denying any cough or any other symptoms, and is complaining of weakness and fever. Patient does have complex medical history, patient does not participate well in history of present illness, hard to tell if that secondary to choice or just feeling weak MD Complaint: fever, malaise, weakness -: days(s) Temperature Source: subjective, oral Context: sick contacts, multiple patients with similar symptoms Associated Symptoms: chills, nausea, vomiting, weight loss Treatments Prior to Arrival: none - Related Data Home Medications Medication Instructions Recorded Confirmed Pantoprazole Sodium 40 mg PO DAILY 01/04/17 12/22/20 predniSONE 5 mg PO DAILY 04/29/18 12/22/20 Lidocaine-Prilocaine Cream [Emla 1 applic TOPICAL DAILY PRN 12/29/19 12/22/20 Cream 2.5%/2.5%] Ammonium Lactate Cream [Lac-Hydrin 1 applic TOPICAL BID PRN 08/16/20 12/22/20 12% Cream] Carvedilol [Coreg] 25 mg PO MOWEFR@1800 08/16/20 12/22/20 Sulfamethox-Tmp 400-80Mg [Bactrim 1 tab PO MOWEFR 08/16/20 12/22/20 SS 400-80 mg] Valganciclovir HCl 900 mg PO MOWEFR 08/16/20 12/22/20 Midodrine [ProAmatine] 5 mg PO MOWEFR 08/17/20 12/22/20 Warfarin [Coumadin] 2.5 mg PO MO 08/17/20 12/22/20 Warfarin [Coumadin] 3.75 mg PO SUTUWETHFRSA 08/17/20 12/22/20 Calcium Carb-Mag Carb-Folic 1 tab PO QID 12/22/20 12/22/20 [Magnebind 400] Carvedilol [Coreg] 25 mg PO SUTUTHSA@0800,1800 02/11/21 02/11/21 Ondansetron [Zofran] 4 mg PO TID PRN 12/22/20 12/22/20 Triphrocaps 1 tab PO DAILY 12/22/20 12/22/20 Allergies Allergy/AdvReac Type Severity Reaction Status Date / Time meperidine [From Demerol] Allergy Rash/Hives Verified 12/22/20 23:44 Review of Systems ROS Statement: Those systems with pertinent positive or pertinent negative responses have been documented in the HPI. ROS Other: All systems not noted in ROS Statement are negative. Past Medical History Past Medical History: Diabetes Mellitus, Deep Vein Thrombosis (DVT), Hypertension, Renal Disease Additional Past Medical History / Comment(s): See Dr Holman's H&P,Sarcodosis,Hemodialysis MoWeFr,hx dvt left leg. 12/25/19 clots removed from left arm fistula History of Any Multi-Drug Resistant Organisms: C-DIFF Date of last positivie culture/infection: April 2016 MDRO Source:: STOOL Past Surgical History: AICD, Back Surgery, Orthopedic Surgery, Pacemaker Additional Past Surgical History / Comment(s): Bilateral lung transplant w/ va lve replacement(not sure which valve)-04-25-2016. COLONOSCOPY. RT HAND SURGERY. HEMODIALYSIS CATH. AV SHUNT LT UPPER ARM- 06/11/17 Past Anesthesia/Blood Transfusion Reactions: Motion Sickness Type of Cardiac Device: Permanent Pacemaker, AICD Device Placement Date:: 03-28-2011 Past Psychological History: No Psychological Hx Reported Smoking Status: Never smoker Past Alcohol Use History: None Reported Past Drug Use History: None Reported - Past Family History Father Family Medical History: Cancer, Osteoarthritis (OA) Additional Family Medical History / Comment(s): Father is with history of leukemia and sarcoidosis. Strong family history of sarcoidosis on his father's side. Mother Additional Family Medical History / Comment(s): Mother is after her fifth myocardial infarction with history of diabetes. Brother(s) Additional Family Medical History / Comment(s): Patient has a brother and sister with sarcoidosis. Patient has 6 children with no major medical problems. None have been diagnosed with sarcoidosis. General Exam Limitations: no limitations General appearance: alert, in no apparent distress, lethargic, in distress Head exam: Present: atraumatic, normocephalic, normal inspection Eye exam: Present: normal appearance, PERRL, EOMI. Absent: scleral icterus, conjunctival injection, periorbital swelling ENT exam: Present: normal exam, mucous membranes moist Neck exam: Present: normal inspection. Absent: tenderness, meningismus, lymphadenopathy Respiratory exam: Present: normal lung sounds bilaterally. Absent: respiratory distress, wheezes, rales, rhonchi, stridor Cardiovascular Exam: Present: regular rate, normal rhythm, normal heart sounds. Absent: systolic murmur, diastolic murmur, rubs, gallop, clicks GI/Abdominal exam: Present: soft, normal bowel sounds. Absent: distended, tenderness, guarding, rebound, rigid Extremities exam: Present: normal inspection, full ROM, normal capillary refill. Absent: tenderness, pedal edema, joint swelling, calf tenderness Back exam: Present: normal inspection Neurological exam: Present: alert, oriented X3, CN II-XII intact Psychiatric exam: Present: normal affect, normal mood Skin exam: Present: warm, dry, intact, normal color. Absent: rash Course Vital Signs 12/22/20 22:23 Temperature 102.9 F H Pulse Rate 84 Respiratory 16 Rate Blood Pressure 132/75 O2 Sat by Pulse 99 Oximetry Medical Decision Making - Medical Decision Making 60 male DF for evaluation patient here for evaluation of fever not feeling well weakness. Patient has multiple sources for sepsis will admit on broad-spectrum IV antibiotics, neutropenic fever - Lab Data Result diagrams: 12/22/20 23:22 12/22/20 23:22 Lab Results 12/22/20 12/22/20 12/22/20 Range/Units 23:22 23:22 23:22 WBC 0.8 L* (3.8-10.6) k/uL RBC 3.89 L (4.30-5.90) m/uL Hgb 12.2 L (13.0-17.5) gm/dL Hct 38.0 L (39.0-53.0) % MCV 97.7 (80.0-100.0) fL MCH 31.4 (25.0-35.0) pg MCHC 32.2 (31.0-37.0) g/dL RDW 16.2 H (11.5-15.5) % Plt Count 62 L (150-450) k/uL MPV 9.4 Neutrophils # MORGUE TECHNICIAN Differential Comment Manual Slide Review Performed Anisocytosis Slight Macrocytosis Slight PT 16.3 H (9.0-12.0) sec INR 1.6 H (<1.2) APTT 35.0 H (22.0-30.0) sec Sodium 133 L (137-145) mmol/L Potassium 7.2 H* (3.5-5.1) mmol/L Chloride 95 L (98-107) mmol/L Carbon Dioxide 27 (22-30) mmol/L Anion Gap 11 mmol/L BUN 71 H (9-20) mg/dL Creatinine 12.87 H* (0.66-1.25) mg/dL Est GFR (CKD-EPI)AfAm 4 (>60 ml/min/1.73 sqM) Est GFR (CKD-EPI)NonAf 4 (>60 ml/min/1.73 sqM) Glucose 112 H (74-99) mg/dL Plasma Lactic Acid Kurt (0.7-2.0) mmol/L Calcium 8.2 L (8.4-10.2) mg/dL Magnesium 2.0 (1.6-2.3) mg/dL Total Bilirubin 1.0 (0.2-1.3) mg/dL AST 55 (17-59) U/L ALT 40 (4-49) U/L Alkaline Phosphatase 202 H (38-126) U/L Lactate Dehydrogenase 815 H (313-618) U/L C-Reactive Protein 50.0 H (<10.0) mg/L Total Protein 7.5 (6.3-8.2) g/dL Albumin 4.2 (3.5-5.0) g/dL 12/22/20 Range/Units 23:22 WBC (3.8-10.6) k/uL RBC (4.30-5.90) m/uL Hgb (13.0-17.5) gm/dL Hct (39.0-53.0) % MCV (80.0-100.0) fL MCH (25.0-35.0) pg MCHC (31.0-37.0) g/dL RDW (11.5-15.5) % Plt Count (150-450) k/uL MPV Neutrophils # Differential Comment Manual Slide Review Anisocytosis Macrocytosis PT (9.0-12.0) sec INR (<1.2) APTT (22.0-30.0) sec Sodium (137-145) mmol/L Potassium (3.5-5.1) mmol/L Chloride (98-107) mmol/L Carbon Dioxide (22-30) mmol/L Anion Gap mmol/L BUN (9-20) mg/dL Creatinine (0.66-1.25) mg/dL Est GFR (CKD-EPI)AfAm (>60 ml/min/1.73 sqM) Est GFR (CKD-EPI)NonAf (>60 ml/min/1.73 sqM) Glucose (74-99) mg/dL Plasma Lactic Acid Kurt 1.4 (0.7-2.0) mmol/L Calcium (8.4-10.2) mg/dL Magnesium (1.6-2.3) mg/dL Total Bilirubin (0.2-1.3) mg/dL AST (17-59) U/L ALT (4-49) U/L Alkaline Phosphatase (38-126) U/L Lactate Dehydrogenase (313-618) U/L C-Reactive Protein (<10.0) mg/L Total Protein (6.3-8.2) g/dL Albumin (3.5-5.0) g/dL - EKG Data -: EKG Interpreted by Me (EKG is sinus rhythm 82, OK 128 QRS 82 QTC 443) - Radiology Data Radiology results: report reviewed (Chest x-rays negative for acute disease), image reviewed Critical Care Time Critical Care Time: Yes Total Critical Care Time: 31 Disposition Clinical Impression: Leukopenia, Sepsis, Fever, FUO (fever of unknown origin), Neutropenic fever Disposition: ADMITTED IP TO THIS [facility] Condition: Serious Is patient prescribed a controlled substance at d/c from ED?: No Referrals: Hernán Qureshi DO [Primary Care Provider] - 1-2 days
--- NOTE | 2020-12-22 23:45 | XR ---
EXAMINATION TYPE: XR chest 1V portable DATE OF EXAM: 12/22/2020 COMPARISON: 08/17/2020 HISTORY: Pneumonia TECHNIQUE: Single view FINDINGS: Heart is enlarged. There are sternal wires. There is left axillary pacemaker. There is no p ulmonary consolidation. There is coarsening of the lung markings. I see no definite heart failure. IMPRESSION: Coarse lung markings consistent with some pulmonary fibrosis. No obvious heart failure. C ardiomegaly. Chest not significantly different than old exam.
[2020-12-23 00:07] LABS: Albumin 4.2 g/dL (3.5-5.0); Calcium 8.2 mg/dL (8.4-10.2); Total Protein 7.5 g/dL (6.3-8.2)
[2020-12-23 00:09] LABS: INR 1.6 (<1.2); Prothrombin Time 16.3 sec (9.0-12.0)
[2020-12-23 00:10] LABS: Anisocytosis Slight; HGB 12.2 gm/dL (13.0-17.5); MCH 31.4 pg (25.0-35.0); MCHC 32.2 g/dL (31.0-37.0); MCV 97.7 fL (80.0-100.0); Macrocytosis Slight; Mean Platelet Volume 9.4; RBC 3.89 m/uL (4.30-5.90); RDW 16.2 % (11.5-15.5)
[2020-12-23 00:19] LABS: Potassium 7.2 mmol/L (3.5-5.1)
[2020-12-23 00:20] LABS: WBC 0.8 k/uL (3.8-10.6)
[2020-12-23 00:27] LABS: Platelet Count 62 k/uL (150-450)
[2020-12-23] MEDS ORDERED: INSULIN REGULAR 100 UNIT/ML VIAL IV ONE (00:27)
[2020-12-23] MEDS ORDERED: DEXTROSE 50% SYRINGE 50 ML IVP STA (00:27)
[2020-12-23] MEDS ORDERED: SODIUM POLYSTYRENE SULFONATE 15 GM/60 ML BOTTLE PO STA (00:27)
[2020-12-23] MEDS ORDERED: SODIUM BICARB 8.4% 50 ML SYR (1 MEQ/ML) IV STA (00:27)
[2020-12-23] MEDS ORDERED: PIPERACILLIN-TAZOBACTAM 3.375 GM in SODIUM CHLORIDE 0.9% 100 ML IVPB STA (00:49)
[2020-12-23] MEDS: SODIUM CHLORIDE 0.9% 1,000 ML IV SCH ×2 (01:19→09:52)
[2020-12-23 06:22] LABS: Glucose,Whole Blood 97 mg/dL (75-99)
[2020-12-23] MEDS ORDERED: PIPERACILLIN-TAZOBACTAM 3.375 GM in SODIUM CHLORIDE 0.9% 100 ML IVPB SCH (08:00)
[2020-12-23 08:45] LABS: Calcium 7.6 mg/dL (8.4-10.2)
[2020-12-23 08:48] LABS: Anisocytosis Slight; Basophils % (A) 1 %; Eosinophils % (A) 0 %; HCT 32.4 % (39.0-53.0); HGB 10.5 gm/dL (13.0-17.5); Lymphocytes # (A) 0.3 k/uL (1.0-4.8); Lymphocytes % (A) 39 %; MCH 31.7 pg (25.0-35.0); MCHC 32.3 g/dL (31.0-37.0); MCV 98.1 fL (80.0-100.0); Macrocytosis Slight; Mean Platelet Volume 9.6; Monocytes # (A) 0.1 k/uL (0-1.0); Monocytes % (A) 12 %; Neutrophils # (A) 0.3 k/uL (1.3-7.7); Neutrophils % (A) 46 %; RBC 3.31 m/uL (4.30-5.90); RDW 16.2 % (11.5-15.5)
[2020-12-23 08:53] LABS: WBC 0.7 k/uL (3.8-10.6)
[2020-12-23 08:54] LABS: Platelet Count 45 k/uL (150-450)
[2020-12-23] MEDS ORDERED: TACROLIMUS 1 MG CAP PO SCH ×3 (09:00→10:45)
[2020-12-23 09:25] LABS: Poikilocytosis (M) Present
[2020-12-23] MEDS: ENOXAPARIN 40 MG/0.4 ML SYRINGE SQ SCH ×2 (09:38→09:50)
[2020-12-23 09:53] LABS: INR 1.7 (<1.2); Prothrombin Time 16.9 sec (9.0-12.0)
[2020-12-23] MEDS: TACROLIMUS 1 MG CAP PO SCH ×2 (09:59→20:27)
[2020-12-23] MEDS ORDERED: ONDANSETRON 4 MG TAB PO PRN (10:34)
[2020-12-23] MEDS ORDERED: AMMONIUM LACTATE 12% CREAM 140 GM TUBE TOPICAL PRN (10:34)
[2020-12-23 11:56] LABS: Glucose,Whole Blood 89 mg/dL (75-99)
--- NOTE | 2020-12-23 12:02 | P.HPIM ---
History of Present Illness H&P Date: 12/23/20 Chief Complaint: fever HISTORY OF PRESENT ILLNESS This is a 59-year-old -[place]est[place] male patient of Dr. 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 Desai, DVT of the left lower extremity on Coumadin, hypertension, diabetes mellitus type 2, high-grade AV block and paroxysmal atrial fibrillation status post dual-chamber AICD, hypertension, chronic diastolic heart failure, pulmonary hypertension and chronic cor pulmonale, chronic thrombocytopenia, patient reported history of mitral valve replacement. Patient also has history of sepsis with streptococcal bacteremia. Patient presented to emergency center due to fever and diarrhea that he has had for weeks now. He denies any nausea vomiting. He states he has diarrhea 3 times per day. He also is not urinating. He states he drinks 1 glass of water per day. Patient presented with fever of 102.9, heart rate 84, blood pressure 132/75, pulse ox 99% on room air. WBC 0.8, hemoglobin 12.2, platelet count 62. INR 1.6. Initial potassium 7.2 which was rechecked at 4.7 status post Kayexalate, dextrose, regular insulin. Sodium 133, chloride 95, CO2 27, BUN 71 creatinine 12.87. Alkaline phosphatase 202. LDH 815. C-reactive protein 50. Patient refused to have COVID19 testing. Patient admitted to the cardiac stepdown unit and consults requested with nephrology, oncology and infectious disease. REVIEW OF SYSTEMS Constitutional: Reports fever, Reports chills, no night sweats. No weight change. Reports weakness, fatigue or lethargy. No daytime sleepiness. EENT: No headache. No blurred vision or double vision, no loss of vision. No loss of Hearing, no ringing in the ears, no dizziness. No nasal drainage or congestion. No epistaxis. No sore throat. Lungs: Denies shortness of breath, denies cough, no sputum production. No wheezing. Cardiovascular: No chest pain, no lower extremity edema. No palpitations. No paroxysmal nocturnal dyspnea. No orthopnea. No lightheadedness or dizziness. No syncopal episodes. Abdominal: No abdominal pain. No nausea, vomiting. Reports diarrhea. No constipation. No bloody or tarry stools. No loss of appetite. Genitourinary: No dysuria, increased frequency, urgency. No urinary retention. Musculoskeletal: No myalgias. Reports muscle weakness, no gait dysfunction, no frequent falls. No back pain. No neck pain. Integumentary: No wounds, no lesions. No rash or pruritus. No unusual bruising. Neurologic: No aphasia. No facial droop. No change in mentation. No head injury. No headache. No paralysis. No paresthesia. Psychiatric: No depression. No anxiety. No mood swings. Endocrine: No abnormal blood sugars. No weight change. No excessive sweating or thirst. No cold intolerance. SOCIAL HISTORY Patient is a lifelong nonsmoker. No marijuana, illicit drug use or alcohol use. Patient lives with his fianc. He normally drives himself to dialysis treatments. FAMILY HISTORY Father is with history of leukemia and sarcoidosis. There is a strong family history of sarcoidosis on the father's side. Mother is after her fifth myocardial infarction with history of diabetes. Patient has 1 brother and 1 sister with sarcoidosis. He has 6 children with no major medical problems and none have been diagnosed with sarcoidosis. PHYSICAL EXAMINATION Gen: This is a 60-year-old -Palest[place] male. He is resting in chair and appears to be comfortable. HEENT: Head is atraumatic, normocephalic. Pupils equal, round. Sclerae is anicteric. NECK: Supple. No JVD. No lymphadenopathy. No thyromegaly. LUNGS: Clear to auscultation. No wheezes or rhonchi. No intercostal retractions. HEART: Regular rate and rhythm. Systolic murmur. ABDOMEN: Soft. Bowel sounds are present. No masses. No tenderness. EXTREMITIES: No pedal edema. No calf tenderness. Dorsalis pedis palpable bilaterally. AV fistula to the left arm. NEUROLOGICAL: Patient is awake, alert and oriented 3 Cranial nerves 2 through 12 are grossly intact. ASSESSMENT AND PLAN 1. Sepsis with diarrhea. Patient has been admitted into the intensive care unit. Consult with infectious disease. Patient is currently on ceftriaxone and Zosyn. Blood cultures in progress. Stool specimen to be obtained for culture, C. diff and H. pyloridif 2. They're hyperkalemia, improved. Nephrology consult 3. Leukopenia, consult oncology. 4. Thrombocytopenia, chronic most likely exacerbated by sepsis. Consult with oncology 5. End-stage renal disease. Patient underwent hemodialysis last evening and repeat scheduled for today. Nephrology consult appreciated.. 6. 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 Continue antirejection medication as prescribed at home. 7. DVT of the left lower extremity on chronic Coumadin. Continue Coumadin, pharmacy to dose. 8. Diabetes mellitus type 2. 9. History of high-grade AV block and paroxysmal atrial fibrillation status post dual-chamber AICD. Continue Coreg at decreased dose of 12.5 mg daily. 10. Hypertension currently with hypotension. Increase midodrine to 5 mg scheduled 3 times daily and continue Coreg Patient will be admitted to the hospital for a minimum of 2 night stay. DISCHARGE PLAN Most likely return home. Impression and plan of care have been directed as dictated by the signing phys ician. Sydney Gallegos nurse practitioner acting as scribe for signing physician. Past Medical History Past Medical History: Diabetes Mellitus, Deep Vein Thrombosis (DVT), Hypertension, Renal Disease Additional Past Medical History / Comment(s): See Dr Holman's H&P,Sarcodosis,Hemodialysis MoWeFr,hx dvt left leg. 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 COLONOSCOPY. RT HAND SURGERY. HEMODIALYSIS CATH. AV SHUNT LT UPPER ARM- 06/11/17 Past Anesthesia/Blood Transfusion Reactions: Motion Sickness Type of Cardiac Device: Permanent Pacemaker, AICD Device Placement Date:: 03-28-2011 Past Psychological History: No Psychological Hx Reported Smoking Status: Never smoker Past Alcohol Use History: None Reported Additional Past Alcohol Use History / Comment(s): Patient states that he is a lifelong nonsmoker. No marijuana, illicit drug use or alcohol use. Patient lives alone. Past Drug Use History: None Reported - Past Family History Father Family Medical History: Cancer, Osteoarthritis (OA) Additional Family Medical History / Comment(s): Father is with history of leukemia and sarcoidosis. Strong family history of sarcoidosis on his father's side. Mother Additional Family Medical History / Comment(s): Mother is after her fifth myocardial infarction with history of diabetes. Brother(s) Additional Family Medical History / Comment(s): Patient has a brother and sister with sarcoidosis. Patient has 6 children with no major medical problems. None have been diagnosed with sarcoidosis. Medications and Allergies Home Medications Medication Instructions Recorded Confirmed Type Pantoprazole Sodium 40 mg PO DAILY 01/04/17 12/22/20 History predniSONE 5 mg PO DAILY 04/29/18 12/22/20 History Lidocaine-Prilocaine Cream [Emla 1 applic TOPICAL DAILY PRN 12/29/19 12/22/20 History Cream 2.5%/2.5%] Ammonium Lactate Cream [Lac-Hydrin 1 applic TOPICAL BID PRN 08/16/20 12/22/20 History 12% Cream] Carvedilol [Coreg] 25 mg PO MOWEFR@1800 08/16/20 12/22/20 History Sulfamethox-Tmp 400-80Mg [Bactrim 1 tab PO MOWEFR 08/16/20 12/22/20 History SS 400-80 mg] Valganciclovir HCl 900 mg PO MOWEFR 08/16/20 12/22/20 History Midodrine [ProAmatine] 5 mg PO MOWEFR 08/17/20 12/22/20 History Warfarin [Coumadin] 2.5 mg PO MO 08/17/20 12/22/20 History Warfarin [Coumadin] 3.75 mg PO SUTUWETHFRSA 08/17/20 12/22/20 History Calcium Carb-Mag Carb-Folic 1 tab PO QID 12/22/20 12/22/20 History [Magnebind 400] Carvedilol [Coreg] 25 mg PO SUTUTHSA@0800,1800 12/22/20 12/22/20 History Ondansetron [Zofran] 4 mg PO TID PRN 12/22/20 12/22/20 History Triphrocaps 1 tab PO DAILY 12/22/20 12/22/20 History Tacrolimus [Prograf] 3 mg PO BID 12/23/20 12/23/20 History Allergies Allergy/AdvReac Type Severity Reaction Status Date / Time meperidine [From Demerol] Allergy Rash/Hives Verified 12/22/20 23:44 Physical Exam Vitals: Vital Signs Temp Pulse Pulse Resp BP BP Pulse Ox 12/23/20 04:00 98.0 F 66 18 93/56 99 12/23/20 03:55 98.8 F 68 18 95/65 97 12/23/20 01:52 77 20 111/66 97 12/23/20 00:56 100.2 F H 75 16 98 12/22/20 22:23 102.9 F H 84 16 132/75 99 Intake and Output 12/22/20 12/23/20 12/23/20 22:59 06:59 14:59 Other: # Voids 0 # Bowel Movements 0 Weight 74.389 kg 71 kg Results CBC & Chem 7: 12/23/20 08:07 12/23/20 08:07 Labs: Abnormal Lab Results - Last 24 Hours (Table) 12/22/20 12/22/20 12/22/20 Range/Units 23:22 23:22 23:22 WBC 0.8 L* (3.8-10.6) k/uL RBC 3.89 L (4.30-5.90) m/uL Hgb 12.2 L (13.0-17.5) gm/dL Hct 38.0 L (39.0-53.0) % RDW 16.2 H (11.5-15.5) % Plt Count 62 L (150-450) k/uL Neutrophils # (1.3-7.7) k/uL Lymphocytes # (1.0-4.8) k/uL PT 16.3 H (9.0-12.0) sec INR 1.6 H (<1.2) APTT 35.0 H (22.0-30.0) sec Sodium 133 L (137-145) mmol/L Potassium 7.2 H* (3.5-5.1) mmol/L Chloride 95 L (98-107) mmol/L BUN 71 H (9-20) mg/dL Creatinine 12.87 H* (0.66-1.25) mg/dL Glucose 112 H (74-99) mg/dL Calcium 8.2 L (8.4-10.2) mg/dL Alkaline Phosphatase 202 H (38-126) U/L Lactate Dehydrogenase 815 H (313-618) U/L C-Reactive Protein 50.0 H (<10.0) mg/L 12/23/20 12/23/20 12/23/20 Range/Units 08:07 08:07 08:07 WBC 0.7 L* (3.8-10.6) k/uL RBC 3.31 L (4.30-5.90) m/uL Hgb 10.5 L (13.0-17.5) gm/dL Hct 32.4 L (39.0-53.0) % RDW 16.2 H (11.5-15.5) % Plt Count 45 L (150-450) k/uL Neutrophils # 0.3 L* (1.3-7.7) k/uL Lymphocytes # 0.3 L (1.0-4.8) k/uL PT 16.9 H (9.0-12.0) sec INR 1.7 H (<1.2) APTT (22.0-30.0) sec Sodium (137-145) mmol/L Potassium (3.5-5.1) mmol/L Chloride 96 L (98-107) mmol/L BUN 77 H (9-20) mg/dL Creatinine 13.67 H* (0.66-1.25) mg/dL Glucose (74-99) mg/dL Calcium 7.6 L (8.4-10.2) mg/dL Alkaline Phosphatase (38-126) U/L Lactate Dehydrogenase (313-618) U/L C-Reactive Protein (<10.0) mg/L Thrombosis Risk Factor Assmnt - Choose All That Apply Any of the Below Risk Factors Present?: Yes Each Factor Represents 1 point: Age 41-60 years Other Risk Factors: Yes Each Risk Factor Represents 3 Points: History of DVT/PE Other congenital or acquired thrombophilia - If yes, enter type in comment: No Thrombosis Risk Factor Assessment Total Risk Factor Score: 4 Thrombosis Risk Factor Assessment Level: Moderate Risk
[2020-12-23] MEDS: MIDODRINE 5 MG TAB PO SCH ×2 (12:33→19:18)
[2020-12-23] MEDS: FOLIC ACID-VIT B COMPLEX-VIT C 1 CAP PO SCH (12:34)
[2020-12-23] MEDS: predniSONE 5 MG TAB PO SCH (12:34)
[2020-12-23] MEDS: CALCIUM CARB-MAG CARB-FOLIC 1 EACH TAB PO SCH ×3 (12:34→23:50)
[2020-12-23] MEDS: SULFAMETHOX-TMP 400-80MG 1 EACH TAB PO SCH (12:34)
[2020-12-23] MEDS ORDERED: VANCOMYCIN IV PER PHARMACY 1 EACH MISC MISCELLANE PRN (12:35)
[2020-12-23] MEDS ORDERED: VANCOMYCIN 1,250 MG in SODIUM CHLORIDE 0.9% 250 ML IVPB ONE (13:30)
--- NOTE | 2020-12-23 13:34 | P.CONS ---
History of Present Illness - Reason for Consult Consult date: 12/23/20 known Requesting physician: Aditya Hernández - Chief Complaint fever - History of Present Illness Mr. Avery is a AA male pt who has been seen by Dr. Hairston, with multiple medical problems. Has Hx of advanced sarcoidosis with pulmonary hypertension, which led to bilateral lung transplant in mid 2016 at the [facility]. 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 WBC count dropped after starting this med. He was started on neupogen twice a week, which worked quite well at maintaining his WBC count in the normal range. In the spring of 2017 he had to stop due to under- insurance and no longer any foundation support. [facility] recommended observation. Pt did not have any episodes of neutropenic infection thus far. AICD/permanent pacemaker was placed in 2012. He was due for exchange on 09/23/18. However, CBC showed white count of only 1.1 with ANC in the 400 range. Case was discussed with Cardiology who on decided to hold off on the procedure until WBC could be improved. He was then referred to Dr. Hairston for further evaluation and recommendations. Pt is on hemodialysis M,W,F for CKD. The medications pt is on and his chronic conditions are all contributing to loow counts. However, his medications cannot be stopped because of risk of infection/rejection. Pt was advised that generally an ANC of greater than 1000 is considered safe. Usually an ANC of more than 500 would also represent a low risk of spontaneous infection. For procedures ANC greater than 1000 should be sufficient. Pt is admitted with fever, 102.9F on admit, diarrhea, persistent symptoms for the last several days, refused covid testing on admit. He is denying chills, rigors, sore throat, cough is chronic, non-productive, no N,V, abd pain, he is anuric at baseline, no known recent ill contacts. Review of Systems 14 point ROS is neg except as stated in HPI Past Medical History Past Medical History: Diabetes Mellitus, Deep Vein Thrombosis (DVT), Hypertension, Renal Disease, Respiratory Disorder (Hx sarciodosis) Additional Past Medical History / Comment(s): See Dr Holmna's H&P,Sarcodosis,Hemodialysis MoWeFr,hx dvt left leg. 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 COLONOSCOPY. RT HAND SURGERY. HEMODIALYSIS CATH. AV SHUNT LT UPPER ARM- 06/11/17 Past Anesthesia/Blood Transfusion Reactions: Motion Sickness Type of Cardiac Device: Permanent Pacemaker, AICD Device Placement Date:: 03-28-2011 Past Psychological History: No Psychological Hx Reported Smoking Status: Never smoker Past Alcohol Use History: None Reported Additional Past Alcohol Use History / Comment(s): Patient states that he is a lifelong nonsmoker. No marijuana, illicit drug use or alcohol use. Patient lives alone. Past Drug Use History: None Reported - Past Family History Father Family Medical History: Cancer, Osteoarthritis (OA) Additional Family Medical History / Comment(s): Father is with history of leukemia and sarcoidosis. Strong family history of sarcoidosis on his father's side. Mother Additional Family Medical History / Comment(s): Mother is after her fifth myocardial infarction with history of diabetes. Brother(s) Additional Family Medical History / Comment(s): Patient has a brother and sister with sarcoidosis. Patient has 6 children with no major medical problems. None have been diagnosed with sarcoidosis. Medications and Allergies Home Medications Medication Instructions Recorded Confirmed Type Pantoprazole Sodium 40 mg PO DAILY 01/04/17 12/22/20 History predniSONE 5 mg PO DAILY 04/29/18 12/22/20 History Lidocaine-Prilocaine Cream [Emla 1 applic TOPICAL DAILY PRN 12/29/19 12/22/20 History Cream 2.5%/2.5%] Ammonium Lactate Cream [Lac-Hydrin 1 applic TOPICAL BID PRN 08/16/20 12/22/20 History 12% Cream] Carvedilol [Coreg] 25 mg PO MOWEFR@1800 08/16/20 12/22/20 History Sulfamethox-Tmp 400-80Mg [Bactrim 1 tab PO MOWEFR 08/16/20 12/22/20 History SS 400-80 mg] Valganciclovir HCl 900 mg PO MOWEFR 08/16/20 12/22/20 History Midodrine [ProAmatine] 5 mg PO MOWEFR 08/17/20 12/22/20 History Warfarin [Coumadin] 2.5 mg PO MO 08/17/20 12/22/20 History Warfarin [Coumadin] 3.75 mg PO SUTUWETHFRSA 08/17/20 12/22/20 History Calcium Carb-Mag Carb-Folic 1 tab PO QID 12/22/20 12/22/20 History [Magnebind 400] Carvedilol [Coreg] 25 mg PO SUTUTHSA@0800,1800 12/22/20 12/22/20 History Ondansetron [Zofran] 4 mg PO TID PRN 12/22/20 12/22/20 History Triphrocaps 1 tab PO DAILY 12/22/20 12/22/20 History Tacrolimus [Prograf] 3 mg PO BID 12/23/20 12/23/20 History Allergies Allergy/AdvReac Type Severity Reaction Status Date / Time meperidine [From Demerol] Allergy Rash/Hives Verified 12/22/20 23:44 Physical Exam Vitals: Vital Signs Temp Pulse Pulse Resp BP BP Pulse Ox 12/23/20 04:00 98.0 F 66 18 93/56 99 12/23/20 03:55 98.8 F 68 18 95/65 97 12/23/20 01:52 77 20 111/66 97 12/23/20 00:56 100.2 F H 75 16 98 12/22/20 22:23 102.9 F H 84 16 132/75 99 Intake and Output 12/22/20 12/23/20 12/23/20 22:59 06:59 14:59 Other: # Voids 0 # Bowel Movements 0 Weight 74.389 kg 71 kg - Constitutional General appearance: average body habitus, cooperative, no acute distress - EENT Eyes: anicteric sclerae, EOMI ENT: hearing grossly normal, normal oropharynx - Neck Neck: no lymphadenopathy - Respiratory Respiratory: bilateral: diminished - Cardiovascular Rhythm: regular Heart sounds: normal: S1, S2 Abnormal Heart Sounds: no systolic murmur, no diastolic murmur, no rub, no S3 Gallop, no S4 Gallop, no click, no other leg Peripheral Edema: bilateral: Trace - Gastrointestinal General gastrointestinal: no absent bowel sounds, no decreased bowel sounds, no distended, no hepatomegaly, no hyperactive bowel sounds, normal bowel sounds, no organomegaly, no rigid, no scaphoid, soft, no splenomegaly, no tenderness, no umbilical hernia, no ventral hernia - Integumentary Integumentary: normal - Neurologic Neurologic: CNII-XII intact - Musculoskeletal Musculoskeletal: strength equal bilaterally - Psychiatric Psychiatric: A&O x's 3, appropriate affect, intact judgment & insight Results CBC & Chem 7: 12/23/20 08:07 12/23/20 08:07 Labs: Abnormal Lab Results - Last 24 Hours (Table) 12/22/20 12/22/20 12/22/20 Range/Units 23:22 23:22 23:22 WBC 0.8 L* (3.8-10.6) k/uL RBC 3.89 L (4.30-5.90) m/uL Hgb 12.2 L (13.0-17.5) gm/dL Hct 38.0 L (39.0-53.0) % RDW 16.2 H (11.5-15.5) % Plt Count 62 L (150-450) k/uL PT 16.3 H (9.0-12.0) sec INR 1.6 H (<1.2) APTT 35.0 H (22.0-30.0) sec Sodium 133 L (137-145) mmol/L Potassium 7.2 H* (3.5-5.1) mmol/L Chloride 95 L (98-107) mmol/L BUN 71 H (9-20) mg/dL Creatinine 12.87 H* (0.66-1.25) mg/dL Glucose 112 H (74-99) mg/dL Calcium 8.2 L (8.4-10.2) mg/dL Alkaline Phosphatase 202 H (38-126) U/L Lactate Dehydrogenase 815 H (313-618) U/L C-Reactive Protein 50.0 H (<10.0) mg/L 12/23/20 Range/Units 08:07 WBC (3.8-10.6) k/uL RBC (4.30-5.90) m/uL Hgb (13.0-17.5) gm/dL Hct (39.0-53.0) % RDW (11.5-15.5) % Plt Count (150-450) k/uL PT (9.0-12.0) sec INR (<1.2) APTT (22.0-30.0) sec Sodium (137-145) mmol/L Potassium (3.5-5.1) mmol/L Chloride 96 L (98-107) mmol/L BUN 77 H (9-20) mg/dL Creatinine (0.66-1.25) mg/dL Glucose (74-99) mg/dL Calcium 7.6 L (8.4-10.2) mg/dL Alkaline Phosphatase (38-126) U/L Lactate Dehydrogenase (313-618) U/L C-Reactive Protein (<10.0) mg/L Chest x-ray: report reviewed Assessment and Plan (1) FUO (fever of unknown origin) Narrative/Plan: Pancultures pending. Empiric abx. ID consulted Current Visit: Yes Status: Acute Priority: High Code(s): R50.9 - FEVER, UNSPECIFIED SNOMED Code(s): 2577639 (2) Leukopenia Current Visit: Yes Status: Chronic Priority: High Code(s): D72.819 - DECREASED WHITE BLOOD CELL COUNT, UNSPECIFIED SNOMED Code(s): 99663808 (3) Neutropenia Current Visit: Yes Status: Chronic Priority: High Code(s): D70.9 - NEUTROPENIA, UNSPECIFIED SNOMED Code(s): 165181578 (4) Pancytopenia Current Visit: Yes Status: Chronic Priority: High Code(s): D61.818 - OTHER PANCYTOPENIA SNOMED Code(s): 031844085 Plan: Pancytopenia 2/2 chronic comorbid conditions and medication effects. Exacerbation because of acute illness. Treatment of underlying infection, meds to support low counts and supportive care. For leukopenia/neutropenia GCSF initiated. Pt is on prophylactic dose of lovenox and on coumadin with a subtherapeutic INR of 1.6 today. Plt are 45,000. Communication with RN, hold lovenox for plt <50,000. Will monitor closely INR and plt counts. CBC daily
--- NOTE | 2020-12-23 15:49 | CONS ---
CONSULTATION REASON FOR CONSULT: End-stage renal disease. HISTORY OF PRESENT ILLNESS: Patient is a 60-year-old male with end-stage renal disease, on hemodialysis on a Saturday, Saturday, Saturday schedule. Patient was admitted to the hospital with complaints of not feeling well, increased weakness. He did have fever and some diarrhea. No significant cough. The patient refused COVID-19 testing. Patient has a history of bilateral lung transplant in 2014 at [facility] with underlying history of sarcoidosis. He has leukopenia and thrombocytopenia, for which he follows with Hematology and is maintained on Neupogen. PAST MEDICAL HISTORY: Type 2 diabetes, DVT, hypertension, sarcoidosis, history of C difficile colitis, history of DVT in lower extremities, history of paroxysmal atrial fibrillation, cor pulmonale, chronic thrombocytopenia, chronic leukopenia, history of valvular heart disease, history of sepsis with streptococcal bacteremia. PAST SURGICAL HISTORY: ICD placement, AV fistula, lung transplant, colonoscopy, mitral valve replacement. SOCIAL HISTORY: Negative for smoking, drug abuse or alcohol abuse. MEDICATIONS: Medications prior to admission included pantoprazole, prednisone, Coreg, midodrine, Coumadin, Zofran, Prograf. ALLERGIES: ALLERGIES include DEMEROL, which causes rash and hives. REVIEW OF SYSTEMS: As per HPI. Other systems negative. PHYSICAL EXAMINATION: Patient is comfortable, awake, not in any acute distress. Alert, oriented x3. Blood pressure 128/64, heart rate 62 per minute. He is afebrile. Examination of the legs shows no significant lower extremity edema. Abdomen is soft, nontender. [employer]PARER exam is grossly intact. LABS: Hemoglobin 10.5, white cell count 0.7, sodium 138, potassium 5.0; it was 7.2 yesterday. Serum creatinine 13.67. ASSESSMENT: 1. End-stage renal disease, on hemodialysis on a Saturday, Saturday, Saturday schedule. We will arrange for hemodialysis today. 2. Leukopenia. Consult Hematology. 3. Hyperkalemia. Potassium has improved; however, patient will be dialyzed today. 4. Diarrhea. 5. History of sarcoidosis with multi-organ involvement, status post bilateral lung transplant in 2014, maintained on Prograf. 6. History of paroxysmal atrial fibrillation and high-grade AV block, status post pacemaker placement. 7. Hypertension. 8. Chronic kidney disease mineral bone disorder. PLAN: Hemodialysis today. Maintain antibiotics. Consult Hematology. May continue with the Prograf at the current dose for now. Consult Infectious Disease. Thank you for this consultation. Will continue to follow the patient with you during his hospitalization. ERUM / NICOLETTE: [id number] /
[2020-12-23 16:53] LABS: Glucose,Whole Blood 122 mg/dL (75-99)
[2020-12-23] MEDS ORDERED: WARFARIN 2.5 MG TAB PO ONE (18:00)
[2020-12-23] MEDS: FILGRASTIM-SNDZ 480 MCG/0.8 ML SYRINGE SQ SCH (19:18)
--- NOTE | 2020-12-23 20:02 | CONS ---
CONSULTATION DATE OF SERVICE: 12/23/2020 REASON FOR CONSULTATION: Fever and bacteremia. HISTORY OF PRESENT ILLNESS: The patient is a 60-year-old -[place] male with a past medical history significant for sarcoidosis in this patient who is status post bilateral lung transplant at [facility] in 2014. The patient also has history of end-stage renal disease, on hemodialysis Saturday, Saturday, Saturday via left arm AV fistula. 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 The patient presented to [facility] for evaluation of fever and diarrhea. The patient did have a fever of one day duration. He mentioned that he went to dialysis on Saturday and did not have any fever. The patient mentioned he was slightly disoriented and did not remember what happened. However, currently he knows that he is in the hospital. The patient denies having any headache. No URI symptoms. No chest pain or shortness of breath. He did have a chronic cough but no recent worsening. No sputum production. No nausea, no vomiting, no abdominal pain. Did have one loose stool. No blood or mucus in the stool. Denies any pain in his left arm AV fistula site. On presentation to the hospital this patient did have a fever of 102.9 degrees Fahrenheit. He is currently 98% on room air. The patient did have a white count of 0.8, platelet count of 62. Procalcitonin is 61.17. LDH and CRP are elevated. Blood culture is now showing Gram-positive cocci in chains. The patient did have a chest x-ray showing coarse lung markings associated with some pulmonary fibrosis. REVIEW OF SYSTEMS: Positive points have been mentioned in HPI. Rest of the systems are negative. PAST MEDICAL HISTORY: Significant for sarcoidosis, multi-organ involvement, diabetes mellitus, DVT, hypertension, end-stage renal disease. PAST SURGICAL HISTORY: AICD placement. He had bilateral lung transplant, left arm AV fistula for dialysis and mitral valve replacement. SOCIAL HISTORY: No history of smoking, drinking or drug use. FAMILY HISTORY: Father with history of leukemia, sarcoidosis. Mother with history of PR. ALLERGIES: MEPERIDINE. MEDICATIONS: The patient is currently on Coreg, Rocephin 1 gram daily. He is on Lovenox, Zarxio, midodrine, Zofran, Protonix, prednisone, Zosyn, Bactrim DS and Prograf. PHYSICAL EXAMINATION: Blood pressure 138/69 with a pulse of 68, temperature 97.4, T-max of 103. He is 97% on room air. General description is a middle-aged male lying in bed in no distress. No tachypnea or accessory muscle of respiration use. HEENT EXAMINATION: Slight pallor. No scleral icterus. Oral mucous membrane is dry. NECK: Trachea is central. No thyromegaly. LUNGS: Unlabored breathing. Clear to auscultation anteriorly. No wheeze or crackle. HEART: S1, S2. Regular rate and rhythm. ABDOMEN: Soft. No tenderness. No guarding or rigidity. EXTREMITIES: No edema of the feet. SKIN EXAMINATION: No rash or mass palpable. Left arm AV fistula site with no cellulitis. Neurologically the patient is awake, alert, oriented x3. Mood and affect normal. LABS: Hemoglobin is 10.5, white count 0.7, BUN of 7, creatinine 13.67. Elevated procalcitonin and CRP. Blood culture with Gram-positive cocci. DIAGNOSTIC IMPRESSION AND PLAN: Patient who presented to hospital with sepsis in this patient who did have a fever, elevated white count, tachycardia, now with evidence of Gram-positive bacteremia with Streptococcus. Possible endovascular source needs to be ruled out, as the patient does have a history of mitral valve endocarditis staphylococcal bacteremia, as currently no other obvious focus of infection. The patient does not have any significant respiratory symptoms. He is currently 98% on room air. No consolidation was seen on the chest x-ray. Abdomen is soft. Left arm AV fistula is clean. PLAN: 1. Blood culture will be repeated to document clearance of his bacteremia. 2. Will get echocardiogram. 3. Discontinue Zosyn and add vancomycin until final on the positive blood culture. 4. Will follow his clinical condition and culture to further adjust medication if needed. Thank you for this consultation. Will follow this patient along with you. MMODL / IJN: [id number] /
[2020-12-23] MEDS: carvediloL 12.5 MG TAB PO SCH (20:27)
[2020-12-23 20:40] LABS: Glucose,Whole Blood 105 mg/dL (75-99)
[2020-12-24 06:02] LABS: Glucose,Whole Blood 83 mg/dL (75-99)
[2020-12-24] MEDS: MIDODRINE 5 MG TAB PO SCH ×4 (06:43→16:13)
[2020-12-24] MEDS: CALCIUM CARB-MAG CARB-FOLIC 1 EACH TAB PO SCH ×4 (06:44→20:32)
[2020-12-24] MEDS: PANTOPRAZOLE 40 MG TABLET PO SCH (06:44)
[2020-12-24 07:19] LABS: INR 1.7 (<1.2); Prothrombin Time 16.6 sec (9.0-12.0)
[2020-12-24 07:24] LABS: Anisocytosis Slight; HGB 11.4 gm/dL (13.0-17.5); MCH 31.9 pg (25.0-35.0); MCHC 32.5 g/dL (31.0-37.0); MCV 98.2 fL (80.0-100.0); Macrocytosis Slight; Mean Platelet Volume 9.7; RBC 3.57 m/uL (4.30-5.90); RDW 16.3 % (11.5-15.5)
[2020-12-24 07:34] LABS: WBC 1.1 k/uL (3.8-10.6)
[2020-12-24 07:35] LABS: Platelet Count 39 k/uL (150-450)
[2020-12-24 08:46] LABS: Neutrophils % (M) 37 %
[2020-12-24 08:47] LABS: Band Neutrophils % 8 %; Eosinophils # (M) 0.03 k/uL (0-0.7); Lymphocytes # (M) 0.42 k/uL (1.0-4.8); Metamyelocytes # (M) 0.03 k/uL (0); Metamyelocytes % 3 %; Monocytes # (M) 0.13 k/uL (0-1.0); Myelocytes # (M) 0.02 k/uL (0); Myelocytes % 2 %; Nucleated Red Blood Cells 0 /100 WBC (0-0); Total Cells Counted 200
[2020-12-24 08:50] LABS: Tear Drop Cells Present
[2020-12-24] MEDS ORDERED: ENOXAPARIN 30 MG/0.3 ML SYRINGE SQ SCH (09:00)
[2020-12-24] MEDS ORDERED: VANCOMYCIN 1,250 MG in SODIUM CHLORIDE 0.9% 250 ML IVPB ONE (09:00)
[2020-12-24] MEDS: predniSONE 5 MG TAB PO SCH (09:32)
[2020-12-24] MEDS: carvediloL 12.5 MG TAB PO SCH ×2 (09:32→17:50)
[2020-12-24] MEDS: FOLIC ACID-VIT B COMPLEX-VIT C 1 CAP PO SCH (09:33)
[2020-12-24] MEDS: TACROLIMUS 1 MG CAP PO SCH ×2 (09:33→20:31)
--- NOTE | 2020-12-24 09:44 | P.PN ---
Subjective Patient is seen in follow-up for end-stage renal disease. He is maintained on hemodialysis on Saturday schedule. Had dialysis yesterday. No edema. Afebrile this morning. No abdominal pain. No cough. Does complain of diarrhea. Vital signs are stable. General: The patient appeared well nourished and normally developed. HEENT: Head exam is unremarkable. Neck is without jugular venous distension. LUNGS: Breath sounds decreased. HEART: Rate and Rhythm are regular. ABDOMEN: Soft, nontender. EXTREMITITES: No edema. Objective - Vital Signs Vital signs: Vital Signs Temp 98.1 F 12/24/20 09:30 Pulse 80 12/24/20 09:30 Resp 15 12/24/20 09:30 BP 135/75 12/24/20 09:30 Pulse Ox 98 12/24/20 09:30 Intake & Output 12/23/20 12/24/20 12/24/20 18:59 06:59 18:59 Intake Total 125 240 Output Total 350 Balance -225 240 Weight 71.7 kg Intake: Oral 125 240 Output: Urine 350 Other: # Bowel Movements 1 - Labs CBC & Chem 7: 12/24/20 06:12 12/24/20 06:12 Labs: Abnormal Lab Results - Last 24 Hours (Table) 12/22/20 12/23/20 12/23/20 Range/Units 23:22 08:07 16:47 WBC (3.8-10.6) k/uL RBC (4.30-5.90) m/uL Hgb (13.0-17.5) gm/dL Hct (39.0-53.0) % RDW (11.5-15.5) % Plt Count (150-450) k/uL Neutrophils # (Manual) (1.3-7.7) k/uL Lymphocytes # (Manual) (1.0-4.8) k/uL Metamyelocytes # (Man) (0) k/uL Myelocytes # (Manual) (0) k/uL PT 16.9 H (9.0-12.0) sec INR 1.7 H (<1.2) Creatinine (0.66-1.25) mg/dL POC Glucose (mg/dL) 122 H (75-99) mg/dL Procalcitonin 61.17 H (0.02-0.09) ng/mL 12/23/20 12/24/20 12/24/20 Range/Units 20:39 06:12 06:12 WBC 1.1 L* (3.8-10.6) k/uL RBC 3.57 L (4.30-5.90) m/uL Hgb 11.4 L (13.0-17.5) gm/dL Hct 35.0 L (39.0-53.0) % RDW 16.3 H (11.5-15.5) % Plt Count 39 L (150-450) k/uL Neutrophils # (Manual) 0.40 L* (1.3-7.7) k/uL Lymphocytes # (Manual) 0.42 L (1.0-4.8) k/uL Metamyelocytes # (Man) 0.03 H (0) k/uL Myelocytes # (Manual) 0.02 H (0) k/uL PT 16.6 H (9.0-12.0) sec INR 1.7 H (<1.2) Creatinine (0.66-1.25) mg/dL POC Glucose (mg/dL) 105 H (75-99) mg/dL Procalcitonin (0.02-0.09) ng/mL 12/24/20 Range/Units 06:12 WBC (3.8-10.6) k/uL RBC (4.30-5.90) m/uL Hgb (13.0-17.5) gm/dL Hct (39.0-53.0) % RDW (11.5-15.5) % Plt Count (150-450) k/uL Neutrophils # (Manual) (1.3-7.7) k/uL Lymphocytes # (Manual) (1.0-4.8) k/uL Metamyelocytes # (Man) (0) k/uL Myelocytes # (Manual) (0) k/uL PT (9.0-12.0) sec INR (<1.2) Creatinine 10.24 H* (0.66-1.25) mg/dL POC Glucose (mg/dL) (75-99) mg/dL Procalcitonin (0.02-0.09) ng/mL Microbiology - Last 24 Hours (Table) 12/22/20 23:22 Blood Culture Gram Stain - Preliminary Blood Blood Culture - Preliminary Non Hemolytic Strep 12/22/20 23:22 Blood Culture - Final Blood Assessment and Plan Plan: Assessment: 1. End-stage renal disease maintained on hemodialysis on Saturday schedule. 2. History of lung transplant at [facility]. Maintained on Prograf and prednisone. 3. Strep bacteremia maintained on antibiotics. Infectious disease following. 4. Diarrhea. C. diff being ruled out. 5. 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 6. Pancytopenia due to comorbidities as well as medication side effects. Hematology oncology following. Plan: Hemodialysis on Saturday. Follow-up cultures. Follow-up echocardiogram. Monitor vancomycin levels. Target level near 15. Dose to be adjusted for renal function. Check phosphorus level.
[2020-12-24 11:33] LABS: Glucose,Whole Blood 140 mg/dL (75-99)
--- NOTE | 2020-12-24 11:50 | ECHOF ---
Referral Reason:bacteremia, endocarditis MEASUREMENTS -------- HEIGHT: 172.7 cm WEIGHT: 71.7 kg BP: 120/77 RVIDd: 3.0 cm (< 3.3) IVSd: 1.5 cm (0.6 - 1.1) LVIDd: 4.2 cm (3.9 - 5.3) LVPWd: 1.5 cm (0.6 - 1.1) IVSs: 2.0 cm LVIDs: 3.1 cm LVPWs: 2.1 cm LA Diam: 4.0 cm (2.7 - 3.8) LAESV Index (A-L): 28.54 ml/m Ao Diam: 3.9 cm (2.0 - 3.7) AV Cusp: 2.5 cm (1.5 - 2.6) MV EXCURSION: 16.920 mm (> 18.000) MV EF SLOPE: 95 mm/s (70 - 150) EPSS: 0.9 cm MV E Antonino: 0.82 m/s MV DecT: 222 ms MV A Antonino: 0.91 m/s MV E/A Ratio: 0.90 RAP: 5.00 mmHg RVSP: 37.45 mmHg FINDINGS -------- This was a technically good study. The left ventricular size is normal. There is moderate concentric left ventricular hypertrophy. O verall left ventricular systolic function is normal with, an EF between 60 - 65 %. The right ventricle is normal in size. LA is midly dilated 29-33ml/m2. The right atrium is normal in size. Interatrial and interventricular septum intact. The aortic valve is trileaflet and appears structurally normal. Mild mitral annular calcification present. There is trace to mild mitral regurgitation. Mild tricuspid regurgitation present. There is mild pulmonary hypertension. The right ventricular systolic pressure, as measured by Doppler, is 37.45mmHg. Trace/mild (physiologic) pulmonic regurgitation. The aortic root is dilated measuring 3.9cm. Normal inferior vena cava with normal inspiratory collapse consistent with estimated right atrial pre ssure of 5 mmHg. There is no pericardial effusion. CONCLUSIONS -------- 1. The left ventricular size is normal. 2. There is moderate concentric left ventricular hypertrophy. 3. Overall left ventricular systolic function is normal with, an EF between 60 - 65 %. 4. LA is midly dilated 29-33ml/m2. 5. Mild mitral annular calcification present. 6. There is trace to mild mitral regurgitation. 7. Mild tricuspid regurgitation present. 8. There is mild pulmonary hypertension. 9. The right ventricular systolic pressure, as measured by Doppler, is 37.45mmHg. 10. Trace/mild (physiologic) pulmonic regurgitation. 11. The aortic root is dilated measuring 3.9cm. 12. There is no pericardial effusion. SIGN BUILDER: Gabrielle Boudreaux RDCS
--- NOTE | 2020-12-24 16:29 | P.PN ---
Subjective Progress Note Date: 12/24/20 HISTORY OF PRESENT ILLNESS This is a 59-year-old -German male patient of Dr. Qureshi with past medical history of sarcoidosis with multiorgan involvement status post bilateral lung transplant done at [facility] in 2014, end-stage renal disease on hemodialysis Saturday via left arm AV fistula followed by Dr. Desai, DVT of the left lower extremity on Coumadin, hypertension, diabetes mellitus type 2, high-grade AV block and paroxysmal atrial fibrillation status post dual-chamber AICD, hypertension, chronic diastolic heart failure, pulmonary hypertension and chronic cor pulmonale, chronic thrombocytopenia, patient reported history of mitral valve replacement. Patient also has history of sepsis with streptococcal bacteremia. Patient presented to [facility] emergency center due to fever and diarrhea that he has had for weeks now. He denies any nausea vomiting. He states he has diarrhea 3 times per day. He also is not urinating. He states he drinks 1 glass of water per day. Patient presented with fever of 102.9, heart rate 84, blood pressure 132/75, pulse ox 99% on room air. WBC 0.8, hemoglobin 12.2, platelet count 62. INR 1.6. Initial potassium 7.2 which was rechecked at 4.7 status post Kayexalate, dextrose, regular insulin. Sodium 133, chloride 95, CO2 27, BUN 71 creatinine 12.87. Alkaline phosphatase 202. LDH 815. C-reactive protein 50. Patient refused to have COVID19 testing. Patient admitted to the cardiac stepdown unit and consults requested with nephrology, oncology and infectious disease. 12/24: Patient still has some any loose stools at least 4 times per day, brown, non-malodorous, patient has at least 5 C. diff infections in the past, patient thinks that he should be back on valganciclovir for his Clostridium difficile A, patient also takes that he is on the wrong medication for his leukopenia, patient requests Neupogen, however oncology has put him onZarvio he seems to be very impatient, patient has no nausea diminished appetite, no weakness no lightheadedness, patient has positive blood cultures growing nonhemolytic strep, patient was seen by Dr. Mitchell for which recommendation is to go off Zosyn, and start vancomycin. Patient is on Coumadin 2.75 mg once tonight, pharmacy dosing Coumadin. Started on Questran 4 g twice a day, start on Lactinex, and brachial GERD. Stools for C. diff are negative, final patient agreed on getting another Covid test done as baseline during this hospitalization. REVIEW OF SYSTEMS Constitutional: Reports fever, Reports chills, no night sweats. No weight change. Reports weakness, fatigue or lethargy. No daytime sleepiness. EENT: No headache. No blurred vision or double vision, no loss of vision. No loss of Hearing, no ringing in the ears, no dizziness. No nasal drainage or congestion. No epistaxis. No sore throat. Lungs: Denies shortness of breath, denies cough, no sputum production. No wheezing. Cardiovascular: No chest pain, no lower extremity edema. No palpitations. No paroxysmal nocturnal dyspnea. No orthopnea. No lightheadedness or dizziness. No syncopal episodes. Abdominal: No abdominal pain. No nausea, vomiting. Reports diarrhea. No constipation. No bloody or tarry stools. No loss of appetite. Genitourinary: No dysuria, increased frequency, urgency. No urinary retention. Musculoskeletal: No myalgias. Reports muscle weakness, no gait dysfunction, no frequent falls. No back pain. No neck pain. Integumentary: No wounds, no lesions. No rash or pruritus. No unusual bruising. Neurologic: No aphasia. No facial droop. No change in mentation. No head injury. No headache. No paralysis. No paresthesia. Psychiatric: No depression. No anxiety. No mood swings. Endocrine: No abnormal blood sugars. No weight change. No excessive sweating or thirst. No cold intolerance. Objective - Vital Signs Vital signs: Vital Signs Temp 98.1 F 12/24/20 12:00 Pulse 98 12/24/20 12:00 Resp 16 12/24/20 12:00 BP 107/70 12/24/20 12:00 Pulse Ox 99 12/24/20 12:00 Intake & Output 12/23/20 12/24/20 12/24/20 18:59 06:59 18:59 Intake Total 125 720 Output Total 350 Balance -225 720 Weight 71.7 kg Intake: Oral 125 720 Output: Urine 350 Other: # Voids 2 # Bowel Movements 1 1 - Constitutional General appearance: Present: cooperative, no acute distress - EENT Eyes: Present: EOMI, PERRLA, dentition normal - Neck Neck: Present: normal ROM - Respiratory Respiratory: bilateral: CTA, negative: diminished, dullness, rales - Cardiovascular Rhythm: regular Heart sounds: normal: S1, S2 Abnormal Heart Sounds: Absent: systolic murmur, diastolic murmur, rub, S3 Gallop, S4 Gallop, click, other - Gastrointestinal General gastrointestinal: Present: hyperactive bowel sounds, soft - Integumentary Integumentary: Present: decreased turgor, normal - Neurologic Neurologic: Present: CNII-XII intact - Musculoskeletal Musculoskeletal: Present: gait normal, strength equal bilaterally - Psychiatric Psychiatric: Present: A&O x's 3, appropriate affect, intact judgment & insight - Labs CBC & Chem 7: 12/24/20 06:12 12/24/20 06:12 Labs: Abnormal Lab Results - Last 24 Hours (Table) 12/23/20 12/23/20 12/24/20 Range/Units 16:47 20:39 06:12 WBC (3.8-10.6) k/uL RBC (4.30-5.90) m/uL Hgb (13.0-17.5) gm/dL Hct (39.0-53.0) % RDW (11.5-15.5) % Plt Count (150-450) k/uL Neutrophils # (Manual) (1.3-7.7) k/uL Lymphocytes # (Manual) (1.0-4.8) k/uL Metamyelocytes # (Man) (0) k/uL Myelocytes # (Manual) (0) k/uL PT 16.6 H (9.0-12.0) sec INR 1.7 H (<1.2) Creatinine (0.66-1.25) mg/dL POC Glucose (mg/dL) 122 H 105 H (75-99) mg/dL Phosphorus (2.5-4.5) mg/dL 12/24/20 12/24/20 12/24/20 Range/Units 06:12 06:12 06:12 WBC 1.1 L* (3.8-10.6) k/uL RBC 3.57 L (4.30-5.90) m/uL Hgb 11.4 L (13.0-17.5) gm/dL Hct 35.0 L (39.0-53.0) % RDW 16.3 H (11.5-15.5) % Plt Count 39 L (150-450) k/uL Neutrophils # (Manual) 0.40 L* (1.3-7.7) k/uL Lymphocytes # (Manual) 0.42 L (1.0-4.8) k/uL Metamyelocytes # (Man) 0.03 H (0) k/uL Myelocytes # (Manual) 0.02 H (0) k/uL PT (9.0-12.0) sec INR (<1.2) Creatinine 10.24 H* (0.66-1.25) mg/dL POC Glucose (mg/dL) (75-99) mg/dL Phosphorus 5.9 H (2.5-4.5) mg/dL 12/24/20 Range/Units 11:32 WBC (3.8-10.6) k/uL RBC (4.30-5.90) m/uL Hgb (13.0-17.5) gm/dL Hct (39.0-53.0) % RDW (11.5-15.5) % Plt Count (150-450) k/uL Neutrophils # (Manual) (1.3-7.7) k/uL Lymphocytes # (Manual) (1.0-4.8) k/uL Metamyelocytes # (Man) (0) k/uL Myelocytes # (Manual) (0) k/uL PT (9.0-12.0) sec INR (<1.2) Creatinine (0.66-1.25) mg/dL POC Glucose (mg/dL) 140 H (75-99) mg/dL Phosphorus (2.5-4.5) mg/dL Microbiology - Last 24 Hours (Table) 12/22/20 23:22 Blood Culture Gram Stain - Preliminary Blood Blood Culture - Preliminary Non Hemolytic Strep 12/22/20 23:22 Blood Culture - Final Blood Assessment and Plan Plan: ASSESSMENT AND PLAN 1. Sepsis with diarrhea. Patient has been admitted into the intensive care unit. Consult with infectious disease. Patient is currently on ceftriaxone and Zosyn. Blood cultures in progress. Stool specimen to be obtained for culture, C. diff and H. pyloridif 2. hyperkalemia, improved. Nephrology consult with her BMP 3. Leukopenia, consult oncology. On filgrastim hemoglobin 11.4, WBC count of 1.1, INR 1.7 4. Thrombocytopenia, chronic most likely exacerbated by sepsis. Consult with oncology 5. End-stage renal disease. Patient underwent hemodialysis last evening and repeat scheduled for today. Nephrology consult appreciated.. Routine transplant medication started routine transplant medications titrated 6. History of sarcoidosis with multiorgan involvement status post bilateral lung transplant at [facility] in 2014 . Continue antirejection medication as prescribed at home. 7. DVT of the left lower extremity on chronic Coumadin. Continue Coumadin, pharmacy to dose. INRs 1.7 currently 8. Diabetes mellitus type 2. 9. History of high-grade AV block and paroxysmal atrial fibrillation status post dual-chamber AICD. Continue Coreg at decreased dose of 12.5 mg daily. 10. Hypertension currently with hypotension. Increase midodrine to 5 mg scheduled 3 times daily and continue Coreg Patient will be admitted to the hospital for a minimum of 2 night stay. DISCHARGE PLAN Most likely return home.
[2020-12-24 16:44] LABS: Glucose,Whole Blood 164 mg/dL (75-99)
[2020-12-24] MEDS: CHOLESTYRAMINE (WITH SUGAR) 4 GM PACKET PO SCH (17:49)
[2020-12-24] MEDS: LACTOBACILLUS ACIDOPH & BULGAR 1 EACH PACKET PO SCH ×2 (17:50→20:32)
[2020-12-24] MEDS: FILGRASTIM-SNDZ 480 MCG/0.8 ML SYRINGE SQ SCH (17:51)
[2020-12-24] MEDS ORDERED: WARFARIN 2.5 MG TAB PO ONE (18:00)
--- NOTE | 2020-12-24 18:52 | US ---
EXAMINATION TYPE: US venous doppler duplex LE LT DATE OF EXAM: 12/24/2020 6:30 PM COMPARISON: NONE CLINICAL HISTORY: Hx LLE DVT, subtherapeutic INR. SIDE PERFORMED: Left TECHNIQUE: The lower extremity deep venous system is examined utilizing real time linear array sonog annie with graded compression, doppler sonography and color-flow sonography. VESSELS IMAGED: Common Femoral Vein Deep Femoral Vein Greater Saphenous Vein * Femoral Vein Popliteal Vein Small Saphenous Vein * Proximal Calf Veins (* superficial vessels) Left Leg: Appears negative for DVT. Blood flow is seen throughout vessel and vessel is compressible. However there does appear to be echogenic material throughout the popliteal vein, possibly intimal th ickening. IMPRESSION: No evidence of left lower extremity DVT. Possible intimal thickening of the popliteal vein.
[2020-12-24 20:24] LABS: Glucose,Whole Blood 224 mg/dL (75-99)
--- NOTE | 2020-12-24 23:01 | PN ---
PROGRESS NOTE DATE OF SERVICE: 12/24/2020 REASON FOR FOLLOWUP: Streptococcal bacteremia. INTERVAL HISTORY: Patient is currently afebrile. The patient is breathing comfortably. Denies having any chest pain. No shortness of breath. No cough. No abdominal pain. However, has been complaining of diarrhea. PHYSICAL EXAMINATION: Blood pressure 107/67, pulse of 71, temperature 98.1. He is 98% on room air. General description: The patient is a middle-aged male up in the room in no distress. Respiratory system: Unlabored breathing, decreased intensity in breath sounds. No wheeze. Heart S1, S2. Regular rate and rhythm. ABDOMEN: Soft, no tenderness. LABS: Hemoglobin is 11.5, white count 1.1, creatinine 10.24. DIAGNOSTIC IMPRESSION AND PLAN: Patient with Streptococcus bacteremia which is usually of a gut origin and sometimes associated with colon cancer. We will obtain a CT of abdomen and pelvis with oral contrast. Patient is covered with Rocephin, dose to be adjusted to 2 gm daily. Vancomycin discontinued. We will monitor clinical course closely. Repeat blood culture negative so far. MMODL / IJN: [id number] /
[2020-12-25 05:53] LABS: Glucose,Whole Blood 93 mg/dL (75-99)
[2020-12-25] MEDS: MIDODRINE 5 MG TAB PO SCH ×3 (06:47→15:47)
[2020-12-25] MEDS: CALCIUM CARB-MAG CARB-FOLIC 1 EACH TAB PO SCH ×4 (06:47→20:02)
[2020-12-25] MEDS: PANTOPRAZOLE 40 MG TABLET PO SCH (06:47)
[2020-12-25 08:21] LABS: Anisocytosis Slight; HGB 10.7 gm/dL (13.0-17.5); MCHC 31.4 g/dL (31.0-37.0); MCV 98.6 fL (80.0-100.0); Macrocytosis Slight; Mean Platelet Volume 11.4; RBC 3.45 m/uL (4.30-5.90); RDW 16.3 % (11.5-15.5); WBC 1.7 k/uL (3.8-10.6)
[2020-12-25 08:26] LABS: Albumin 3.2 g/dL (3.5-5.0); Calcium 8.2 mg/dL (8.4-10.2); Potassium 4.7 mmol/L (3.5-5.1); Total Bilirubin 0.6 mg/dL (0.2-1.3); Total Protein 6.3 g/dL (6.3-8.2)
[2020-12-25 08:31] LABS: Vancomycin,Random 23.3 ug/mL
[2020-12-25] MEDS: carvediloL 12.5 MG TAB PO SCH ×2 (08:46→17:40)
[2020-12-25] MEDS: metroNIDAZOLE 500 MG TAB PO SCH ×3 (08:46→20:32)
[2020-12-25] MEDS: TACROLIMUS 1 MG CAP PO SCH ×2 (08:47→20:31)
[2020-12-25] MEDS: predniSONE 5 MG TAB PO SCH (08:47)
[2020-12-25] MEDS: LACTOBACILLUS ACIDOPH & BULGAR 1 EACH PACKET PO SCH ×4 (08:47→20:02)
[2020-12-25] MEDS: FOLIC ACID-VIT B COMPLEX-VIT C 1 CAP PO SCH (08:48)
[2020-12-25 08:53] LABS: INR 1.9 (<1.2); Prothrombin Time 18.6 sec (9.0-12.0)
[2020-12-25] MEDS: IOPAMIDOL CONTRAST (ORAL USE) VIAL PO PRN ×2 (08:53→10:04)
--- NOTE | 2020-12-25 08:59 | P.PN ---
Subjective Patient is seen in follow-up for end-stage renal disease. He is maintained on hemodialysis on Saturday schedule. No edema. Afebrile this morning. No abdominal pain. No cough. White count trending up. Vital signs are stable. General: The patient appeared well nourished and normally developed. HEENT: Head exam is unremarkable. Neck is without jugular venous distension. LUNGS: Breath sounds decreased. HEART: Rate and Rhythm are regular. ABDOMEN: Soft, nontender. EXTREMITITES: No edema. Objective - Vital Signs Vital signs: Vital Signs Temp 97.5 F L 12/25/20 08:00 Pulse 70 12/25/20 08:00 Resp 15 12/25/20 08:00 BP 114/58 12/25/20 08:00 Pulse Ox 100 12/25/20 08:00 Intake & Output 12/24/20 12/25/20 12/25/20 18:59 06:59 18:59 Intake Total 1080 600 300 Balance 1080 600 300 Weight 71.7 kg Intake: Oral 1080 600 300 Other: # Voids 2 1 # Bowel Movements 1 - Labs CBC & Chem 7: 12/25/20 07:33 12/25/20 07:33 Labs: Abnormal Lab Results - Last 24 Hours (Table) 12/24/20 12/24/20 12/24/20 Range/Units 06:12 06:12 11:32 WBC (3.8-10.6) k/uL RBC (4.30-5.90) m/uL Hgb (13.0-17.5) gm/dL Hct (39.0-53.0) % RDW (11.5-15.5) % Plt Count 39 L (150-450) k/uL Neutrophils # (Manual) 0.40 L* (1.3-7.7) k/uL Lymphocytes # (Manual) 0.42 L (1.0-4.8) k/uL Metamyelocytes # (Man) 0.03 H (0) k/uL Myelocytes # (Manual) 0.02 H (0) k/uL PT (9.0-12.0) sec INR (<1.2) Carbon Dioxide (22-30) mmol/L BUN (9-20) mg/dL Creatinine (0.66-1.25) mg/dL POC Glucose (mg/dL) 140 H (75-99) mg/dL Calcium (8.4-10.2) mg/dL Phosphorus 5.9 H (2.5-4.5) mg/dL Alkaline Phosphatase (38-126) U/L Albumin (3.5-5.0) g/dL 12/24/20 12/24/20 12/25/20 Range/Units 16:43 20:23 07:33 WBC (3.8-10.6) k/uL RBC (4.30-5.90) m/uL Hgb (13.0-17.5) gm/dL Hct (39.0-53.0) % RDW (11.5-15.5) % Plt Count (150-450) k/uL Neutrophils # (Manual) (1.3-7.7) k/uL Lymphocytes # (Manual) (1.0-4.8) k/uL Metamyelocytes # (Man) (0) k/uL Myelocytes # (Manual) (0) k/uL PT 18.6 H (9.0-12.0) sec INR 1.9 H (<1.2) Carbon Dioxide (22-30) mmol/L BUN (9-20) mg/dL Creatinine (0.66-1.25) mg/dL POC Glucose (mg/dL) 164 H 224 H (75-99) mg/dL Calcium (8.4-10.2) mg/dL Phosphorus (2.5-4.5) mg/dL Alkaline Phosphatase (38-126) U/L Albumin (3.5-5.0) g/dL 12/25/20 12/25/20 Range/Units 07:33 07:33 WBC 1.7 L (3.8-10.6) k/uL RBC 3.45 L (4.30-5.90) m/uL Hgb 10.7 L (13.0-17.5) gm/dL Hct 34.0 L (39.0-53.0) % RDW 16.3 H (11.5-15.5) % Plt Count (150-450) k/uL Neutrophils # (Manual) (1.3-7.7) k/uL Lymphocytes # (Manual) (1.0-4.8) k/uL Metamyelocytes # (Man) (0) k/uL Myelocytes # (Manual) (0) k/uL PT (9.0-12.0) sec INR (<1.2) Carbon Dioxide 21 L (22-30) mmol/L BUN 65 H (9-20) mg/dL Creatinine 14.07 H* (0.66-1.25) mg/dL POC Glucose (mg/dL) (75-99) mg/dL Calcium 8.2 L (8.4-10.2) mg/dL Phosphorus (2.5-4.5) mg/dL Alkaline Phosphatase 147 H (38-126) U/L Albumin 3.2 L (3.5-5.0) g/dL Microbiology - Last 24 Hours (Table) 12/22/20 23:22 Blood Culture Gram Stain - Preliminary Blood Blood Culture - Preliminary Streptococcus bovis 12/23/20 13:06 Blood Culture - Preliminary Blood No Growth after 24 hours 12/24/20 04:46 Stool Culture - Preliminary Stool Assessment and Plan Plan: Assessment: 1. End-stage renal disease maintained on hemodialysis on Saturday schedule. 2. History of lung transplant at [facility] [place]. Maintained on Prograf and prednisone. 3. Strep bacteremia maintained on antibiotics. Infectious disease following. Echocardiogram noted. 4. Diarrhea. Better. C. diff negative. 5. 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 Phosphorus 5.9. 6. Pancytopenia due to comorbidities as well as medication side effects. Hematology oncology following. Plan: Hemodialysis on Saturday. Monitor vancomycin levels. Target level near 15. Dose to be adjusted for renal function.
--- NOTE | 2020-12-25 11:01 | CT ---
EXAMINATION TYPE: CT abdomen pelvis wo con DATE OF EXAM: 12/25/2020 COMPARISON: 08/16/2020 HISTORY: Abodminal pain, strept bovis bacteremia CT DLP: 481.2 mGycm Automated exposure control for dose reduction was used. TECHNIQUE: Helical acquisition of images was performed from the lung bases through the pelvis. FINDINGS: LUNG BASES: Heart is enlarged and there are subsegmental atelectasis or infiltrate. Cardiac leads are noted. Suggestion of an epicardial lead and sternotomy wires. Bilateral gynecomastia. LIVER/GB: Cholelithiasis noted.. PANCREAS: No significant abnormality is seen. SPLEEN: Spleen is enlarged measuring 14 cm correlate for splenic ADRENALS: No significant abnormality is seen. KIDNEYS: Abnormal attenuation surrounding both kidneys with perinephric edema noted. Multiple hypoden sities are seen; which represent and are compatible simple cysts. Others are indeterminate. Nonobstru cting punctate calculi noted bilaterally. There does appear to be fluid attenuation along the lower l ateral margin of the right kidney which measures 5 cm in greatest axis and previously measured 8 cm i n greatest axis and may represent subcapsular perinephric improving fluid collection. Could be on the basis of previous postoperative seroma, perinephric abscess or hematoma. ADENOPATHY: None visualized. OSSEOUS STRUCTURES: Hypertrophic and degenerative changes of the spine. BOWEL: Diverticulosis with no CT evidence of diverticulitis. Bowel gas pattern is nonspecific.. OTHER: Fat-containing periumbilical hernia noted. Aorta of normal caliber. Prostate gland is prominen t in size. IVC filter incidentally noted. IMPRESSION: 1. There is a 3.8 x 2.8 x 5 cm right perinephric or subcapsular fluid collection which is reduced in size and previously measured 5 x 5.2 x 8 cm. Finding was present on 08/16/2020 CT scan. Could relate to a chronic hematoma or seroma. Infectious etiology is not excluded correlate clinically. Findings i mproved from prior exam. 2. Nonobstructing bilateral renal calculi with additional hypodensities bilaterally which are too sma ll to characterize.In3 splenomegaly. 3. Splenomegaly 4 cholelithiasis.
[2020-12-25] MEDS: CHOLESTYRAMINE (WITH SUGAR) 4 GM PACKET PO SCH ×2 (11:08→15:49)
[2020-12-25 11:38] LABS: Glucose,Whole Blood 147 mg/dL (75-99)
[2020-12-25 13:11] LABS: Band Neutrophils % 3 %; Eosinophils # (M) 0.05 k/uL (0-0.7); Lymphocytes # (M) 0.77 k/uL (1.0-4.8); Metamyelocytes # (M) 0.05 k/uL (0); Metamyelocytes % 3 %; Monocytes # (M) 0.19 k/uL (0-1.0); Neutrophils % (M) 35 %; Nucleated Red Blood Cells 0 /100 WBC (0-0); Total Cells Counted 100
[2020-12-25 13:14] LABS: Platelet Count 41 k/uL (150-450)
[2020-12-25 13:15] LABS: Tear Drop Cells Present
--- NOTE | 2020-12-25 13:56 | P.PN ---
Subjective Progress Note Date: 12/25/20 HISTORY OF PRESENT ILLNESS This is a 59-year-old -[place] male patient of Dr. 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 Desai, DVT of the left lower extremity on Coumadin, hypertension, diabetes mellitus type 2, high-grade AV block and paroxysmal atrial fibrillation status post dual-chamber AICD, hypertension, chronic diastolic heart failure, pulmonary hypertension and chronic cor pulmonale, chronic thrombocytopenia, patient reported history of mitral valve replacement. Patient also has history of sepsis with streptococcal bacteremia. Patient presented to [facility] emergency center due to fever and diarrhea that he has had for weeks now. He denies any nausea vomiting. He states he has diarrhea 3 times per day. He also is not urinating. He states he drinks 1 glass of water per day. Patient presented with fever of 102.9, heart rate 84, blood pressure 132/75, pulse ox 99% on room air. WBC 0.8, hemoglobin 12.2, platelet count 62. INR 1.6. Initial potassium 7.2 which was rechecked at 4.7 status post Kayexalate, dextrose, regular insulin. Sodium 133, chloride 95, CO2 27, BUN 71 creatinine 12.87. Alkaline phosphatase 202. LDH 815. C-reactive protein 50. Patient refused to have COVID19 testing. Patient admitted to the cardiac stepdown unit and consults requested with nephrology, oncology and infectious disease. 12/24: Patient still has some any loose stools at least 4 times per day, brown, non-malodorous, patient has at least 5 C. diff infections in the past, patient thinks that he should be back on valganciclovir for his Clostridium difficile A, patient also takes that he is on the wrong medication for his leukopenia, patient requests Neupogen, however oncology has put him onZarvio he seems to be very impatient, patient has no nausea diminished appetite, no weakness no lightheadedness, patient has positive blood cultures growing nonhemolytic strep, patient was seen by Dr. Mitchell for which recommendation is to go off Zosyn, and start vancomycin. Patient is on Coumadin 2.75 mg once tonight, pharmacy dosing Coumadin. Started on Questran 4 g twice a day, start on Lactinex, and brachial GERD. Stools for C. diff are negative, final patient agreed on getting another Covid test done as baseline during this hospitalization. 12/25: Patient so much better, still with liquid stools, repeat times still taking the Questran first dose was last night., no fever no chills, appetite is much better, no lightheadedness no dizziness, blood cultures growing strep bovis, per Dr. Mitchell, this has been increased linkage to known colon cancer, patient has colonoscopy 3 years ago, however his previous colonoscopy recommended it done every year. Saw Dr. Rajan in the past for colonoscopy. Double basic count back to 1.7 hemoglobin 10.7 platelet count 41, INr 1.9, Vanco trough 23 blood sugars between 164-224 REVIEW OF SYSTEMS Constitutional: Reports fever, Reports chills, no night sweats. No weight change. Reports weakness, fatigue or lethargy. No daytime sleepiness. EENT: No headache. No blurred vision or double vision, no loss of vision. No loss of Hearing, no ringing in the ears, no dizziness. No nasal drainage or congestion. No epistaxis. No sore throat. Lungs: Denies shortness of breath, denies cough, no sputum production. No wheezing. Cardiovascular: No chest pain, no lower extremity edema. No palpitations. No paroxysmal nocturnal dyspnea. No orthopnea. No lightheadedness or dizziness. No syncopal episodes. Abdominal: No abdominal pain. No nausea, vomiting. Reports diarrhea. No constipation. No bloody or tarry stools. No loss of appetite. Genitourinary: No dysuria, increased frequency, urgency. No urinary retention. Musculoskeletal: No myalgias. Reports muscle weakness, no gait dysfunction, no frequent falls. No back pain. No neck pain. Integumentary: No wounds, no lesions. No rash or pruritus. No unusual bruising. Neurologic: No aphasia. No facial droop. No change in mentation. No head injury. No headache. No paralysis. No paresthesia. Psychiatric: No depression. No anxiety. No mood swings. Endocrine: No abnormal blood sugars. No weight change. No excessive sweating or thirst. No cold intolerance. Objective - Vital Signs Vital signs: Vital Signs Temp 97.8 F 02/14/21 11:06 Pulse 67 12/25/20 11:06 Resp 15 12/25/20 11:06 BP 139/59 12/25/20 11:06 Pulse Ox 100 12/25/20 11:06 Intake & Output 12/24/20 12/25/20 12/25/20 18:59 06:59 18:59 Intake Total 1080 600 300 Balance 1080 600 300 Weight 71.7 kg Intake: Oral 1080 600 300 Other: # Voids 2 1 # Bowel Movements 1 - Constitutional General appearance: Present: cooperative, no acute distress - EENT Eyes: Present: EOMI, PERRLA, dentition normal, normal appearance - Respiratory Respiratory: bilateral: CTA, negative: diminished, dullness, rales - Cardiovascular Rhythm: irregularly irregular Heart sounds: normal: S1, S2 Abnormal Heart Sounds: Absent: systolic murmur, diastolic murmur, rub, S3 Gallop, S4 Gallop, click, other - Gastrointestinal General gastrointestinal: Present: soft, tenderness (none) - Integumentary Integumentary: Present: decreased turgor, normal - Neurologic Neurologic: Present: CNII-XII intact - Musculoskeletal Musculoskeletal: Present: gait normal, strength equal bilaterally - Psychiatric Psychiatric: Present: A&O x's 3, intact judgment & insight - Labs CBC & Chem 7: 12/25/20 07:33 12/25/20 07:33 Labs: Abnormal Lab Results - Last 24 Hours (Table) 12/24/20 12/24/20 12/25/20 Range/Units 16:43 20:23 07:33 WBC (3.8-10.6) k/uL RBC (4.30-5.90) m/uL Hgb (13.0-17.5) gm/dL Hct (39.0-53.0) % RDW (11.5-15.5) % PT 18.6 H (9.0-12.0) sec INR 1.9 H (<1.2) Carbon Dioxide (22-30) mmol/L BUN (9-20) mg/dL Creatinine (0.66-1.25) mg/dL POC Glucose (mg/dL) 164 H 224 H (75-99) mg/dL Calcium (8.4-10.2) mg/dL Alkaline Phosphatase (38-126) U/L Albumin (3.5-5.0) g/dL 12/25/20 12/25/20 12/25/20 Range/Units 07:33 07:33 11:37 WBC 1.7 L (3.8-10.6) k/uL RBC 3.45 L (4.30-5.90) m/uL Hgb 10.7 L (13.0-17.5) gm/dL Hct 34.0 L (39.0-53.0) % RDW 16.3 H (11.5-15.5) % PT (9.0-12.0) sec INR (<1.2) Carbon Dioxide 21 L (22-30) mmol/L BUN 65 H (9-20) mg/dL Creatinine 14.07 H* (0.66-1.25) mg/dL POC Glucose (mg/dL) 147 H (75-99) mg/dL Calcium 8.2 L (8.4-10.2) mg/dL Alkaline Phosphatase 147 H (38-126) U/L Albumin 3.2 L (3.5-5.0) g/dL Microbiology - Last 24 Hours (Table) 12/24/20 06:12 Blood Culture - Preliminary Blood No Growth after 24 hours 12/22/20 23:22 Blood Culture Gram Stain - Preliminary Blood Blood Culture - Preliminary Streptococcus bovis 12/23/20 13:06 Blood Culture - Preliminary Blood No Growth after 24 hours 12/24/20 04:46 Stool Culture - Preliminary Stool Assessment and Plan Plan: ASSESSMENT AND PLAN 1. Sepsis with diarrhea. Patient has been admitted into the intensive care unit. Consult with infectious disease. Patient is currently on ceftriaxone and Zosyn. Blood cultures growing staph bovis. No further growth in subsequent blood cultures Stool specimen to be obtained for culture, C. diff and H. pylori pending 2. hyperkalemia, improved. Nephrology consult with her BMP 3. Leukopenia, consult oncology. On filgrastim hemoglobin 11.4, WBC count of 1.1, INR 1.7 4. Thrombocytopenia, chronic most likely exacerbated by sepsis. Consult with oncology 5. End-stage renal disease. Patient underwent hemodialysis last evening and repeat scheduled for today. Nephrology consult appreciated.. Routine transplant medication started routine transplant medications titrated 6. History of sarcoidosis with multiorgan involvement status post bilateral lung transplant at [facility] in 2014 . Continue antirejection medication as prescribed at home. 7. DVT of the left lower extremity on chronic Coumadin. Continue Coumadin, pharmacy to dose. INRs 1.7 currently 8. Diabetes mellitus type 2.Currently on diet modification last A1c is 7. 09/15/2020 Levels to be checked 9. History of high-grade AV block and paroxysmal atrial fibrillation status post dual-chamber AICD. Continue Coreg at decreased dose of 12.5 mg daily. 10. Hypertension currently with hypotension. Increase midodrine to 5 mg scheduled 3 times daily and continue Coreg Patient will be admitted to the hospital for a minimum of 2 night stay. DISCHARGE PLAN Most likely return home.
--- NOTE | 2020-12-25 14:09 | P.PN ---
Subjective Progress Note Date: 12/25/20 Principal diagnosis: pancytopenia Pt has no physical c/o today on a 10 point ROS. Denies any bleeding Objective - Vital Signs Vital signs: Vital Signs Temp 97.8 F 12/25/20 11:06 Pulse 67 12/25/20 11:06 Resp 15 12/25/20 11:06 BP 139/59 12/25/20 11:06 Pulse Ox 100 12/25/20 11:06 Intake & Output 12/24/20 12/25/20 12/25/20 18:59 06:59 18:59 Intake Total 1080 600 300 Balance 1080 600 300 Weight 71.7 kg Intake: Oral 1080 600 300 Other: # Voids 2 1 # Bowel Movements 1 - Constitutional General appearance: Present: cooperative, no acute distress, thin - EENT Eyes: Present: anicteric sclerae, EOMI ENT: Present: hearing grossly normal - Respiratory Respiratory: bilateral: diminished - Cardiovascular Heart sounds: normal: S1, S2 - Peripheral edema leg Peripheral Edema: bilateral: None - Neurologic Neurologic: Present: CNII-XII intact - Musculoskeletal Musculoskeletal: Present: strength equal bilaterally - Psychiatric Psychiatric: Present: A&O x's 3, appropriate affect, intact judgment & insight - Labs CBC & Chem 7: 12/25/20 07:33 12/25/20 07:33 Labs: Abnormal Lab Results - Last 24 Hours (Table) 12/24/20 12/24/20 12/25/20 Range/Units 16:43 20:23 07:33 WBC (3.8-10.6) k/uL RBC (4.30-5.90) m/uL Hgb (13.0-17.5) gm/dL Hct (39.0-53.0) % RDW (11.5-15.5) % Plt Count (150-450) k/uL Neutrophils # (Manual) (1.3-7.7) k/uL Lymphocytes # (Manual) (1.0-4.8) k/uL Metamyelocytes # (Man) (0) k/uL PT 18.6 H (9.0-12.0) sec INR 1.9 H (<1.2) Carbon Dioxide (22-30) mmol/L BUN (9-20) mg/dL Creatinine (0.66-1.25) mg/dL POC Glucose (mg/dL) 164 H 224 H (75-99) mg/dL Calcium (8.4-10.2) mg/dL Alkaline Phosphatase (38-126) U/L Albumin (3.5-5.0) g/dL 12/25/20 12/25/20 12/25/20 Range/Units 07:33 07:33 11:37 WBC 1.7 L (3.8-10.6) k/uL RBC 3.45 L (4.30-5.90) m/uL Hgb 10.7 L (13.0-17.5) gm/dL Hct 34.0 L (39.0-53.0) % RDW 16.3 H (11.5-15.5) % Plt Count 41 L (150-450) k/uL Neutrophils # (Manual) 0.60 L (1.3-7.7) k/uL Lymphocytes # (Manual) 0.77 L (1.0-4.8) k/uL Metamyelocytes # (Man) 0.05 H (0) k/uL PT (9.0-12.0) sec INR (<1.2) Carbon Dioxide 21 L (22-30) mmol/L BUN 65 H (9-20) mg/dL Creatinine 14.07 H* (0.66-1.25) mg/dL POC Glucose (mg/dL) 147 H (75-99) mg/dL Calcium 8.2 L (8.4-10.2) mg/dL Alkaline Phosphatase 147 H (38-126) U/L Albumin 3.2 L (3.5-5.0) g/dL Microbiology - Last 24 Hours (Table) 12/24/20 06:12 Blood Culture - Preliminary Blood No Growth after 24 hours 12/22/20 23:22 Blood Culture Gram Stain - Preliminary Blood Blood Culture - Preliminary Streptococcus bovis 12/23/20 13:06 Blood Culture - Preliminary Blood No Growth after 24 hours 12/24/20 04:46 Stool Culture - Preliminary Stool - Imaging and Cardiology CT scan - abdomen: report reviewed CT scan - pelvis: report reviewed Venous US: report reviewed Assessment and Plan (1) FUO (fever of unknown origin) Narrative/Plan: BC +, ID following Current Visit: Yes Status: Acute Priority: High Code(s): R50.9 - FEVER, UNSPECIFIED SNOMED Code(s): 3016126 (2) Leukopenia Narrative/Plan: 2/2 marrow suppression from chronic medications. Exacerbated with acute illness. Cont GCSF Current Visit: Yes Status: Chronic Priority: High Code(s): D72.819 - DECREASED WHITE BLOOD CELL COUNT, UNSPECIFIED SNOMED Code(s): 56616959 (3) Neutropenia Current Visit: Yes Status: Chronic Priority: High Code(s): D70.9 - NEUTROPENIA, UNSPECIFIED SNOMED Code(s): 124493336 (4) Pancytopenia Narrative/Plan: Cont to follow platelets closely. Plt 41,000 with stable Hgb. Current Visit: Yes Status: Chronic Priority: High Code(s): D61.818 - OTHER PANCYTOPENIA SNOMED Code(s): 477393123 Plan: Pt has Hx of LLE DVT, repeat doppler no acute clot. Pt also has history of clot at fistula site, approx 1 year ago. He has been subtherapeutic on his INR on all but 1 visit to this hospital. Currently, INR 1.9, plt at 41,000 today, Hgb stable. Cont coumadin, no bridging needed, lovenox discontinued previously. Monitor for s/s bleeding. CBC and INR daily.
[2020-12-25 16:54] LABS: Glucose,Whole Blood 167 mg/dL (75-99)
[2020-12-25] MEDS: FILGRASTIM-SNDZ 480 MCG/0.8 ML SYRINGE SQ SCH (17:40)
[2020-12-25] MEDS ORDERED: WARFARIN 2.5 MG TAB PO ONE (18:00)
[2020-12-25 20:23] LABS: Glucose,Whole Blood 147 mg/dL (75-99)
--- NOTE | 2020-12-25 22:15 | PN ---
PROGRESS NOTE DATE OF SERVICE: 12/25/2020 REASON FOR FOLLOW UP: Streptococcus bacteremia. INTERVAL HISTORY: The patient is currently afebrile. He is breathing comfortably. Denies having any chest pain or shortness of breath or cough. No nausea. No vomiting. No diarrhea. PHYSICAL EXAMINATION: Blood pressure 120/69, pulse 59, temperature 97.7. He is 100% on room air. General description is a middle-aged male lying in bed in no distress. Respiratory system: Unlabored breathing, clear to auscultation anteriorly. Heart S1, S2. Regular rate and rhythm. Abdomen soft, no tenderness. LABS: Hemoglobin is 10.7, white count 1.5. BUN of 65, creatinine 14.07. Blood culture repeat so far negative. DIAGNOSTIC IMPRESSION AND PLAN: Patient with Streptococcus bacteremia. CT abdomen and pelvis did not show any abnormality. May benefit from a colonoscopy. The patient mentioned last colonoscopy was 3 years ago and was normal. With Streptococcus bacteremia, source is endocarditis. DIMITRY will be requested. Patient to continue with Rocephin and monitor clinical course closely. MMODL / IJN: [id number] /
[2020-12-26 06:31] LABS: Glucose,Whole Blood 84 mg/dL (75-99)
[2020-12-26] MEDS: PANTOPRAZOLE 40 MG TABLET PO SCH (06:47)
[2020-12-26] MEDS: CALCIUM CARB-MAG CARB-FOLIC 1 EACH TAB PO SCH ×5 (06:47→21:41)
[2020-12-26 09:50] LABS: HCT 35.6 % (39.0-53.0); Hypochromasia Slight; MCH 31.7 pg (25.0-35.0); MCHC 30.9 g/dL (31.0-37.0); MCV 102.5 fL (80.0-100.0); Macrocytosis Slight; Mean Platelet Volume 12.2; RBC 3.48 m/uL (4.30-5.90); RDW 15.7 % (11.5-15.5)
[2020-12-26 09:57] LABS: Platelet Count 29 k/uL (150-450)
[2020-12-26] MEDS: LACTOBACILLUS ACIDOPH & BULGAR 1 EACH PACKET PO SCH ×5 (09:57→21:42)
[2020-12-26] MEDS: FOLIC ACID-VIT B COMPLEX-VIT C 1 CAP PO SCH (09:57)
[2020-12-26] MEDS: MIDODRINE 5 MG TAB PO SCH ×3 (09:57→17:48)
[2020-12-26] MEDS: predniSONE 5 MG TAB PO SCH (09:58)
[2020-12-26] MEDS: metroNIDAZOLE 500 MG TAB PO SCH ×3 (09:58→21:29)
[2020-12-26] MEDS: TACROLIMUS 1 MG CAP PO SCH ×2 (09:59→21:29)
[2020-12-26] MEDS: CHOLESTYRAMINE (WITH SUGAR) 4 GM PACKET PO SCH ×2 (09:59→17:48)
[2020-12-26] MEDS: SULFAMETHOX-TMP 400-80MG 1 EACH TAB PO SCH (09:59)
[2020-12-26 10:09] LABS: INR 2.6 (<1.2); Prothrombin Time 25.2 sec (9.0-12.0)
[2020-12-26 10:10] LABS: Albumin 3.4 g/dL (3.5-5.0); Calcium 8.1 mg/dL (8.4-10.2); Potassium 4.4 mmol/L (3.5-5.1); Total Bilirubin 0.6 mg/dL (0.2-1.3); Total Protein 6.5 g/dL (6.3-8.2)
[2020-12-26 11:00] LABS: Band Neutrophils % 5 %; Lymphocytes # (M) 0.72 k/uL (1.0-4.8); Metamyelocytes # (M) 0.02 k/uL (0); Metamyelocytes % 1 %; Neutrophils % (M) 43 %; Nucleated Red Blood Cells 0 /100 WBC (0-0); Total Cells Counted 100
[2020-12-26 11:01] LABS: Dohle Bodies Present; Large Platelets Present
--- NOTE | 2020-12-26 11:10 | P.PN ---
Subjective Patient is seen in follow-up for end-stage renal disease. He is maintained on hemodialysis on Saturday schedule. No edema. Afebrile this morning. No abdominal pain. No cough. White count trending up. He does not want to undergo a DIMITRY. Vital signs are stable. General: The patient appeared well nourished and normally developed. HEENT: Head exam is unremarkable. Neck is without jugular venous distension. LUNGS: Breath sounds decreased. HEART: Rate and Rhythm are regular. ABDOMEN: Soft, nontender. EXTREMITITES: No edema. Objective - Vital Signs Vital signs: Vital Signs Temp 97.5 F L 12/26/20 04:00 Pulse 68 12/26/20 04:00 Resp 16 12/26/20 04:00 BP 125/69 12/26/20 04:00 Pulse Ox 99 12/26/20 04:00 Intake & Output 12/25/20 12/26/20 12/26/20 18:59 06:59 18:59 Intake Total 1260 290 400 Balance 1260 290 400 Weight 71 kg Intake: Intake, IV Titration 50 Amount cefTRIAXone 2 gm In 50 Sodium Chloride 0.9% 50 ml @ 100 mls/hr IVPB Q24H ON LICENSE OF [facility] Rx#:[id number] Oral 1260 240 400 Other: # Bowel Movements 3 1 - Labs CBC & Chem 7: 12/26/20 09:29 12/26/20 09:29 Labs: Abnormal Lab Results - Last 24 Hours (Table) 12/25/20 12/25/20 12/25/20 Range/Units 07:33 11:37 16:52 WBC (3.8-10.6) k/uL RBC (4.30-5.90) m/uL Hgb (13.0-17.5) gm/dL Hct (39.0-53.0) % MCV (80.0-100.0) fL MCHC (31.0-37.0) g/dL RDW (11.5-15.5) % Plt Count 41 L (150-450) k/uL Neutrophils # (Manual) 0.60 L (1.3-7.7) k/uL Lymphocytes # (Manual) 0.77 L (1.0-4.8) k/uL Metamyelocytes # (Man) 0.05 H (0) k/uL PT (9.0-12.0) sec INR (<1.2) Carbon Dioxide (22-30) mmol/L BUN (9-20) mg/dL Creatinine (0.66-1.25) mg/dL Glucose (74-99) mg/dL POC Glucose (mg/dL) 147 H 167 H (75-99) mg/dL Calcium (8.4-10.2) mg/dL Alkaline Phosphatase (38-126) U/L Albumin (3.5-5.0) g/dL 12/25/20 12/26/20 12/26/20 Range/Units 20:22 09:29 09:29 WBC 2.0 L (3.8-10.6) k/uL RBC 3.48 L (4.30-5.90) m/uL Hgb 11.0 L (13.0-17.5) gm/dL Hct 35.6 L (39.0-53.0) % MCV 102.5 H (80.0-100.0) fL MCHC 30.9 L (31.0-37.0) g/dL RDW 15.7 H (11.5-15.5) % Plt Count 29 L (150-450) k/uL Neutrophils # (Manual) 0.90 L (1.3-7.7) k/uL Lymphocytes # (Manual) 0.72 L (1.0-4.8) k/uL Metamyelocytes # (Man) 0.02 H (0) k/uL PT 25.2 H (9.0-12.0) sec INR 2.6 H (<1.2) Carbon Dioxide (22-30) mmol/L BUN (9-20) mg/dL Creatinine (0.66-1.25) mg/dL Glucose (74-99) mg/dL POC Glucose (mg/dL) 147 H (75-99) mg/dL Calcium (8.4-10.2) mg/dL Alkaline Phosphatase (38-126) U/L Albumin (3.5-5.0) g/dL 12/26/20 Range/Units 09:29 WBC (3.8-10.6) k/uL RBC (4.30-5.90) m/uL Hgb (13.0-17.5) gm/dL Hct (39.0-53.0) % MCV (80.0-100.0) fL MCHC (31.0-37.0) g/dL RDW (11.5-15.5) % Plt Count (150-450) k/uL Neutrophils # (Manual) (1.3-7.7) k/uL Lymphocytes # (Manual) (1.0-4.8) k/uL Metamyelocytes # (Man) (0) k/uL PT (9.0-12.0) sec INR (<1.2) Carbon Dioxide 17 L (22-30) mmol/L BUN 76 H (9-20) mg/dL Creatinine 16.59 H* (0.66-1.25) mg/dL Glucose 168 H (74-99) mg/dL POC Glucose (mg/dL) (75-99) mg/dL Calcium 8.1 L (8.4-10.2) mg/dL Alkaline Phosphatase 156 H (38-126) U/L Albumin 3.4 L (3.5-5.0) g/dL Microbiology - Last 24 Hours (Table) 12/25/20 07:33 Blood Culture - Preliminary Blood No Growth after 24 hours 12/24/20 06:12 Blood Culture - Preliminary Blood No Growth after 48 hours 12/22/20 23:22 Blood Culture Gram Stain - Final Blood Blood Culture - Final Streptococcus bovis 12/23/20 13:06 Blood Culture - Preliminary Blood No Growth after 48 hours Assessment and Plan Plan: Assessment: 1. End-stage renal disease maintained on hemodialysis on Saturday schedule. 2. History of lung transplant at [facility]. Maintained on Prograf and prednisone. 3. Strep bacteremia maintained on antibiotics. Infectious disease following. Echocardiogram noted. 4. Diarrhea. Better. C. diff negative. 5. 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 Phosphorus 5.9. 6. Pancytopenia due to comorbidities as well as medication side effects. Hematology oncology following. Plan: Hemodialysis today. Patient refusing DIMITRY due to history of trach and vocal cord surgery in the past.
[2020-12-26 11:57] LABS: Glucose,Whole Blood 147 mg/dL (75-99)
--- NOTE | 2020-12-26 15:08 | US ---
EXAMINATION TYPE: US abdomen complete DATE OF EXAM: 12/26/2020 COMPARISON: 12/25/2020, 08/16/2020 CLINICAL HISTORY: progressive thrombocytopenia. Thrombocytopenia EXAM MEASUREMENTS: Liver Length: 16.6 cm Gallbladder Wall: 0.5 cm CBD: 0.3 cm Spleen: 12.8 cm Right Kidney: 10.8 x 4.5 x 3.8 cm Left Kidney: 9.9 x 5.5 x 4.4 cm Poor ultrasound candidate, extensive ABD surgeries, limited visualization Pancreas: wnl, tail obscured by overlying bowel gas Liver: Limited visualization, appeared wnl Gallbladder: Thickened wall, gallstones at fundus Evidence for sonographic Alcazar's sign: No CBD: wnl Spleen: Appeared enlarged Right Kidney: Lesion lower pole= 3.7 x 4.3 x 4.6 cm Left Kidney: Cystic lesion upper pole= 3.4 x 2.0 x 2.9 cm, cystic lesion lower pole= 1.5 cm Upper IVC: wnl Abd Aorta: Obscured by overlying bowel gas IMPRESSION: 1. Limited exam demonstrates gallstones with thickened gallbladder wall correlate for cholecystitis. 2. Bilateral renal lesions one on the right appears to be complicated may represent a subcapsular flu id collection as noted by recent CT scan. 3. Mild splenomegaly.
[2020-12-26 16:08] LABS: % Iron Saturation 55.29 (15.00-50.00); Ferritin 1722.7 ng/mL (22.0-322.0)
[2020-12-26 16:37] LABS: Glucose,Whole Blood 116 mg/dL (75-99)
--- NOTE | 2020-12-26 17:08 | P.PN ---
Subjective Progress Note Date: 12/26/20 Principal diagnosis: pancytopenia Pt has no physical c/o today on a 10 point ROS. Denies any bleeding Objective - Vital Signs Vital signs: Vital Signs Temp 97.7 F 12/26/20 08:00 Pulse 68 12/26/20 08:00 Resp 20 12/26/20 08:00 BP 120/72 12/26/20 08:00 Pulse Ox 100 12/26/20 08:00 Intake & Output 12/25/20 12/26/20 12/26/20 18:59 06:59 18:59 Intake Total 1260 290 400 Balance 1260 290 400 Weight 71 kg Intake: Intake, IV Titration 50 Amount cefTRIAXone 2 gm In 50 Sodium Chloride 0.9% 50 ml @ 100 mls/hr IVPB Q24H [facility] Rx#:[id number] Oral 1260 240 400 Other: # Bowel Movements 3 1 - Constitutional General appearance: Present: average body habitus, no acute distress, thin - EENT Eyes: Present: anicteric sclerae, EOMI ENT: Present: hearing grossly normal - Respiratory Details: resp even and unlabored - Neurologic Neurologic: Present: CNII-XII intact - Musculoskeletal Musculoskeletal: Present: strength equal bilaterally - Psychiatric Psychiatric: Present: A&O x's 3, appropriate affect, intact judgment & insight - Labs CBC & Chem 7: 12/26/20 09:29 12/26/20 09:29 Labs: Abnormal Lab Results - Last 24 Hours (Table) 12/25/20 12/25/20 12/25/20 Range/Units 07:33 16:52 20:22 WBC (3.8-10.6) k/uL RBC (4.30-5.90) m/uL Hgb (13.0-17.5) gm/dL Hct (39.0-53.0) % MCV (80.0-100.0) fL MCHC (31.0-37.0) g/dL RDW (11.5-15.5) % Plt Count 41 L (150-450) k/uL Neutrophils # (Manual) 0.60 L (1.3-7.7) k/uL Lymphocytes # (Manual) 0.77 L (1.0-4.8) k/uL Metamyelocytes # (Man) 0.05 H (0) k/uL PT (9.0-12.0) sec INR (<1.2) Carbon Dioxide (22-30) mmol/L BUN (9-20) mg/dL Creatinine (0.66-1.25) mg/dL Glucose (74-99) mg/dL POC Glucose (mg/dL) 167 H 147 H (75-99) mg/dL Calcium (8.4-10.2) mg/dL Alkaline Phosphatase (38-126) U/L Albumin (3.5-5.0) g/dL 12/26/20 12/26/20 12/26/20 Range/Units 09:29 09:29 09:29 WBC 2.0 L (3.8-10.6) k/uL RBC 3.48 L (4.30-5.90) m/uL Hgb 11.0 L (13.0-17.5) gm/dL Hct 35.6 L (39.0-53.0) % MCV 102.5 H (80.0-100.0) fL MCHC 30.9 L (31.0-37.0) g/dL RDW 15.7 H (11.5-15.5) % Plt Count 29 L (150-450) k/uL Neutrophils # (Manual) 0.90 L (1.3-7.7) k/uL Lymphocytes # (Manual) 0.72 L (1.0-4.8) k/uL Metamyelocytes # (Man) 0.02 H (0) k/uL PT 25.2 H (9.0-12.0) sec INR 2.6 H (<1.2) Carbon Dioxide 17 L (22-30) mmol/L BUN 76 H (9-20) mg/dL Creatinine 16.59 H* (0.66-1.25) mg/dL Glucose 168 H (74-99) mg/dL POC Glucose (mg/dL) (75-99) mg/dL Calcium 8.1 L (8.4-10.2) mg/dL Alkaline Phosphatase 156 H (38-126) U/L Albumin 3.4 L (3.5-5.0) g/dL 12/26/20 Range/Units 11:56 WBC (3.8-10.6) k/uL RBC (4.30-5.90) m/uL Hgb (13.0-17.5) gm/dL Hct (39.0-53.0) % MCV (80.0-100.0) fL MCHC (31.0-37.0) g/dL RDW (11.5-15.5) % Plt Count (150-450) k/uL Neutrophils # (Manual) (1.3-7.7) k/uL Lymphocytes # (Manual) (1.0-4.8) k/uL Metamyelocytes # (Man) (0) k/uL PT (9.0-12.0) sec INR (<1.2) Carbon Dioxide (22-30) mmol/L BUN (9-20) mg/dL Creatinine (0.66-1.25) mg/dL Glucose (74-99) mg/dL POC Glucose (mg/dL) 147 H (75-99) mg/dL Calcium (8.4-10.2) mg/dL Alkaline Phosphatase (38-126) U/L Albumin (3.5-5.0) g/dL Microbiology - Last 24 Hours (Table) 12/24/20 04:46 Stool Culture - Preliminary Stool 12/25/20 07:33 Blood Culture - Preliminary Blood No Growth after 24 hours 12/24/20 06:12 Blood Culture - Preliminary Blood No Growth after 48 hours 12/22/20 23:22 Blood Culture Gram Stain - Final Blood Blood Culture - Final Streptococcus bovis 12/23/20 13:06 Blood Culture - Preliminary Blood No Growth after 48 hours Assessment and Plan (1) FUO (fever of unknown origin) Narrative/Plan: BC +, ID following Current Visit: Yes Status: Acute Priority: High Code(s): R50.9 - FEVER, UNSPECIFIED SNOMED Code(s): 7004738 (2) Leukopenia Narrative/Plan: 2/2 marrow suppression from chronic medications. Exacerbated with acute illness. Cont GCSF, WBC 2, ANC 0.9 Current Visit: Yes Status: Chronic Priority: High Code(s): D72.819 - DECREASED WHITE BLOOD CELL COUNT, UNSPECIFIED SNOMED Code(s): 48586276 (3) Neutropenia Current Visit: Yes Status: Chronic Priority: High Code(s): D70.9 - NEUTROPENIA, UNSPECIFIED SNOMED Code(s): 140058486 (4) Pancytopenia Narrative/Plan: GCSF for neutropenia Hgb is stable Platelet transfusion for plt <40,000 with therapeutic INR Daily CBC, transfuse to keep plt >40,000 Daily PT/INR Current Visit: Yes Status: Chronic Priority: High Code(s): D61.818 - OTHER PANCYTOPENIA SNOMED Code(s): 149386219 Plan: Pt has Hx of LLE DVT, repeat doppler no acute clot. Pt also has history of clot at fistula site, approx 1 year ago. He has been subtherapeutic on his INR on all but 1 visit to this hospital. Currently, INR 2.6, plt at 29,000 today, Hgb stable. Cont coumadin, platelets ordered. Monitor for s/s bleeding. CBC and INR daily.
[2020-12-26 17:12] LABS: Hemoglobin A1C 6.9 % (4.0-6.0)
[2020-12-26] MEDS: carvediloL 12.5 MG TAB PO SCH (17:48)
[2020-12-26] MEDS: FILGRASTIM-SNDZ 480 MCG/0.8 ML SYRINGE SQ SCH (17:53)
[2020-12-26] MEDS ORDERED: WARFARIN 2.5 MG TAB PO ONE (18:00)
[2020-12-26 20:18] LABS: Glucose,Whole Blood 125 mg/dL (75-99)
--- NOTE | 2020-12-26 23:36 | PN ---
PROGRESS NOTE DATE OF SERVICE: 12/26/2020 REASON FOR FOLLOW UP: Streptococcus bacteremia. INTERVAL HISTORY: Patient is currently afebrile. The patient is breathing comfortably. Denies any chest pain or any cough. No abdominal pain. No further vomiting and no diarrhea. Patient complaining of the . PHYSICAL EXAMINATION: Blood pressure 144/75, pulse of 60. Temperature 97.7. He is 100% on room air. General description: The patient is a middle-aged male lying in bed in no distress. Respiratory system: Unlabored breathing. Clear to auscultation anteriorly. Heart S1, S2. Regular rate and rhythm. ABDOMEN: Soft, no tenderness. No guarding. No rigidity. LABS: Hemoglobin 11.1, white count 2.0, BUN of 76, creatinine 16.59. DIAGNOSTIC IMPRESSION AND PLAN: Patient with Streptococcus pneumoniae origin. CT of abdomen and pelvis did not show any evidence of colitis, now with ultrasound suspicious for cholecystitis. General surgical consult. Continue the patient on Rocephin and Flagyl still. The patient will benefit from DIMITRY which the patient is currently refusing. Continue supportive care. MMODL / IJN: [id number] /
[2020-12-27 00:31] LABS: Protein, Total 6.2 g/dL (6.2-8.2)
[2020-12-27] MEDS: CALCIUM CARB-MAG CARB-FOLIC 1 EACH TAB PO SCH ×4 (06:37→21:36)
[2020-12-27] MEDS: PANTOPRAZOLE 40 MG TABLET PO SCH (06:37)
[2020-12-27] MEDS: MIDODRINE 5 MG TAB PO SCH ×4 (06:39→17:18)
[2020-12-27 07:00] LABS: Glucose,Whole Blood 103 mg/dL (75-99)
--- NOTE | 2020-12-27 07:49 | P.PN ---
Subjective Progress Note Date: 12/26/20 HISTORY OF PRESENT ILLNESS This is a 59-year-old -[place] male patient of Dr. 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 Desai, DVT of the left lower extremity on Coumadin, hypertension, diabetes mellitus type 2, high-grade AV block and paroxysmal atrial fibrillation status post dual-chamber AICD, hypertension, chronic diastolic heart failure, pulmonary hypertension and chronic cor pulmonale, chronic thrombocytopenia, patient reported history of mitral valve replacement. Patient also has history of sepsis with streptococcal bacteremia. Patient presented to [facility] emergency center due to fever and diarrhea that he has had for weeks now. He denies any nausea vomiting. He states he has diarrhea 3 times per day. He also is not urinating. He states he drinks 1 glass of water per day. Patient presented with fever of 102.9, heart rate 84, blood pressure 132/75, pulse ox 99% on room air. WBC 0.8, hemoglobin 12.2, platelet count 62. INR 1.6. Initial potassium 7.2 which was rechecked at 4.7 status post Kayexalate, dextrose, regular insulin. Sodium 133, chloride 95, CO2 27, BUN 71 creatinine 12.87. Alkaline phosphatase 202. LDH 815. C-reactive protein 50. Patient refused to have COVID19 testing. Patient admitted to the cardiac stepdown unit and consults requested with nephrology, oncology and infectious disease. 12/24: Patient still has some any loose stools at least 4 times per day, brown, non-malodorous, patient has at least 5 C. diff infections in the past, patient thinks that he should be back on valganciclovir for his Clostridium difficile A, patient also takes that he is on the wrong medication for his leukopenia, patient requests Neupogen, however oncology has put him onZarvio he seems to be very impatient, patient has no nausea diminished appetite, no weakness no lightheadedness, patient has positive blood cultures growing nonhemolytic strep, patient was seen by Dr. Mitchell for which recommendation is to go off Zosyn, and start vancomycin. Patient is on Coumadin 2.75 mg once tonight, pharmacy dosing Coumadin. Started on Questran 4 g twice a day, start on Lactinex, and brachial GERD. Stools for C. diff are negative, final patient agreed on getting another Covid test done as baseline during this hospitalization. 12/25: Patient so much better, still with liquid stools, repeat times still taking the Questran first dose was last night., no fever no chills, appetite is much better, no lightheadedness no dizziness, blood cultures growing strep bovis, per Dr. Holder, this has been increased linkage to known colon cancer, patient has colonoscopy 3 years ago, however his previous colonoscopy recommended it done every year. Saw Dr. Petersen in the past for colonoscopy. Double basic count back to 1.7 hemoglobin 10.7 platelet count 41, INr 1.9, Vanco trough 23 blood sugars between 164-224 12/26: Repeat blood work reveals WBC 2, hemoglobin 11. INR 2.6. Potassium 4.4, CO2 17, BUN 76 and creatinine 16.5. Blood sugars running between 84 and 168. Alkaline phosphatase 156. Dr. Holder has recommended DIMITRY as possible source of Streptococcus bacteremia may be endocarditis as well as he recommended colonoscopy. Patient is continued on Rocephin. Dr. Chopra discussed in detail with the patient the need for DIMITRY and colonscopy. He is refusing to have either done. He will only have DIMITRY at [facility]. His last colonoscopy was 3 years ago. REVIEW OF SYSTEMS Constitutional: Reports fever, Reports chills, no night sweats. No weight change. Reports weakness, fatigue or lethargy. No daytime sleepiness. EENT: No headache. No blurred vision or double vision, no loss of vision. No loss of Hearing, no ringing in the ears, no dizziness. No nasal drainage or congestion. No epistaxis. No sore throat. Lungs: Denies shortness of breath, denies cough, no sputum production. No wheezing. Cardiovascular: No chest pain, no lower extremity edema. No palpitations. No paroxysmal nocturnal dyspnea. No orthopnea. No lightheadedness or dizziness. No syncopal episodes. Abdominal: No abdominal pain. No nausea, vomiting. Reports diarrhea. No constipation. No bloody or tarry stools. No loss of appetite. Genitourinary: No dysuria, increased frequency, urgency. No urinary retention. Musculoskeletal: No myalgias. Reports muscle weakness, no gait dysfunction, no frequent falls. No back pain. No neck pain. Integumentary: No wounds, no lesions. No rash or pruritus. Neurologic: No aphasia. No facial droop. No change in mentation. No head injury. No headache. No paralysis. No paresthesia. Psychiatric: No depression. No anxiety. No mood swings. Endocrine: No abnormal blood sugars. PHYSICAL EXAMINATION Gen: This is a 60-year-old -[place] male. He is resting in chair and appears to be comfortable. HEENT: Head is atraumatic, normocephalic. Pupils equal, round. Sclerae is anicteric. NECK: Supple. No JVD. No lymphadenopathy. No thyromegaly. LUNGS: Clear to auscultation. No wheezes or rhonchi. No intercostal retractions. HEART: Regular rate and rhythm. Systolic murmur. ABDOMEN: Soft. Bowel sounds are present. No masses. No tenderness. EXTREMITIES: No pedal edema. No calf tenderness. Dorsalis pedis palpable bilaterally. AV fistula to the left arm. NEUROLOGICAL: Patient is awake, alert and oriented 3 Cranial nerves 2 through 12 are grossly intact. ASSESSMENT AND PLAN 1. Sepsis with diarrhea. Patient has been admitted into the intensive care unit and transferred to Cardiac Stepdown unit. Consult with infectious disease appreciated. Noted recommendations for DIMITRY and colonscopy for which patient declined. Patient is currently on ceftriaxone. Blood cultures growing staph bovis. No further growth in subsequent blood cultures Stool specimen to be obtained for culture, C. diff negative and H. pylori pending 2. Streptococcus bacteremia. Consult with Dr. Holder appreciated. Patient is currently on ceftriaxone. DIMITRY recommended. 3. Hyperkalemia, improved. Nephrology consult appreciated 4. Leukopenia, consult oncology. On filgrastim. 5. Thrombocytopenia, chronic most likely exacerbated by sepsis. Consult with oncology appreciated. 6. End-stage renal disease. Patient maintained on hemodialysis. Nephrology consult appreciated.. Routine transplant medication resumed. 7. History of sarcoidosis with multiorgan involvement status post bilateral lung transplant at [facility] in 2014 . Continue antirejection medication as prescribed at home. 8. DVT of the left lower extremity on chronic Coumadin. Continue Coumadin, pharmacy to dose. Monitor INR. 9. Diabetes mellitus type 2.Currently on diet modification last A1c is 7. 09/15/2020. 10. History of high-grade AV block and paroxysmal atrial fibrillation status post dual-chamber AICD. Continue Coreg at decreased dose of 12.5 mg daily. 11. Hypertension currently with hypotension. Increase midodrine to 5 mg scheduled 3 times daily and continue Coreg DISCHARGE PLAN Most likely return home. Impression and plan of care have been directed as dictated by the signing physician. Sydney Gallegos nurse practitioner acting as scribe for signing physician. Objective - Vital Signs Vital signs: Vital Signs Temp 97.5 F L 12/26/20 04:00 Pulse 68 12/26/20 04:00 Resp 16 12/26/20 04:00 BP 125/69 12/26/20 04:00 Pulse Ox 99 12/26/20 04:00 Intake & Output 12/25/20 12/26/20 12/26/20 18:59 06:59 18:59 Intake Total 1260 290 400 Balance 1260 290 400 Weight 71 kg Intake: Intake, IV Titration 50 Amount cefTRIAXone 2 gm In 50 Sodium Chloride 0.9% 50 ml @ 100 mls/hr IVPB Q24H [facility] Rx#:[id number] Oral 1260 240 400 Other: # Bowel Movements 3 1 - Labs CBC & Chem 7: 12/26/20 09:29 12/26/20 09:29 Labs: Abnormal Lab Results - Last 24 Hours (Table) 12/25/20 12/25/20 12/25/20 Range/Units 07:33 11:37 16:52 WBC (3.8-10.6) k/uL RBC (4.30-5.90) m/uL Hgb (13.0-17.5) gm/dL Hct (39.0-53.0) % MCV (80.0-100.0) fL MCHC (31.0-37.0) g/dL RDW (11.5-15.5) % Plt Count 41 L (150-450) k/uL Neutrophils # (Manual) 0.60 L (1.3-7.7) k/uL Lymphocytes # (Manual) 0.77 L (1.0-4.8) k/uL Metamyelocytes # (Man) 0.05 H (0) k/uL PT (9.0-12.0) sec INR (<1.2) Carbon Dioxide (22-30) mmol/L BUN (9-20) mg/dL Creatinine (0.66-1.25) mg/dL Glucose (74-99) mg/dL POC Glucose (mg/dL) 147 H 167 H (75-99) mg/dL Calcium (8.4-10.2) mg/dL Alkaline Phosphatase (38-126) U/L Albumin (3.5-5.0) g/dL 12/25/20 12/26/20 12/26/20 Range/Units 20:22 09:29 09:29 WBC 2.0 L (3.8-10.6) k/uL RBC 3.48 L (4.30-5.90) m/uL Hgb 11.0 L (13.0-17.5) gm/dL Hct 35.6 L (39.0-53.0) % MCV 102.5 H (80.0-100.0) fL MCHC 30.9 L (31.0-37.0) g/dL RDW 15.7 H (11.5-15.5) % Plt Count (150-450) k/uL Neutrophils # (Manual) (1.3-7.7) k/uL Lymphocytes # (Manual) (1.0-4.8) k/uL Metamyelocytes # (Man) (0) k/uL PT 25.2 H (9.0-12.0) sec INR 2.6 H (<1.2) Carbon Dioxide (22-30) mmol/L BUN (9-20) mg/dL Creatinine (0.66-1.25) mg/dL Glucose (74-99) mg/dL POC Glucose (mg/dL) 147 H (75-99) mg/dL Calcium (8.4-10.2) mg/dL Alkaline Phosphatase (38-126) U/L Albumin (3.5-5.0) g/dL 12/26/20 Range/Units 09:29 WBC (3.8-10.6) k/uL RBC (4.30-5.90) m/uL Hgb (13.0-17.5) gm/dL Hct (39.0-53.0) % MCV (80.0-100.0) fL MCHC (31.0-37.0) g/dL RDW (11.5-15.5) % Plt Count (150-450) k/uL Neutrophils # (Manual) (1.3-7.7) k/uL Lymphocytes # (Manual) (1.0-4.8) k/uL Metamyelocytes # (Man) (0) k/uL PT (9.0-12.0) sec INR (<1.2) Carbon Dioxide 17 L (22-30) mmol/L BUN 76 H (9-20) mg/dL Creatinine 16.59 H* (0.66-1.25) mg/dL Glucose 168 H (74-99) mg/dL POC Glucose (mg/dL) (75-99) mg/dL Calcium 8.1 L (8.4-10.2) mg/dL Alkaline Phosphatase 156 H (38-126) U/L Albumin 3.4 L (3.5-5.0) g/dL Microbiology - Last 24 Hours (Table) 12/25/20 07:33 Blood Culture - Preliminary Blood No Growth after 24 hours 12/24/20 06:12 Blood Culture - Preliminary Blood No Growth after 48 hours 12/22/20 23:22 Blood Culture Gram Stain - Final Blood Blood Culture - Final Streptococcus bovis 12/23/20 13:06 Blood Culture - Preliminary Blood No Growth after 48 hours
[2020-12-27] MEDS: TACROLIMUS 1 MG CAP PO SCH ×2 (08:40→21:23)
[2020-12-27] MEDS: FOLIC ACID-VIT B COMPLEX-VIT C 1 CAP PO SCH (08:40)
[2020-12-27] MEDS: carvediloL 12.5 MG TAB PO SCH ×2 (08:40→17:38)
[2020-12-27] MEDS: metroNIDAZOLE 500 MG TAB PO SCH ×3 (08:40→21:23)
[2020-12-27] MEDS: predniSONE 5 MG TAB PO SCH (08:40)
[2020-12-27] MEDS: LACTOBACILLUS ACIDOPH & BULGAR 1 EACH PACKET PO SCH ×4 (08:41→21:23)
[2020-12-27 09:30] LABS: INR 2.1 (<1.2); Prothrombin Time 20.6 sec (9.0-12.0)
[2020-12-27 09:38] LABS: HCT 31.5 % (39.0-53.0); HGB 10.2 gm/dL (13.0-17.5); MCH 31.9 pg (25.0-35.0); MCHC 32.3 g/dL (31.0-37.0); MCV 98.8 fL (80.0-100.0); Macrocytosis Slight; RBC 3.19 m/uL (4.30-5.90); RDW 15.9 % (11.5-15.5); WBC 2.1 k/uL (3.8-10.6)
[2020-12-27 09:40] LABS: Platelet Count 53 k/uL (150-450)
[2020-12-27] MEDS: ACETAMINOPHEN TAB 325 MG TAB PO PRN ×3 (10:42→22:45)
[2020-12-27] MEDS: CHOLESTYRAMINE (WITH SUGAR) 4 GM PACKET PO SCH ×2 (10:43→17:18)
[2020-12-27 11:02] LABS: Eosinophils # (M) 0.08 k/uL (0-0.7); Lymphocytes # (M) 1.05 k/uL (1.0-4.8); Metamyelocytes # (M) 0.02 k/uL (0); Metamyelocytes % 1 %; Monocytes # (M) 0.46 k/uL (0-1.0); Neutrophils # (M) 0.48 k/uL (1.3-7.7); Neutrophils % (M) 23 %; Nucleated Red Blood Cells 0 /100 WBC (0-0); Total Cells Counted 100
[2020-12-27 11:03] LABS: Poikilocytosis (M) Present; Rouleaux Present
[2020-12-27 11:51] LABS: Glucose,Whole Blood 113 mg/dL (75-99)
--- NOTE | 2020-12-27 13:08 | P.PN ---
Subjective Patient is seen in follow-up for end-stage renal disease. He is maintained on hemodialysis on Saturday schedule. No edema. No fever or chills. Does complain of mild abdominal discomfort today. No cough. Hemodynamically stable. Tolerated dialysis well yesterday. Vital signs are stable. General: The patient appeared well nourished and normally developed. HEENT: Head exam is unremarkable. Neck is without jugular venous distension. LUNGS: Breath sounds decreased. HEART: Rate and Rhythm are regular. ABDOMEN: Soft, nontender. EXTREMITITES: No edema. Objective - Vital Signs Vital signs: Vital Signs Temp 97.8 F 12/27/20 03:54 Pulse 70 12/27/20 03:54 Resp 18 12/27/20 03:54 BP 110/58 12/27/20 03:54 Pulse Ox 98 12/27/20 03:54 Intake & Output 12/26/20 12/27/20 12/27/20 18:59 06:59 18:59 Intake Total 900 456 180 Output Total 0 0 Balance 900 456 180 Weight 68 kg Intake: Oral 900 100 180 Blood Product 356 Platelet Pheresis Acda 356 Unit [id number] Output: Urine 0 0 Other: # Voids 0 - Labs CBC & Chem 7: 12/27/20 08:03 12/26/20 09:29 Labs: Abnormal Lab Results - Last 24 Hours (Table) 12/22/20 12/26/20 12/26/20 Range/Units 23:22 06:25 06:25 WBC (3.8-10.6) k/uL RBC (4.30-5.90) m/uL Hgb (13.0-17.5) gm/dL Hct (39.0-53.0) % RDW (11.5-15.5) % Plt Count (150-450) k/uL Neutrophils # (Manual) (1.3-7.7) k/uL Metamyelocytes # (Man) (0) k/uL PT (9.0-12.0) sec INR (<1.2) POC Glucose (mg/dL) (75-99) mg/dL Hemoglobin A1c (4.0-6.0) % TIBC 170 L (228-460) ug/dL % Saturation 55.29 H (15.00-50.00) Ferritin 1722.7 H (22.0-322.0) ng/mL Vitamin B12 3512.0 H (200.0-944.0) pg/mL Procalcitonin 61.17 H (0.02-0.09) ng/mL Free [place] LC, Quant 18.10 H (0.33-1.94) mg/dL Free Lambda LC, Quant 12.10 H (0.57-2.63) mg/dL 12/26/20 12/26/20 12/26/20 Range/Units 09:29 16:35 20:16 WBC (3.8-10.6) k/uL RBC (4.30-5.90) m/uL Hgb (13.0-17.5) gm/dL Hct (39.0-53.0) % RDW (11.5-15.5) % Plt Count (150-450) k/uL Neutrophils # (Manual) (1.3-7.7) k/uL Metamyelocytes # (Man) (0) k/uL PT (9.0-12.0) sec INR (<1.2) POC Glucose (mg/dL) 116 H 125 H (75-99) mg/dL Hemoglobin A1c 6.9 H (4.0-6.0) % TIBC (228-460) ug/dL % Saturation (15.00-50.00) Ferritin (22.0-322.0) ng/mL Vitamin B12 (200.0-944.0) pg/mL Procalcitonin (0.02-0.09) ng/mL Free [place] LC, Quant (0.33-1.94) mg/dL Free Lambda LC, Quant (0.57-2.63) mg/dL 12/27/20 12/27/20 12/27/20 Range/Units 06:37 08:03 08:03 WBC 2.1 L (3.8-10.6) k/uL RBC 3.19 L (4.30-5.90) m/uL Hgb 10.2 L (13.0-17.5) gm/dL Hct 31.5 L (39.0-53.0) % RDW 15.9 H (11.5-15.5) % Plt Count 53 L D (150-450) k/uL Neutrophils # (Manual) 0.48 L* (1.3-7.7) k/uL Metamyelocytes # (Man) 0.02 H (0) k/uL PT 20.6 H (9.0-12.0) sec INR 2.1 H (<1.2) POC Glucose (mg/dL) 103 H (75-99) mg/dL Hemoglobin A1c (4.0-6.0) % TIBC (228-460) ug/dL % Saturation (15.00-50.00) Ferritin (22.0-322.0) ng/mL Vitamin B12 (200.0-944.0) pg/mL Procalcitonin (0.02-0.09) ng/mL Free [place] LC, Quant (0.33-1.94) mg/dL Free Lambda LC, Quant (0.57-2.63) mg/dL 12/27/20 Range/Units 11:49 WBC (3.8-10.6) k/uL RBC (4.30-5.90) m/uL Hgb (13.0-17.5) gm/dL Hct (39.0-53.0) % RDW (11.5-15.5) % Plt Count (150-450) k/uL Neutrophils # (Manual) (1.3-7.7) k/uL Metamyelocytes # (Man) (0) k/uL PT (9.0-12.0) sec INR (<1.2) POC Glucose (mg/dL) 113 H (75-99) mg/dL Hemoglobin A1c (4.0-6.0) % TIBC (228-460) ug/dL % Saturation (15.00-50.00) Ferritin (22.0-322.0) ng/mL Vitamin B12 (200.0-944.0) pg/mL Procalcitonin (0.02-0.09) ng/mL Free [place] LC, Quant (0.33-1.94) mg/dL Free Lambda LC, Quant (0.57-2.63) mg/dL Microbiology - Last 24 Hours (Table) 12/25/20 07:33 Blood Culture - Preliminary Blood No Growth after 48 hours 12/24/20 04:46 Stool Culture - Final Stool 12/24/20 06:12 Blood Culture - Preliminary Blood No Growth after 72 hours 12/23/20 13:06 Blood Culture - Preliminary Blood No Growth after 72 hours Assessment and Plan Plan: Assessment: 1. End-stage renal disease maintained on hemodialysis on Saturday schedule. 2. History of lung transplant at [facility]. Maintained on Prograf and prednisone. 3. Strep bacteremia maintained on antibiotics. Infectious disease following. Echocardiogram noted. 4. Diarrhea. Better. C. diff negative. 5. 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 Phosphorus 5.9. 6. Pancytopenia due to comorbidities as well as medication side effects. Hematology oncology following. Plan: Hemodialysis tomorrow. Patient refusing DIMITRY due to history of trach and vocal cord surgery in the past. GI has been consulted.
--- NOTE | 2020-12-27 15:47 | P.PN ---
Subjective Progress Note Date: 12/27/20 This is a 59-year-old -[place] male patient of Dr. 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 Desai, DVT of the left lower extremity on Coumadin, hypertension, diabetes mellitus type 2, high-grade AV block and paroxysmal atrial fibrillation status post dual-chamber AICD, hypertension, chronic diastolic heart failure, pulmonary hypertension and chronic cor pulmonale, chronic thrombocytopenia, patient reported history of mitral valve replacement. Patient also has history of sepsis with streptococcal bacteremia. Patient presented to [facility] emergency center due to fever and diarrhea that he has had for weeks now. He denies any nausea vomiting. He states he has diarrhea 3 times per day. He also is not urinating. He states he drinks 1 glass of water per day. Patient presented with fever of 102.9, heart rate 84, blood pressure 132/75, pulse ox 99% on room air. WBC 0.8, hemoglobin 12.2, platelet count 62. INR 1.6. Initial potassium 7.2 which was rechecked at 4.7 status post Kayexalate, dextrose, regular insulin. Sodium 133, chloride 95, CO2 27, BUN 71 creatinine 12.87. Alkaline phosphatase 202. LDH 815. C-reactive protein 50. Patient refused to have COVID19 testing. Patient admitted to the cardiac stepdown unit and consults requested with nephrology, oncology and infectious disease. 12/24: Patient still has some any loose stools at least 4 times per day, brown, non-malodorous, patient has at least 5 C. diff infections in the past, patient thinks that he should be back on valganciclovir for his Clostridium difficile A, patient also takes that he is on the wrong medication for his leukopenia, patient requests Neupogen, however oncology has put him onZarvio he seems to be very impatient, patient has no nausea diminished appetite, no weakness no lightheadedness, patient has positive blood cultures growing nonhemolytic strep, patient was seen by Dr. Mitchell for which recommendation is to go off Zosyn, and start vancomycin. Patient is on Coumadin 2.75 mg once tonight, pharmacy dosing Coumadin. Started on Questran 4 g twice a day, start on Lactinex, and brachial GERD. Stools for C. diff are negative, final patient agreed on getting another Covid test done as baseline during this hospitalization. 12/25: Patient so much better, still with liquid stools, repeat times still taking the Questran first dose was last night., no fever no chills, appetite is much better, no lightheadedness no dizziness, blood cultures growing strep bovis, per Dr. Holder, this has been increased linkage to known colon cancer, patient has colonoscopy 3 years ago, however his previous colonoscopy recommended it done every year. Saw Dr. Petersen in the past for colonoscopy. Double basic count back to 1.7 hemoglobin 10.7 platelet count 41, INr 1.9, Vanco trough 23 blood sugars between 164-224 12/26: Repeat blood work reveals WBC 2, hemoglobin 11. INR 2.6. Potassium 4.4, CO2 17, BUN 76 and creatinine 16.5. Blood sugars running between 84 and 168. Alkaline phosphatase 156. Dr. Holder has recommended DIMITRY as possible source of Streptococcus bacteremia may be endocarditis as well as he recommended colonoscopy. Patient is continued on Rocephin. Dr. Chopra discussed in detail with the patient the need for DIMITRY and colonscopy. He is refusing to have either done. He will only have DIMITRY at [facility]. His last colonoscopy was 3 yea rs ago. 12/27 Patient examined at bedside. Patient has some right upper quad pain that was treated with tylenol. US abd ordered yesterday suggested cholecystitis and gallbladder thickening. Subcapsular fluid was seen on the right kidney. Patient had computed tomography scan that also demonstrated 3.8 into 2.8-5 cm right perinephritic fluid collection which appeared reduced in signs compared to the CAT scan in August 2020. Patient does suggest that he is seeing [facility] for the fluid collection with plan to remove kidney if there is no resolution. Surgery consulted for cholecystitis as patient continues to have abdominal pain. Dr. Rajan consulted for possible colonoscopy while inpatient. Discussed the case with infectious disease in detail who recommended surgery consult and gastroenterology consult for possible cholecystectomy and colonoscopy. Patient to follow-up with [facility] for further management. Patient's repeat blood culture has been negative for 72 hours with plan to discharge him on IV antibiotics as patient has history of mitral valve replacement REVIEW OF SYSTEMS Constitutional: Reports fever, Reports chills, no night sweats. No weight change. Reports weakness, fatigue or lethargy. No daytime sleepiness. EENT: No headache. No blurred vision or double vision, no loss of vision. No loss of Hearing, no ringing in the ears, no dizziness. No nasal drainage or congestion. No epistaxis. No sore throat. Lungs: Denies shortness of breath, denies cough, no sputum production. No wheezing. Cardiovascular: No chest pain, no lower extremity edema. No palpitations. No paroxysmal nocturnal dyspnea. No orthopnea. No lightheadedness or dizziness. No syncopal episodes. Abdominal: Right upper abdominal pain. No nausea, vomiting. Reports diarrhea. No constipation. No bloody or tarry stools. No loss of appetite. Genitourinary: No dysuria, increased frequency, urgency. No urinary retention. Musculoskeletal: No myalgias. Reports muscle weakness, no gait dysfunction, no frequent falls. No back pain. No neck pain. Integumentary: No wounds, no lesions. No rash or pruritus. Neurologic: No aphasia. No facial droop. No change in mentation. No head injury. No headache. No paralysis. No paresthesia. Psychiatric: No depression. No anxiety. No mood swings. Endocrine: No abnormal blood sugars. Objective - Vital Signs Vital signs: Vital Signs Temp 97.8 F 12/27/20 12:00 Pulse 68 12/27/20 12:00 Resp 18 12/27/20 12:00 BP 123/88 12/27/20 12:00 Pulse Ox 98 12/27/20 12:00 Intake & Output 12/26/20 12/27/20 12/27/20 18:59 06:59 18:59 Intake Total 900 456 420 Output Total 0 0 Balance 900 456 420 Weight 68 kg Intake: Oral 900 100 420 Blood Product 356 Platelet Pheresis Acda 356 Unit [id number] Output: Urine 0 0 Other: # Voids 0 # Bowel Movements 0 - Exam PHYSICAL EXAMINATION Gen: This is a 60-year-old -[place]ian male. He is resting in chair and appears to be comfortable. HEENT: Head is atraumatic, normocephalic. Pupils equal, round. Sclerae is anicteric. NECK: Supple. No JVD. No lymphadenopathy. No thyromegaly. LUNGS: Clear to auscultation. No wheezes or rhonchi. No intercostal retractions. HEART: Regular rate and rhythm. Systolic murmur. ABDOMEN: Soft. Bowel sounds are present. No masses. mild tenderness involving the right flank . EXTREMITIES: No pedal edema. No calf tenderness. Dorsalis pedis palpable bilaterally. AV fistula to the left arm. NEUROLOGICAL: Patient is awake, alert and oriented 3 Cranial nerves 2 through 12 are grossly intact. - Labs CBC & Chem 7: 12/27/20 08:03 12/26/20 09:29 Labs: Abnormal Lab Results - Last 24 Hours (Table) 12/22/20 12/26/20 12/26/20 Range/Units 23:22 06:25 06:25 WBC (3.8-10.6) k/uL RBC (4.30-5.90) m/uL Hgb (13.0-17.5) gm/dL Hct (39.0-53.0) % RDW (11.5-15.5) % Plt Count (150-450) k/uL Neutrophils # (Manual) (1.3-7.7) k/uL Metamyelocytes # (Man) (0) k/uL PT (9.0-12.0) sec INR (<1.2) POC Glucose (mg/dL) (75-99) mg/dL Hemoglobin A1c (4.0-6.0) % TIBC 170 L (228-460) ug/dL % Saturation 55.29 H (15.00-50.00) Ferritin 1722.7 H (22.0-322.0) ng/mL Vitamin B12 3512.0 H (200.0-944.0) pg/mL Procalcitonin 61.17 H (0.02-0.09) ng/mL Free [place] LC, Quant 18.10 H (0.33-1.94) mg/dL Free Lambda LC, Quant 12.10 H (0.57-2.63) mg/dL 12/26/20 12/26/20 12/26/20 Range/Units 09:29 16:35 20:16 WBC (3.8-10.6) k/uL RBC (4.30-5.90) m/uL Hgb (13.0-17.5) gm/dL Hct (39.0-53.0) % RDW (11.5-15.5) % Plt Count (150-450) k/uL Neutrophils # (Manual) (1.3-7.7) k/uL Metamyelocytes # (Man) (0) k/uL PT (9.0-12.0) sec INR (<1.2) POC Glucose (mg/dL) 116 H 125 H (75-99) mg/dL Hemoglobin A1c 6.9 H (4.0-6.0) % TIBC (228-460) ug/dL % Saturation (15.00-50.00) Ferritin (22.0-322.0) ng/mL Vitamin B12 (200.0-944.0) pg/mL Procalcitonin (0.02-0.09) ng/mL Free [place] LC, Quant (0.33-1.94) mg/dL Free Lambda LC, Quant (0.57-2.63) mg/dL 12/27/20 12/27/20 12/27/20 Range/Units 06:37 08:03 08:03 WBC 2.1 L (3.8-10.6) k/uL RBC 3.19 L (4.30-5.90) m/uL Hgb 10.2 L (13.0-17.5) gm/dL Hct 31.5 L (39.0-53.0) % RDW 15.9 H (11.5-15.5) % Plt Count 53 L D (150-450) k/uL Neutrophils # (Manual) 0.48 L* (1.3-7.7) k/uL Metamyelocytes # (Man) 0.02 H (0) k/uL PT 20.6 H (9.0-12.0) sec INR 2.1 H (<1.2) POC Glucose (mg/dL) 103 H (75-99) mg/dL Hemoglobin A1c (4.0-6.0) % TIBC (228-460) ug/dL % Saturation (15.00-50.00) Ferritin (22.0-322.0) ng/mL Vitamin B12 (200.0-944.0) pg/mL Procalcitonin (0.02-0.09) ng/mL Free [place] LC, Quant (0.33-1.94) mg/dL Free Lambda LC, Quant (0.57-2.63) mg/dL 12/27/20 Range/Units 11:49 WBC (3.8-10.6) k/uL RBC (4.30-5.90) m/uL Hgb (13.0-17.5) gm/dL Hct (39.0-53.0) % RDW (11.5-15.5) % Plt Count (150-450) k/uL Neutrophils # (Manual) (1.3-7.7) k/uL Metamyelocytes # (Man) (0) k/uL PT (9.0-12.0) sec INR (<1.2) POC Glucose (mg/dL) 113 H (75-99) mg/dL Hemoglobin A1c (4.0-6.0) % TIBC (228-460) ug/dL % Saturation (15.00-50.00) Ferritin (22.0-322.0) ng/mL Vitamin B12 (200.0-944.0) pg/mL Procalcitonin (0.02-0.09) ng/mL Free [place] LC, Quant (0.33-1.94) mg/dL Free Lambda LC, Quant (0.57-2.63) mg/dL Microbiology - Last 24 Hours (Table) 12/23/20 13:06 Blood Culture - Preliminary Blood No Growth after 96 hours 12/25/20 07:33 Blood Culture - Preliminary Blood No Growth after 48 hours 12/24/20 04:46 Stool Culture - Final Stool 12/24/20 06:12 Blood Culture - Preliminary Blood No Growth after 72 hours Assessment and Plan Plan: ASSESSMENT AND PLAN 1. Sepsis with diarrhea. Patient has been admitted into the intensive care unit and transferred to Cardiac Stepdown unit. Consult with infectious disease appreciated. Noted recommendations for DIMITRY for which patient declined. plan for possible colonoscopy with Dr. Petersen. US abd - possible cholecystitis, surgery consult placed . Patient is currently on ceftriaxone. Blood cultures growing staph bovis. No further growth in subsequent blood cultures Stool specimen to be obtained for culture, C. diff negative and H. pylori pending 2. Streptococcus bacteremia. Consult with Dr. Holder appreciated. Patient is currently on ceftriaxone. DIMITRY recommended but patient declined. Patient does have history of mitral valve replacement and would benefit from IV antibiotics 3. Hyperkalemia, improved. Nephrology consult appreciated 4. Leukopenia, consult oncology. On filgrastim. 5. Thrombocytopenia, chronic most likely exacerbated by sepsis. Status post one unit of platelets on 12/26 Consult with oncology appreciated. 6. End-stage renal disease. Patient maintained on hemodialysis. Nephrology consult appreciated.. Routine transplant medication resumed. 7. History of sarcoidosis with multiorgan involvement status post bilateral lung transplant at [facility] in 2014 . Continue antirejection medication as prescribed at home. 8. DVT of the left lower extremity on chronic Coumadin. Continue Coumadin, pharmacy to dose. Monitor INR. 9. Diabetes mellitus type 2.Currently on diet modification last A1c is 7. 09/15/2020. 10. History of high-grade AV block and paroxysmal atrial fibrillation status post dual-chamber AICD. Continue Coreg at decreased dose of 12.5 mg daily. 11. Hypertension currently with hypotension. Increase midodrine to 5 mg scheduled 3 times daily and continue Coreg 12 Mitral valve replacement on warfarin DISCHARGE PLAN Most likely return home.
--- NOTE | 2020-12-27 16:25 | CONS ---
CONSULTATION DATE OF DICTATION: 12/27/2020 REASON FOR CONSULTATION: Abdominal pain and diarrhea. HISTORY OF PRESENT ILLNESS: The patient is a 60-year-old pleasant -[place] male with history of systemic sarcoidosis with multi-organ involvement, status post bilateral lung transplant at [facility] in 2014, history of end-stage renal disease, on hemodialysis, history of DVT, on Coumadin, who was admitted to the hospital because of fever, some abdominal pain, nausea and diarrhea on and off for the last few days' duration. Subsequently he was diagnosed with streptococcus bacteremia and is at present on broad-spectrum antibiotics. He had a CT of the abdomen and pelvis as well as ultrasound of the abdomen that showed gallstones, but no evidence of acute cholecystitis. There was no evidence of colitis seen. He remains on broad-spectrum antibiotics with Rocephin and Flagyl, and overall his symptoms are getting better. We are consulted for possible colonoscopy during this hospitalization. Currently he is complaining of some left lower quadrant abdominal pain. He reports no nausea or vomiting. He has diarrhea that has gotten worse since he was started on antibiotics. He had about 2-3 loose bowel movements today. No rectal bleeding. He had a colonoscopy approximately 3 years ago, and the patient states it was within normal limits. PAST MEDICAL HISTORY: Significant for systemic sarcoidosis, status post lung transplantation in 2014, history of hypertension, hyperlipidemia, diabetes mellitus, history of DVT, on Coumadin, chronic kidney disease, on hemodialysis. PAST SURGICAL HISTORY: AICD implantation, back surgery, bilateral lung transplant, right hand surgery, AV shunt in the left upper arm for dialysis. SOCIAL HISTORY: No smoking. No alcohol use. FAMILY HISTORY: Father had diabetes mellitus and leukemia. Mother had coronary artery disease and diabetes mellitus. MEDICATIONS: Medications at home include pantoprazole, prednisone, Hytrin, Coreg, Bactrim, valganciclovir, midodrine, Coumadin, magnesium citrate, Coreg, Zofran. ALLERGIES: DEMEROL. REVIEW OF SYSTEMS: CARDIOPULMONARY: He denies any chest pain or shortness of breath. GENITOURINARY: No dysuria or hematuria. MUSCULOSKELETAL: He does complain of some back pain and neck pain. NEUROLOGY: Unremarkable. PSYCHIATRY: Unremarkable. ENT/VISION: Unremarkable. CONSTITUTIONAL: He did have fever, chills, night sweats, which have resolved. GI: As mentioned above. NEPHROLOGY: End-stage renal disease, on dialysis for the last 3 years' duration. PHYSICAL EXAMINATION: He appears comfortable. No apparent distress. VITAL SIGNS: Stable. Blood pressure 123/88, pulse rate 68, temperature 97.8. HEENT examination unremarkable. Conjunctivae pink. Sclerae anicteric. NECK: No JVD or lymph node enlargement. CHEST: Clear to auscultation. HEART: Regular rate and rhythm. ABDOMEN: Soft. It was tender the left lower quadrant area. Rest of the abdomen was benign. Bowel sounds are positive. Small umbilical hernia noted. EXTREMITIES: No pedal edema. SKIN: No rashes. NEUROLOGIC: Alert and oriented x3. No focal deficits. LABS: Blood cultures showed Streptococcus bovis bacteremia. WBC at the time of admission to the hospital was 0.7, hemoglobin 10.5, platelets 45,000. Today WBC is 2.1, hemoglobin 10.2, and platelets 53,000. INR 2.1. AST, ALT normal. Alkaline phosphatase 156. T- bilirubin is normal. C difficile is negative. Coronavirus PCR is negative. IMPRESSION: 1. Streptococcus bovis bacteremia, for which the patient at present is on Rocephin and Flagyl, and patient's overall clinical condition is gradually improving. A DIMITRY as well as colonoscopy was recommended because of the Streptococcus bovis bacteremia, but patient at this time is refusing to have a DIMITRY. His last colonoscopy was approximately 3 years ago and was within normal limits. 2. Mild left lower quadrant abdominal pain and diarrhea for the last 3-4 days' duration. C difficile toxin is negative. Probably some of the diarrhea is related to antibiotic use. 3. History of pancytopenia, which is gradually improving. 4. History of systemic sarcoidosis with double lung transplant in 2015. 5. End-stage renal disease, on hemodialysis. 6. Neutropenia, on filgrastim. RECOMMENDATIONS: 1. Continue with broad-spectrum antibiotics. 2. Continue with Questran one packet twice daily. 3. I did discuss colonoscopy with the patient, but at this time, given his overall clinical condition, he is not a good candidate to undergo endoscopic intervention at the present time. I did suggest that once his symptoms improve and bacteremia resolves, we will do a colonoscopy on an outpatient basis, and he is agreeable with that plan. In the meantime, continue with symptomatic and supportive care. Monitor labs closely. We will follow with you. Thank you for this consultation. MMODL / IJN: [id number] /
[2020-12-27 16:54] LABS: Glucose,Whole Blood 224 mg/dL (75-99)
[2020-12-27] MEDS: FILGRASTIM-SNDZ 480 MCG/0.8 ML SYRINGE SQ SCH (17:38)
[2020-12-27] MEDS ORDERED: WARFARIN 2.5 MG TAB PO ONE (18:00)
[2020-12-27 20:44] LABS: Glucose,Whole Blood 208 mg/dL (75-99)
[2020-12-27] MEDS: INSULIN ASPART (NovoLOG) 100 UNIT/ML VIAL SQ SCH (21:22)
--- NOTE | 2020-12-27 22:08 | PN ---
PROGRESS NOTE DATE OF SERVICE: 12/27/2020 REASON FOR FOLLOWUP: Streptococcus bovis bacteremia. INTERVAL HISTORY: The patient is currently afebrile, has been breathing comfortably. The patient denies having any chest pain or shortness of breath or cough. No nausea, no vomiting, no abdominal pain or diarrhea. PHYSICAL EXAMINATION: Blood pressure 130/65, pulse of 69, temperature 98. He is 99% on room air. General description is a middle-aged male lying in bed in no distress. RESPIRATORY SYSTEM: Unlabored breathing. Clear to auscultation. HEART: S1, S2. Regular rate and rhythm. A ABDOMEN: Soft. No tenderness. LABS: Hemoglobin is 10.3, white count 2.1. Blood culture repeat has been negative so far. DIAGNOSTIC IMPRESSION AND PLAN: Patient with Streptococcus bovis bacteremia, which is usually of gut origin and associated with endocarditis. Patient does have risk factors, as the patient did have a mitral valve repair. Unfortunately the patient has been refusing DIMITRY. I tried to explain to the patient in layman's terms one more time; however, he continues to refuse. Because of high clinical suspicion for possible endocarditis, I recommend at least 4 weeks of IV antibiotic therapy. Ideally would have used the Rocephin 2 grams daily; however, in view of the patient being dialysis-dependent and to avoid any PICC line placement, may switch him over to vancomycin, Pharmacy to dose, which can be done through dialysis for a total of 4 weeks from his negative blood cultures. Continue with supportive care. MMANTONIAL / IJN: [id number] /
[2020-12-28] MEDS: ACETAMINOPHEN TAB 325 MG TAB PO PRN ×2 (05:30→11:40)
[2020-12-28 06:20] LABS: Glucose,Whole Blood 101 mg/dL (75-99)
[2020-12-28] MEDS: CALCIUM CARB-MAG CARB-FOLIC 1 EACH TAB PO SCH ×3 (06:23→17:19)
[2020-12-28] MEDS: PANTOPRAZOLE 40 MG TABLET PO SCH (06:23)
[2020-12-28] MEDS: INSULIN ASPART (NovoLOG) 100 UNIT/ML VIAL SQ SCH ×3 (06:29→17:08)
[2020-12-28] MEDS: MIDODRINE 5 MG TAB PO SCH ×3 (06:29→17:08)
[2020-12-28 07:01] LABS: Methylmalonic Acid 0.54 umol/L (<0.40)
[2020-12-28] MEDS ORDERED: INSULIN ASPART (NovoLOG) 100 UNIT/ML VIAL SQ SCH (07:30)
[2020-12-28 08:13] LABS: HCT 32.7 % (39.0-53.0); Hypochromasia Slight; MCH 30.9 pg (25.0-35.0); MCHC 30.5 g/dL (31.0-37.0); MCV 101.4 fL (80.0-100.0); Macrocytosis Slight; Mean Platelet Volume 11.4; RBC 3.22 m/uL (4.30-5.90); RDW 15.8 % (11.5-15.5); WBC 4.1 k/uL (3.8-10.6)
[2020-12-28 08:23] LABS: Platelet Count 57 k/uL (150-450)
[2020-12-28 08:26] VITALS: RESP 18
[2020-12-28 08:27] LABS: INR 2.4 (<1.2)
[2020-12-28] MEDS: CHOLESTYRAMINE (WITH SUGAR) 4 GM PACKET PO SCH (08:28)
[2020-12-28] MEDS: LACTOBACILLUS ACIDOPH & BULGAR 1 EACH PACKET PO SCH ×3 (08:28→17:08)
[2020-12-28] MEDS: SULFAMETHOX-TMP 400-80MG 1 EACH TAB PO SCH (08:29)
[2020-12-28] MEDS: predniSONE 5 MG TAB PO SCH (08:29)
[2020-12-28] MEDS: FOLIC ACID-VIT B COMPLEX-VIT C 1 CAP PO SCH (08:29)
[2020-12-28] MEDS: metroNIDAZOLE 500 MG TAB PO SCH ×2 (08:29→15:42)
[2020-12-28] MEDS: TACROLIMUS 1 MG CAP PO SCH (08:30)
--- NOTE | 2020-12-28 09:26 | P.PN ---
Subjective Patient is seen in follow-up for end-stage renal disease. He is maintained on hemodialysis on Saturday schedule. No edema. No fever or chills. Continues to complain of mild abdominal discomfort. Tolerating oral intake. No cough. Hemodynamically stable. Scheduled for dialysis today. Vital signs are stable. General: The patient appeared well nourished and normally developed. HEENT: Head exam is unremarkable. Neck is without jugular venous distension. LUNGS: Breath sounds decreased. HEART: Rate and Rhythm are regular. ABDOMEN: Soft, nontender. EXTREMITITES: No edema. Objective - Vital Signs Vital signs: Vital Signs Temp 97.5 F L 12/28/20 08:00 Pulse 61 12/28/20 08:00 Resp 18 12/28/20 08:00 BP 115/66 12/28/20 08:00 Pulse Ox 99 12/28/20 08:00 Intake & Output 12/27/20 12/28/20 12/28/20 18:59 06:59 18:59 Intake Total 660 200 180 Balance 660 200 180 Weight 71.8 kg Intake: Oral 660 200 180 Other: # Voids 0 # Bowel Movements 0 - Labs CBC & Chem 7: 12/28/20 07:39 12/26/20 09:29 Labs: Abnormal Lab Results - Last 24 Hours (Table) 12/22/20 12/26/20 12/26/20 Range/Units 23:22 06:25 06:25 WBC (3.8-10.6) k/uL RBC (4.30-5.90) m/uL Hgb (13.0-17.5) gm/dL Hct (39.0-53.0) % MCV (80.0-100.0) fL MCHC (31.0-37.0) g/dL RDW (11.5-15.5) % Plt Count (150-450) k/uL Neutrophils # (Manual) (1.3-7.7) k/uL Metamyelocytes # (Man) (0) k/uL PT (9.0-12.0) sec INR (<1.2) POC Glucose (mg/dL) (75-99) mg/dL Methylmalonic Acid 0.54 H (<0.40) umol/L RBC Folate 1,190 H (280 - 791) ng/mL Procalcitonin 61.17 H (0.02-0.09) ng/mL Free [place] LC, Quant 18.10 H (0.33-1.94) mg/dL 12/27/20 12/27/20 12/27/20 Range/Units 08:03 08:03 11:49 WBC 2.1 L (3.8-10.6) k/uL RBC 3.19 L (4.30-5.90) m/uL Hgb 10.2 L (13.0-17.5) gm/dL Hct 31.5 L (39.0-53.0) % MCV (80.0-100.0) fL MCHC (31.0-37.0) g/dL RDW 15.9 H (11.5-15.5) % Plt Count 53 L D (150-450) k/uL Neutrophils # (Manual) 0.48 L* (1.3-7.7) k/uL Metamyelocytes # (Man) 0.02 H (0) k/uL PT 20.6 H (9.0-12.0) sec INR 2.1 H (<1.2) POC Glucose (mg/dL) 113 H (75-99) mg/dL Methylmalonic Acid (<0.40) umol/L RBC Folate (280 - 791) ng/mL Procalcitonin (0.02-0.09) ng/mL Free [place] LC, Quant (0.33-1.94) mg/dL 12/27/20 12/27/20 12/28/20 Range/Units 16:51 20:43 06:18 WBC (3.8-10.6) k/uL RBC (4.30-5.90) m/uL Hgb (13.0-17.5) gm/dL Hct (39.0-53.0) % MCV (80.0-100.0) fL MCHC (31.0-37.0) g/dL RDW (11.5-15.5) % Plt Count (150-450) k/uL Neutrophils # (Manual) (1.3-7.7) k/uL Metamyelocytes # (Man) (0) k/uL PT (9.0-12.0) sec INR (<1.2) POC Glucose (mg/dL) 224 H 208 H 101 H (75-99) mg/dL Methylmalonic Acid (<0.40) umol/L RBC Folate (280 - 791) ng/mL Procalcitonin (0.02-0.09) ng/mL Free [place] LC, Quant (0.33-1.94) mg/dL 12/28/20 12/28/20 Range/Units 07:39 07:39 WBC (3.8-10.6) k/uL RBC 3.22 L (4.30-5.90) m/uL Hgb 10.0 L (13.0-17.5) gm/dL Hct 32.7 L (39.0-53.0) % MCV 101.4 H (80.0-100.0) fL MCHC 30.5 L (31.0-37.0) g/dL RDW 15.8 H (11.5-15.5) % Plt Count 57 L (150-450) k/uL Neutrophils # (Manual) (1.3-7.7) k/uL Metamyelocytes # (Man) (0) k/uL PT 23.0 H (9.0-12.0) sec INR 2.4 H (<1.2) POC Glucose (mg/dL) (75-99) mg/dL Methylmalonic Acid (<0.40) umol/L RBC Folate (280 - 791) ng/mL Procalcitonin (0.02-0.09) ng/mL Free [place] LC, Quant (0.33-1.94) mg/dL Microbiology - Last 24 Hours (Table) 12/24/20 06:12 Blood Culture - Preliminary Blood No Growth after 96 hours 12/24/20 04:46 Stool Culture - Final Stool 12/23/20 13:06 Blood Culture - Preliminary Blood No Growth after 96 hours 12/25/20 07:33 Blood Culture - Preliminary Blood No Growth after 48 hours Assessment and Plan Plan: Assessment: 1. End-stage renal disease maintained on hemodialysis on Saturday schedule. 2. History of lung transplant at [facility]. Maintained on Prograf and prednisone. 3. Strep bacteremia maintained on antibiotics. Infectious disease following. Echocardiogram noted. 4. Diarrhea. Better. C. diff negative. GI following. 5. 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 Phosphorus 5.9. 6. Pancytopenia due to comorbidities as well as medication side effects. Hematology/oncology following. Plan: Hemodialysis today. Patient refusing DIMITRY due to history of trach and vocal cord surgery in the past.
[2020-12-28] MEDS ORDERED: CHOLESTYRAMINE (WITH SUGAR) 4 GM PACKET PO SCH (10:00)
[2020-12-28 11:04] LABS: Band Neutrophils % 4 %; Eosinophils # (M) 0.04 k/uL (0-0.7); Lymphocytes # (M) 1.93 k/uL (1.0-4.8); Metamyelocytes # (M) 0.16 k/uL (0); Metamyelocytes % 4 %; Monocytes # (M) 0.74 k/uL (0-1.0); Myelocytes # (M) 0.12 k/uL (0); Myelocytes % 3 %; Neutrophils % (M) 23 %; Nucleated Red Blood Cells 0 /100 WBC (0-0); Promyelocytes # (M) 0.08 k/uL (0); Promyelocytes % 2 %; Total Cells Counted 200
[2020-12-28 11:05] LABS: Poikilocytosis (M) Present
[2020-12-28 11:06] LABS: Rouleaux Present
--- NOTE | 2020-12-28 11:28 | P.PN ---
Subjective Progress Note Date: 12/28/20 Principal diagnosis: Cholelithiasis seen on CT report Sanjay is a 60-year-old pleasant -[place] male was admitted to the hospital as a fever, abdominal pain nausea and diarrhea on and off for the last few days duration. He was with a streptococcus bacteremia and presently on broad-spectrum antibiotics. CT of the abdomen and pelvis as well as ultrasound of the abdomen showed gallstones but no evidence of acute cholecystitis. No evidence of colitis. He remains on broad-spectrum antibiotics with Rocephin and Flagyl and symptoms are improving. Today he states that he has mostly a right flank pain which she feels only got worse once the antibiotics were started. He states with the Questran he is now feeling that he is having some constipation, states he had 3 bowel movements yesterday which she states are more formed. He is asking to reduce the Questran dosage due to feeling constipated. Objective - Vital Signs Vital signs: Vital Signs Temp 97.5 F L 12/28/20 08:00 Pulse 61 12/28/20 08:00 Resp 18 12/28/20 08:00 BP 115/66 12/28/20 08:00 Pulse Ox 99 12/28/20 08:00 Intake & Output 12/27/20 12/28/20 12/28/20 18:59 06:59 18:59 Intake Total 660 200 180 Balance 660 200 180 Weight 71.8 kg Intake: Oral 660 200 180 Other: # Voids 0 # Bowel Movements 0 - Exam General appearance: The patient is alert, oriented, appears in no acute distress. HET: Head is normocephalic and atraumatic. Conjunctiva pink. Sclera anicteric. Neck: Supple without lymphadenopathy. Abdomen: Soft, nontender, nondistended with bowel sounds. No guarding or rigidity. Extremities: Normal skin color and turgor. No pedal edema Skin: No rashes, no jaundice Neurological: No focal deficits. Alert and oriented 3. - Labs CBC & Chem 7: 12/28/20 07:39 12/26/20 09:29 Labs: Abnormal Lab Results - Last 24 Hours (Table) 12/22/20 12/26/20 12/27/20 Range/Units 23:22 06:25 08:03 WBC 2.1 L (3.8-10.6) k/uL RBC 3.19 L (4.30-5.90) m/uL Hgb 10.2 L (13.0-17.5) gm/dL Hct 31.5 L (39.0-53.0) % MCV (80.0-100.0) fL MCHC (31.0-37.0) g/dL RDW 15.9 H (11.5-15.5) % Plt Count 53 L D (150-450) k/uL Neutrophils # (Manual) 0.48 L* (1.3-7.7) k/uL Metamyelocytes # (Man) 0.02 H (0) k/uL PT (9.0-12.0) sec INR (<1.2) POC Glucose (mg/dL) (75-99) mg/dL Methylmalonic Acid 0.54 H (<0.40) umol/L RBC Folate 1,190 H (280 - 791) ng/mL Procalcitonin 61.17 H (0.02-0.09) ng/mL 12/27/20 12/27/20 12/27/20 Range/Units 11:49 16:51 20:43 WBC (3.8-10.6) k/uL RBC (4.30-5.90) m/uL Hgb (13.0-17.5) gm/dL Hct (39.0-53.0) % MCV (80.0-100.0) fL MCHC (31.0-37.0) g/dL RDW (11.5-15.5) % Plt Count (150-450) k/uL Neutrophils # (Manual) (1.3-7.7) k/uL Metamyelocytes # (Man) (0) k/uL PT (9.0-12.0) sec INR (<1.2) POC Glucose (mg/dL) 113 H 224 H 208 H (75-99) mg/dL Methylmalonic Acid (<0.40) umol/L RBC Folate (280 - 791) ng/mL Procalcitonin (0.02-0.09) ng/mL 12/28/20 12/28/20 12/28/20 Range/Units 06:18 07:39 07:39 WBC (3.8-10.6) k/uL RBC 3.22 L (4.30-5.90) m/uL Hgb 10.0 L (13.0-17.5) gm/dL Hct 32.7 L (39.0-53.0) % MCV 101.4 H (80.0-100.0) fL MCHC 30.5 L (31.0-37.0) g/dL RDW 15.8 H (11.5-15.5) % Plt Count 57 L (150-450) k/uL Neutrophils # (Manual) (1.3-7.7) k/uL Metamyelocytes # (Man) (0) k/uL PT 23.0 H (9.0-12.0) sec INR 2.4 H (<1.2) POC Glucose (mg/dL) 101 H (75-99) mg/dL Methylmalonic Acid (<0.40) umol/L RBC Folate (280 - 791) ng/mL Procalcitonin (0.02-0.09) ng/mL Microbiology - Last 24 Hours (Table) 12/24/20 06:12 Blood Culture - Preliminary Blood No Growth after 96 hours 12/24/20 04:46 Stool Culture - Final Stool 12/23/20 13:06 Blood Culture - Preliminary Blood No Growth after 96 hours 12/25/20 07:33 Blood Culture - Preliminary Blood No Growth after 48 hours Assessment and Plan (1) Abdominal pain Narrative/Plan: Mild left lower quadrant abdominal pain and diarrhea for last 3-4 days duration. C. difficile toxin is negative. Probably some of the diarrhea is related to antibiotic use. He was started on Questran twice a day, now complains of feeling constipated. Diarrhea has improved. Current Visit: Yes Status: Acute Code(s): R10.9 - UNSPECIFIED ABDOMINAL PAIN SNOMED Code(s): 70379151 (2) Fever Narrative/Plan: Streptococcus bovis bacteremia for which the patient at present is on Rocephin and Flagyl. His overall clinical condition is gradually improving. A DIMITRY as well as colonoscopy was recommended because of the Streptococcus bovis bacteremia but patient at this time is refusing to have a DIMITRY. His last colonoscopy was approximately 3 years ago was within normal limits. Current Visit: Yes Status: Acute Code(s): R50.9 - FEVER, UNSPECIFIED SNOMED Code(s): 075464856 (3) Pancytopenia Current Visit: Yes Status: Chronic Priority: High Code(s): D61.818 - OTHER PANCYTOPENIA SNOMED Code(s): 242171560 (4) Neutropenia Narrative/Plan: On Filgrastim Current Visit: Yes Status: Resolved Priority: High Code(s): D70.9 - NEUTROPENIA, UNSPECIFIED SNOMED Code(s): 291927830 (5) CRF (chronic renal failure) Current Visit: No Status: Acute Code(s): N18.9 - CHRONIC KIDNEY DISEASE, UNSPECIFIED SNOMED Code(s): 59191831 (6) Sarcoidosis Narrative/Plan: With history of double lung transplant 2014 Current Visit: No Status: Acute Code(s): D86.9 - SARCOIDOSIS, UNSPECIFIED SNOMED Code(s): 87251614 Plan: 1. Continue broad-spectrum antibiotics per infectious disease recommendations 2. Continue with Questran, however will decrease to once daily per request of patient 3. Colonoscopy was discussed with the patient however at this time given overall clinical conditions not a good candidate to undergo endoscopic intervention at the present time it was recommended that once his symptoms improve and bacteremia resolves he can have an outpatient colonoscopy and is a greeable with that plan. Recommend follow-up with gastroenterology in 4 weeks. Thank you for this consultation, we will sign off at this time. Dr. Marina Petersen I agree with the dictator's note, documented as a scribe by Allyson Arizmendi.
[2020-12-28 11:34] VITALS: PULSE 66; TEMP 97.8
--- NOTE | 2020-12-28 11:44 | P.PN ---
Subjective Progress Note Date: 12/28/20 Principal diagnosis: pancytopenia Pt has no physical c/o today on a 10 point ROS. Denies any bleeding Objective - Vital Signs Vital signs: Vital Signs Temp 97.5 F L 12/28/20 08:00 Pulse 61 12/28/20 08:00 Resp 18 12/28/20 08:00 BP 115/66 12/28/20 08:00 Pulse Ox 99 12/28/20 08:00 Intake & Output 12/27/20 12/28/20 12/28/20 18:59 06:59 18:59 Intake Total 660 200 180 Balance 660 200 180 Weight 71.8 kg Intake: Oral 660 200 180 Other: # Voids 0 # Bowel Movements 0 - Constitutional General appearance: Present: cooperative, no acute distress, thin - EENT Eyes: Present: anicteric sclerae, edentulous ENT: Present: hearing grossly normal - Respiratory Details: resp even and unlabored - Peripheral edema leg Peripheral Edema: bilateral: None - Neurologic Neurologic: Present: CNII-XII intact - Musculoskeletal Musculoskeletal: Present: strength equal bilaterally - Psychiatric Psychiatric: Present: A&O x's 3, appropriate affect, intact judgment & insight - Labs CBC & Chem 7: 12/28/20 07:39 12/26/20 09:29 Labs: Abnormal Lab Results - Last 24 Hours (Table) 12/22/20 12/26/20 12/27/20 Range/Units 23:22 06:25 08:03 RBC (4.30-5.90) m/uL Hgb (13.0-17.5) gm/dL Hct (39.0-53.0) % MCV (80.0-100.0) fL MCHC (31.0-37.0) g/dL RDW (11.5-15.5) % Plt Count 53 L D (150-450) k/uL Neutrophils # (Manual) 0.48 L* (1.3-7.7) k/uL Metamyelocytes # (Man) 0.02 H (0) k/uL PT (9.0-12.0) sec INR (<1.2) POC Glucose (mg/dL) (75-99) mg/dL Methylmalonic Acid 0.54 H (<0.40) umol/L RBC Folate 1,190 H (280 - 791) ng/mL Procalcitonin 61.17 H (0.02-0.09) ng/mL 12/27/20 12/27/20 12/27/20 Range/Units 11:49 16:51 20:43 RBC (4.30-5.90) m/uL Hgb (13.0-17.5) gm/dL Hct (39.0-53.0) % MCV (80.0-100.0) fL MCHC (31.0-37.0) g/dL RDW (11.5-15.5) % Plt Count (150-450) k/uL Neutrophils # (Manual) (1.3-7.7) k/uL Metamyelocytes # (Man) (0) k/uL PT (9.0-12.0) sec INR (<1.2) POC Glucose (mg/dL) 113 H 224 H 208 H (75-99) mg/dL Methylmalonic Acid (<0.40) umol/L RBC Folate (280 - 791) ng/mL Procalcitonin (0.02-0.09) ng/mL 12/28/20 12/28/20 12/28/20 Range/Units 06:18 07:39 07:39 RBC 3.22 L (4.30-5.90) m/uL Hgb 10.0 L (13.0-17.5) gm/dL Hct 32.7 L (39.0-53.0) % MCV 101.4 H (80.0-100.0) fL MCHC 30.5 L (31.0-37.0) g/dL RDW 15.8 H (11.5-15.5) % Plt Count 57 L (150-450) k/uL Neutrophils # (Manual) (1.3-7.7) k/uL Metamyelocytes # (Man) (0) k/uL PT 23.0 H (9.0-12.0) sec INR 2.4 H (<1.2) POC Glucose (mg/dL) 101 H (75-99) mg/dL Methylmalonic Acid (<0.40) umol/L RBC Folate (280 - 791) ng/mL Procalcitonin (0.02-0.09) ng/mL Microbiology - Last 24 Hours (Table) 12/25/20 07:33 Blood Culture - Preliminary Blood No Growth after 72 hours 12/24/20 06:12 Blood Culture - Preliminary Blood No Growth after 96 hours 12/24/20 04:46 Stool Culture - Final Stool 12/23/20 13:06 Blood Culture - Preliminary Blood No Growth after 96 hours Assessment and Plan (1) FUO (fever of unknown origin) Current Visit: Yes Status: Resolved Priority: High Code(s): R50.9 - FEVER, UNSPECIFIED SNOMED Code(s): 8056525 (2) Leukopenia Narrative/Plan: 2/ marrow suppression from chronic medications. Exacerbated with acute illness. Last dose of GCSF today then DC. Pt encouraged to cont weekly GCSF injections outpt Current Visit: Yes Status: Resolved Priority: High Code(s): D72.819 - DECREASED WHITE BLOOD CELL COUNT, UNSPECIFIED SNOMED Code(s): 74063485 (3) Neutropenia Current Visit: Yes Status: Resolved Priority: High Code(s): D70.9 - NEUTROPENIA, UNSPECIFIED SNOMED Code(s): 999553667 (4) Pancytopenia Narrative/Plan: GCSF for neutropenia-last dose today Hgb is stable Platelet transfusion for plt <40,000 with therapeutic INR-plt 57,000 today Daily CBC, transfuse to keep plt >40,000 Daily PT/INR Elevated K/L, ferritin, B12, folate, MMA. MARY and rheumatoid neg. Findings m ost suggestive of CKD and chronic inflammation. Few studies studies still pending. CBC is returning to baseline as he is treated for infection-low but adequate numbers. Current Visit: Yes Status: Chronic Priority: High Code(s): D61.818 - OTHER PANCYTOPENIA SNOMED Code(s): 516759135 Plan: Pt has Hx of LLE DVT, repeat doppler no acute clot. Pt also has history of clot at fistula site, approx 1 year ago. He has been subtherapeutic on his INR on all but 1 visit to this hospital. Currently, INR 2.4, plt at 57,000 today, Hgb stable. Cont coumadin. Monitor for s/s bleeding. CBC and INR daily.
[2020-12-28 11:55] LABS: Glucose,Whole Blood 127 mg/dL (75-99)
[2020-12-28 14:09] LABS: Albumin 3.23 g/dL (3.80-4.90); Gamma Globulin 1.27 g/dL (0.70-1.50)
--- NOTE | 2020-12-28 14:11 | P.DS ---
Providers Date of admission: 12/23/20 00:52 Expected date of discharge: 12/28/20 Attending physician: Jean-Paul Monroe Consults: 12/23/20 00:50 Consult Physician Routine Consulting Provider: Rashmi Holder Consult Reason/Comments: sepsis Do you want consulting provider notified?: Yes Consult Physician Urgent Consulting Provider: Niharika Peters Consult Reason/Comments: ckd/arfHyperK Do you want consulting provider notified?: Yes 12/23/20 00:51 Consult Physician Urgent Consulting Provider: Ken Hairston Consult Reason/Comments: known Do you want consulting provider notified?: Yes 12/27/20 01:18 Consult Physician Routine Consulting Provider: Nicole Petersen Consult Reason/Comments: Abdominal US showed gallstones and cholecystitis Do you want consulting provider notified?: Yes, Notify in am 12/27/20 14:24 Consult Physician Routine Consulting Provider: Elsa Ghosh Consult Reason/Comments: cholecystitis Do you want consulting provider notified?: Yes Primary care physician: [facility] Course: HISTORY OF PRESENT ILLNESS This is a 59-year-old -L[place] male patient of Dr. 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 Desai, DVT of the left lower extremity on Coumadin, hypertension, diabetes mellitus type 2, high-grade AV block and paroxysmal atrial fibrillation status post dual-chamber AICD, hypertension, chronic diastolic heart failure, pulmonary hypertension and chronic cor pulmonale, chronic thrombocytopenia, patient reported history of mitral valve replacement. Patient also has history of sepsis with streptococcal bacteremia. Patient presented to [facility] emergency center due to fever and diarrhea that he has had for weeks now. He denies any nausea vomiting. He states he has diarrhea 3 times per day. He also is not urinating. He states he drinks 1 glass of water per day. Patient presented with fever of 102.9, heart rate 84, blood pressure 132/75, pulse ox 99% on room air. WBC 0.8, hemoglobin 12.2, platelet count 62. INR 1.6. Initial potassium 7.2 which was rechecked at 4.7 status post Kayexalate, dextrose, regular insulin. Sodium 133, chloride 95, CO2 27, BUN 71 creatinine 12.87. Alkaline phosphatase 202. LDH 815. C-reactive protein 50. Patient refused to have COVID19 testing. Patient admitted to the cardiac stepdown unit and consults requested with nephrology, oncology and infectious disease. 12/24: Patient still has some any loose stools at least 4 times per day, brown, non-malodorous, patient has at least 5 C. diff infections in the past, patient thinks that he should be back on valganciclovir for his Clostridium difficile A, patient also takes that he is on the wrong medication for his leukopenia, patient requests Neupogen, however oncology has put him onZarvio he seems to be very impatient, patient has no nausea diminished appetite, no weakness no lightheadedness, patient has positive blood cultures growing nonhemolytic strep, patient was seen by Dr. Mitchell for which recommendation is to go off Zosyn, and start vancomycin. Patient is on Coumadin 2.75 mg once tonight, pharmacy dosing Coumadin. Started on Questran 4 g twice a day, start on Lactinex, and brachial GERD. Stools for C. diff are negative, final patient agreed on getting another Covid test done as baseline during this hospitalization. 12/25: Patient so much better, still with liquid stools, repeat times still taking the Questran first dose was last night., no fever no chills, appetite is much better, no lightheadedness no dizziness, blood cultures growing strep b ovis, per Dr. Holder, this has been increased linkage to known colon cancer, patient has colonoscopy 3 years ago, however his previous colonoscopy recommended it done every year. Saw Dr. Petersen in the past for colonoscopy. Double basic count back to 1.7 hemoglobin 10.7 platelet count 41, INr 1.9, Vanco trough 23 blood sugars between 164-224 12/26: Repeat blood work reveals WBC 2, hemoglobin 11. INR 2.6. Potassium 4.4, CO2 17, BUN 76 and creatinine 16.5. Blood sugars running between 84 and 168. Alkaline phosphatase 156. Dr. Holder has recommended DIMITRY as possible source of Streptococcus bacteremia may be endocarditis as well as he recommended colonoscopy. Patient is continued on Rocephin. Dr. Chopra discussed in detail with the patient the need for DIMITRY and colonscopy. He is refusing to have either done. He will only have DIMITRY at [facility]. His last colonoscopy was 3 years ago. 12/27 Patient examined at bedside. Patient has some right upper quad pain that was treated with tylenol. US abd ordered yesterday suggested cholecystitis and gallbladder thickening. Subcapsular fluid was seen on the right kidney. Patient had computed tomography scan that also demonstrated 3.8 into 2.8-5 cm right perinephritic fluid collection which appeared reduced in signs compared to the CAT scan in August 2020. Patient does suggest that he is seeing [facility] for the fluid collection with plan to remove kidney if there is no resolution. Surgery consulted for cholecystitis as patient continues to have abdominal pain. Dr. Rajan consulted for possible colonoscopy while inpatient. Discussed the case with infectious disease in detail who recommended surgery consult and gastroenterology consult for possible cholecystectomy and colonoscopy. Patient to follow-up with [facility] for further management. Patient's repeat blood culture has been negative for 72 hours with plan to discharge him on IV antibiotics as patient has history of mitral valve replacement 12/28: Dr. Holder is recommended Vanco for 4 week course starting from December 23. Patient will have this following Saturday dialysis treatment. Patient is scheduled to follow-up with Dr. Petersen and arrange for outpatient colonoscopy. Patient does have an clinic coming up for transplant team and the issue of DIMITRY will be addressed at that time. She is afebrile, heart rate 61, blood pressure 115/66, pulse ox 99% on room air. CBC 4.1, hemoglobin 10, platelet count 57. INR 2.4. Blood sugars running between 101 and 208. ASSESSMENT AND PLAN 1. Sepsis secondary to streptococcus bacteremia along with diarrhea. 2. Streptococcus bacteremia. 3. Hyperkalemia 4. Leukopenia 5. Thrombocytopenia, chronic most likely exacerbated by sepsis. 6. End-stage renal disease. 7. History of sarcoidosis with multiorgan involvement status post bilateral lung transplant at [facility] in 2014. 8. Diabetes mellitus type 2. 9. History of high-grade AV block and paroxysmal atrial fibrillation status post dual-chamber AICD. 10. Hypertension DISCHARGE PLAN Home Impression and plan of care have been directed as dictated by the signing physician. Sydney Gallegos nurse practitioner acting as scribe for signing physician. Patient Condition at Discharge: Serious Plan - Discharge Summary New Discharge Prescriptions: New Vancomycin 1,000 mg IVPB MOWEFR #10 bag Lactobacillus Acidoph & Bulgar [Lactinex] 1 each PO QID packet Continue Pantoprazole Sodium 40 mg PO DAILY predniSONE 5 mg PO DAILY Lidocaine-Prilocaine Cream [Emla Cream 2.5%/2.5%] 1 applic TOPICAL DAILY PRN PRN Reason: PORT ACCESS BEFORE DIALYSIS Ammonium Lactate Cream [Lac-Hydrin 12% Cream] 1 applic TOPICAL BID PRN PRN Reason: Dry Skin Valganciclovir HCl 900 mg PO MOWEFR Sulfamethox-Tmp 400-80Mg [Bactrim SS 400-80 mg] 1 tab PO MOWEFR Midodrine [ProAmatine] 5 mg PO MOWEFR Warfarin [Coumadin] 3.75 mg PO SUTUWETHFRSA Warfarin [Coumadin] 2.5 mg PO MO Carvedilol [Coreg] 25 mg PO SUTUTHSA@0800,1800 Ondansetron [Zofran] 4 mg PO TID PRN PRN Reason: Nausea And Vomiting Calcium Carb-Mag Carb-Folic [Magnebind 400] 1 tab PO QID Triphrocaps 1 tab PO DAILY Tacrolimus [Prograf] 3 mg PO BID Changed Carvedilol [Coreg] 12.5 mg PO MOWEFR@1800 #0 Discharge Medication List Pantoprazole Sodium 40 mg PO DAILY 01/04/17 [History] predniSONE 5 mg PO DAILY 04/29/18 [History] Lidocaine-Prilocaine Cream [Emla Cream 2.5%/2.5%] 1 applic TOPICAL DAILY PRN 12/29/19 [History] Ammonium Lactate Cream [Lac-Hydrin 12% Cream] 1 applic TOPICAL BID PRN 08/16/20 [History] Sulfamethox-Tmp 400-80Mg [Bactrim SS 400-80 mg] 1 tab PO MOWEFR 08/16/20 [History] Valganciclovir HCl 900 mg PO MOWEFR 08/16/20 [History] Midodrine [ProAmatine] 5 mg PO MOWEFR 08/17/20 [History] Warfarin [Coumadin] 2.5 mg PO MO 08/17/20 [History] Warfarin [Coumadin] 3.75 mg PO SUTUWETHFRSA 08/17/20 [History] Calcium Carb-Mag Carb-Folic [Magnebind 400] 1 tab PO QID 12/22/20 [History] Carvedilol [Coreg] 25 mg PO SUTUTHSA@0800,1800 12/22/20 [History] Ondansetron [Zofran] 4 mg PO TID PRN 12/22/20 [History] Triphrocaps 1 tab PO DAILY 12/22/20 [History] Tacrolimus [Prograf] 3 mg PO BID 12/23/20 [History] Carvedilol [Coreg] 12.5 mg PO MOWEFR@1800 #0 12/28/20 [Rx] Lactobacillus Acidoph & Bulgar [Lactinex] 1 each PO QID packet 12/28/20 [Rx] Vancomycin 1,000 mg IVPB MOWEFR #10 bag 12/28/20 [Rx] Follow up Appointment(s)/Referral(s): Ken Hairston MD [STAFF PHYSICIAN] - 01/26/21 2:45 pm Hernán Qureshi DO [Primary Care Provider] - 1 Week Ambulatory/Diagnostic Orders: Basic Metabolic Panel [LAB.AMB] Location: None Selected Complete Blood Count w/diff [LAB.AMB] Location: None Selected Vancomycin,Trough [LAB.AMB] Location: None Selected Activity/Diet/Wound Care/Special Instructions: IV Vancomyin with dialysis on ,, Follow up with Dr. Marina Petersen as scheduled, Transplant meeting on 01/11. Discharge Disposition: HOME SELF-CARE
--- NOTE | 2020-12-28 14:54 | P.PN ---
Progress Note - Text Progress Note Date: 12/28/20 HISTORY OF PRESENT ILLNESS Assist a 60-year-old male was been treated for Streptococcus bovis bacteremia. Patient declined having DIMITRY to rule out endocarditis. He has also declined colonoscopy at this time we'll follow up with GI in the outpatient setting. Patient has follow-up appointment for his transplant team and DIMITRY will be addressed at that time. Plan is for vancomycin for a four-week course following dialysis, pharmacy to dose. He is afebrile, heart rate 61, blood pressure 115/66, pulse ox 99% on room air. CBC 4.1, hemoglobin 10, platelet count 57. INR 2.4. patient is scheduled for discharge home. PHYSICAL EXAMINATION Gen: This is a 60-year-old -[place] male. He is resting in bed appears to be comfortable. HEENT: Head is atraumatic, normocephalic. Pupils equal, round. Sclerae is anicteric. NECK: Supple. No JVD. LUNGS: Clear to auscultation. No wheezes or rhonchi. No intercostal retractions. HEART: Regular rate and rhythm. ABDOMEN: Soft. Bowel sounds are present. No masses. No tenderness. EXTREMITIES: No pedal edema. No calf tenderness. NEUROLOGICAL: Patient is awake, alert and oriented x3. ASSESSMENT Streptococcus bovis bacteremia PLAN Vancomycin to complete a four-week course following dialysis, pharmacy to dose The above dictated assessment and findings were discussed with Dr. Holder. The impression and plan of care have been directed as dictated. Sydney Gallegos nurse practitioner acting as scribe for Dr. Holder.
[2020-12-28] MEDS: FILGRASTIM-SNDZ 480 MCG/0.8 ML SYRINGE SQ SCH (15:41)
--- NOTE | 2020-12-28 16:47 | P.GSCN ---
History of Present Illness Consult date: 12/28/20 History of present illness: Patient presented with fever and flank pain, complex medical history with multiple medical comorbidities as detailed in chart. Today he denies any pain, he has no abdominal pain. He denies NV. He states he has some right flank pain Past Medical History Past Medical History: Diabetes Mellitus, Deep Vein Thrombosis (DVT), Hypertension, Renal Disease, Respiratory Disorder (Hx sarciodosis) Additional Past Medical History / Comment(s): See Dr Holman's H&P,Sarcodosis,Hemodialysis MoWeFr,hx dvt left leg. 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 COLONOSCOPY. RT HAND SURGERY. HEMODIALYSIS CATH. AV SHUNT LT UPPER ARM- 06/11/17 Past Anesthesia/Blood Transfusion Reactions: Motion Sickness Type of Cardiac Device: Permanent Pacemaker, AICD Device Placement Date:: 03-28-2011 Past Psychological History: No Psychological Hx Reported Smoking Status: Never smoker Past Alcohol Use History: None Reported Additional Past Alcohol Use History / Comment(s): Patient states that he is a lifelong nonsmoker. No marijuana, illicit drug use or alcohol use. Patient lives alone. Past Drug Use History: None Reported - Past Family History Father Family Medical History: Cancer, Osteoarthritis (OA) Additional Family Medical History / Comment(s): Father is with history of leukemia and sarcoidosis. Strong family history of sarcoidosis on his father's side. Mother Additional Family Medical History / Comment(s): Mother is after her fifth myocardial infarction with history of diabetes. Brother(s) Additional Family Medical History / Comment(s): Patient has a brother and sister with sarcoidosis. Patient has 6 children with no major medical problems. None have been diagnosed with sarcoidosis. Medications and Allergies Home Medications Medication Instructions Recorded Confirmed Type Pantoprazole Sodium 40 mg PO DAILY 01/04/17 12/22/20 History predniSONE 5 mg PO DAILY 04/29/18 12/22/20 History Lidocaine-Prilocaine Cream [Emla 1 applic TOPICAL DAILY PRN 12/29/19 12/22/20 History Cream 2.5%/2.5%] Ammonium Lactate Cream [Lac-Hydrin 1 applic TOPICAL BID PRN 08/16/20 12/22/20 History 12% Cream] Sulfamethox-Tmp 400-80Mg [Bactrim 1 tab PO MOWEFR 08/16/20 12/22/20 History SS 400-80 mg] Valganciclovir HCl 900 mg PO MOWEFR 08/16/20 12/22/20 History Midodrine [ProAmatine] 5 mg PO MOWEFR 08/17/20 12/22/20 History Warfarin [Coumadin] 2.5 mg PO MO 08/17/20 12/22/20 History Warfarin [Coumadin] 3.75 mg PO SUTUWETHFRSA 08/17/20 12/22/20 History Calcium Carb-Mag Carb-Folic 1 tab PO QID 12/22/20 12/22/20 History [Magnebind 400] Carvedilol [Coreg] 25 mg PO SUTUTHSA@0800,1800 12/22/20 12/22/20 History Ondansetron [Zofran] 4 mg PO TID PRN 12/22/20 12/22/20 History Triphrocaps 1 tab PO DAILY 12/22/20 12/22/20 History Tacrolimus [Prograf] 3 mg PO BID 12/23/20 12/23/20 History Carvedilol [Coreg] 12.5 mg PO MOWEFR@1800 #0 12/28/20 12/22/20 Rx Lactobacillus Acidoph & Bulgar 1 each PO QID packet 12/28/20 Rx [Lactinex] Vancomycin 1,000 mg IVPB MOWEFR #10 bag 12/28/20 Rx Allergies Allergy/AdvReac Type Severity Reaction Status Date / Time meperidine [From Demerol] Allergy Rash/Hives Verified 12/22/20 23:44 Surgical - Exam Osteopathic Statement: *. No significant issues noted on an osteopathic structural exam other than those noted in the History and Physical/Consult. Vital Signs Temp Pulse Resp BP Pulse Ox 102.9 F H 84 16 132/75 99 12/22/20 22:23 12/22/20 22:23 12/22/20 22:23 12/22/20 22:23 12/22/20 22:23 - General well nourished, no distress - Cardiovascular Rhythm: regular - Abdomen S/NT/ND - Psychiatric oriented to time, oriented to person, oriented to place Results - Labs 12/28/20 07:39 12/26/20 09:29 Abnormal Lab Results - Last 24 Hours (Table) 12/26/20 12/26/20 12/27/20 Range/Units 06:25 06:25 16:51 RBC (4.30-5.90) m/uL Hgb (13.0-17.5) gm/dL Hct (39.0-53.0) % MCV (80.0-100.0) fL MCHC (31.0-37.0) g/dL RDW (11.5-15.5) % Plt Count (150-450) k/uL Neutrophils # (Manual) (1.3-7.7) k/uL Metamyelocytes # (Man) (0) k/uL Myelocytes # (Manual) (0) k/uL Promyelocytes # (Man) (0) k/uL PT (9.0-12.0) sec INR (<1.2) POC Glucose (mg/dL) 224 H (75-99) mg/dL Albumin (PEP) 3.23 L (3.80-4.90) g/dL Qhwfm-3-Rkaghsaqk 0.43 H (0.10-0.40) g/dL Methylmalonic Acid 0.54 H (<0.40) umol/L RBC Folate 1,190 H (280 - 791) ng/mL 12/27/20 12/28/20 12/28/20 Range/Units 20:43 06:18 07:39 RBC (4.30-5.90) m/uL Hgb (13.0-17.5) gm/dL Hct (39.0-53.0) % MCV (80.0-100.0) fL MCHC (31.0-37.0) g/dL RDW (11.5-15.5) % Plt Count (150-450) k/uL Neutrophils # (Manual) (1.3-7.7) k/uL Metamyelocytes # (Man) (0) k/uL Myelocytes # (Manual) (0) k/uL Promyelocytes # (Man) (0) k/uL PT 23.0 H (9.0-12.0) sec INR 2.4 H (<1.2) POC Glucose (mg/dL) 208 H 101 H (75-99) mg/dL Albumin (PEP) (3.80-4.90) g/dL Iveui-7-Xitpeckmz (0.10-0.40) g/dL Methylmalonic Acid (<0.40) umol/L RBC Folate (280 - 791) ng/mL 12/28/20 12/28/20 Range/Units 07:39 11:49 RBC 3.22 L (4.30-5.90) m/uL Hgb 10.0 L (13.0-17.5) gm/dL Hct 32.7 L (39.0-53.0) % MCV 101.4 H (80.0-100.0) fL MCHC 30.5 L (31.0-37.0) g/dL RDW 15.8 H (11.5-15.5) % Plt Count 57 L (150-450) k/uL Neutrophils # (Manual) 1.10 L (1.3-7.7) k/uL Metamyelocytes # (Man) 0.16 H (0) k/uL Myelocytes # (Manual) 0.12 H (0) k/uL Promyelocytes # (Man) 0.08 H (0) k/uL PT (9.0-12.0) sec INR (<1.2) POC Glucose (mg/dL) 127 H (75-99) mg/dL Albumin (PEP) (3.80-4.90) g/dL Dzpwv-5-Ykbxyzrlv (0.10-0.40) g/dL Methylmalonic Acid (<0.40) umol/L RBC Folate (280 - 791) ng/mL Microbiology - Last 24 Hours (Table) 12/23/20 13:06 Blood Culture - Preliminary Blood No Growth after 120 hours 12/25/20 07:33 Blood Culture - Preliminary Blood No Growth after 72 hours 12/24/20 06:12 Blood Culture - Preliminary Blood No Growth after 96 hours 12/24/20 04:46 Stool Culture - Final Stool Assessment and Plan Assessment: Bacteremia ESRD on HD Plan: No plans for acute surgical intervention. Bacteremia unlikely to be from cholecystitis. Continue ABX per ID, this is a poor surgical candidate and he is having no abdominal pain at this time. If concern for acute cholecystitis persists we would recommend cholecystostomy tube placement.
[2020-12-28 16:53] LABS: Glucose,Whole Blood 104 mg/dL (75-99)
[2020-12-28] MEDS: carvediloL 12.5 MG TAB PO SCH (17:19)
[2020-12-28] MEDS ORDERED: WARFARIN 1.25 MG TAB PO SCH (18:00)
[2020-12-28 22:03] VITALS: BP 134/79
[2021-01-02] MEDS ORDERED: WARFARIN 2.5 MG TAB PO SCH (18:00)
== END 2020-12-28 18:07 | disposition home or self-care (01) | DRG 871 ==
LOC: EC 22:22 → 3SCARD 12-23 00:52
PROVIDERS: ADMIT Internal Medicine Geriatric Medicine; ATTEND Internal Medicine Geriatric Medicine
PROC: 5A1D70Z Performance of Urinary Filtration, Intermittent, Less than 6 Hours Per Day (ICD-10-PCS; principal; 2020-12-28)
DX: A40.9 Streptococcal sepsis, unspecified (principal); N18.6 End stage renal disease; D61.818 Other pancytopenia; I13.2 Hypertensive heart and chronic kidney disease with heart failure and with stage 5 chronic kidney disease, or end stage renal disease; I50.32 Chronic diastolic (congestive) heart failure; Z94.2 Lung transplant status; K80.10 Calculus of gallbladder with chronic cholecystitis without obstruction; E78.5 Hyperlipidemia, unspecified; E11.22 Type 2 diabetes mellitus with diabetic chronic kidney disease; D86.9 Sarcoidosis, unspecified; D70.9 Neutropenia, unspecified; E87.5 Hyperkalemia; Z20.822 Contact with and (suspected) exposure to COVID-19; I27.81 Cor pulmonale (chronic); I27.29 Other secondary pulmonary hypertension; I05.9 Rheumatic mitral valve disease, unspecified; E83.89 Other disorders of mineral metabolism; I48.0 Paroxysmal atrial fibrillation; K59.00 Constipation, unspecified; K21.9 Gastro-esophageal reflux disease without esophagitis; J84.10 Pulmonary fibrosis, unspecified; R79.1 Abnormal coagulation profile; Z99.2 Dependence on renal dialysis; Z95.810 Presence of automatic (implantable) cardiac defibrillator; Z95.2 Presence of prosthetic heart valve; Z86.718 Personal history of other venous thrombosis and embolism; Z86.19 Personal history of other infectious and parasitic diseases; Z83.3 Family history of diabetes mellitus; Z82.49 Family history of ischemic heart disease and other diseases of the circulatory system; Z80.6 Family history of leukemia; Z79.52 Long term (current) use of systemic steroids; Z79.01 Long term (current) use of anticoagulants; Z88.8 Allergy status to other drugs, medicaments and biological substances
CPT/HCPCS: 36415; 71045; 74176; 76700; 80048; 80053; 80202; 82565; 82607; 82728; 82747; 83036; 83540; 83550; 83605; 83615; 83735; 83883; 83921; 84100; 84132; 84145; 84165; 85025; 85384; 85610; 85730; 86038; 86140; 86334; 86431; 86850; 86900; 86901; 87040; 87045; 87046; 87077; 87186; 87324; 87338; 90935; 93005; 93306; 94760; 96361; 96365; 96366; 96367; 96375; 99291

== ENCOUNTER 2021-01-11 09:49 | Inpatient (IN) | payer MEDICARE, BC ==
[2021-01-11] MEDS ORDERED: DEXTROSE 50% SYRINGE 50 ML IVP STA (09:55)
[2021-01-11 10:04] LABS: Glucose,Whole Blood 60 mg/dL (75-99)
--- NOTE | 2021-01-11 10:05 | ED ---
Altered Mental Status HPI - General Chief Complaint: Altered Mental Status Stated Complaint: Altered Mental Status Time Seen by Provider: 01/11/21 09:49 Source: EMS, RN notes reviewed Mode of arrival: EMS Limitations: altered mental status - History of Present Illness Initial Comments: This is a 6-year-old male with a history of multiple medical problems including sarcoidosis with bilateral lung transplants end-stage renal disease with dialysis who missed his dialysis 2 days ago additionally has a history of diabetes hypertension and diastolic heart failure mitral valve replacement proximal atrial fibrillation also a recent admission for strep bacteremia with leukocytosis who is here from dialysis center after completing dialysis today he became less responsive. Per EMS his blood sugar was 80 on Accu-Chek. Per day reports he may have not been feeling well for the past couple days. He did miss his dialysis 2 days ago no other complaints or modifying factors at this time the patient currently is a poor historian MD Complaint: altered mental status - Related Data Home Medications Medication Instructions Recorded Confirmed Pantoprazole Sodium 40 mg PO DAILY 01/04/17 01/11/21 predniSONE 5 mg PO DAILY 04/29/18 01/11/21 Lidocaine-Prilocaine Cream [Emla 1 applic TOPICAL DAILY PRN 12/29/19 01/11/21 Cream 2.5%/2.5%] Ammonium Lactate Cream [Lac-Hydrin 1 applic TOPICAL BID PRN 08/16/20 01/11/21 12% Cream] Sulfamethox-Tmp 400-80Mg [Bactrim 1 tab PO MOWEFR 08/16/20 01/11/21 SS 400-80 mg] Valganciclovir HCl 900 mg PO MOWEFR 08/16/20 01/11/21 Midodrine [ProAmatine] 5 mg PO MOWEFR 08/17/20 01/11/21 Warfarin [Coumadin] 2.5 mg PO MO 08/17/20 01/11/21 Warfarin [Coumadin] 3.75 mg PO SUTUWETHFRSA 08/17/20 01/11/21 Calcium Carb-Mag Carb-Folic 1 tab PO QID 12/22/20 01/11/21 [Magnebind 400] Carvedilol [Coreg] 25 mg PO SUTUTHSA@0800,1800 12/22/20 01/11/21 Ondansetron [Zofran] 4 mg PO TID PRN 12/22/20 01/11/21 Triphrocaps 1 tab PO DAILY 12/22/20 01/11/21 Tacrolimus [Prograf] 4 mg PO QAM 12/23/20 01/11/21 Filgrastim-Sndz [Zarxio] 300 mcg SQ Q7D 01/11/21 01/11/21 Lactobacillus Acidoph & Bulgar 1 packet PO QID 01/11/21 01/11/21 [Lactinex] Tacrolimus [Prograf] 3 mg PO HS 01/11/21 01/11/21 Previous Rx's Medication Instructions Recorded Carvedilol [Coreg] 12.5 mg PO MOWEFR@1800 #0 12/28/20 Vancomycin 1,000 mg IVPB MOWEFR #10 bag 12/28/20 Allergies Allergy/AdvReac Type Severity Reaction Status Date / Time meperidine [From Demerol] Allergy Rash/Hives Verified 12/22/20 23:44 Review of Systems ROS Statement: Those systems with pertinent positive or pertinent negative responses have been documented in the HPI. ROS Other: All systems not noted in ROS Statement are negative. Past Medical History Past Medical History: Diabetes Mellitus, Deep Vein Thrombosis (DVT), Hypertension, Renal Disease, Respiratory Disorder Additional Past Medical History / Comment(s): See Dr Holman's H&P,Sarcodosis,Hemodialysis MoWeFr,hx dvt left leg. 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 COLONOSCOPY. RT HAND SURGERY. HEMODIALYSIS CATH. AV SHUNT LT UPPER ARM- 06/11/17 Past Anesthesia/Blood Transfusion Reactions: Motion Sickness Type of Cardiac Device: Permanent Pacemaker, AICD Device Placement Date:: 03-28-2011 Past Psychological History: No Psychological Hx Reported Smoking Status: Never smoker Past Alcohol Use History: None Reported Past Drug Use History: None Reported - Past Family History Father Family Medical History: Cancer, Osteoarthritis (OA) Additional Family Medical History / Comment(s): Father is with history of leukemia and sarcoidosis. Strong family history of sarcoidosis on his father's side. Mother Additional Family Medical History / Comment(s): Mother is after her fifth myocardial infarction with history of diabetes. Brother(s) Additional Family Medical History / Comment(s): Patient has a brother and sister with sarcoidosis. Patient has 6 children with no major medical problems. None have been diagnosed with sarcoidosis. General Exam - General Exam Comments Initial Comments: This a well-developed well-nourished awake lethargic male he does respond to verbal and painful stimuli. He does demonstrate tremors. Limitations: altered mental status General appearance: alert, lethargic Head exam: Present: atraumatic, normocephalic, normal inspection Eye exam: Present: normal appearance, PERRL, EOMI. Absent: scleral icterus, conjunctival injection, periorbital swelling ENT exam: Present: mucous membranes dry Neck exam: Present: normal inspection, full ROM, other. Absent: tenderness, m eningismus, lymphadenopathy Respiratory exam: Present: normal lung sounds bilaterally. Absent: respiratory distress, wheezes, rales, rhonchi, stridor Cardiovascular Exam: Present: regular rate, normal rhythm, normal heart sounds. Absent: systolic murmur, diastolic murmur, rubs, gallop, clicks GI/Abdominal exam: Present: soft, normal bowel sounds. Absent: distended, tenderness, guarding, rebound, rigid Extremities exam: Present: full ROM, normal capillary refill, other ((Fistula with needle intact and left upper arm). Absent: tenderness, pedal edema, joint swelling, calf tenderness Back exam: Present: normal inspection Neurological exam: Present: alert, oriented X3, CN II-XII intact Psychiatric exam: Present: flat affect Skin exam: Present: warm, dry, intact, normal color. Absent: rash Course Vital Signs 01/11/21 01/11/21 01/11/21 09:56 09:59 11:30 Temperature 97.9 F Pulse Rate 97 84 82 Respiratory 22 20 22 Rate Blood Pressure 135/85 125/71 123/68 O2 Sat by Pulse 100 100 100 Oximetry 01/11/21 01/11/21 12:19 13:00 Temperature Pulse Rate 87 81 Respiratory 20 16 Rate Blood Pressure 116/56 119/69 O2 Sat by Pulse 97 98 Oximetry - Reevaluation(s) Reevaluation #1: 01/11/21 13:53 Repeat EKG sinus rhythm with PACs rate 84. Interval 120 QRS duration 70 QT since QTC 386/456 Medical Decision Making - Medical Decision Making Patient is more arousable he did require D50 about one point. I did discuss the case with Dr. Douglass patient will be admitted consultation by neurology and by nephrology. Hypoglycemia versus TIA. - Lab Data Result diagrams: 01/11/21 10:30 01/11/21 10:30 Lab Results 01/11/21 01/11/21 01/11/21 Range/Units 09:52 10:30 10:30 WBC 1.5 L (3.8-10.6) k/uL RBC 3.50 L (4.30-5.90) m/uL Hgb 10.8 L (13.0-17.5) gm/dL Hct 33.2 L (39.0-53.0) % MCV 94.9 D (80.0-100.0) fL MCH 30.8 (25.0-35.0) pg MCHC 32.5 (31.0-37.0) g/dL RDW 17.1 H (11.5-15.5) % Plt Count 47 L (150-450) k/uL MPV 10.4 Neutrophils % (Manual) 39 % Band Neuts % (Manual) 2 % Lymphocytes % (Manual) 50 % Monocytes % (Manual) 9 % Neutrophils # (Manual) 0.60 L (1.3-7.7) k/uL Lymphocytes # (Manual) 0.75 L (1.0-4.8) k/uL Monocytes # (Manual) 0.14 (0-1.0) k/uL Nucleated RBCs 0 (0-0) /100 WBC Manual Slide Review Performed Poikilocytosis (manual Present Anisocytosis Slight PT 27.6 H (9.0-12.0) sec INR 2.9 H (<1.2) APTT 42.0 H (22.0-30.0) sec Sodium (137-145) mmol/L Potassium (3.5-5.1) mmol/L Chloride (98-107) mmol/L Carbon Dioxide (22-30) mmol/L Anion Gap mmol/L BUN (9-20) mg/dL Creatinine (0.66-1.25) mg/dL Est GFR (CKD-EPI)AfAm (>60 ml/min/1.73 sqM) Est GFR (CKD-EPI)NonAf (>60 ml/min/1.73 sqM) Glucose (74-99) mg/dL POC Glucose (mg/dL) 60 L (75-99) mg/dL POC Glu National Coverage Specialist ID Luiza Florez Calcium (8.4-10.2) mg/dL Magnesium (1.6-2.3) mg/dL Total Bilirubin (0.2-1.3) mg/dL AST (17-59) U/L ALT (4-49) U/L Alkaline Phosphatase (38-126) U/L Ammonia (<30) umol/L Creatine Kinase (55-170) U/L Troponin I (0.000-0.034) ng/mL Total Protein (6.3-8.2) g/dL Albumin (3.5-5.0) g/dL Serum Alcohol mg/dL 01/11/21 01/11/21 01/11/21 Range/Units 10:30 10:30 10:30 WBC (3.8-10.6) k/uL RBC (4.30-5.90) m/uL Hgb (13.0-17.5) gm/dL Hct (39.0-53.0) % MCV (80.0-100.0) fL MCH (25.0-35.0) pg MCHC (31.0-37.0) g/dL RDW (11.5-15.5) % Plt Count (150-450) k/uL MPV Neutrophils % (Manual) % Band Neuts % (Manual) % Lymphocytes % (Manual) % Monocytes % (Manual) % Neutrophils # (Manual) (1.3-7.7) k/uL Lymphocytes # (Manual) (1.0-4.8) k/uL Monocytes # (Manual) (0-1.0) k/uL Nucleated RBCs (0-0) /100 WBC Manual Slide Review Poikilocytosis (manual Anisocytosis PT (9.0-12.0) sec INR (<1.2) APTT (22.0-30.0) sec Sodium 134 L (137-145) mmol/L Potassium 5.2 H (3.5-5.1) mmol/L Chloride 93 L (98-107) mmol/L Carbon Dioxide 27 (22-30) mmol/L Anion Gap 14 mmol/L BUN 48 H (9-20) mg/dL Creatinine 9.55 H* (0.66-1.25) mg/dL Est GFR (CKD-EPI)AfAm 6 (>60 ml/min/1.73 sqM) Est GFR (CKD-EPI)NonAf 5 (>60 ml/min/1.73 sqM) Glucose 74 (74-99) mg/dL POC Glucose (mg/dL) (75-99) mg/dL POC Glu National Coverage Specialist ID Calcium 8.2 L (8.4-10.2) mg/dL Magnesium 1.9 (1.6-2.3) mg/dL Total Bilirubin 1.2 (0.2-1.3) mg/dL AST 72 H (17-59) U/L ALT 46 (4-49) U/L Alkaline Phosphatase 269 H (38-126) U/L Ammonia 19 (<30) umol/L Creatine Kinase 59 (55-170) U/L Troponin I 0.021 (0.000-0.034) ng/mL Total Protein 7.7 (6.3-8.2) g/dL Albumin 3.8 (3.5-5.0) g/dL Serum Alcohol <10 mg/dL 01/11/21 01/11/21 Range/Units 11:12 13:13 WBC (3.8-10.6) k/uL RBC (4.30-5.90) m/uL Hgb (13.0-17.5) gm/dL Hct (39.0-53.0) % MCV (80.0-100.0) fL MCH (25.0-35.0) pg MCHC (31.0-37.0) g/dL RDW (11.5-15.5) % Plt Count (150-450) k/uL MPV Neutrophils % (Manual) % Band Neuts % (Manual) % Lymphocytes % (Manual) % Monocytes % (Manual) % Neutrophils # (Manual) (1.3-7.7) k/uL Lymphocytes # (Manual) (1.0-4.8) k/uL Monocytes # (Manual) (0-1.0) k/uL Nucleated RBCs (0-0) /100 WBC Manual Slide Review Poikilocytosis (manual Anisocytosis PT (9.0-12.0) sec INR (<1.2) APTT (22.0-30.0) sec Sodium (137-145) mmol/L Potassium (3.5-5.1) mmol/L Chloride (98-107) mmol/L Carbon Dioxide (22-30) mmol/L Anion Gap mmol/L BUN (9-20) mg/dL Creatinine (0.66-1.25) mg/dL Est GFR (CKD-EPI)AfAm (>60 ml/min/1.73 sqM) Est GFR (CKD-EPI)NonAf (>60 ml/min/1.73 sqM) Glucose (74-99) mg/dL POC Glucose (mg/dL) 137 H 106 H (75-99) mg/dL POC Glu National Coverage Specialist Juancarlos Travis Kristi Calcium (8.4-10.2) mg/dL Magnesium (1.6-2.3) mg/dL Total Bilirubin (0.2-1.3) mg/dL AST (17-59) U/L ALT (4-49) U/L Alkaline Phosphatase (38-126) U/L Ammonia (<30) umol/L Creatine Kinase (55-170) U/L Troponin I (0.000-0.034) ng/mL Total Protein (6.3-8.2) g/dL Albumin (3.5-5.0) g/dL Serum Alcohol mg/dL - EKG Data -: EKG Interpreted by Me EKG Comments: EKG showed a evidence of sinus rhythm with a short OR interval PACs noted rate 93. Interval 102 QRS duration 74 QT since QTC 366/455 - Radiology Data Radiology results: report reviewed (I did review the imaging and report no acute findings), image reviewed Disposition Clinical Impression: Hypoglycemia, Altered mental status, Chronic renal failure Disposition: ADMITTED IP TO THIS [facility] Condition: Fair Referrals: Hernán Qureshi DO [Primary Care Provider] - 1-2 days
[2021-01-11 11:01] LABS: Anisocytosis Slight; HCT 33.2 % (39.0-53.0); HGB 10.8 gm/dL (13.0-17.5); MCH 30.8 pg (25.0-35.0); MCHC 32.5 g/dL (31.0-37.0); MCV 94.9 fL (80.0-100.0); Mean Platelet Volume 10.4; RDW 17.1 % (11.5-15.5)
[2021-01-11 11:06] LABS: INR 2.9 (<1.2); Prothrombin Time 27.6 sec (9.0-12.0); WBC 1.5 k/uL (3.8-10.6)
--- NOTE | 2021-01-11 11:07 | CT ---
EXAMINATION TYPE: CT brain wo con DATE OF EXAM: 01/11/2021 COMPARISON: 08/16/2020 INDICATION: Altered mental status. DLP: 1068.4 mGycm, Automated exposure control for dose reduction was used. CONTRAST: None CT of the brain is performed utilizing 3 mm thick sections through the posterior fossa and 3 mm thick sections through the remaining calvarium. Study is performed within 24 hours of arrival to the hosp [facility]. No abnormal hyperdensity is present to suggest an acute intracranial hemorrhage. No mass lesion is evident. No acute infarcts are evident. Minimal periventricular matter ischemic type changes are present. Stab le from comparison Ventricles and sulci are appropriate for the patient age. Paranasal sinuses and mastoid air cells within the [id number] are clear. IMPRESSIONS: 1. Minimal chronic-appearing white matter changes. 2. No acute intracranial process.
--- NOTE | 2021-01-11 11:07 | XR ---
EXAMINATION TYPE: XR chest 2V DATE OF EXAM: 01/11/2021 COMPARISON: Chest x-ray 12/22/2020 HISTORY: Altered mental status TECHNIQUE: Frontal and lateral views of the chest are obtained. FINDINGS: Generator in left pectoral region, leads in the right ventricle and right atrium are again noted. The heart is enlarged and patient is post median sternotomy. The aorta is dense. There is no evident pneumothorax. Calcified nodularity is present at the upper lobes. Lung volumes are low. There is no evident pneumothorax or pleural effusion. Questionable prominence of interstitium. Widened maria teresa earance of the mediastinum may be due to rotation. There are coils in the upper abdomen, inferior bharat a cava filter noted incidentally, there are overlying faxed. IMPRESSION: Expiratory rotated exam. Difficult to exclude a component of early interstitial edema. F ollow-up as indicated.
[2021-01-11 11:14] LABS: Glucose,Whole Blood 137 mg/dL (75-99)
[2021-01-11 11:43] LABS: Platelet Count 47 k/uL (150-450)
[2021-01-11 11:45] LABS: ALT 46 U/L (4-49); AST 72 U/L (17-59); African American GFR (CKD) 6 (>60 ml/min/1.73 sqM); Albumin 3.8 g/dL (3.5-5.0); Alcohol <10 mg/dL; Alkaline Phosphatase 269 U/L (38-126); Anion Gap 14 mmol/L; Blood Urea Nitrogen 48 mg/dL (9-20); Calcium 8.2 mg/dL (8.4-10.2); Carbon Dioxide 27 mmol/L (22-30); Chloride 93 mmol/L (98-107); Creatine Kinase 59 U/L (55-170); Glucose 74 mg/dL (74-99); Magnesium 1.9 mg/dL (1.6-2.3); Non-African American GFR(CKD) 5 (>60 ml/min/1.73 sqM); Potassium 5.2 mmol/L (3.5-5.1); Sodium 134 mmol/L (137-145); Total Bilirubin 1.2 mg/dL (0.2-1.3); Total Protein 7.7 g/dL (6.3-8.2)
[2021-01-11 11:48] LABS: Band Neutrophils % 2 %; Lymphocytes # (M) 0.75 k/uL (1.0-4.8); Monocytes # (M) 0.14 k/uL (0-1.0); Neutrophils % (M) 39 %; Nucleated Red Blood Cells 0 /100 WBC (0-0); Total Cells Counted 100
[2021-01-11 11:50] LABS: Poikilocytosis (M) Present
[2021-01-11 13:15] LABS: Glucose,Whole Blood 106 mg/dL (75-99)
[2021-01-11] MEDS ORDERED: ONDANSETRON 4 MG TAB PO PRN (14:12)
[2021-01-11] MEDS ORDERED: LIDOCAINE-PRILOCAINE 2.5-2.5% CREAM 5 GM TUBE TOPICAL PRN (14:12)
[2021-01-11] MEDS ORDERED: AMMONIUM LACTATE 12% CREAM 140 GM TUBE TOPICAL PRN (14:12)
[2021-01-11] MEDS ORDERED: FILGRASTIM-SNDZ 300 MCG/0.5 ML SYRINGE SQ SCH (14:15)
[2021-01-11] MEDS: MIDODRINE 5 MG TAB PO SCH (15:36)
[2021-01-11] MEDS: ACETAMINOPHEN TAB 325 MG TAB PO PRN (16:38)
--- NOTE | 2021-01-11 17:14 | P.CNNES ---
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 Per the ED note it stated that the patient has missed his dialysis for 2 days ago but after getting his dialysis today and completed and that he became less responsive. Per EMS his sugar is 80 that was documented in the in the ED note. Upon speaking with the patient nurse she stated that the patient was drowsy but slowly waking up now. Upon seeing the patient didn't provide her with much information. Workup in our facility consisted of: Initial vital signs his blood pressure of 135/85, heart rate of 97, respiratory of 22, temperature of 97.9 Fahrenheit oral and pulse ox of 100% on 2 L of nasal cannula. CT of the head is reported as minimal chronic-appearing white matter changes. No acute intercranial process. In our facility patient had a POC glucose of 60. His potassium is 5.2 creatinine is 9.5 (last creatnine in our facility is 6.2 on 01/02/21), AST of 72 and ALT of 46. His ammonia is 19 which is normal. Initial white blood cells 1.5 and hemoglobin 7.8. Serum alcohol level is less than 10. Eden virus PCR was not detected. Chest x-ray was reported as expiratory rotated exam. Difficult to exclude a component of early interstitial edema. Follow-up as indicated. I personally saw this patient on 08/17/2020 for altered mental status and I felt this was toxic metabolic encephalopathy. At that time I ordered a routine EEG and it was abnormal. The background slowing as well as the generalized rhythmic delta activity and triphasic are suggestive of moderate encephalopathy. The triphasics waves are likely due to toxic metabolic to flip atrophy. There are no focal slowing, coupled from activity or seizure during the study. Review of Systems Review of system is limited by the pain positive as negative as per HPI Past Medical History Past Medical History: Diabetes Mellitus, Deep Vein Thrombosis (DVT), Hypertension, Renal Disease, Respiratory Disorder Additional Past Medical History / Comment(s): See Dr Holman's H&P,Sarcodosis,Hemodialysis MoWeFr,hx dvt left leg. 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 COLONOSCOPY. RT HAND SURGERY. HEMODIALYSIS CATH. AV SHUNT LT UPPER ARM- 06/11/17 Past Anesthesia/Blood Transfusion Reactions: Motion Sickness Type of Cardiac Device: Permanent Pacemaker, AICD Device Placement Date:: 03-28-2011 Past Psychological History: No Psychological Hx Reported Smoking Status: Never smoker Past Alcohol Use History: None Reported Past Drug Use History: None Reported - Past Family History Father Family Medical History: Cancer, Osteoarthritis (OA) Additional Family Medical History / Comment(s): Father is with history of leukemia and sarcoidosis. Strong family history of sarcoidosis on his fathe r's side. Mother Additional Family Medical History / Comment(s): Mother is after her fifth myocardial infarction with history of diabetes. Brother(s) Additional Family Medical History / Comment(s): Patient has a brother and sister with sarcoidosis. Patient has 6 children with no major medical problems. None have been diagnosed with sarcoidosis. Medications and Allergies Home Medications Medication Instructions Recorded Confirmed Type Pantoprazole Sodium 40 mg PO DAILY 01/04/17 01/11/21 History predniSONE 5 mg PO DAILY 04/29/18 01/11/21 History Lidocaine-Prilocaine Cream [Emla 1 applic TOPICAL DAILY PRN 12/29/19 01/11/21 History Cream 2.5%/2.5%] Ammonium Lactate Cream [Lac-Hydrin 1 applic TOPICAL BID PRN 08/16/20 01/11/21 History 12% Cream] Sulfamethox-Tmp 400-80Mg [Bactrim 1 tab PO MOWEFR 08/16/20 01/11/21 History SS 400-80 mg] Valganciclovir HCl 900 mg PO MOWEFR 08/16/20 01/11/21 History Midodrine [ProAmatine] 5 mg PO MOWEFR 08/17/20 01/11/21 History Warfarin [Coumadin] 2.5 mg PO MO 08/17/20 01/11/21 History Warfarin [Coumadin] 3.75 mg PO SUTUWETHFRSA 08/17/20 01/11/21 History Calcium Carb-Mag Carb-Folic 1 tab PO QID 12/22/20 01/11/21 History [Magnebind 400] Carvedilol [Coreg] 25 mg PO SUTUTHSA@0800,1800 12/22/20 01/11/21 History Ondansetron [Zofran] 4 mg PO TID PRN 12/22/20 01/11/21 History Triphrocaps 1 tab PO DAILY 12/22/20 01/11/21 History Tacrolimus [Prograf] 4 mg PO QAM 12/23/20 01/11/21 History Carvedilol [Coreg] 12.5 mg PO MOWEFR@1800 #0 12/28/20 01/11/21 Rx Vancomycin 1,000 mg IVPB MOWEFR #10 bag 12/28/20 01/11/21 Rx Filgrastim-Sndz [Zarxio] 300 mcg SQ Q7D 01/11/21 01/11/21 History Lactobacillus Acidoph & Bulgar 1 packet PO QID 01/11/21 01/11/21 History [Lactinex] Tacrolimus [Prograf] 3 mg PO HS 01/11/21 01/11/21 History Allergies Allergy/AdvReac Type Severity Reaction Status Date / Time meperidine [From Demerol] Allergy Rash/Hives Verified 12/22/20 23:44 Physical Examination - Vital Signs Vital Signs: Vital Signs Temp Pulse Pulse Resp BP BP Pulse Ox 01/11/21 15:36 102.2 F H 73 18 100/64 95 01/11/21 15:00 98.1 F 77 20 113/62 100 01/11/21 14:00 71 20 114/64 99 01/11/21 13:00 81 16 119/69 98 01/11/21 12:19 87 20 116/56 97 01/11/21 11:30 82 22 123/68 100 01/11/21 09:59 84 20 125/71 100 01/11/21 09:56 97.9 F 97 22 135/85 100 Intake and Output 01/11/21 01/11/21 01/11/21 06:59 14:59 22:59 Other: Weight 74.843 kg GENERAL: The patient is lying in bed and is not in acute distress. CHEST: The heart rate is regular rate rhythm. No murmurs to auscultation. LUNG: Clear to auscultation bilaterally no wheezing noted throughout. Not labored breathing. ABDOMEN/GI: Bowel sounds present in all 4 quadrants. No tenderness to palpation throughout. NEUROLOGICAL: Higher mental function: The patient is drowsy but awakeable to voice. He is oriented to self and stated he is in the hospital. He did not respond to year. He is able to name objects correctly (such as pen, watch and telephone). Patient is following few simple commands. No neglect. Cranial nerves: The pupils are round, equal and reactive to light. Visual medina are unable to assess to confrontation. Extraocular movement , is intact without nystagmus. No facial weakness. No dysarthria is noted. Rest of cranial nerves could not be assessed because of limited cooperation. Motor: Gait is deferred. The strength is able to move all extremities above gravity without drift. Normal tone and bulk. No spontaneous movement noted Cerebellum: Unable to assess. Sensation: Unable to assess. Reflexes (right/left): 2+ throughout except ankles Plantars are downgoing bilaterally. Results - Laboratory Findings CBC and BMP: 01/11/21 10:30 01/11/21 10:30 Abnormal Lab Findings: Abnormal Labs 01/11/21 01/11/21 01/11/21 09:52 10:30 10:30 WBC 1.5 L RBC 3.50 L Hgb 10.8 L Hct 33.2 L RDW 17.1 H Plt Count 47 L Neutrophils # (Manual) 0.60 L Lymphocytes # (Manual) 0.75 L PT 27.6 H INR 2.9 H APTT 42.0 H Sodium Potassium Chloride BUN Creatinine POC Glucose (mg/dL) 60 L Calcium AST Alkaline Phosphatase 01/11/21 01/11/21 01/11/21 10:30 11:12 13:13 WBC RBC Hgb Hct RDW Plt Count Neutrophils # (Manual) Lymphocytes # (Manual) PT INR APTT Sodium 134 L Potassium 5.2 H Chloride 93 L BUN 48 H Creatinine 9.55 H* POC Glucose (mg/dL) 137 H 106 H Calcium 8.2 L AST 72 H Alkaline Phosphatase 269 H Assessment and Plan Assessment: This is a 60-year-old gentleman with multiple medical problem that Mrs. dialysis 2 days ago and today 1 that he was getting dialysis was altered mental status. His POC glucose in our ED was 60. Altered mental status is likely due to toxic metabolic encephalopathy (hypoglycemia (60's in our facility), missed dialysis 2 days ago with electrolyge imbalance, slight elevated AST). He had EEG on 08/2020 for altered mental status and no seizure or epileptiform discharges.---mentation improving Mild elevated AST (72) Electrolyte imbalance hyperkalemia, slight hyponatremia) End-stage renal disease on dialysis Atrial fibrillation status post AICD DVT and lower extremity on Coumadin Sarcoidosis with multiorgan involvement status post lung transplant Plan: Patient last TSH was on 08/17/2020 and it was 0.605 which is normal. Vitamin B12 is 3512 on 12-26 which is high but is considered normal. The red blood cell folate is 1190 which is high blood considered normal. An EEG is not warranted at this time patient had the prior EEG and it didn't show any seizure or epileptiform activity for his prior altered mental status. Please avoid any further episode of hypoglycemia. We'll defer the management to the primary team Nephrology team is consulted consulted We'll defer the rest of medical management to the primary team. The plan is discussed with the patient's nurse. There is no further workup from a neurology perspective. Thank you for the Consultation. Lyndon York M.D. Neuro-hospitalist Time with Patient: Greater than 30
[2021-01-11 17:21] LABS: Glucose,Whole Blood 100 mg/dL (75-99)
[2021-01-11] MEDS ORDERED: WARFARIN 2.5 MG TAB PO SCH (18:00)
[2021-01-11] MEDS: carvediloL 12.5 MG TAB PO SCH ×2 (18:03→18:06)
[2021-01-11] MEDS: LACTOBACILLUS ACIDOPH & BULGAR 1 EACH PACKET PO SCH ×2 (18:03→19:59)
[2021-01-11] MEDS: CALCIUM CARB-MAG CARB-FOLIC 1 EACH TAB PO SCH ×2 (18:05→19:59)
[2021-01-11] MEDS: TACROLIMUS 1 MG CAP PO SCH (19:59)
[2021-01-11 20:06] LABS: Glucose,Whole Blood 207 mg/dL (75-99)
[2021-01-12 02:02] LABS: Glucose,Whole Blood 98 mg/dL (75-99)
[2021-01-12 06:09] LABS: Glucose,Whole Blood 154 mg/dL (75-99)
[2021-01-12 08:38] LABS: INR 3.6 (<1.2); Prothrombin Time 34.9 sec (9.0-12.0)
[2021-01-12] MEDS: PANTOPRAZOLE 40 MG TABLET PO SCH (09:00)
[2021-01-12] MEDS: LACTOBACILLUS ACIDOPH & BULGAR 1 EACH PACKET PO SCH ×4 (09:00→21:23)
[2021-01-12] MEDS: carvediloL 12.5 MG TAB PO SCH ×2 (09:00→17:31)
[2021-01-12] MEDS: predniSONE 5 MG TAB PO SCH (09:01)
[2021-01-12] MEDS: TACROLIMUS 1 MG CAP PO SCH ×2 (09:01→20:51)
[2021-01-12] MEDS: CALCIUM CARB-MAG CARB-FOLIC 1 EACH TAB PO SCH ×4 (09:02→21:23)
[2021-01-12] MEDS: TRIPHROCAPS PO SCH (09:05)
[2021-01-12 10:34] LABS: Cholesterol 105 mg/dL (<200); HDL Cholesterol 26 mg/dL (40-60); LDL Cholesterol,Calculated 50 mg/dL (0-99); Triglycerides 143 mg/dL (<150)
[2021-01-12] MEDS ORDERED: IOPAMIDOL CONTRAST (ORAL USE) VIAL PO PRN (11:06)
--- NOTE | 2021-01-12 11:23 | P.NPCON ---
History of Present Illness - Reason for Consult end stage renal disease - History of Present Illness Reason for consultation: End-stage renal disease History of present illness: Patient is a 60-year-old male seen in renal consultation for end-stage renal disease. He is maintained on hemodialysis on Saturday schedule. Patient went to dialysis yesterday and was found to be more lethargic towards the end of the treatment and was subsequent presented to the hospital. He was having shaking spells according to the dialysis nurse. Patient states he's been feeling quite weak and has been having quite a bit of diarrhea. He attributes this to the vancomycin. Patient was in the hospital last month and had strep bovis bacteremia. A clear source was not identified but the patient did refuse DIMITRY last admission. He has been receiving IV vancomycin outpatient. Blood cultures are still positive. He denies chest pain or shortness of breath. Does have diarrhea. No vomiting. No fever. No abdominal pain. No edema. Blood pressure on the lower side. Does have a chronic nonproductive cough. Vital signs are stable. General: The patient appeared well nourished and normally developed. HEENT: Head exam is unremarkable. Neck is without jugular venous distension. LUNGS: Breath sounds decreased. HEART: Rate and Rhythm are regular. ABDOMEN: Soft, nontender. EXTREMITITES: No edema. Past Medical History Past Medical History: Diabetes Mellitus, Deep Vein Thrombosis (DVT), Hypertension, Renal Disease, Respiratory Disorder Additional Past Medical History / Comment(s): See Dr Holman's H&P,Sarcodosis,Hemodialysis MoWeFr,hx dvt left leg. 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 COLONOSCOPY. RT HAND SURGERY. HEMODIALYSIS CATH. AV SHUNT LT UPPER ARM- 06/11/17 Past Anesthesia/Blood Transfusion Reactions: Motion Sickness Type of Cardiac Device: Permanent Pacemaker, AICD Device Placement Date:: 03-28-2011 Past Psychological History: No Psychological Hx Reported Smoking Status: Never smoker Past Alcohol Use History: None Reported Past Drug Use History: None Reported - Past Family History Father Family Medical History: Cancer, Osteoarthritis (OA) Additional Family Medical History / Comment(s): Father is with history of leukemia and sarcoidosis. Strong family history of sarcoidosis on his father's side. Mother Additional Family Medical History / Comment(s): Mother is after her fifth myocardial infarction with history of diabetes. Brother(s) Additional Family Medical History / Comment(s): Patient has a brother and sister with sarcoidosis. Patient has 6 children with no major medical problems. None have been diagnosed with sarcoidosis. Medications and Allergies Home Medications Medication Instructions Recorded Confirmed Type Pantoprazole Sodium 40 mg PO DAILY 01/04/17 01/11/21 History predniSONE 5 mg PO DAILY 04/29/18 01/11/21 History Lidocaine-Prilocaine Cream [Emla 1 applic TOPICAL DAILY PRN 12/29/19 01/11/21 History Cream 2.5%/2.5%] Ammonium Lactate Cream [Lac-Hydrin 1 applic TOPICAL BID PRN 08/16/20 01/11/21 History 12% Cream] Sulfamethox-Tmp 400-80Mg [Bactrim 1 tab PO MOWEFR 08/16/20 01/11/21 History SS 400-80 mg] Valganciclovir HCl 900 mg PO MOWEFR 08/16/20 01/11/21 History Midodrine [ProAmatine] 5 mg PO MOWEFR 08/17/20 01/11/21 History Warfarin [Coumadin] 2.5 mg PO MO 08/17/20 01/11/21 History Warfarin [Coumadin] 3.75 mg PO SUTUWETHFRSA 08/17/20 01/11/21 History Calcium Carb-Mag Carb-Folic 1 tab PO QID 12/22/20 01/11/21 History [Magnebind 400] Carvedilol [Coreg] 25 mg PO SUTUTHSA@0800,1800 12/22/20 01/11/21 History Ondansetron [Zofran] 4 mg PO TID PRN 12/22/20 01/11/21 History Triphrocaps 1 tab PO DAILY 12/22/20 01/11/21 History Tacrolimus [Prograf] 4 mg PO QAM 12/23/20 01/11/21 History Carvedilol [Coreg] 12.5 mg PO MOWEFR@1800 #0 12/28/20 01/11/21 Rx Vancomycin 1,000 mg IVPB MOWEFR #10 bag 12/28/20 01/11/21 Rx Filgrastim-Sndz [Zarxio] 300 mcg SQ Q7D 01/11/21 01/11/21 History Lactobacillus Acidoph & Bulgar 1 packet PO QID 01/11/21 01/11/21 History [Lactinex] Tacrolimus [Prograf] 3 mg PO HS 01/11/21 01/11/21 History Allergies Allergy/AdvReac Type Severity Reaction Status Date / Time meperidine [From Demerol] Allergy Rash/Hives Verified 12/22/20 23:44 Physical Exam Vitals: Vital Signs Temp Pulse Pulse Resp BP BP Pulse Ox 01/12/21 09:16 97.8 F 75 16 105/63 100 01/12/21 09:12 20 01/12/21 04:00 98.8 F 66 20 101/60 96 01/12/21 01:02 62 20 01/12/21 00:00 62 20 95/56 97 01/11/21 20:00 98.9 F 68 20 92/54 95 01/11/21 18:06 98.7 F 74 92/58 01/11/21 15:36 102.2 F H 73 18 100/64 95 01/11/21 15:00 98.1 F 77 20 113/62 100 01/11/21 14:00 71 20 114/64 99 01/11/21 13:00 81 16 119/69 98 01/11/21 12:19 87 20 116/56 97 01/11/21 11:30 82 22 123/68 100 Intake and Output 01/11/21 01/12/21 01/12/21 22:59 06:59 14:59 Intake Total 530 Output Total 0 Balance 530 Intake: Intake, IV Titration 50 Amount cefTRIAXone 1 gm In 50 Sodium Chloride 0.9% 50 ml @ 100 mls/hr IVPB Q48H [facility] Rx#:[id number] Oral 480 Output: Urine 0 Other: # Voids 0 1 Weight 70.1 kg Results - Lab Results Most recent lab results Calcium 8.2 mg/dL (8.4-10.2) L 01/11/21 10:30 Magnesium 1.9 mg/dL (1.6-2.3) 01/11/21 10:30 01/11/21 10:30 01/11/21 10:30 Assessment and Plan Plan: Assessment: 1. End-stage renal disease maintained on hemodialysis on Saturday schedule. 2. History of lung transplant maintained on antirejection medications. Follows likely in the clinic. 3. Strep bovis bacteremia maintained on antibiotics. Infectious disease consulted. 4. Mild hyperkalemia secondary to chronic kidney disease. Also receiving Bactrim and Prograf. 5. 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 6. Diarrhea. Possibly side effect of antibiotic. Rule out C. diff. Plan: Check potassium level today. Plan for hemodialysis tomorrow without any ultrafiltration. Start gentle IV hydration with normal saline at 50 mL an hour. Follow-up CT of the abdomen and pelvis. Thank you for the consultation. I will continue to follow the patient with you during his hospital stay.
[2021-01-12 11:36] LABS: Glucose,Whole Blood 97 mg/dL (75-99)
[2021-01-12] MEDS ORDERED: LOPERAMIDE 2 MG CAP PO PRN (14:16)
--- NOTE | 2021-01-12 14:21 | P.HPIM ---
History of Present Illness H&P Date: 01/12/21 Chief Complaint: Fatigue HISTORY OF PRESENT ILLNESS This is a 59-year-old -Macedonian male patient of Dr. Qureshi with past medical history of sarcoidosis with multiorgan involvement status post bilateral lung transplant done at [facility] in 2014, end-stage renal disease on hemodialysis Saturday via left arm AV fistula followed by Dr. Desai, DVT of the left lower extremity on Coumadin, hypertension, diabetes mellitus type 2, high-grade AV block and paroxysmal atrial fibrillation status post dual-chamber AICD, hypertension, chronic diastolic heart failure, pulmonary hypertension and chronic cor pulmonale, chronic thrombocytopenia, patient reported history of mitral valve replacement. Patient had a recent hospi talization and discharge home on December 28 which time he was treated for sepsis secondary to streptococcus bacteremia of unclear source. Patient had refused DIMITRY and was to follow-up with his transplant team to have this done at [facility]. Patient was discharged home on vancomycin that was dosed with his dialysis treatments. Vancomycin course would be completed on January 20. Patient states that he has not been feeling well since he left the hospital. He states he will have low blood pressure at his dialysis treatment and fell asleep. Patient apparently had a shaking spell that was observed by the dialysis nurse. He was quite weak. Patient complains of having diarrhea yesterday one time. He states he has had 2 watery stools today. He states he took one Imodium yesterday and the diarrhea had stopped. He denies having any fever. No chest pain or shortness of breath. Complains of cough that is chronic without sputum production. No abdominal pain. Patient presented to [facility] emergency center and was afebrile, heart rate 97, blood pressure 135/85, pulse ox 100% on room air. EKG was a sinus rhythm. WBC 1.5, hemoglobin 10.8, platelet count 47. Sodium 134, potassium 5.2, chloride 93, CO2 27, BUN 48 and creatinine 9.55. Blood sugar 74. Ammonia level XIX. Troponin 0.021. Alcohol level less than 10. Chest x-ray showed expiratory rotated exam. Difficult to exclude component of early interstitial edema. CAT scan of the brain revealed minimal chronic-appearing white matter changes. No acute intracranial process. Patient was admitted to the cardiac stepdown unit and multiple consultants added including nephrology, infectious disease, neurology and oncology. A blood culture obtained yesterday in the emergency center is positive for gram-positive cocci in pairs and chains. Subsequently, patient's nurse received a call [facility] Transplant Team and they are requesting the patient be transferred to [facility]. Patient will be transferred once all arrangements are completed. REVIEW OF SYSTEMS Constitutional: Reports fever, Reports chills, no night sweats. No weight change. Reports weakness, reports fatigue or lethargy. No daytime sleepiness. EENT: No headache. No blurred vision or double vision, no loss of vision. No loss of Hearing, no ringing in the ears, no dizziness. No nasal drainage or congestion. No epistaxis. No sore throat. Lungs: Denies shortness of breath, denies cough, no sputum production. No wheezing. Cardiovascular: No chest pain, no lower extremity edema. No palpitations. No paroxysmal nocturnal dyspnea. No orthopnea. No lightheadedness or dizziness. No syncopal episodes. Abdominal: No abdominal pain. No nausea, vomiting. Reports diarrhea. No constipation. No bloody or tarry stools. No loss of appetite. Genitourinary: No dysuria, increased frequency, urgency. No urinary retention. Musculoskeletal: No myalgias. Reports muscle weakness, no gait dysfunction, no frequent falls. No back pain. No neck pain. Integumentary: No wounds, no lesions. No rash or pruritus. No unusual bruising. Neurologic: No aphasia. No facial droop. No change in mentation. No head injury. No headache. No paralysis. No paresthesia. Psychiatric: No depression. No anxiety. No mood swings. Endocrine: Reports abnormal blood sugars. No weight change. No excessive sweating or thirst. No cold intolerance. SOCIAL HISTORY Patient is a lifelong nonsmoker. No marijuana, illicit drug use or alcohol use. Patient lives with his fianc. He normally drives himself to dialysis treatments. FAMILY HISTORY Father is with history of leukemia and sarcoidosis. There is a strong family history of sarcoidosis on the father's side. Mother is after her fifth myocardial infarction with history of diabetes. Patient has 1 brother and 1 sister with sarcoidosis. He has 6 children with no major medical problems and none have been diagnosed with sarcoidosis. PHYSICAL EXAMINATION Gen: This is a 60-year-old -Macedonian male. He is resting in chair and appears to be comfortable. HEENT: Head is atraumatic, normocephalic. Pupils equal, round. Sclerae is anic teric. NECK: Supple. No JVD. No lymphadenopathy. No thyromegaly. LUNGS: Clear to auscultation. No wheezes or rhonchi. No intercostal retractions. HEART: Regular rate and rhythm. Systolic murmur. ABDOMEN: Soft. Bowel sounds are present. No masses. No tenderness. EXTREMITIES: No pedal edema. No calf tenderness. Dorsalis pedis palpable bilaterally. AV fistula to the left arm. NEUROLOGICAL: Patient is awake, alert and oriented 3 Cranial nerves 2 through 12 are grossly intact. ASSESSMENT AND PLAN 1. Metabolic encephalopathy most likely secondary to combination of hypoglycemia, hypotension and sepsis with bacteremia. The patient is continued on ceftriaxone. Consults in place with neurology and infectious disease. 2. Chronic diarrhea. Continue Imodium 2 mg 4 times daily as needed to continue lactobacillus 3. Persistent bacteremia. ID consult. Continue Rocephin. Patient declined DIMITRY on last hospitalization. 4. Pancytopenia, chronic most likely exacerbated by sepsis. Consult with oncology 5. End-stage renal disease on hemodialysis Saturday. Nephrology consult appreciated. 6. History of sarcoidosis with multiorgan involvement status post bilateral lung transplant at [facility] in 2014. Continue antirejection medication as prescribed at home. 7. DVT of the left lower extremity on chronic Coumadin. Continue Coumadin, pharmacy to dose. 8. Diabetes mellitus type 2. Block scale before meals and at bedtime. 9. History of high-grade AV block and paroxysmal atrial fibrillation status post dual-chamber AICD. Continue Coreg 12.5 mg on Saturday. 10. Hypertension currently with hypotension. Continue Coreg., Midodrine on Saturday with dialysis Patient will be admitted to the hospital for a minimum of 2 night stay. DISCHARGE PLAN Transfer patient to [facility] once arrangements are completed. Impression and plan of care have been directed as dictated by the signing physician. Sydney Gallegos nurse practitioner acting as scribe for signing physician. Past Medical History Past Medical History: Diabetes Mellitus, Deep Vein Thrombosis (DVT), Hypertension, Renal Disease, Respiratory Disorder Additional Past Medical History / Comment(s): See Dr Gundlapalli's H&P ,Sarcodosis,Hemodialysis MoWeFr,hx dvt left leg. 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 COLONOSCOPY. RT HAND SURGERY. HEMODIALYSIS CATH. AV SHUNT LT UPPER ARM- 06/11/17 Past Anesthesia/Blood Transfusion Reactions: Motion Sickness Type of Cardiac Device: Permanent Pacemaker, AICD Device Placement Date:: 03-28-2011 Past Psychological History: No Psychological Hx Reported Smoking Status: Never smoker Past Alcohol Use History: None Reported Past Drug Use History: None Reported - Past Family History Father Family Medical History: Cancer, Osteoarthritis (OA) Additional Family Medical History / Comment(s): Father is with history of leukemia and sarcoidosis. Strong family history of sarcoidosis on his father's side. Mother Additional Family Medical History / Comment(s): Mother is after her fifth myocardial infarction with history of diabetes. Brother(s) Additional Family Medical History / Comment(s): Patient has a brother and sister with sarcoidosis. Patient has 6 children with no major medical problems. None have been diagnosed with sarcoidosis. Medications and Allergies Home Medications Medication Instructions Recorded Confirmed Type Pantoprazole Sodium 40 mg PO DAILY 01/04/17 01/11/21 History predniSONE 5 mg PO DAILY 04/29/18 01/11/21 History Lidocaine-Prilocaine Cream [Emla 1 applic TOPICAL DAILY PRN 12/29/19 01/11/21 History Cream 2.5%/2.5%] Ammonium Lactate Cream [Lac-Hydrin 1 applic TOPICAL BID PRN 08/16/20 01/11/21 Hi story 12% Cream] Sulfamethox-Tmp 400-80Mg [Bactrim 1 tab PO MOWEFR 08/16/20 01/11/21 History SS 400-80 mg] Valganciclovir HCl 900 mg PO MOWEFR 08/16/20 01/11/21 History Midodrine [ProAmatine] 5 mg PO MOWEFR 08/17/20 01/11/21 History Warfarin [Coumadin] 2.5 mg PO MO 08/17/20 01/11/21 History Warfarin [Coumadin] 3.75 mg PO SUTUWETHFRSA 08/17/20 01/11/21 History Calcium Carb-Mag Carb-Folic 1 tab PO QID 12/22/20 01/11/21 History [Magnebind 400] Carvedilol [Coreg] 25 mg PO SUTUTHSA@0800,1800 12/22/20 01/11/21 History Ondansetron [Zofran] 4 mg PO TID PRN 12/22/20 01/11/21 History Triphrocaps 1 tab PO DAILY 12/22/20 01/11/21 History Tacrolimus [Prograf] 4 mg PO QAM 12/23/20 01/11/21 History Carvedilol [Coreg] 12.5 mg PO MOWEFR@1800 #0 12/28/20 01/11/21 Rx Vancomycin 1,000 mg IVPB MOWEFR #10 bag 12/28/20 01/11/21 Rx Filgrastim-Sndz [Zarxio] 300 mcg SQ Q7D 01/11/21 01/11/21 History Lactobacillus Acidoph & Bulgar 1 packet PO QID 01/11/21 01/11/21 History [Lactinex] Tacrolimus [Prograf] 3 mg PO HS 01/11/21 01/11/21 History Allergies Allergy/AdvReac Type Severity Reaction Status Date / Time meperidine [From Demerol] Allergy Rash/Hives Verified 12/22/20 23:44 Physical Exam Vitals: Vital Signs Temp Pulse Pulse Resp BP BP Pulse Ox 01/12/21 09:16 97.8 F 75 16 105/63 100 01/12/21 09:12 20 01/12/21 04:00 98.8 F 66 20 101/60 96 01/12/21 01:02 62 20 01/12/21 00:00 62 20 95/56 97 01/11/21 20:00 98.9 F 68 20 92/54 95 01/11/21 18:06 98.7 F 74 92/58 01/11/21 15:36 102.2 F H 73 18 100/64 95 01/11/21 15:00 98.1 F 77 20 113/62 100 01/11/21 14:00 71 20 114/64 99 01/11/21 13:00 81 16 119/69 98 01/11/21 12:19 87 20 116/56 97 01/11/21 11:30 82 22 123/68 100 01/11/21 09:59 84 20 125/71 100 01/11/21 09:56 97.9 F 97 22 135/85 100 Intake and Output 01/11/21 01/12/21 01/12/21 22:59 06:59 14:59 Intake Total 530 Output Total 0 Balance 530 Intake: Intake, IV Titration 50 Amount cefTRIAXone 1 gm In 50 Sodium Chloride 0.9% 50 ml @ 100 mls/hr IVPB Q48H [facility] Rx#:[id number] Oral 480 Output: Urine 0 Other: # Voids 0 1 Weight 70.1 kg Results CBC & Chem 7: 01/11/21 10:30 01/12/21 07:36 Labs: Abnormal Lab Results - Last 24 Hours (Table) 01/11/21 01/11/21 01/11/21 Range/Units 09:52 10:30 10:30 WBC 1.5 L (3.8-10.6) k/uL RBC 3.50 L (4.30-5.90) m/uL Hgb 10.8 L (13.0-17.5) gm/dL Hct 33.2 L (39.0-53.0) % RDW 17.1 H (11.5-15.5) % Plt Count 47 L (150-450) k/uL Neutrophils # (Manual) 0.60 L (1.3-7.7) k/uL Lymphocytes # (Manual) 0.75 L (1.0-4.8) k/uL PT 27.6 H (9.0-12.0) sec INR 2.9 H (<1.2) APTT 42.0 H (22.0-30.0) sec Sodium (137-145) mmol/L Potassium (3.5-5.1) mmol/L Chloride (98-107) mmol/L BUN (9-20) mg/dL Creatinine (0.66-1.25) mg/dL POC Glucose (mg/dL) 60 L (75-99) mg/dL Calcium (8.4-10.2) mg/dL AST (17-59) U/L Alkaline Phosphatase (38-126) U/L 01/11/21 01/11/21 01/11/21 Range/Units 10:30 11:12 13:13 WBC (3.8-10.6) k/uL RBC (4.30-5.90) m/uL Hgb (13.0-17.5) gm/dL Hct (39.0-53.0) % RDW (11.5-15.5) % Plt Count (150-450) k/uL Neutrophils # (Manual) (1.3-7.7) k/uL Lymphocytes # (Manual) (1.0-4.8) k/uL PT (9.0-12.0) sec INR (<1.2) APTT (22.0-30.0) sec Sodium 134 L (137-145) mmol/L Potassium 5.2 H (3.5-5.1) mmol/L Chloride 93 L (98-107) mmol/L BUN 48 H (9-20) mg/dL Creatinine 9.55 H* (0.66-1.25) mg/dL POC Glucose (mg/dL) 137 H 106 H (75-99) mg/dL Calcium 8.2 L (8.4-10.2) mg/dL AST 72 H (17-59) U/L Alkaline Phosphatase 269 H (38-126) U/L 01/11/21 01/11/21 01/12/21 Range/Units 17:20 19:59 05:54 WBC (3.8-10.6) k/uL RBC (4.30-5.90) m/uL Hgb (13.0-17.5) gm/dL Hct (39.0-53.0) % RDW (11.5-15.5) % Plt Count (150-450) k/uL Neutrophils # (Manual) (1.3-7.7) k/uL Lymphocytes # (Manual) (1.0-4.8) k/uL PT (9.0-12.0) sec INR (<1.2) APTT (22.0-30.0) sec Sodium (137-145) mmol/L Potassium (3.5-5.1) mmol/L Chloride (98-107) mmol/L BUN (9-20) mg/dL Creatinine (0.66-1.25) mg/dL POC Glucose (mg/dL) 100 H 207 H 154 H (75-99) mg/dL Calcium (8.4-10.2) mg/dL AST (17-59) U/L Alkaline Phosphatase (38-126) U/L 01/12/21 Range/Units 07:36 WBC (3.8-10.6) k/uL RBC (4.30-5.90) m/uL Hgb (13.0-17.5) gm/dL Hct (39.0-53.0) % RDW (11.5-15.5) % Plt Count (150-450) k/uL Neutrophils # (Manual) (1.3-7.7) k/uL Lymphocytes # (Manual) (1.0-4.8) k/uL PT 34.9 H (9.0-12.0) sec INR 3.6 H (<1.2) APTT (22.0-30.0) sec Sodium (137-145) mmol/L Potassium (3.5-5.1) mmol/L Chloride (98-107) mmol/L BUN (9-20) mg/dL Creatinine (0.66-1.25) mg/dL POC Glucose (mg/dL) (75-99) mg/dL Calcium (8.4-10.2) mg/dL AST (17-59) U/L Alkaline Phosphatase (38-126) U/L Microbiology - Last 24 Hours (Table) 01/11/21 10:15 Blood Culture Gram Stain - Preliminary Blood 01/11/21 10:30 Blood Culture Gram Stain - Preliminary Blood 01/11/21 10:30 Blood Culture - Final Blood 01/11/21 10:15 Blood Culture - Final Blood Thrombosis Risk Factor Assmnt - Choose All That Apply Any of the Below Risk Factors Present?: Yes Each Factor Represents 1 point: Age 41-60 years Other Risk Factors: No Other congenital or acquired thrombophilia - If yes, enter type in comment: No Thrombosis Risk Factor Assessment Total Risk Factor Score: 1 Thrombosis Risk Factor Assessment Level: Low Risk
--- NOTE | 2021-01-12 14:27 | P.CONS ---
History of Present Illness - Reason for Consult Consult date: 01/12/21 - History of Present Illness HISTORY OF PRESENT ILLNESS This is a 59-year-old -Russian male patient of Dr. Qureshi with past medical history of sarcoidosis with multiorgan involvement status post bilateral lung transplant done at [facility] in 2014, end-stage renal disease on hemodialysis Saturday via left arm AV fistula followed by Dr. Desai, DVT of the left lower extremity on Coumadin, hypertension, diabetes mellitus type 2, high-grade AV block and paroxysmal atrial fibrillation status post dual-chamber AICD, hypertension, chronic diastolic heart failure, pulmonary hypertension and chronic cor pulmonale, chronic thrombocytopenia, patient reported history of mitral valve replacement. Patient had a recent hospitalization and discharge home on December 28 which time he was treated for sepsis secondary to streptococcus bacteremia of unclear source. Patient had refused DIMITRY and was to follow-up with his transplant team to have this done at [facility]. Patient was discharged home on vancomycin that was dosed with his dialysis treatments. Vancomycin course would be completed on January 20. Patient states that he has not been feeling well since he left the hospital. He states he will have low blood pressure at his dialysis treatment and fell asleep. Patient apparently had a shaking spell that was observed by the dialysis nurse. He was quite weak. Patient complains of having diarrhea yesterday one time. He states he has had 2 watery stools today. He states he took one Imodium yesterday and the diarrhea had stopped. He denies having any fever. No chest pain or shortness of breath. Complains of cough that is chronic without sputum production. No abdominal pain. Patient presented to [facility] emergency center and was afebrile, heart rate 97, blood pressure 135/85, pulse ox 100% on room air. EKG was a sinus rhythm. WBC 1.5, hemoglobin 10.8, platelet count 47. Sodium 134, potassium 5.2, chloride 93, CO2 27, BUN 48 and creatinine 9.55. Blood sugar 74. Ammonia level XIX. Troponin 0.021. Alcohol level less than 10. Chest x-ray showed expiratory rotated exam. Difficult to exclude component of early interstitial edema. CAT scan of the brain revealed minimal chronic-appearing white matter changes. No acute intracranial process. Patient was admitted to the cardiac stepdown unit. A blood culture obtained yesterday in the emergency center is positive for gram-positive cocci in pairs and chains. Subsequently, patient's nurse received a call [facility] Transplant Team and they are requesting the patient be transferred to [facility]. Arrangements are being made to transfer the patient. REVIEW OF SYSTEMS Constitutional: Reports fever, Reports chills, no night sweats. No weight change. Reports weakness, reports fatigue or lethargy. No daytime sleepiness. EENT: No headache. No blurred vision or double vision, no loss of vision. No loss of Hearing, no ringing in the ears, no dizziness. No nasal drainage or congestion. No epistaxis. No sore throat. Lungs: Denies shortness of breath, denies cough, no sputum production. No wheezing. Cardiovascular: No chest pain, no lower extremity edema. No palpitations. No paroxysmal nocturnal dyspnea. No orthopnea. No lightheadedness or dizziness. No syncopal episodes. Abdominal: No abdominal pain. No nausea, vomiting. Reports diarrhea. No c onstipation. No bloody or tarry stools. No loss of appetite. Genitourinary: No dysuria, increased frequency, urgency. No urinary retention. Musculoskeletal: No myalgias. Reports muscle weakness, no gait dysfunction, no frequent falls. No back pain. No neck pain. Integumentary: No wounds, no lesions. No rash or pruritus. No unusual bruising. Neurologic: No aphasia. No facial droop. No change in mentation. No head injury. No headache. No paralysis. No paresthesia. Psychiatric: No depression. No anxiety. No mood swings. Endocrine: Reports abnormal blood sugars. No weight change. No excessive sweating or thirst. No cold intolerance. PHYSICAL EXAMINATION Gen: This is a 60-year-old -Russian male. He is resting in bed and appears to be comfortable. HEENT: Head is atraumatic, normocephalic. Pupils equal, round. Sclerae is anicteric. NECK: Supple. No JVD. No lymphadenopathy. No thyromegaly. LUNGS: Clear to auscultation. No wheezes or rhonchi. No intercostal retract ions. HEART: Regular rate and rhythm. Systolic murmur. ABDOMEN: Soft. Bowel sounds are present. No masses. No tenderness. EXTREMITIES: No pedal edema. No calf tenderness. Dorsalis pedis palpable bilaterally. AV fistula to the left arm. NEUROLOGICAL: Patient is awake, alert and oriented 3 Cranial nerves 2 through 12 are grossly intact. ASSESSMENT About encephalopathy secondary to accommodation of hypoglycemia, hypertension and sepsis with bacteremia Chronic diarrhea Persistent bacteremia Pancytopenia chronic End-stage renal disease History of sarcoidosis and multiorgan involvement status post bilateral lung transplant PLAN Rocephin 1 g IV piggyback every 48 hours Follow-up on blood cultures obtained on January 11 Continue supportive care Agree with transfer to [facility] Thank you kindly for this consultation. The above dictated assessment and findings were discussed with Dr. Holder. The impression and plan of care have been directed as dictated. Sydney Gallegos nurse practitioner acting as scribe for Dr. Holder. Past Medical History Past Medical History: Diabetes Mellitus, Deep Vein Thrombosis (DVT), Hypertension, Renal Disease, Respiratory Disorder Additional Past Medical History / Comment(s): See Dr Holman's H&P,Sarcodosis,Hemodialysis MoWeFr,hx dvt left leg. 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 COLONOSCOPY. RT HAND SURGERY. HEMODIALYSIS CATH. AV SHUNT LT UPPER ARM- 06/11/17 Past Anesthesia/Blood Transfusion Reactions: Motion Sickness Type of Cardiac Device: Permanent Pacemaker, AICD Device Placement Date:: 03-28-2011 Past Psychological History: No Psychological Hx Reported Smoking Status: Never smoker Past Alcohol Use History: None Reported Past Drug Use History: None Reported - Past Family History Father Family Medical History: Cancer, Osteoarthritis (OA) Additional Family Medical History / Comment(s): Father is with history of leukemia and sarcoidosis. Strong family history of sarcoidosis on his father's side. Mother Additional Family Medical History / Comment(s): Mother is after her fifth myocardial infarction with history of diabetes. Brother(s) Additional Family Medical History / Comment(s): Patient has a brother and sister with sarcoidosis. Patient has 6 children with no major medical problems. None have been diagnosed with sarcoidosis. Medications and Allergies Home Medications Medication Instructions Recorded Confirmed Type Pantoprazole Sodium 40 mg PO DAILY 01/04/17 01/11/21 History predniSONE 5 mg PO DAILY 04/29/18 01/11/21 History Lidocaine-Prilocaine Cream [Emla 1 applic TOPICAL DAILY PRN 12/29/19 01/11/21 History Cream 2.5%/2.5%] Ammonium Lactate Cream [Lac-Hydrin 1 applic TOPICAL BID PRN 08/16/20 01/11/21 History 12% Cream] Sulfamethox-Tmp 400-80Mg [Bactrim 1 tab PO MOWEFR 08/16/20 01/11/21 History SS 400-80 mg] Valganciclovir HCl 900 mg PO MOWEFR 08/16/20 01/11/21 History Midodrine [ProAmatine] 5 mg PO MOWEFR 08/17/20 01/11/21 History Warfarin [Coumadin] 2.5 mg PO MO 08/17/20 01/11/21 History Warfarin [Coumadin] 3.75 mg PO SUTUWETHFRSA 08/17/20 01/11/21 History Calcium Carb-Mag Carb-Folic 1 tab PO QID 12/22/20 01/11/21 History [Magnebind 400] Carvedilol [Coreg] 25 mg PO SUTUTHSA@0800,1800 12/22/20 01/11/21 History Ondansetron [Zofran] 4 mg PO TID PRN 12/22/20 01/11/21 History Triphrocaps 1 tab PO DAILY 12/22/20 01/11/21 History Tacrolimus [Prograf] 4 mg PO QAM 12/23/20 01/11/21 History Carvedilol [Coreg] 12.5 mg PO MOWEFR@1800 #0 12/28/20 01/11/21 Rx Vancomycin 1,000 mg IVPB MOWEFR #10 bag 12/28/20 01/11/21 Rx Filgrastim-Sndz [Zarxio] 300 mcg SQ Q7D 01/11/21 01/11/21 History Lactobacillus Acidoph & Bulgar 1 packet PO QID 01/11/21 01/11/21 History [Lactinex] Tacrolimus [Prograf] 3 mg PO HS 01/11/21 01/11/21 History Allergies Allergy/AdvReac Type Severity Reaction Status Date / Time meperidine [From Demerol] Allergy Rash/Hives Verified 12/22/20 23:44 Physical Exam Vitals: Vital Signs Temp Pulse Pulse Resp BP BP Pulse Ox 01/12/21 09:16 97.8 F 75 16 105/63 100 01/12/21 09:12 20 01/12/21 04:00 98.8 F 66 20 101/60 96 01/12/21 01:02 62 20 01/12/21 00:00 62 20 95/56 97 01/11/21 20:00 98.9 F 68 20 92/54 95 01/11/21 18:06 98.7 F 74 92/58 01/11/21 15:36 102.2 F H 73 18 100/64 95 01/11/21 15:00 98.1 F 77 20 113/62 100 01/11/21 14:00 71 20 114/64 99 01/11/21 13:00 81 16 119/69 98 01/11/21 12:19 87 20 116/56 97 01/11/21 11:30 82 22 123/68 100 Intake and Output 01/11/21 01/12/21 01/12/21 22:59 06:59 14:59 Intake Total 530 Output Total 0 Balance 530 Intake: Intake, IV Titration 50 Amount cefTRIAXone 1 gm In 50 Sodium Chloride 0.9% 50 ml @ 100 mls/hr IVPB Q48H [facility] Rx#:[id number] Oral 480 Output: Urine 0 Other: # Voids 0 1 Weight 70.1 kg Results CBC & Chem 7: 01/11/21 10:30 01/12/21 07:36 Labs: Abnormal Lab Results - Last 24 Hours (Table) 01/11/21 01/11/21 01/11/21 Range/Units 10:30 10:30 10:30 WBC 1.5 L (3.8-10.6) k/uL RBC 3.50 L (4.30-5.90) m/uL Hgb 10.8 L (13.0-17.5) gm/dL Hct 33.2 L (39.0-53.0) % RDW 17.1 H (11.5-15.5) % Plt Count 47 L (150-450) k/uL Neutrophils # (Manual) 0.60 L (1.3-7.7) k/uL Lymphocytes # (Manual) 0.75 L (1.0-4.8) k/uL PT 27.6 H (9.0-12.0) sec INR 2.9 H (<1.2) APTT 42.0 H (22.0-30.0) sec Sodium 134 L (137-145) mmol/L Potassium 5.2 H (3.5-5.1) mmol/L Chloride 93 L (98-107) mmol/L BUN 48 H (9-20) mg/dL Creatinine 9.55 H* (0.66-1.25) mg/dL POC Glucose (mg/dL) (75-99) mg/dL Calcium 8.2 L (8.4-10.2) mg/dL AST 72 H (17-59) U/L Alkaline Phosphatase 269 H (38-126) U/L HDL Cholesterol (40-60) mg/dL 01/11/21 01/11/21 01/11/21 Range/Units 11:12 13:13 17:20 WBC (3.8-10.6) k/uL RBC (4.30-5.90) m/uL Hgb (13.0-17.5) gm/dL Hct (39.0-53.0) % RDW (11.5-15.5) % Plt Count (150-450) k/uL Neutrophils # (Manual) (1.3-7.7) k/uL Lymphocytes # (Manual) (1.0-4.8) k/uL PT (9.0-12.0) sec INR (<1.2) APTT (22.0-30.0) sec Sodium (137-145) mmol/L Potassium (3.5-5.1) mmol/L Chloride (98-107) mmol/L BUN (9-20) mg/dL Creatinine (0.66-1.25) mg/dL POC Glucose (mg/dL) 137 H 106 H 100 H (75-99) mg/dL Calcium (8.4-10.2) mg/dL AST (17-59) U/L Alkaline Phosphatase (38-126) U/L HDL Cholesterol (40-60) mg/dL 01/11/21 01/12/21 01/12/21 Range/Units 19:59 05:54 07:36 WBC (3.8-10.6) k/uL RBC (4.30-5.90) m/uL Hgb (13.0-17.5) gm/dL Hct (39.0-53.0) % RDW (11.5-15.5) % Plt Count (150-450) k/uL Neutrophils # (Manual) (1.3-7.7) k/uL Lymphocytes # (Manual) (1.0-4.8) k/uL PT (9.0-12.0) sec INR (<1.2) APTT (22.0-30.0) sec Sodium (137-145) mmol/L Potassium (3.5-5.1) mmol/L Chloride (98-107) mmol/L BUN (9-20) mg/dL Creatinine (0.66-1.25) mg/dL POC Glucose (mg/dL) 207 H 154 H (75-99) mg/dL Calcium (8.4-10.2) mg/dL AST (17-59) U/L Alkaline Phosphatase (38-126) U/L HDL Cholesterol 26 L (40-60) mg/dL 01/12/21 Range/Units 07:36 WBC (3.8-10.6) k/uL RBC (4.30-5.90) m/uL Hgb (13.0-17.5) gm/dL Hct (39.0-53.0) % RDW (11.5-15.5) % Plt Count (150-450) k/uL Neutrophils # (Manual) (1.3-7.7) k/uL Lymphocytes # (Manual) (1.0-4.8) k/uL PT 34.9 H (9.0-12.0) sec INR 3.6 H (<1.2) APTT (22.0-30.0) sec Sodium (137-145) mmol/L Potassium (3.5-5.1) mmol/L Chloride (98-107) mmol/L BUN (9-20) mg/dL Creatinine (0.66-1.25) mg/dL POC Glucose (mg/dL) (75-99) mg/dL Calcium (8.4-10.2) mg/dL AST (17-59) U/L Alkaline Phosphatase (38-126) U/L HDL Cholesterol (40-60) mg/dL Microbiology - Last 24 Hours (Table) 01/11/21 10:30 Blood Culture Gram Stain - Preliminary Blood 01/11/21 10:15 Blood Culture Gram Stain - Preliminary Blood 01/11/21 10:30 Blood Culture - Final Blood 01/11/21 10:15 Blood Culture - Final Blood
--- NOTE | 2021-01-12 15:22 | CT ---
EXAMINATION TYPE: CT abdomen pelvis w con DATE OF EXAM: 01/12/2021 COMPARISON: 12/25/2020 and 08/16/2020 HISTORY: 60-year-old male Bacteremia, rule out abscess. TECHNIQUE: Contiguous axial scanning of the abdomen and pelvis following administration of 80 ml Isov ue 300 IV contrast. Coronal/sagittal reconstructions performed. Delayed kidney images were not obtai giancarlo due to patient's chronic kidney disease/dialysis status. CT DLP: 452.4 mGycm Automated exposure control for dose reduction was used. FINDINGS: Median sternotomy wires. Retained epicardial pacer leads. Right atrial right ventricular AICD leads. Partially visualized moderate bilateral gynecomastia. Heart borderline in size without pericardial ef fusion. There is patchy left basilar opacity favored to represent atelectasis rather than patchy infi ltrate. No pleural effusion. Surgical clips at the GE junction may relate to prior hiatal hernia repair. There is mild gallbladder wall thickening with small calculi measuring up to 6 mm. No hydropic change to clearly indicate acute cholecystitis. No focal liver lesion identified. The liver is borderline in size at 17.9 cm. No biliary ductal dilat ation. Portal venous system appears patent. Adrenal glands and pancreas appear within normal limits. Spleen is enlarged at 14.5 cm on axial series but thickened up to 8.5 cm, similar as compared to 12/25. Numerous left-sided renal cysts likely relating to chronic dialysis status. Cysts on the left measure up to 2.8 cm. Numerous small calcifications in the right kidney. With underlying cysts here as well. However, there is a persistent subcapsular fluid collection along the lateral lower pole of the right kidney measur ing 4.5 x 3.2 cm versus 4.5 x 3.4 cm on 12/25/2020. This measured larger at 5.9 x 4.7 cm on 08/16/2020. Continued moderate to intense surrounding inflammatory fat stranding in the pararenal space. No dilated small bowel, free fluid, or free air. No mesenteric or retroperitoneal lymphadenopathy. Normal appendix. Oral contrast progressed to the rectum. There is sigmoid diverticulosis without acut e diverticulitis. IVC filter. Small to moderate-sized fatty umbilical hernia measuring 3.0 cm, unchanged. Bladder shows moderate circumferential wall thickening. Prostate gland measures 4.7 cm wide. No abnor mal fluid collection in the pelvis or pelvic lymphadenopathy. Bones: Mild degenerative change of the hips. Degenerative change right SI joint with some bony bridgi ng. Mild superior endplate deformity of T10 is unchanged from 12/25/2020. IMPRESSION: 1. SUBCAPSULAR FLUID COLLECTION WITH SURROUNDING INFLAMMATORY FAT STRANDING INVOLVING THE LATERAL LOW ER POLE OF THE RIGHT KIDNEY (4.5 X 3.2 CM) IS RELATIVELY SIMILAR COMPARED TO 12/25/2020 BUT SMALLER FR OM 08/16/2020 WHERE IT MEASURED 5.9 X 4.7 CM. CORRELATE FOR POSSIBLE SUBCAPSULAR RENAL ABSCESS, CHRONI C HEMATOMA, OR SUPERINFECTED CYST. 2. CHOLELITHIASIS WITH NONSPECIFIC MILD GALLBLADDER WALL THICKENING PROBABLY DUE TO THE PATIENT'S CHR ONIC KIDNEY DISEASE. NO HYDROPIC CHANGE TO CLEARLY INDICATE ACUTE CHOLECYSTITIS. 3. SMALL TO MODERATE SIZED PERIUMBILICAL HERNIA MEASURING 3.0 CM, UNCHANGED. 4. MODERATE CIRCUMFERENTIAL BLADDER WALL THICKENING COULD REFLECT CHRONIC BLADDER WALL HYPERTROPHY OR CYSTITIS. CLINICALLY CORRELATE. 5. SIGMOID DIVERTICULOSIS WITHOUT ACUTE DIVERTICULITIS.
[2021-01-12] MEDS: SODIUM CHLORIDE 0.9% 1,000 ML IV SCH (15:48)
[2021-01-12 16:43] LABS: Glucose,Whole Blood 195 mg/dL (75-99)
[2021-01-12] MEDS: INSULIN ASPART (NovoLOG) 100 UNIT/ML VIAL SQ SCH ×2 (17:25→20:50)
[2021-01-12] MEDS ORDERED: WARFARIN 1.5 MG TAB PO ONE (18:00)
[2021-01-12 20:41] LABS: Glucose,Whole Blood 140 mg/dL (75-99)
[2021-01-13 02:03] LABS: Glucose,Whole Blood 102 mg/dL (75-99)
[2021-01-13] MEDS: SODIUM CHLORIDE 0.9% 1,000 ML IV SCH (03:25)
[2021-01-13 06:49] LABS: Glucose,Whole Blood 82 mg/dL (75-99)
[2021-01-13] MEDS: INSULIN ASPART (NovoLOG) 100 UNIT/ML VIAL SQ SCH ×4 (06:50→20:51)
[2021-01-13] MEDS: LACTOBACILLUS ACIDOPH & BULGAR 1 EACH PACKET PO SCH ×4 (08:25→20:54)
[2021-01-13] MEDS: TACROLIMUS 1 MG CAP PO SCH ×2 (08:27→20:53)
[2021-01-13] MEDS: CALCIUM CARB-MAG CARB-FOLIC 1 EACH TAB PO SCH ×4 (08:27→20:54)
[2021-01-13] MEDS: PANTOPRAZOLE 40 MG TABLET PO SCH (08:29)
[2021-01-13] MEDS: predniSONE 5 MG TAB PO SCH (08:29)
[2021-01-13] MEDS: TRIPHROCAPS PO SCH (08:30)
[2021-01-13 08:39] LABS: Prothrombin Time 29.1 sec (9.0-12.0)
[2021-01-13] MEDS ORDERED: SULFAMETHOX-TMP 400-80MG 1 EACH TAB PO SCH (09:00)
--- NOTE | 2021-01-13 10:47 | P.PN ---
Subjective Patient is seen in follow-up for end-stage renal disease. He is maintained on hemodialysis on Saturday schedule. Scheduled for dialysis today. Feels better today overall. He is to be transferred to [facility] later today. Vital signs are stable. General: The patient appeared well nourished and normally developed. HEENT: Head exam is unremarkable. Neck is without jugular venous distension. LUNGS: Breath sounds decreased. HEART: Rate and Rhythm are regular. ABDOMEN: Soft, nontender. EXTREMITITES: No edema. Objective - Vital Signs Vital signs: Vital Signs Temp 98 F 01/13/21 08:00 Pulse 61 01/13/21 08:00 Resp 18 01/13/21 08:00 BP 91/50 01/13/21 08:00 Pulse Ox 98 01/13/21 08:00 Intake & Output 01/12/21 01/13/21 01/13/21 18:59 06:59 18:59 Intake Total 475 Output Total 0 Balance 0 475 Weight 70.4 kg Intake: Oral 475 Output: Urine 0 Stool 0 Other: # Voids 0 0 # Bowel Movements 0 - Labs CBC & Chem 7: 01/11/21 10:30 01/12/21 07:36 Labs: Abnormal Lab Results - Last 24 Hours (Table) 01/12/21 01/12/21 01/12/21 Range/Units 07:36 16:39 20:39 PT (9.0-12.0) sec INR (<1.2) Potassium 5.7 H (3.5-5.1) mmol/L POC Glucose (mg/dL) 195 H 140 H (75-99) mg/dL 01/13/21 01/13/21 Range/Units 02:02 06:59 PT 29.1 H (9.0-12.0) sec INR 3.0 H (<1.2) Potassium (3.5-5.1) mmol/L POC Glucose (mg/dL) 102 H (75-99) mg/dL Microbiology - Last 24 Hours (Table) 01/11/21 10:30 Blood Culture Gram Stain - Preliminary Blood Blood Culture - Preliminary Group D Enterococcus 01/11/21 10:15 Blood Culture Gram Stain - Preliminary Blood Blood Culture - Preliminary Group D Enterococcus Assessment and Plan Plan: Assessment: 1. End-stage renal disease maintained on hemodialysis on Saturday schedule. 2. History of lung transplant maintained on antirejection medications. Follows at [facility]. 3. Strep bovis bacteremia maintained on antibiotics. Infectious disease following. ?Subcapsular renal abscess. 4. Hyperkalemia secondary to chronic kidney disease. Also receiving Bactrim and Prograf. Expect improvement post dialysis. 5. 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 6. Diarrhea. Possibly side effect of antibiotic. Rule out C. diff. Plan: Hemodialysis today without any ultrafiltration. Hep-Lock IV fluids. Add midodrine 5 mg 3 times a day daily. Plan for transfer to [facility] today.
--- NOTE | 2021-01-13 11:00 | P.CONS ---
History of Present Illness - Reason for Consult Consult date: 01/13/21 leukopenia Requesting physician: Sydney Gallegos - History of Present Illness Mr. Avery is a AA male pt who has been seen by Dr. Hairston, with multiple medical problems. 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 WBC count dropped after starting this med. He was started on neupogen twice a week, which worked quite well at maintaining his WBC count in the normal range. In the spring he had to stop due to under- insurance and no longer any foundation support. [facility] recommended observation. Pt did not have any episodes of neutropenic infection thus far. AICD/permanent pacemaker was placed in 2012. He was due for exchange on 09/23/18. However, CBC showed white count of only 1.1 with ANC in the 400 range. Case was discussed with Cardiology who on decided to hold off on the procedure until WBC could be improved. He was then referred to Dr. Hairston for further evaluation and recommendations. Pt is on hemodialysis M,W,F for CKD. The medications pt is on and his chronic conditions are all contributing to loow counts. However, his medications cannot be stopped because of risk of infection/rejection. Pt was advised that generally an ANC of greater than 1000 is considered safe. Usually an ANC of more than 500 would also represent a low risk of spontaneous infection. For procedures ANC greater than 1000 should be sufficient. He was recently admitted in December with fever, 102.9F on admit, diarrhea, persistent symptoms for the last several days, refused covid testing on that admit. He is anuric at baseline, no known recent ill contacts. Review of Systems All systems: negative Constitutional: Reports as per HPI Past Medical History Past Medical History: Diabetes Mellitus, Deep Vein Thrombosis (DVT), Hypertension, Renal Disease, Respiratory Disorder Additional Past Medical History / Comment(s): See Dr Holman's H&P,Sarcodosis,Hemodialysis MoWeFr,hx dvt left leg. 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 COLONOSCOPY. RT HAND SURGERY. HEMODIALYSIS CATH. AV SHUNT LT UPPER ARM- 06/11/17 Past Anesthesia/Blood Transfusion Reactions: Motion Sickness Type of Cardiac Device: Permanent Pacemaker, AICD Device Placement Date:: 03-28-2011 Past Psychological History: No Psychological Hx Reported Smoking Status: Never smoker Past Alcohol Use History: None Reported Past Drug Use History: None Reported - Past Family History Father Family Medical History: Cancer, Osteoarthritis (OA) Additional Family Medical History / Comment(s): Father is with history of leukemia and sarcoidosis. Strong family history of sarcoidosis on his father's side. Mother Additional Family Medical History / Comment(s): Mother is after her fifth myocardial infarction with history of diabetes. Brother(s) Additional Family Medical History / Comment(s): Patient has a brother and sister with sarcoidosis. Patient has 6 children with no major medical problems. None have been diagnosed with sarcoidosis. Medications and Allergies Home Medications Medication Instructions Recorded Confirmed Type Pantoprazole Sodium 40 mg PO DAILY 01/04/17 01/11/21 History predniSONE 5 mg PO DAILY 04/29/18 01/11/21 History Lidocaine-Prilocaine Cream [Emla 1 applic TOPICAL DAILY PRN 12/29/19 01/11/21 History Cream 2.5%/2.5%] Ammonium Lactate Cream [Lac-Hydrin 1 applic TOPICAL BID PRN 08/16/20 01/11/21 History 12% Cream] Sulfamethox-Tmp 400-80Mg [Bactrim 1 tab PO MOWEFR 08/16/20 01/11/21 History SS 400-80 mg] Valganciclovir HCl 900 mg PO MOWEFR 08/16/20 01/11/21 History Midodrine [ProAmatine] 5 mg PO MOWEFR 08/17/20 01/11/21 History Warfarin [Coumadin] 2.5 mg PO MO 08/17/20 01/11/21 History Warfarin [Coumadin] 3.75 mg PO SUTUWETHFRSA 08/17/20 01/11/21 History Calcium Carb-Mag Carb-Folic 1 tab PO QID 12/22/20 01/11/21 History [Magnebind 400] Carvedilol [Coreg] 25 mg PO SUTUTHSA@0800,1800 12/22/20 01/11/21 History Ondansetron [Zofran] 4 mg PO TID PRN 12/22/20 01/11/21 History Triphrocaps 1 tab PO DAILY 12/22/20 01/11/21 History Tacrolimus [Prograf] 4 mg PO QAM 12/23/20 01/11/21 History Carvedilol [Coreg] 12.5 mg PO MOWEFR@1800 #0 12/28/20 01/11/21 Rx Vancomycin 1,000 mg IVPB MOWEFR #10 bag 12/28/20 01/11/21 Rx Filgrastim-Sndz [Zarxio] 300 mcg SQ Q7D 01/11/21 01/11/21 History Lactobacillus Acidoph & Bulgar 1 packet PO QID 01/11/21 01/11/21 History [Lactinex] Tacrolimus [Prograf] 3 mg PO HS 01/11/21 01/11/21 History Allergies Allergy/AdvReac Type Severity Reaction Status Date / Time meperidine [From Demerol] Allergy Rash/Hives Verified 12/22/20 23:44 Physical Exam Vitals: Vital Signs Temp Pulse Resp BP Pulse Ox 01/13/21 08:00 98 F 61 18 91/50 98 01/13/21 04:00 97.9 F 63 18 106/66 97 01/13/21 00:00 97.5 F L 64 18 100/55 98 01/12/21 20:00 98.2 F 66 18 98/60 98 01/12/21 17:04 100 01/12/21 16:00 97.5 F L 67 16 106/60 97 01/12/21 14:00 16 01/12/21 12:28 97.6 F 66 16 108/62 100 Intake and Output 01/12/21 01/13/21 01/13/21 22:59 06:59 14:59 Intake Total 475 Balance 475 Intake: Oral 475 Other: # Voids 0 Weight 70.4 kg - Constitutional General appearance: Present: cooperative, no acute distress, thin - EENT Eyes: Present: anicteric sclerae, edentulous ENT: Present: hearing grossly normal - Respiratory Details: resp even and unlabored - Peripheral edema leg Peripheral Edema: bilateral: None - Neurologic Neurologic: Present: CNII-XII intact - Musculoskeletal Musculoskeletal: Present: strength equal bilaterally - Psychiatric Psychiatric: Present: A&O x's 3, appropriate affect, intact judgment & insight Results CBC & Chem 7: 01/13/21 06:59 01/13/21 06:59 Labs: Abnormal Lab Results - Last 24 Hours (Table) 01/12/21 01/12/21 01/12/21 Range/Units 07:36 16:39 20:39 PT (9.0-12.0) sec INR (<1.2) Potassium 5.7 H (3.5-5.1) mmol/L POC Glucose (mg/dL) 195 H 140 H (75-99) mg/dL 01/13/21 01/13/21 Range/Units 02:02 06:59 PT 29.1 H (9.0-12.0) sec INR 3.0 H (<1.2) Potassium (3.5-5.1) mmol/L POC Glucose (mg/dL) 102 H (75-99) mg/dL Microbiology - Last 24 Hours (Table) 01/11/21 10:30 Blood Culture Gram Stain - Preliminary Blood Blood Culture - Preliminary Group D Enterococcus 01/11/21 10:15 Blood Culture Gram Stain - Preliminary Blood Blood Culture - Preliminary Group D Enterococcus Assessment and Plan Plan: FUO (fever of unknown origin) Current Visit: Yes Status: Resolved Priority: High Code(s): R50.9 - FEVER, UNSPECIFIED SNOMED Code(s): 0630083 Leukopenia - 2/2 marrow suppression from chronic medications, recently exacerbated with acute illness. - Growth factor given last admission - He was advised to continue after discharge and will look into neulasta - In the interim continue on zarxio while inpatient (3) Neutropenia Current Visit: Yes Status: Resolved Priority: High Code(s): D70.9 - NEUTROPENIA, UNSPECIFIED SNOMED Code(s): 077142462 Pancytopenia Hgb is stable Zarxio Plan: Physician Attest: I have completed the full history and physical and agree with above dictation, dictated as a scribe
[2021-01-13 11:33] LABS: Anisocytosis Slight; MCH 32.5 pg (25.0-35.0); MCV 98.6 fL (80.0-100.0); Macrocytosis Slight; RBC 2.74 m/uL (4.30-5.90); RDW 16.7 % (11.5-15.5)
[2021-01-13 11:36] LABS: Calcium 7.3 mg/dL (8.4-10.2); Magnesium 2.5 mg/dL (1.6-2.3); Potassium 4.9 mmol/L (3.5-5.1); Total Bilirubin 0.7 mg/dL (0.2-1.3); Total Protein 6.3 g/dL (6.3-8.2)
[2021-01-13 11:43] LABS: Glucose,Whole Blood 141 mg/dL (75-99)
[2021-01-13 11:43] LABS: HGB 8.9 gm/dL (13.0-17.5); Platelet Count 36 k/uL (150-450); WBC 1.3 k/uL (3.8-10.6)
[2021-01-13 11:57] LABS: Reticulocyte % 2.4 % (0.5-2.0)
[2021-01-13] MEDS: MIDODRINE 5 MG TAB PO SCH ×3 (12:53→17:14)
[2021-01-13 13:02] LABS: Band Neutrophils % 3 %; Eosinophils # (M) 0.01 k/uL (0-0.7); Lymphocytes # (M) 0.82 k/uL (1.0-4.8); Monocytes # (M) 0.16 k/uL (0-1.0); Neutrophils % (M) 21 %
[2021-01-13 13:03] LABS: Nucleated Red Blood Cells 0 /100 WBC (0-0); Total Cells Counted 100
[2021-01-13 13:04] LABS: Poikilocytosis (M) Present
--- NOTE | 2021-01-13 14:29 | P.PN ---
Subjective Progress Note Date: 01/13/21 HISTORY OF PRESENT ILLNESS This is a 59-year-old -[place] male patient of Dr. Qureshi with past medical history of sarcoidosis with multiorgan involvement status post bilateral lung transplant done at [facility] in 2014, end-stage renal disease on hemodialysis Saturday via left arm AV fistula followed by Dr. Desai, DVT of the left lower extremity on Coumadin, hypertension, diabetes mellitus type 2, high-grade AV block and paroxysmal atrial fibrillation status post dual-chamber AICD, hypertension, chronic diastolic heart failure, pulmonary hypertension and chronic cor pulmonale, chronic thrombocytopenia, patient reported history of mitral valve replacement. Patient had a recent hospitalization and discharge home on December 28 which time he was treated for sepsis secondary to streptococcus bacteremia of unclear source. Patient had refused DIMITRY and was to follow-up with his transplant team to have this done at [facility]. Patient was discharged home on vancomycin that was dosed with his dialysis treatments. Vancomycin course would be completed on January 20. Patient states that he has not been feeling well since he left the hospital. He states he will have low blood pressure at his dialysis treatment and fell asleep. Patient apparently had a shaking spell that was observed by the dialysis nurse. He was quite weak. Patient complains of having diarrhea yesterday one time. He states he has had 2 watery stools today. He states he took one Imodium yesterday and the diarrhea had stopped. He denies having any fever. No chest pain or shortness of breath. Complains of cough that is chronic without sputum production. No abdominal pain. Patient presented to [facility] emergency center and was afe brile, heart rate 97, blood pressure 135/85, pulse ox 100% on room air. EKG was a sinus rhythm. WBC 1.5, hemoglobin 10.8, platelet count 47. Sodium 134, potassium 5.2, chloride 93, CO2 27, BUN 48 and creatinine 9.55. Blood sugar 74. Ammonia level XIX. Troponin 0.021. Alcohol level less than 10. Chest x-ray showed expiratory rotated exam. Difficult to exclude component of early interstitial edema. CAT scan of the brain revealed minimal chronic-appearing white matter changes. No acute intracranial process. Patient was admitted to the cardiac stepdown unit and multiple consultants added including nephrology, infectious disease, neurology and oncology. A blood culture obtained yesterday in the emergency center is positive for gram-positive cocci in pairs and chains. Subsequently, patient's nurse received a call [facility]plant Team and they are requesting the patient be transferred to [facility]. Patient will be transferred once all arrangements are completed. 01/13: Contact has been made directly with [facility] and patient has been accepted by Dr. Ryan. Plan is that patient would be discharged after dialysis but at this point, no beds are available at [facility]. Patient underwent CAT scan of the abdomen and pelvis with contrast yesterday which revealed subcapsular fluid collection with surrounding inflammatory fat stranding involving the lateral lower pole of the right kidney similar to previous studies. Correlate for possible subcapsular renal abscess. Chronic hematoma or superinfected cyst. Cholelithiasis with nonspecific wall thickening. Small to moderate size. Umbilical hernia unchanged. Moderate bladder wall thickening reflect chronic bladder wall hypertrophy or cystitis. Sigmoid diverticulosis without diverticulitis. Patient is having dialysis at the time of evaluation. Midodrine has been added by nephrology. Patient has been afebrile, heart rate 75, blood pressure 125/71, pulse ox 96% on room air. Blood work reveals WBC 1.3, hemoglobin 8.9. Platelet count 36. INR 3. Sodium 136 otherwise electrolytes normal. BUN 84 and creatinine 16.4. Blood sugars running between 80-140. Alkaline phosphatase 207. Blood culture is showing group D enterococcus preliminary and antibiotics have been changed to daptomycin by Dr. Holder. Patient will be transferred to [facility] once arrangements are completed. REVIEW OF SYSTEMS Constitutional: Reports fever, Reports chills, no night sweats. No weight change. Reports weakness, reports fatigue or lethargy. No daytime sleepiness. EENT: No headache. No blurred vision or double vision, no loss of vision. No loss of Hearing, no ringing in the ears, no dizziness. No nasal drainage or congestion. No epistaxis. No sore throat. Lungs: Denies shortness of breath, denies cough, no sputum production. No wheezing. Cardiovascular: No chest pain, no lower extremity edema. No palpitations. No paroxysmal nocturnal dyspnea. No orthopnea. No lightheadedness or dizziness. No syncopal episodes. Abdominal: No abdominal pain. No nausea, vomiting. Reports diarrhea. No constipation. No bloody or tarry stools. No loss of appetite. Genitourinary: No dysuria, increased frequency, urgency. No urinary retention. Musculoskeletal: No myalgias. Reports muscle weakness, no gait dysfunction, no frequent falls. No back pain. No neck pain. Integumentary: No wounds, no lesions. No rash or pruritus. No unusual bruising. Neurologic: No aphasia. No facial droop. No change in mentation. No head injury. No headache. No paralysis. No paresthesia. Psychiatric: No depression. No anxiety. No mood swings. Endocrine: Reports abnormal blood sugars. No weight change. No excessive sweating or thirst. No cold intolerance. PHYSICAL EXAMINATION Gen: This is a 60-year-old -[place] male. He is resting in bed and undergoing hemodialysis. HEENT: Head is atraumatic, normocephalic. Pupils equal, round. Sclerae is anicteric. NECK: Supple. No JVD. No lymphadenopathy. No thyromegaly. LUNGS: Clear to auscultation. No wheezes or rhonchi. No intercostal retractions. HEART: Regular rate and rhythm. Systolic murmur. ABDOMEN: Soft. Bowel sounds are present. No masses. No tenderness. EXTREMITIES: No pedal edema. No calf tenderness. Dorsalis pedis palpable bilaterally. AV fistula to the left arm. NEUROLOGICAL: Patient is awake, alert and oriented 3 Cranial nerves 2 through 12 are grossly intact. ASSESSMENT AND PLAN 1. Metabolic encephalopathy most likely secondary to combination of hypoglycemia, hypotension and sepsis with bacteremia. Antibiotics transitioned to daptomycin. Consults with neurology and infectious disease appreciated. 2. Chronic diarrhea. Continue Imodium 2 mg 4 times daily as needed to continue lactobacillus 3. Persistent bacteremia. ID consult. Continue Rocephin. Patient declined DIMITRY on last hospitalization. 4. Pancytopenia, chronic most likely exacerbated by sepsis. Consult with oncology 5. End-stage renal disease on hemodialysis Saturday. Nephrology consult appreciated. 6. History of sarcoidosis with multiorgan involvement status post bilateral lung transplant at [facility] in 2014. Continue antirejection medication as prescribed at home. 7. DVT of the left lower extremity on chronic Coumadin. Continue Coumadin, pharmacy to dose. 8. Diabetes mellitus type 2. Block scale before meals and at bedtime. 9. History of high-grade AV block and paroxysmal atrial fibrillation status post dual-chamber AICD. Continue Coreg 12.5 mg on Saturday. 10. Hypertension currently with hypotension. Continue Coreg., Midodrine on Saturday with dialysis Patient will be admitted to the hospital for a minimum of 2 night stay. DISCHARGE PLAN Transfer patient to [facility] once arrangements are completed. Impression and plan of care have been directed as dictated by the signing physician. Sydney Gallegos nurse practitioner acting as scribe for signing physician. Objective - Vital Signs Vital signs: Vital Signs Temp 98 F 01/13/21 08:00 Pulse 61 01/13/21 08:00 Resp 18 01/13/21 08:00 BP 91/50 01/13/21 08:00 Pulse Ox 98 01/13/21 08:00 Intake & Output 01/12/21 01/13/21 01/13/21 18:59 06:59 18:59 Intake Total 475 Output Total 0 Balance 0 475 Weight 70.4 kg Intake: Oral 475 Output: Urine 0 Stool 0 Other: # Voids 0 0 # Bowel Movements 0 - Labs CBC & Chem 7: 01/13/21 06:59 01/13/21 06:59 Labs: Abnormal Lab Results - Last 24 Hours (Table) 01/12/21 01/12/21 01/12/21 Range/Units 07:36 07:36 16:39 PT (9.0-12.0) sec INR (<1.2) Potassium 5.7 H (3.5-5.1) mmol/L POC Glucose (mg/dL) 195 H (75-99) mg/dL HDL Cholesterol 26 L (40-60) mg/dL 01/12/21 01/13/21 01/13/21 Range/Units 20:39 02:02 06:59 PT 29.1 H (9.0-12.0) sec INR 3.0 H (<1.2) Potassium (3.5-5.1) mmol/L POC Glucose (mg/dL) 140 H 102 H (75-99) mg/dL HDL Cholesterol (40-60) mg/dL Microbiology - Last 24 Hours (Table) 01/11/21 10:30 Blood Culture Gram Stain - Preliminary Blood Blood Culture - Preliminary Group D Enterococcus 01/11/21 10:15 Blood Culture Gram Stain - Preliminary Blood Blood Culture - Preliminary Group D Enterococcus
--- NOTE | 2021-01-13 14:30 | P.DS ---
Providers Date of admission: 01/11/21 14:08 Expected date of discharge: 01/13/21 Attending physician: Sarahi Douglass Consults: 01/11/21 14:09 Consult Physician Routine Consulting Provider: Lyndon York Consult Reason/Comments: TIA Do you want consulting provider notified?: Yes 01/11/21 14:10 Consult Physician Routine Consulting Provider: Niharika Peters Consult Reason/Comments: Chronic renal failure Do you want consulting provider notified?: Yes 01/12/21 09:41 Consult Physician Routine Consulting Provider: Ken Hairston Consult Reason/Comments: leukopenia Do you want consulting provider notified?: Yes 01/12/21 09:42 Consult Physician Routine Consulting Provider: Rashmi Holder Consult Reason/Comments: bacteremia Do you want consulting provider notified?: Yes [facility] care [facility]: HISTORY OF PRESENT ILLNESS This is a 59-year-old -Cub[place] male patient of Dr. 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 Desai, DVT of the left lower extremity on Coumadin, hypertension, diabetes mellitus type 2, high-grade AV block and paroxysmal atrial fibrillation status post dual-chamber AICD, hypertension, chronic diastolic heart failure, pulmonary hypertension and chronic cor pulmonale, chronic thrombocytopenia, patient reported history of mitral valve replacement. Patient had a recent hospit alization and discharge home on December 28 which time he was treated for sepsis secondary to streptococcus bacteremia of unclear source. Patient had refused DIMITRY and was to follow-up with his transplant team to have this done at [facility]. Patient was discharged home on vancomycin that was dosed with his dialysis treatments. Vancomycin course would be completed on January 20. Patient states that he has not been feeling well since he left the hospital. He states he will have low blood pressure at his dialysis treatment and fell asleep. Patient apparently had a shaking spell that was observed by the dialysis nurse. He was quite weak. Patient complains of having diarrhea yesterday one time. He states he has had 2 watery stools today. He states he took one Imodium yesterday and the diarrhea had stopped. He denies having any fever. No chest pain or shortness of breath. Complains of cough that is chronic without sputum production. No abdominal pain. Patient presented to [facility] emergency center and was afebrile, heart rate 97, blood pressure 135/85, pulse ox 100% on room air. EKG was a sinus rhythm. WBC 1.5, hemoglobin 10.8, platelet count 47. Sodium 134, potassium 5.2, chloride 93, CO2 27, BUN 48 and creatinine 9.55. Blood sugar 74. Ammonia level XIX. Troponin 0.021. Alcohol level less than 10. Chest x-ray showed expiratory rotated exam. Difficult to exclude component of early interstitial edema. CAT scan of the brain revealed minimal chronic-appearing white matter changes. No acute intracranial process. Patient was admitted to the cardiac stepdown unit and multiple consultants added including nephrology, infectious disease, neurology and oncology. A blood culture obtained yesterday in the emergency center is positive for gram-positive cocci in pairs and chains. Subsequently, patient's nurse received a call [facility] and they are requesting the patient be transferred to [facility]. Patient will be transferred once all arrangements are completed. 01/13: Contact has been made directly with [facility] and patient has been accepted by Dr. Ryan. Plan is that patient would be discharged after dialysis but at this point, no beds are available at [facility]. Patient underwent CAT scan of the abdomen and pelvis with contrast yesterday which revealed subcapsular fluid collection with surrounding inflammatory fat stranding involving the lateral lower pole of the right kidney similar to previous studies. Correlate for possible subcapsular renal abscess. Chronic hematoma or superinfected cyst. Cholelithiasis with nonspecific wall thickening. Small to moderate size. Umbilical hernia unchanged. Moderate bladder wall thickening reflect chronic bladder wall hypertrophy or cystitis. Sigmoid diverticulosis without diverticulitis. Patient is having dialysis at the time of evaluation. Midodrine has been added by nephrology. Patient has been afebrile, heart rate 75, blood pressure 125/71, pulse ox 96% on room air. Blood work reveals WBC 1.3, hemoglobin 8.9. Platelet count 36. INR 3. Sodium 136 otherwise electrolytes normal. BUN 84 and creatinine 16.4. Blood sugars running between 80-140. Alkaline phosphatase 207. Blood culture is showing group D enterococcus preliminary and antibiotics have been changed to daptomycin by Dr. Gallo. Patient will be transferred to [facility] once arrangements are completed. ASSESSMENT AND PLAN 1. Metabolic encephalopathy most likely secondary to combination of hypoglycemia, hypotension and sepsis with bacteremia. 2. Chronic diarrhea. 3. Persistent bacteremia. 4. Pancytopenia, chronic most likely exacerbated by sepsis. 5. End-stage renal disease on hemodialysis Saturday. 6. History of sarcoidosis with multiorgan involvement status post bilateral lung transplant at [facility] in 2014. 7. DVT of the left lower extremity on chronic Coumadin. 8. Diabetes mellitus type 2. 9. History of high-grade AV block and paroxysmal atrial fibrillation status post dual-chamber AICD. 10. Hypertension currently with hypotension. DISCHARGE PLAN Transfer patient to [facility] once arrangements are completed. Impression and plan of care have been directed as dictated by the signing physician. Sydney Gallegos nurse practitioner acting as scribe for signing physician. Patient Condition at Discharge: Stable Plan - Discharge Summary Discharge Rx Participant: No New Discharge Prescriptions: No Action Pantoprazole Sodium 40 mg PO DAILY predniSONE 5 mg PO DAILY Lidocaine-Prilocaine Cream [Emla Cream 2.5%/2.5%] 1 applic TOPICAL DAILY PRN PRN Reason: PORT ACCESS BEFORE DIALYSIS Ammonium Lactate Cream [Lac-Hydrin 12% Cream] 1 applic TOPICAL BID PRN PRN Reason: Dry Skin Valganciclovir HCl 900 mg PO MOWEFR Sulfamethox-Tmp 400-80Mg [Bactrim SS 400-80 mg] 1 tab PO MOWEFR Midodrine [ProAmatine] 5 mg PO MOWEFR Warfarin [Coumadin] 3.75 mg PO SUTUWETHFRSA Warfarin [Coumadin] 2.5 mg PO MO Carvedilol [Coreg] 25 mg PO SUTUTHSA@0800,1800 Ondansetron [Zofran] 4 mg PO TID PRN PRN Reason: Nausea And Vomiting Calcium Carb-Mag Carb-Folic [Magnebind 400] 1 tab PO QID Triphrocaps 1 tab PO DAILY Tacrolimus [Prograf] 4 mg PO QAM Vancomycin 1,000 mg IVPB MOWEFR #10 bag Carvedilol [Coreg] 12.5 mg PO MOWEFR@1800 #0 Tacrolimus [Prograf] 3 mg PO HS Lactobacillus Acidoph & Bulgar [Lactinex] 1 packet PO QID Filgrastim-Sndz [Zarxio] 300 mcg SQ Q7D Discharge Medication List Pantoprazole Sodium 40 mg PO DAILY 01/04/17 [History] predniSONE 5 mg PO DAILY 04/29/18 [History] Lidocaine-Prilocaine Cream [Emla Cream 2.5%/2.5%] 1 applic TOPICAL DAILY PRN 12/29/19 [History] Ammonium Lactate Cream [Lac-Hydrin 12% Cream] 1 applic TOPICAL BID PRN 08/16/20 [History] Sulfamethox-Tmp 400-80Mg [Bactrim SS 400-80 mg] 1 tab PO MOWEFR 08/16/20 [History] Valganciclovir HCl 900 mg PO MOWEFR 08/16/20 [History] Midodrine [ProAmatine] 5 mg PO MOWEFR 08/17/20 [History] Warfarin [Coumadin] 2.5 mg PO MO 08/17/20 [History] Warfarin [Coumadin] 3.75 mg PO SUTUWETHFRSA 08/17/20 [History] Calcium Carb-Mag Carb-Folic [Magnebind 400] 1 tab PO QID 12/22/20 [History] Carvedilol [Coreg] 25 mg PO SUTUTHSA@0800,1800 12/22/20 [History] Ondansetron [Zofran] 4 mg PO TID PRN 12/22/20 [History] Triphrocaps 1 tab PO DAILY 12/22/20 [History] Tacrolimus [Prograf] 4 mg PO QAM 12/23/20 [History] Carvedilol [Coreg] 12.5 mg PO MOWEFR@1800 #0 12/28/20 [Rx] Vancomycin 1,000 mg IVPB MOWEFR #10 bag 12/28/20 [Rx] Filgrastim-Sndz [Zarxio] 300 mcg SQ Q7D 01/11/21 [History] Lactobacillus Acidoph & Bulgar [Lactinex] 1 packet PO QID 01/11/21 [History] Tacrolimus [Prograf] 3 mg PO HS 01/11/21 [History] Follow up Appointment(s)/Referral(s): Hernán Qureshi DO [Primary Care Provider] - 1-2 days
--- NOTE | 2021-01-13 15:28 | P.PN ---
<MelvinkittySydney A - Last Filed: 01/13/21 15:26> Progress Note - Text Progress Note Date: 01/13/21 HISTORY OF PRESENT ILLNESS This is a 59-year-old -Maldivian male patient of Dr. 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 Desai, DVT of the left lower extremity on Coumadin, hypertension, diabetes mellitus type 2, high-grade AV block and paroxysmal atrial fibrillation status post dual-chamber AICD, hypertension, chronic diastolic heart failure, pulmonary hypertension and chronic cor pulmonale, chronic thrombocytopenia, patient reported history of mitral valve replacement. Patient had a recent hospitalization and discharge home on December 28 which time he was treated for sepsis secondary to streptococcus bacteremia of unclear source. Patient had refused DIMITRY and was to follow-up with his transplant team to have this done at [facility]. Patient was discharged home on vancomycin that was dosed with his dialysis treatments. Vancomycin course would be completed on January 20. Patient states that he has not been feeling well since he left the hospital. He states he will have low blood pressure at his dialysis treatment and fell asleep. Patient apparently had a shaking spell that was observed by the dialysis nurse. He was quite weak. Patient complains of having diarrhea yesterday one time. He states he has had 2 watery stools today. He states he took one Imodium yesterday and the diarrhea had stopped. He denies having any fever. No chest pain or shortness of breath. Complains of cough that is chronic without sputum production. No abdominal pain. Patient presented to [facility] emergency center and was afebrile, heart rate 97, blood pressure 135/85, pulse ox 100% on room air. EKG was a sinus rhythm. WBC 1.5, hemoglobin 10.8, platelet count 47. Sodium 134, potassium 5.2, chloride 93, CO2 27, BUN 48 and creatinine 9.55. Blood sugar 74. Ammonia level XIX. Troponin 0.021. Alcohol level less than 10. Chest x-ray showed expiratory rotated exam. Difficult to exclude component of early interstitial edema. CAT scan of the brain revealed minimal chronic-appearing white matter changes. No acute intracranial process. Patient was admitted to the cardiac stepdown unit. A blood culture obtained yesterday in the emergency center is positive for gram-positive cocci in pairs and chains. Subsequently, patient's nurse received a call [facility] Team and they are requesting the patient be transferred to [facility]. Arrangements are being made to transfer the patient. 01/13: Patient underwent CAT scan of the abdomen and pelvis with contrast yesterday which revealed subcapsular fluid collection with surrounding inf lammatory fat stranding involving the lateral lower pole of the right kidney similar to previous studies. Correlate for possible subcapsular renal abscess. Chronic hematoma or superinfected cyst. Cholelithiasis with nonspecific wall thickening. Small to moderate size. Umbilical hernia unchanged. Moderate bladder wall thickening reflect chronic bladder wall hypertrophy or cystitis. Sigmoid diverticulosis without diverticulitis. Patient is having dialysis at the time of evaluation. Patient has been afebrile, heart rate 75, blood pressure 125/71, pulse ox 96% on room air. Blood work reveals WBC 1.3, hemoglobin 8.9. Platelet count 36. INR 3. Sodium 136 otherwise electrolytes normal. BUN 84 and creatinine 16.4. Blood culture is showing group D enterococcus preliminary and antibiotics have been changed to daptomycin. PHYSICAL EXAMINATION Gen: This is a 60-year-old -Maldivian male. He is resting in bed and appears to be comfortable. HEENT: Head is atraumatic, normocephalic. Pupils equal, round. Sclerae is anicteric. NECK: Supple. No JVD. No lymphadenopathy. No thyromegaly. LUNGS: Clear to auscultation. No wheezes or rhonchi. No intercostal retractions. HEART: Regular rate and rhythm. Systolic murmur. ABDOMEN: Soft. Bowel sounds are present. No masses. No tenderness. EXTREMITIES: No pedal edema. No calf tenderness. Dorsalis pedis palpable bilaterally. AV fistula to the left arm. NEUROLOGICAL: Patient is awake, alert and oriented 3 Cranial nerves 2 through 12 are grossly intact. ASSESSMENT About encephalopathy secondary to accommodation of hypoglycemia, hypertension and sepsis with bacteremia Chronic diarrhea Persistent bacteremia Pancytopenia chronic End-stage renal disease History of sarcoidosis and multiorgan involvement status post bilateral lung transplant PLAN Discontinue Rocephin and start patient on daptomycin Agree with transfer to [facility] Thank you kindly for this consultation. The above dictated assessment and findings were discussed with Dr. Holder. The impression and plan of care have been directed as dictated. Sydney Gallegos nurse practitioner acting as scribe for Dr. Holder. <Rashmi Holder - Last Filed: 01/14/21 17:20> Progress Note - Text Enterococus bacteremia while on vancomycin , risk of VRE , antibiotics adjusted to daptomycin 6mg/kg q48hr
[2021-01-13 16:49] LABS: Glucose,Whole Blood 235 mg/dL (75-99)
[2021-01-13] MEDS: carvediloL 12.5 MG TAB PO SCH (17:14)
[2021-01-13] MEDS: WARFARIN 2.5 MG TAB PO SCH (17:15)
[2021-01-13] MEDS: FILGRASTIM-SNDZ 480 MCG/0.8 ML SYRINGE SQ SCH (17:29)
[2021-01-13 20:49] LABS: Glucose,Whole Blood 135 mg/dL (75-99)
[2021-01-14 02:18] LABS: Glucose,Whole Blood 110 mg/dL (75-99)
[2021-01-14] MEDS: INSULIN ASPART (NovoLOG) 100 UNIT/ML VIAL SQ SCH ×4 (06:13→20:43)
[2021-01-14] MEDS: MIDODRINE 5 MG TAB PO SCH ×3 (06:14→13:54)
[2021-01-14 06:17] LABS: Glucose,Whole Blood 88 mg/dL (75-99)
[2021-01-14] MEDS: TRIPHROCAPS PO SCH (08:09)
[2021-01-14] MEDS: carvediloL 12.5 MG TAB PO SCH ×2 (08:11→16:11)
[2021-01-14] MEDS: LACTOBACILLUS ACIDOPH & BULGAR 1 EACH PACKET PO SCH ×4 (08:11→20:45)
[2021-01-14] MEDS: PANTOPRAZOLE 40 MG TABLET PO SCH (08:11)
[2021-01-14] MEDS: CALCIUM CARB-MAG CARB-FOLIC 1 EACH TAB PO SCH ×4 (08:12→20:45)
[2021-01-14] MEDS: predniSONE 5 MG TAB PO SCH (08:12)
[2021-01-14] MEDS: TACROLIMUS 1 MG CAP PO SCH ×2 (08:12→20:41)
[2021-01-14 08:27] LABS: INR 2.7 (<1.2)
--- NOTE | 2021-01-14 11:50 | P.PN ---
Subjective Progress Note Date: 01/14/21 This is a 59-year-old -Citizen Of [place] male patient of Dr. Qureshi with past medical history of sarcoidosis with multiorgan involvement status post bilateral lung transplant done at [facility] in 2014, end-stage renal disease on hemodialysis Saturday via left arm AV fistula followed by Dr. Desai, DVT of the left lower extremity on Coumadin, hypertension, diabetes mellitus type 2, high-grade AV block and paroxysmal atrial fibrillation status post dual-chamber AICD, hypertension, chronic diastolic heart failure, pulmonary hypertension and chronic cor pulmonale, chronic thrombocytopenia, patient reported history of mitral valve replacement. Patient had a recent hospitalization and discharge home on December 28 which time he was treated for sepsis secondary to streptococcus bacteremia of unclear source. Patient had refused DIMITRY and was to follow-up with his transplant team to have this done at [facility]. Patient was discharged home on vancomycin that was dosed with his dialysis treatments. Vancomycin course would be completed on January 20. Patient states that he has not been feeling well since he left the hospital. He states he will have low blood pressure at his dialysis treatment and fell asleep. Patient apparently had a shaking spell that was observed by the dialysis nurse. He was quite weak. Patient complains of having diarrhea yesterday one time. He states he has had 2 watery stools today. He states he took one Imodium yesterday and the diarrhea had stopped. He denies having any fever. No chest pain or shortness of breath. Complains of cough that is chronic without sputum production. No abdominal pain. Patient presented to [facility] emergency center and was afebrile, heart rate 97, blood pressure 135/85, pulse ox 100% on room air. EKG was a sinus rhythm. WBC 1.5, hemoglobin 10.8, platelet count 47. Sodium 134, potassium 5.2, chloride 93, CO2 27, BUN 48 and creatinine 9.55. Blood sugar 74. Ammonia level XIX. Troponin 0.021. Alcohol level less than 10. Chest x-ray showed expiratory rotated exam. Difficult to exclude component of early interstitial edema. CAT scan of the brain revealed minimal chronic-appearing white matter changes. No acute intracranial process. Patient was admitted to the cardiac stepdown unit and multiple consultants added including nephrology, infectious disease, neurology and oncology. A blood culture obtained yesterday in the emergency center is positive for gram-positive cocci in pairs and chains. Subsequently, patient's nurse received a call [facility] Transplant Team and they are requesting the patient be transferred to [facility]. Patient will be transferred once all arrangements are completed. 01/13: Contact has been made directly with [facility] and patient has been accepted by Dr. Ryan. Plan is that patient would be discharged after dialysis but at this point, no beds are available at [facility]. Patient underwent CAT scan of the abdomen and pelvis with contrast yesterday which revealed subcapsular fluid collection with surrounding inflammatory fat stranding involving the lateral lower pole of the right kidney similar to previous studies. Correlate for possible subcapsular renal abscess. Chronic hematoma or superinfected cyst. Cholelithiasis with nonspecific wall thickening. Small to moderate size. Umbilical hernia unchanged. Moderate bladder wall thickening reflect chronic bladder wall hypertrophy or cystitis. Sigmoid diverticulosis without diverticulitis. Patient is having dialysis at the time of evaluation. Midodrine has been added by nephrology. Patient has been afebrile, heart rate 75, blood pressure 125/71, pulse ox 96% on room air. Blood work reveals WBC 1.3, hemoglobin 8.9. Platelet count 36. INR 3. Sodium 136 otherwise electrolytes normal. BUN 84 and creatinine 16.4. Blood sugars running between 80-140. Alkaline phosphatase 207. Blood culture is showing group D enterococcus preliminary and antibiotics have been changed to daptomycin by Dr. Holder. Patient will be transferred to [facility] once arrangements are completed. 01/14: Continue to wait for bed at [facility]. Patient continues to rest comfortably without any acute distress. Patient examined at the bedside. REVIEW OF SYSTEMS Constitutional: Reports fever, Reports chills, no night sweats. No weight change. Reports weakness, reports fatigue or lethargy. No daytime sleepiness. EENT: No headache. No blurred vision or double vision, no loss of vision. No loss of Hearing, no ringing in the ears, no dizziness. No nasal drainage or congestion. No epistaxis. No sore throat. Lungs: Denies shortness of breath, denies cough, no sputum production. No wheezing. Cardiovascular: No chest pain, no lower extremity edema. No palpitations. No paroxysmal nocturnal dyspnea. No orthopnea. No lightheadedness or dizziness. No syncopal episodes. Abdominal: No abdominal pain. No nausea, vomiting. Reports diarrhea. No constipation. No bloody or tarry stools. No loss of appetite. Genitourinary: No dysuria, increased frequency, urgency. No urinary retention. Musculoskeletal: No myalgias. Reports muscle weakness, no gait dysfunction, no frequent falls. No back pain. No neck pain. Integumentary: No wounds, no lesions. No rash or pruritus. No unusual bruising. Neurologic: No aphasia. No facial droop. No change in mentation. No head injury. No headache. No paralysis. No paresthesia. Psychiatric: No depression. No anxiety. No mood swings. Endocrine: Reports abnormal blood sugars. No weight change. No excessive sweating or thirst. No cold intolerance. PHYSICAL EXAMINATION Gen: This is a 60-year-old -Citizen Of [place] male. He is resting in bed and undergoing hemodialysis. HEENT: Head is atraumatic, normocephalic. Pupils equal, round. Sclerae is anicteric. NECK: Supple. No JVD. No lymphadenopathy. No thyromegaly. LUNGS: Clear to auscultation. No wheezes or rhonchi. No intercostal retractions. HEART: Regular rate and rhythm. Systolic murmur. ABDOMEN: Soft. Bowel sounds are present. No masses. No tenderness. EXTREMITIES: No pedal edema. No calf tenderness. Dorsalis pedis palpable bilaterally. AV fistula to the left arm. NEUROLOGICAL: Patient is awake, alert and oriented 3 Cranial nerves 2 through 12 are grossly intact. ASSESSMENT AND PLAN 1. Metabolic encephalopathy most likely secondary to combination of hypoglycemia, hypotension and sepsis with bacteremia. 2. Chronic diarrhea. 3. Persistent bacteremia. 4. Pancytopenia, chronic most likely exacerbated by sepsis. 5. End-stage renal disease on hemodialysis Saturday. 6. History of sarcoidosis with multiorgan involvement status post bilateral lung transplant at [facility] in 2014. 7. DVT of the left lower extremity on chronic Coumadin. 8. Diabetes mellitus type 2. 9. History of high-grade AV block and paroxysmal atrial fibrillation status post dual-chamber AICD. 10. Hypertension currently with hypotension. DISCHARGE PLAN Transfer patient to [facility] once arrangements are completed. Impression and plan of care have been directed as dictated by the signing physician. Jen Newberry nurse practitioner acting as scribe for signing physician. Patient Condition at Discharge: Stable Plan - Discharge Summary Discharge Rx Participant: No New Discharge Prescriptions: No Action Pantoprazole Sodium 40 mg PO DAILY predniSONE 5 mg PO DAILY Lidocaine-Prilocaine Cream [Emla Cream 2.5%/2.5%] 1 applic TOPICAL DAILY PRN PRN Reason: PORT ACCESS BEFORE DIALYSIS Ammonium Lactate Cream [Lac-Hydrin 12% Cream] 1 applic TOPICAL BID PRN PRN Reason: Dry Skin Valganciclovir HCl 900 mg PO MOWEFR Sulfamethox-Tmp 400-80Mg [Bactrim SS 400-80 mg] 1 tab PO MOWEFR Midodrine [ProAmatine] 5 mg PO MOWEFR Warfarin [Coumadin] 3.75 mg PO SUTUWETHFRSA Warfarin [Coumadin] 2.5 mg PO MO Carvedilol [Coreg] 25 mg PO SUTUTHSA@0800,1800 Ondansetron [Zofran] 4 mg PO TID PRN PRN Reason: Nausea And Vomiting Calcium Carb-Mag Carb-Folic [Magnebind 400] 1 tab PO QID Triphrocaps 1 tab PO DAILY Tacrolimus [Prograf] 4 mg PO QAM Vancomycin 1,000 mg IVPB MOWEFR #10 bag Carvedilol [Coreg] 12.5 mg PO MOWEFR@1800 #0 Tacrolimus [Prograf] 3 mg PO HS Lactobacillus Acidoph & Bulgar [Lactinex] 1 packet PO QID Filgrastim-Sndz [Zarxio] 300 mcg SQ Q7D Discharge Medication List Pantoprazole Sodium 40 mg PO DAILY 01/04/17 [History] predniSONE 5 mg PO DAILY 04/29/18 [History] Lidocaine-Prilocaine Cream [Emla Cream 2.5%/2.5%] 1 applic TOPICAL DAILY PRN 12/29/19 [History] Ammonium Lactate Cream [Lac-Hydrin 12% Cream] 1 applic TOPICAL BID PRN 08/16/20 [History] Sulfamethox-Tmp 400-80Mg [Bactrim SS 400-80 mg] 1 tab PO MOWEFR 08/16/20 [History] Valganciclovir HCl 900 mg PO MOWEFR 08/16/20 [History] Midodrine [ProAmatine] 5 mg PO MOWEFR 08/17/20 [History] Warfarin [Coumadin] 2.5 mg PO MO 10/07/20 [History] Warfarin [Coumadin] 3.75 mg PO SUTUWETHFRSA 08/17/20 [History] Calcium Carb-Mag Carb-Folic [Magnebind 400] 1 tab PO QID 12/22/20 [History] Carvedilol [Coreg] 25 mg PO SUTUTHSA@0800,1800 12/22/20 [History] Ondansetron [Zofran] 4 mg PO TID PRN 12/22/20 [History] Triphrocaps 1 tab PO DAILY 12/22/20 [History] Tacrolimus [Prograf] 4 mg PO QAM 12/23/20 [History] Carvedilol [Coreg] 12.5 mg PO MOWEFR@1800 #0 12/28/20 [Rx] Vancomycin 1,000 mg IVPB MOWEFR #10 bag 12/28/20 [Rx] Filgrastim-Sndz [Zarxio] 300 mcg SQ Q7D 01/11/21 [History] Lactobacillus Acidoph & Bulgar [Lactinex] 1 packet PO QID 01/11/21 [History] Tacrolimus [Prograf] 3 mg PO HS 01/11/21 [History] Follow up Appointment(s)/Referral(s): Hernán Qureshi DO [Primary Care Provider] - 1-2 days Additional CC's: Hernán Qureshi Objective - Vital Signs Vital signs: Vital Signs Temp 97.4 F L 01/14/21 11:43 Pulse 65 01/14/21 11:43 Resp 14 01/14/21 11:43 BP 133/58 01/14/21 11:43 Pulse Ox 95 01/14/21 11:43 Intake & Output 01/13/21 01/14/21 01/14/21 18:59 06:59 18:59 Intake Total 180 950 Output Total 0 Balance 180 950 Weight 71.4 kg Intake: Oral 180 950 Output: Urine 0 Other: # Voids 0 - Labs CBC & Chem 7: 01/13/21 06:59 01/13/21 06:59 Labs: Abnormal Lab Results - Last 24 Hours (Table) 01/13/21 01/13/21 01/13/21 Range/Units 06:59 06:59 16:48 Plt Count 36 L (150-450) k/uL Neutrophils # (Manual) 0.30 L* (1.3-7.7) k/uL Lymphocytes # (Manual) 0.82 L (1.0-4.8) k/uL Retic Count 2.4 H (0.5-2.0) % PT (9.0-12.0) sec INR (<1.2) Sodium 136 L (137-145) mmol/L BUN 84 H (9-20) mg/dL Creatinine 16.45 H* (0.66-1.25) mg/dL POC Glucose (mg/dL) 235 H (75-99) mg/dL Calcium 7.3 L (8.4-10.2) mg/dL Magnesium 2.5 H (1.6-2.3) mg/dL Alkaline Phosphatase 207 H (38-126) U/L Albumin 3.0 L (3.5-5.0) g/dL 01/13/21 01/14/21 01/14/21 Range/Units 20:40 02:05 07:18 Plt Count (150-450) k/uL Neutrophils # (Manual) (1.3-7.7) k/uL Lymphocytes # (Manual) (1.0-4.8) k/uL Retic Count (0.5-2.0) % PT 26.0 H (9.0-12.0) sec INR 2.7 H (<1.2) Sodium (137-145) mmol/L BUN (9-20) mg/dL Creatinine (0.66-1.25) mg/dL POC Glucose (mg/dL) 135 H 110 H (75-99) mg/dL Calcium (8.4-10.2) mg/dL Magnesium (1.6-2.3) mg/dL Alkaline Phosphatase (38-126) U/L Albumin (3.5-5.0) g/dL Microbiology - Last 24 Hours (Table) 01/11/21 10:30 Blood Culture Gram Stain - Final Blood Blood Culture - Final Enterococcus faecium VRE 01/11/21 10:15 Blood Culture Gram Stain - Final Blood Blood Culture - Final Enterococcus faecium VRE
[2021-01-14 12:01] LABS: Anisocytosis Slight; HCT 29.8 % (39.0-53.0); HGB 9.5 gm/dL (13.0-17.5); MCH 31.2 pg (25.0-35.0); MCHC 31.8 g/dL (31.0-37.0); MCV 98.2 fL (80.0-100.0); Macrocytosis Slight; Mean Platelet Volume 12.6; Platelet Count 43 k/uL (150-450); RBC 3.03 m/uL (4.30-5.90); RDW 16.9 % (11.5-15.5); WBC 2.3 k/uL (3.8-10.6)
[2021-01-14 12:34] LABS: Glucose,Whole Blood 117 mg/dL (75-99)
[2021-01-14 12:35] LABS: Band Neutrophils % 6 %; Eosinophils # (M) 0.02 k/uL (0-0.7); Lymphocytes # (M) 0.92 k/uL (1.0-4.8); Metamyelocytes # (M) 0.07 k/uL (0); Metamyelocytes % 3 %; Monocytes # (M) 0.28 k/uL (0-1.0); Myelocytes # (M) 0.02 k/uL (0); Myelocytes % 1 %; Neutrophils % (M) 39 %; Nucleated Red Blood Cells 0 /100 WBC (0-0); Total Cells Counted 200
[2021-01-14 12:37] LABS: Large Platelets Present
[2021-01-14 12:38] LABS: Poikilocytosis (M) Present
[2021-01-14] MEDS: ACETAMINOPHEN TAB 325 MG TAB PO PRN (14:15)
[2021-01-14 17:24] LABS: Glucose,Whole Blood 239 mg/dL (75-99)
[2021-01-14] MEDS: WARFARIN 2.5 MG TAB PO SCH (17:27)
[2021-01-14] MEDS: FILGRASTIM-SNDZ 480 MCG/0.8 ML SYRINGE SQ SCH (17:28)
[2021-01-14 20:48] LABS: Glucose,Whole Blood 203 mg/dL (75-99)
[2021-01-15] MEDS: INSULIN ASPART (NovoLOG) 100 UNIT/ML VIAL SQ SCH (06:02)
[2021-01-15] MEDS: MIDODRINE 5 MG TAB PO SCH (06:02)
[2021-01-15 06:28] LABS: Glucose,Whole Blood 77 mg/dL (75-99)
[2021-01-15 08:04] VITALS: BP 135/66; PULSE 61; RESP 18; TEMP 98
[2021-01-15] MEDS: TRIPHROCAPS PO SCH (08:42)
[2021-01-15] MEDS: CALCIUM CARB-MAG CARB-FOLIC 1 EACH TAB PO SCH (08:43)
[2021-01-15] MEDS: LACTOBACILLUS ACIDOPH & BULGAR 1 EACH PACKET PO SCH (08:43)
[2021-01-15] MEDS: carvediloL 12.5 MG TAB PO SCH (08:46)
[2021-01-15] MEDS: TACROLIMUS 1 MG CAP PO SCH (08:46)
[2021-01-15] MEDS: PANTOPRAZOLE 40 MG TABLET PO SCH (08:47)
[2021-01-15] MEDS: predniSONE 5 MG TAB PO SCH (08:47)
--- NOTE | 2021-01-15 11:15 | P.PN ---
Subjective Progress Note Date: 01/15/21 This is a 59-year-old -English male patient of Dr. 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 Desai, DVT of the left lower extremity on Coumadin, hypertension, diabetes mellitus type 2, high-grade AV block and paroxysmal atrial fibrillation status post dual-chamber AICD, hypertension, chronic diastolic heart failure, pulmonary hypertension and chronic cor pulmonale, chronic thrombocytopenia, patient reported history of mitral valve replacement. Patient had a recent hospitalization and discharge home on December 28 which time he was treated for sepsis secondary to streptococcus bacteremia of unclear source. Patient had refused DIMITRY and was to follow-up with his transplant team to have this done at [facility]. Patient was discharged home on vancomycin that was dosed with his dialysis treatments. Vancomycin course would be completed on January 20. Patient states that he has not been feeling well since he left the hospital. He states he will have low blood pressure at his dialysis treatment and fell asleep. Patient apparently had a shaking spell that was observed by the dialysis nurse. He was quite weak. Patient complains of having diarrhea yesterday one time. He states he has had 2 watery stools today. He states he took one Imodium yesterday and the diarrhea had stopped. He denies having any fever. No chest pain or shortness of breath. Complains of cough that is chronic without sputum production. No abdominal pain. Patient presented to [facility] emergency center and was afebrile, heart rate 97, blood pressure 135/85, pulse ox 100% on room air. EKG was a sinus rhythm. WBC 1.5, hemoglobin 10.8, platelet count 47. Sodium 134, potassium 5.2, chloride 93, CO2 27, BUN 48 and creatinine 9.55. Blood sugar 74. Ammonia level XIX. Troponin 0.021. Alcohol level less than 10. Chest x-ray showed expiratory rotated exam. Difficult to exclude component of early interstitial edema. CAT scan of the brain revealed minimal chronic-appearing white matter changes. No acute intracranial process. Patient was admitted to the cardiac stepdown unit and multiple consultants added including nephrology, infectious disease, neurology and oncology. A blood culture obtained yesterday in the emergency center is positive for gram-positive cocci in pairs and chains. Subsequently, patient's nurse received a call [facility] Transplant Team and they are requesting the patient be transferred to [facility]. Patient will be transferred once all arrangements are completed. 01/13: Contact has been made directly with [facility] and patient has been accepted by Dr. Ryan. Plan is that patient would be discharged after dialysis but at this point, no beds are available at [facility]. Patient underwent CAT scan of the abdomen and pelvis with contrast yesterday which revealed subcapsular fluid collection with surrounding inflammatory fat stranding involving the lateral lower pole of the right kidney similar to previous studies. Correlate for possible subcapsular renal abscess. Chronic hematoma or superinfected cyst. Cholelithiasis with nonspecific wall thickening. Small to moderate size. Umbilical hernia unchanged. Moderate bladder wall thickening reflect chronic bladder wall hypertrophy or cystitis. Sigmoid diverticulosis without diverticulitis. Patient is having dialysis at the time of evaluation. Midodrine has been added by nephrology. Patient has been afebrile, heart rate 75, blood pressure 125/71, pulse ox 96% on room air. Blood work reveals WBC 1.3, hemoglobin 8.9. Platelet count 36. INR 3. Sodium 136 otherwise electrolytes normal. BUN 84 and creatinine 16.4. Blood sugars running between 80-140. Alkaline phosphatase 207. Blood culture is showing group D enterococcus preliminary and antibiotics have been changed to daptomycin by Dr. Holder. Patient will be transferred to [facility] once arrangements are completed. 01/14: Continue to wait for bed at [facility]. Patient continues to rest comfortably without any acute distress. Patient examined at the bedside. 01/15: At that is now available at [facility]. He will be transferred here this afternoon. Patient is much more alert and able to converse without any difficulties at this time. REVIEW OF SYSTEMS Constitutional: Reports fever, Reports chills, no night sweats. No weight change. Reports weakness, reports fatigue or lethargy. No daytime sleepiness. EENT: No headache. No blurred vision or double vision, no loss of vision. No loss of Hearing, no ringing in the ears, no dizziness. No nasal drainage or congestion. No epistaxis. No sore throat. Lungs: Denies shortness of breath, denies cough, no sputum production. No wheezing. Cardiovascular: No chest pain, no lower extremity edema. No palpitations. No paroxysmal nocturnal dyspnea. No orthopnea. No lightheadedness or dizziness. No syncopal episodes. Abdominal: No abdominal pain. No nausea, vomiting. Reports diarrhea. No constipation. No bloody or tarry stools. No loss of appetite. Genitourinary: No dysuria, increased frequency, urgency. No urinary retention. Musculoskeletal: No myalgias. Reports muscle weakness, no gait dysfunction, no frequent falls. No back pain. No neck pain. Integumentary: No wounds, no lesions. No rash or pruritus. No unusual bruising. Neurologic: No aphasia. No facial droop. No change in mentation. No head injury. No headache. No paralysis. No paresthesia. Psychiatric: No depression. No anxiety. No mood swings. Endocrine: Reports abnormal blood sugars. No weight change. No excessive sweating or thirst. No cold intolerance. PHYSICAL EXAMINATION Gen: This is a 60-year-old -English male. He is resting in bed and undergoing hemodialysis. HEENT: Head is atraumatic, normocephalic. Pupils equal, round. Sclerae is anicteric. NECK: Supple. No JVD. No lymphadenopathy. No thyromegaly. LUNGS: Clear to auscultation. No wheezes or rhonchi. No intercostal retractions. HEART: Regular rate and rhythm. Systolic murmur. ABDOMEN: Soft. Bowel sounds are present. No masses. No tenderness. EXTREMITIES: No pedal edema. No calf tenderness. Dorsalis pedis palpable bilaterally. AV fistula to the left arm. NEUROLOGICAL: Patient is awake, alert and oriented 3 Cranial nerves 2 through 12 are grossly intact. ASSESSMENT AND PLAN 1. Metabolic encephalopathy most likely secondary to combination of hypoglycemia, hypotension and sepsis with bacteremia. 2. Chronic diarrhea. 3. Persistent bacteremia. 4. Pancytopenia, chronic most likely exacerbated by sepsis. 5. End-stage renal disease on hemodialysis Saturday. 6. History of sarcoidosis with multiorgan involvement status post bilateral lung transplant at [facility] in 2014. 7. DVT of the left lower extremity on chronic Coumadin. 8. Diabetes mellitus type 2. 9. History of high-grade AV block and paroxysmal atrial fibrillation status post dual-chamber AICD. 10. Hypertension currently with hypotension. DISCHARGE PLAN Transfer patient to [facility] once arrangements are completed. Impression and plan of care have been directed as dictated by the signing physician. Jen Newberry nurse practitioner acting as scribe for signing physician. Patient Condition at Discharge: Stable Plan - Discharge Summary Discharge Rx Participant: No New Discharge Prescriptions: No Action Pantoprazole Sodium 40 mg PO DAILY predniSONE 5 mg PO DAILY Lidocaine-Prilocaine Cream [Emla Cream 2.5%/2.5%] 1 applic TOPICAL DAILY PRN PRN Reason: PORT ACCESS BEFORE DIALYSIS Ammonium Lactate Cream [Lac-Hydrin 12% Cream] 1 applic TOPICAL BID PRN PRN Reason: Dry Skin Valganciclovir HCl 900 mg PO MOWEFR Sulfamethox-Tmp 400-80Mg [Bactrim SS 400-80 mg] 1 tab PO MOWEFR Midodrine [ProAmatine] 5 mg PO MOWEFR Warfarin [Coumadin] 3.75 mg PO SUTUWETHFRSA Warfarin [Coumadin] 2.5 mg PO MO Carvedilol [Coreg] 25 mg PO SUTUTHSA@0800,1800 Ondansetron [Zofran] 4 mg PO TID PRN PRN Reason: Nausea And Vomiting Calcium Carb-Mag Carb-Folic [Magnebind 400] 1 tab PO QID Triphrocaps 1 tab PO DAILY Tacrolimus [Prograf] 4 mg PO QAM Vancomycin 1,000 mg IVPB MOWEFR #10 bag Carvedilol [Coreg] 12.5 mg PO MOWEFR@1800 #0 Tacrolimus [Prograf] 3 mg PO HS Lactobacillus Acidoph & Bulgar [Lactinex] 1 packet PO QID Filgrastim-Sndz [Zarxio] 300 mcg SQ Q7D Discharge Medication List Pantoprazole Sodium 40 mg PO DAILY 01/04/17 [History] predniSONE 5 mg PO DAILY 04/29/18 [History] Lidocaine-Prilocaine Cream [Emla Cream 2.5%/2.5%] 1 applic TOPICAL DAILY PRN 12/29/19 [History] Ammonium Lactate Cream [Lac-Hydrin 12% Cream] 1 applic TOPICAL BID PRN 08/16/20 [History] Sulfamethox-Tmp 400-80Mg [Bactrim SS 400-80 mg] 1 tab PO MOWEFR 08/16/20 [History] Valganciclovir HCl 900 mg PO MOWEFR 08/16/20 [History] Midodrine [ProAmatine] 5 mg PO MOWEFR 08/17/20 [History] Warfarin [Coumadin] 2.5 mg PO MO 08/17/20 [History] Warfarin [Coumadin] 3.75 mg PO SUTUWETHFRSA 08/17/20 [History] Calcium Carb-Mag Carb-Folic [Magnebind 400] 1 tab PO QID 12/22/20 [History] Carvedilol [Coreg] 25 mg PO SUTUTHSA@0800,1800 12/22/20 [History] Ondansetron [Zofran] 4 mg PO TID PRN 12/22/20 [History] Triphrocaps 1 tab PO DAILY 12/22/20 [History] Tacrolimus [Prograf] 4 mg PO QAM 12/23/20 [History] Carvedilol [Coreg] 12.5 mg PO MOWEFR@1800 #0 12/28/20 [Rx] Vancomycin 1,000 mg IVPB MOWEFR #10 bag 12/28/20 [Rx] Filgrastim-Sndz [Zarxio] 300 mcg SQ Q7D 01/11/21 [History] Lactobacillus Acidoph & Bulgar [Lactinex] 1 packet PO QID 01/11/21 [History] Tacrolimus [Prograf] 3 mg PO HS 01/11/21 [History] Follow up Appointment(s)/Referral(s): Hernán Qureshi DO [Primary Care Provider] - 1-2 days Additional CC's: Hernán Qureshi Objective - Vital Signs Vital signs: Vital Signs Temp 98 F 01/15/21 08:03 Pulse 61 01/15/21 08:03 Resp 18 01/15/21 08:03 BP 135/66 01/15/21 08:03 Pulse Ox 100 01/15/21 08:03 Intake & Output 01/14/21 01/15/21 01/15/21 18:59 06:59 18:59 Intake Total 480 1425 Output Total 0 Balance 480 1425 Weight 71.8 kg Intake: Oral 480 1425 Output: Urine 0 Other: # Voids 0 - Labs CBC & Chem 7: 01/14/21 07:18 01/13/21 06:59 Labs: Abnormal Lab Results - Last 24 Hours (Table) 01/14/21 01/14/21 01/14/21 Range/Units 07:18 12:07 17:11 WBC 2.3 L (3.8-10.6) k/uL RBC 3.03 L (4.30-5.90) m/uL Hgb 9.5 L (13.0-17.5) gm/dL Hct 29.8 L (39.0-53.0) % RDW 16.9 H (11.5-15.5) % Plt Count 43 L (150-450) k/uL Neutrophils # (Manual) 1.00 L (1.3-7.7) k/uL Lymphocytes # (Manual) 0.92 L (1.0-4.8) k/uL Metamyelocytes # (Man) 0.07 H (0) k/uL Myelocytes # (Manual) 0.02 H (0) k/uL POC Glucose (mg/dL) 117 H 239 H (75-99) mg/dL 01/14/21 Range/Units 20:05 WBC (3.8-10.6) k/uL RBC (4.30-5.90) m/uL Hgb (13.0-17.5) gm/dL Hct (39.0-53.0) % RDW (11.5-15.5) % Plt Count (150-450) k/uL Neutrophils # (Manual) (1.3-7.7) k/uL Lymphocytes # (Manual) (1.0-4.8) k/uL Metamyelocytes # (Man) (0) k/uL Myelocytes # (Manual) (0) k/uL POC Glucose (mg/dL) 203 H (75-99) mg/dL
[2021-01-16] MEDS ORDERED: WARFARIN 2.5 MG TAB PO SCH (18:00)
[2021-01-17 22:37] LABS: LD Isoenzymes 1 21 % (19-38); LD Isoenzymes 2 33 % (30-43); LD Isoenzymes 3 24 % (16-26); LD Isoenzymes 4 11 % (3-12); LD Isoenzymes 5 11 % (3-14); Lactacte Dehydrogenase(LD) ISO 249 U/L (120-250)
== END 2021-01-15 10:16 | disposition short-term general hospital (02) | DRG 871 ==
LOC: EC 09:49 → 3SCARD 14:08
PROVIDERS: ADMIT Family Medicine; ATTEND Family Medicine
PROC: 5A1D70Z Performance of Urinary Filtration, Intermittent, Less than 6 Hours Per Day (ICD-10-PCS; principal; 2021-01-11)
DX: A40.8 Other streptococcal sepsis (principal); G92 Toxic encephalopathy; N15.1 Renal and perinephric abscess; N18.6 End stage renal disease; D61.818 Other pancytopenia; I13.2 Hypertensive heart and chronic kidney disease with heart failure and with stage 5 chronic kidney disease, or end stage renal disease; I50.32 Chronic diastolic (congestive) heart failure; Z94.2 Lung transplant status; D86.9 Sarcoidosis, unspecified; E11.22 Type 2 diabetes mellitus with diabetic chronic kidney disease; E11.649 Type 2 diabetes mellitus with hypoglycemia without coma; E87.5 Hyperkalemia; I27.29 Other secondary pulmonary hypertension; I27.81 Cor pulmonale (chronic); I48.0 Paroxysmal atrial fibrillation; Z86.718 Personal history of other venous thrombosis and embolism; Z79.01 Long term (current) use of anticoagulants; K42.9 Umbilical hernia without obstruction or gangrene; K52.9 Noninfective gastroenteritis and colitis, unspecified; K57.30 Diverticulosis of large intestine without perforation or abscess without bleeding; K80.20 Calculus of gallbladder without cholecystitis without obstruction; E83.9 Disorder of mineral metabolism, unspecified; N30.90 Cystitis, unspecified without hematuria; N32.89 Other specified disorders of bladder; Z20.822 Contact with and (suspected) exposure to COVID-19; Z82.49 Family history of ischemic heart disease and other diseases of the circulatory system; Z83.3 Family history of diabetes mellitus; Z82.61 Family history of arthritis; Z80.6 Family history of leukemia; Z95.810 Presence of automatic (implantable) cardiac defibrillator; Z99.2 Dependence on renal dialysis; Z95.2 Presence of prosthetic heart valve
CPT/HCPCS: 36415; 70450; 71046; 74177; 80053; 80061; 80320; 82140; 82550; 83010; 83625; 83735; 84132; 84484; 85025; 85045; 85610; 85730; 87040; 87077; 87186; 87635; 90935; 93005; 94760; 96374; 99285

== ENCOUNTER → 2021-08-22 | Outpatient (CLI) | payer MEDICARE ==
--- NOTE | 2021-08-22 11:45 | CT ---
EXAMINATION TYPE: CT angio chest DATE OF EXAM: 08/22/2021 9:43 AM COMPARISON: 12/29/2019 HISTORY: Hx Bilateral LE DVT CT DLP: 454 mGycm Automated exposure control for dose reduction was used. CONTRAST: CTA scan of the thorax is performed without and with IV Contrast, patient injected with 100 ml mL of Isovue 370, pulmonary embolism protocol. . FINDINGS: LUNGS: Emphysematous changes are noted and there is areas of subsegmental consolidation most typical of atelectasis or scar. There is a subpleural nodule measuring 7 mm superior segment right lower lobe . No pleural effusion or pneumothorax. Additional 3 mm nodule which likely is calcified granuloma in the right lower lobe stable from prior exam and therefore benign. MEDIASTINUM: Atherosclerotic change of the aorta. Proximal descending thoracic aorta measures 3.8 cm compatible with mild aneurysmal dilation. Proximal ascending aorta measures 4.1 cm compatible with mi ld aneurysmal dilation. There is cardiomegaly with small pericardial recess pericardial effusion. Sma ll amount of soft tissue density in the anterior mediastinum could represent shotty adenopathy versus scar from previous sternotomy. Coronary artery calcification and cardiomegaly noted. Central pulmonary arteries enhance normally. Cardiac device and lead incidentally noted. OTHER: Hypertrophic and degenerative changes of the spine. Spleen measures 12 cm at the upper limits of normal correlate clinically. Surgical change in the epigastrium. Incidental note made of gynecoma stia IMPRESSION: 1. Mild aneurysmal dilation of the aorta as discussed above. 2. COPD with areas of subsegmental atelectasis or scar favored over a pneumonitis. There is a 7 mm rodriguez bpleural nodule superior segment right lower lobe. Six-month follow-up CT scan suggested. 3. No evidence of central pulmonary embolism.
== END | disposition home or self-care (01) ==
LOC: RADCTMAIN 07:33
PROVIDERS: ATTEND Family Medicine
DX: I71.2 Thoracic aortic aneurysm, without rupture (principal); J44.9 Chronic obstructive pulmonary disease, unspecified; R91.1 Solitary pulmonary nodule
CPT/HCPCS: 82565; 84520; 71275; 36415; Q9967

== ENCOUNTER → 2021-10-12 | Outpatient (CLI) | payer MEDICARE, BC ==
--- NOTE | 2021-10-12 11:07 | CT ---
EXAMINATION TYPE: CT angio abdomen pelvis DATE OF EXAM: 10/12/2021 COMPARISON: Prior CT abdomen and pelvis January 12, 2021 HISTORY: Renal failure, pre renal transplant CT DLP: 611.2 mGycm, Automated Exposure Control for Dose Reduction was Utilized. CONTRAST: CTA scan of the abdomen and pelvis is performed without oral and without and with IV Contrast, patien t injected with 100 mL of Isovue 370. Three-D reconstructed images created on an independent workstat ion and reviewed FINDINGS: VASCULAR: Patency of the celiac artery and SMA along with left renal artery. Mild to minimal plaque a long the abdominal aorta. Patent IGLESIA. Patent iliac branch vessels. More mild to moderate plaque in th e external iliac arteries bilaterally. Patent femoral vessels in the bilateral groin. No significant stenosis. Small vessel calcification suggests chronic medical renal disease. Nonopacified right renal artery with streak artifact from numerous embolization coils. LUNG BASES: Partial visualization of inferior sternal wires. Partial visualization of right-sided pac emaker/defibrillator leads. Superficial retained epicardial pacer wires redemonstrated. LIVER/GB: Small intraluminal calcified gallstones again seen. Some abnormal wall thickening inferiorl y are thought still present. Consider surgical evaluation for chronic wall thickening as sometimes th is may be presentation for gallbladder neoplasm. PANCREAS: No significant abnormality is seen. SPLEEN: Stable heterogeneous enlarged spleen. ADRENALS: No significant abnormality is seen. KIDNEYS: Numerous coils along course of the right renal artery causing streak artifact limiting evalu ation. Right kidney diminished in size with cortical thinning and diffuse cortical calcifications are redemonstrated. Cystic change laterally mid to lower pole level is less prominent suggesting interva l drainage and/or rupture. Somewhat less prominent Cortical thinning with scattered simple appearing thin-walled cysts throughout the left kidney are redemonstrated. Patent single left renal artery connor nal image 47 for reference BOWEL: Surgical clips the level of the diaphragmatic hiatus redemonstrated. Suboptimal evaluation wit hout enteric contrast. Sigmoid colonic diverticulosis redemonstrated. No CT evidence for acute divert iculitis. PROSTATE/SEMINAL VESICLES: Prostate gland stable measuring upper limits of normal in size. LYMPH NODES: No greater than 1cm abdominal or pelvic lymph nodes are appreciated. OSSEOUS STRUCTURES: Facet arthropathy lower lumbar spine. OTHER: Large umbilical hernia containing fat and tiny mesenteric vessels redemonstrated. Infrarenal I VC filter redemonstrated. Linear Calcification in the penile shaft. IMPRESSION: As above. Interval drainage of the lateral thin-walled fluid collection mid to lower pole of the right kidney is thought present otherwise no significant change from most recent CT.
== END | disposition home or self-care (01) ==
LOC: RADCTMAIN 07:19
PROVIDERS: ATTEND Family Medicine
DX: Z01.818 Encounter for other preprocedural examination (principal); K57.30 Diverticulosis of large intestine without perforation or abscess without bleeding; M47.816 Spondylosis without myelopathy or radiculopathy, lumbar region; K42.9 Umbilical hernia without obstruction or gangrene; N19 Unspecified kidney failure
CPT/HCPCS: 74174; Q9967

== ENCOUNTER 2022-08-03 10:42 | Inpatient (IN) | payer MEDICARE, BC ==
--- NOTE | 2022-08-03 13:12 | ED ---
General Adult HPI - General Chief complaint: Recheck/Abnormal Lab/Rx Stated complaint: Needs Dialysis, Sent by Time Seen by Provider: 08/03/22 12:41 Source: patient, RN notes reviewed, old records reviewed Mode of arrival: ambulatory Limitations: no limitations - History of Present Illness Initial comments: 62-year-old male presenting with need for possible hemodialysis. Patient has had not received hemodialysis in the last week second to a current diagnosis of Covid. Patient states his cold symptoms have completely resolved and is feeling fine. No breathing issues. He does not currently make any urine. 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 He cannot receive hemodialysis because of his Covid status. He was sent in for laboratory testing by his export specialist. No complaints from the patient. - Related Data Home Medications Medication Instructions Recorded Confirmed Pantoprazole Sodium 40 mg PO DAILY 01/04/17 08/03/22 predniSONE 5 mg PO DIRECTED 04/29/18 08/03/22 Lidocaine-Prilocaine Cream [Emla 1 applic TOPICAL MOWEFR PRN 12/29/19 08/03/22 Cream 2.5%/2.5%] Sulfamethox-Tmp 400-80Mg [Bactrim 1 tab PO TUTHSA 08/16/20 08/03/22 SS 400-80 mg] Warfarin [Coumadin] 2.5 mg PO MOWEFRSA 08/17/20 08/03/22 Warfarin [Coumadin] 3.75 mg PO SUTUTH@2100 08/17/20 08/03/22 Ondansetron [Zofran] 4 mg PO TID PRN 12/22/20 08/03/22 Triphrocaps 1 tab PO DAILY 12/22/20 08/03/22 Tacrolimus [Prograf] 4 mg PO BID 12/23/20 08/03/22 Atorvastatin [Lipitor] 10 mg PO DAILY 08/03/22 08/03/22 Azithromycin [Zithromax] 250 mg PO DIRECTED 08/03/22 08/03/22 Azithromycin [Zithromax] See Taper PO DIRECTED 08/03/22 08/03/22 Calcium Acetate [Phoslo] 1,334 mg PO BID-W/MEALS 08/03/22 08/03/22 Gabapentin 300 mg PO HS 08/03/22 08/03/22 Magnebind 250-300mg 2 tab PO BID-W/MEALS 08/03/22 08/03/22 Midodrine (Unknown Strength) 1 dose PO DIRECTED PRN 08/03/22 08/03/22 Montelukast [Singulair] 10 mg PO HS 08/03/22 08/03/22 Ondansetron Odt [Zofran Odt] 4 mg PO Q8HR PRN 08/03/22 08/03/22 Promethazine HCl/Codeine 5 ml PO Q8H PRN 08/03/22 08/03/22 [Promethazine HCl/Codeine Syrup] carvediloL [Coreg] 12.5 mg PO BID 08/03/22 08/03/22 predniSONE See Taper PO DIRECTED 08/03/22 08/03/22 Allergies Allergy/AdvReac Type Severity Reaction Status Date / Time meperidine [From Demerol] Allergy Rash/Hives Verified 08/03/22 13:57 Review of Systems ROS Statement: Those systems with pertinent positive or pertinent negative responses have been documented in the HPI. ROS Other: All systems not noted in ROS Statement are negative. Past Medical History Past Medical History: Diabetes Mellitus, Deep Vein Thrombosis (DVT), Hyperte nsion, Renal Disease, Respiratory Disorder Additional Past Medical History / Comment(s): See Dr Holman's H&P,Sarcodosis,Hemodialysis MoWeFr,hx dvt left leg. 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 COLONOSCOPY. RT HAND SURGERY. HEMODIALYSIS CATH. AV SHUNT LT UPPER ARM- 06/11/17 Past Anesthesia/Blood Transfusion Reactions: Motion Sickness Type of Cardiac Device: Permanent Pacemaker, AICD Device Placement Date:: 03-28-2011 Past Psychological History: No Psychological Hx Reported Smoking Status: Never smoker Past Alcohol Use History: None Reported Past Drug Use History: None Reported - Past Family History Father Family Medical History: Cancer, Osteoarthritis (OA) Additional Family Medical History / Comment(s): Father is with history of leukemia and sarcoidosis. Strong family history of sarcoidosis on his father's side. Mother Additional Family Medical History / Comment(s): Mother is after her fifth myocardial infarction with history of diabetes. Brother(s) Additional Family Medical History / Comment(s): Patient has a brother and sister with sarcoidosis. Patient has 6 children with no major medical problems. None have been diagnosed with sarcoidosis. General Exam Limitations: no limitations General appearance: alert, in no apparent distress Head exam: Present: atraumatic, normocephalic Eye exam: Present: normal appearance, PERRL ENT exam: Present: normal exam Neck exam: Present: normal inspection. Absent: tenderness, meningismus Respiratory exam: Present: normal lung sounds bilaterally. Absent: respiratory distress, wheezes Cardiovascular Exam: Present: regular rate, normal rhythm GI/Abdominal exam: Present: soft. Absent: distended, tenderness, guarding Extremities exam: Present: normal inspection, normal capillary refill. Absent: pedal edema, joint swelling Neurological exam: Present: alert, oriented X3, CN II-XII intact. Absent: motor sensory deficit Psychiatric exam: Present: normal affect, normal mood Skin exam: Present: warm, dry, intact Course Vital Signs 08/03/22 11:18 Pulse Rate 67 Respiratory 20 Rate Blood Pressure 143/89 O2 Sat by Pulse 99 Oximetry EKG Findings - EKG Comments: EKG Findings:: EKG paced rhythm rate 66, OR interval 246, QRS duration 97, QTC [address] segment elevation, normal T waves. Medical Decision Making - Medical Decision Making 62-year-old male with end-stage renal disease presenting to the emergency department without complaint but had not received hemodialysis for the past one week. EKG is paced rhythm with narrow complex QRS normal T waves. Laboratory testing reveals a stable CBC. He is hyperkalemic with a potassium 7.5. He has an elevated INR at 8.3. I did discuss case with Dr. Peters who will arrange for urgent hemodialysis. She does recommend insulin, dextrose, and calcium, as treatment for his hyperkalemia. Patient will be admitted to [facility]. He does continue to test positive for coronavirus. - Lab Data Result diagrams: 08/03/22 13:18 08/03/22 13:18 Lab Results 09/23/22 09/23/22 09/23/22 Range/Units 13:18 13:18 13:18 WBC 7.2 (3.8-10.6) k/uL RBC 4.06 L (4.30-5.90) m/uL Hgb 12.0 L (13.0-17.5) gm/dL Hct 38.8 L (39.0-53.0) % MCV 95.6 D (80.0-100.0) fL MCH 29.4 (25.0-35.0) pg MCHC 30.8 L (31.0-37.0) g/dL RDW 17.0 H (11.5-15.5) % Plt Count 111 L (150-450) k/uL MPV 11.0 Neutrophils % 73 % Lymphocytes % 20 % Monocytes % 5 % Eosinophils % 0 % Basophils % 1 % Neutrophils # 5.3 (1.3-7.7) k/uL Lymphocytes # 1.4 (1.0-4.8) k/uL Monocytes # 0.4 (0-1.0) k/uL Eosinophils # 0.0 (0-0.7) k/uL Basophils # 0.0 (0-0.2) k/uL Hypochromasia Slight Anisocytosis Slight PT 85.3 H (9.0-12.0) sec INR 8.3 H* (<1.2) APTT 51.5 H (22.0-30.0) sec Sodium 139 (137-145) mmol/L Potassium 7.5 H* (3.5-5.1) mmol/L Chloride 99 (98-107) mmol/L Carbon Dioxide 16 L (22-30) mmol/L Anion Gap 24 mmol/L BUN 114 H* (9-20) mg/dL Creatinine 26.71 H* (0.66-1.25) mg/dL Est GFR (CKD-EPI)AfAm 2 (>60 ml/min/1.73 sqM) Est GFR (CKD-EPI)NonAf 2 (>60 ml/min/1.73 sqM) Glucose 117 H (74-99) mg/dL Calcium 7.8 L (8.4-10.2) mg/dL Phosphorus 8.9 H (2.5-4.5) mg/dL Magnesium 3.2 H (1.6-2.3) mg/dL Total Bilirubin 0.7 (0.2-1.3) mg/dL AST 33 (17-59) U/L ALT 19 (4-49) U/L Alkaline Phosphatase 143 H (38-126) U/L Total Protein 7.2 (6.3-8.2) g/dL Albumin 4.5 (3.5-5.0) g/dL Coronavirus (PCR) (Not Detectd) 08/03/22 Range/Units 13:18 WBC (3.8-10.6) k/uL RBC (4.30-5.90) m/uL Hgb (13.0-17.5) gm/dL Hct (39.0-53.0) % MCV (80.0-100.0) fL MCH (25.0-35.0) pg MCHC (31.0-37.0) g/dL RDW (11.5-15.5) % Plt Count (150-450) k/uL MPV Neutrophils % % Lymphocytes % % Monocytes % % Eosinophils % % Basophils % % Neutrophils # (1.3-7.7) k/uL Lymphocytes # (1.0-4.8) k/uL Monocytes # (0-1.0) k/uL Eosinophils # (0-0.7) k/uL Basophils # (0-0.2) k/uL Hypochromasia Anisocytosis PT (9.0-12.0) sec INR (<1.2) APTT (22.0-30.0) sec Sodium (137-145) mmol/L Potassium (3.5-5.1) mmol/L Chloride (98-107) mmol/L Carbon Dioxide (22-30) mmol/L Anion Gap mmol/L BUN (9-20) mg/dL Creatinine (0.66-1.25) mg/dL Est GFR (CKD-EPI)AfAm (>60 ml/min/1.73 sqM) Est GFR (CKD-EPI)NonAf (>60 ml/min/1.73 sqM) Glucose (74-99) mg/dL Calcium (8.4-10.2) mg/dL Phosphorus (2.5-4.5) mg/dL Magnesium (1.6-2.3) mg/dL Total Bilirubin (0.2-1.3) mg/dL AST (17-59) U/L ALT (4-49) U/L Alkaline Phosphatase (38-126) U/L Total Protein (6.3-8.2) g/dL Albumin (3.5-5.0) g/dL Coronavirus (PCR) Detected A (Not Detectd) Critical Care Time Critical Care Time: Yes Total Critical Care Time: 35 Disposition Clinical Impression: ESRD (end stage renal disease), COVID-19, Hyperkalemia, Supratherapeutic INR Disposition: ADMITTED IP TO THIS HOSP Condition: Serious Is patient prescribed a controlled substance at d/c from ED?: No Referrals: Hernán Qureshi DO [Primary Care Provider] - 1-2 days Time of Disposition: 15:06
[2022-08-03 13:59] LABS: Anisocytosis Slight; Basophils % (A) 1 %; Eosinophils % (A) 0 %; HCT 38.8 % (39.0-53.0); Hypochromasia Slight; Lymphocytes # (A) 1.4 k/uL (1.0-4.8); Lymphocytes % (A) 20 %; MCH 29.4 pg (25.0-35.0); MCHC 30.8 g/dL (31.0-37.0); Monocytes # (A) 0.4 k/uL (0-1.0); Monocytes % (A) 5 %; Neutrophils # (A) 5.3 k/uL (1.3-7.7); Neutrophils % (A) 73 %; Platelet Count 111 k/uL (150-450); RBC 4.06 m/uL (4.30-5.90); WBC 7.2 k/uL (3.8-10.6)
[2022-08-03 14:11] LABS: Partial Thromboplastin Time 51.5 sec (22.0-30.0)
[2022-08-03 14:12] LABS: MCV 95.6 fL (80.0-100.0)
[2022-08-03 14:16] LABS: Prothrombin Time 85.3 sec (9.0-12.0)
[2022-08-03 14:23] LABS: Albumin 4.5 g/dL (3.5-5.0); Calcium 7.8 mg/dL (8.4-10.2); INR 8.3 (<1.2); Magnesium 3.2 mg/dL (1.6-2.3); Phosphorus 8.9 mg/dL (2.5-4.5); Total Bilirubin 0.7 mg/dL (0.2-1.3); Total Protein 7.2 g/dL (6.3-8.2)
[2022-08-03 14:37] LABS: Potassium 7.5 mmol/L (3.5-5.1)
[2022-08-03] MEDS ORDERED: INSULIN REGULAR 100 UNIT/ML VIAL (IV) IV ONE (15:02)
[2022-08-03] MEDS ORDERED: DEXTROSE 50% SYRINGE 50 ML IVP ONE (15:02)
[2022-08-03] MEDS ORDERED: NALOXONE 0.4 MG/ML 1 ML VIAL IV PRN (15:03)
[2022-08-03] MEDS ORDERED: CALCIUM GLUCONATE IN NACL 1 GM in SALINE 1 100ML.BAG IVPB ONE (15:20)
[2022-08-03] MEDS ORDERED: [UNRECOGNIZED DRUG - OTHER] PO PRN (15:28)
[2022-08-03] MEDS ORDERED: PROMETHAZINE HCL PO PRN (15:28)
[2022-08-03] MEDS ORDERED: CODEINE PO PRN (15:28)
[2022-08-03] MEDS ORDERED: ONDANSETRON ODT 4 MG TAB PO PRN (15:28)
[2022-08-03] MEDS ORDERED: AZITHROMYCIN 250 MG TAB PO SCH (16:00)
[2022-08-03] MEDS ORDERED: predniSONE 5 MG TAB PO SCH (16:00)
[2022-08-03] MEDS ORDERED: CALCIUM CARB-MAG CARB-FOLIC 1 EACH TAB PO SCH (17:30)
[2022-08-03] MEDS ORDERED: CALCIUM ACETATE 667 MG TAB PO SCH (17:30)
[2022-08-03 17:39] LABS: Prothrombin Time 89.3 sec (9.0-12.0)
[2022-08-03 17:52] LABS: INR 8.7 (<1.2)
[2022-08-03 18:32] VITALS: RESP 16
[2022-08-03] MEDS ORDERED: GABAPENTIN 300 MG CAP PO SCH (21:00)
[2022-08-03] MEDS ORDERED: carvediloL 12.5 MG TAB PO SCH (21:00)
[2022-08-03] MEDS ORDERED: MONTELUKAST 10 MG TAB PO SCH (21:00)
[2022-08-03] MEDS ORDERED: TACROLIMUS 1 MG CAP PO SCH (21:00)
[2022-08-03 22:57] VITALS: BP 131/79; PULSE 62
[2022-08-03 23:38] LABS: Calcium 8.2 mg/dL (8.4-10.2); Magnesium 2.4 mg/dL (1.6-2.3); Potassium 5.4 mmol/L (3.5-5.1)
--- NOTE | 2022-08-04 02:20 | HP ---
HISTORY AND PHYSICAL CHIEF COMPLAINT: Hyperkalemia. HISTORY OF PRESENT ILLNESS: This 62-year-old gentleman with a past medical history of multiple medical problems, diabetes, DVT, chronic renal failure, was not having hemodialysis last year because of positive COVID-19 diagnosis. The patient had some cold symptoms initially. The patient was referred to [facility]. Potassium was found to be 7.5, INR was also found to be 8.3. The patient apparently had a recent colonoscopy and surgery and was taking amoxicillin as well after that. There is no history of any fever, rigors, or chills at this time. PAST MEDICAL HISTORY: History of recent COVID-19 diagnosis, diabetes mellitus type 2, hypertension, renal failure, and rest of the history reviewed. MEDICATIONS: Home medications reviewed which include sulfamethoxazole, dose and rest of medications reviewed. ALLERGIES: Reviewed, meperidine. FAMILY HISTORY: History of osteoarthritis in the family. SOCIAL HISTORY: No history of smoking or alcohol. REVIEW OF SYSTEMS: A 14-point review is negative except mentioned earlier. PHYSICAL EXAMINATION: VITAL SIGNS: Pulse is 67, blood pressure 143/93, and respirations 20. HEENT: Conjunctivae normal. NECK: No jugular venous distention. CARDIOVASCULAR: S1, S2 muffled. RESPIRATIONS: Breath sounds diminished at the bases. ABDOMEN: Soft, nontender. LEGS: No edema. NERVOUS SYSTEM: No focal deficits. SKIN: No ulcer. JOINTS: No active deforming arthropathy. LABS: Reviewed, potassium 7.5, rest of the labs are reviewed. ASSESSMENT: 1. Severe hyperkalemia. 2. Lack of hemodialysis. 3. Chronic renal failure, on hemodialysis. 4. Coumadin coagulopathy. 5. COVID-19 positive, acute. 6. Diabetes mellitus, type 2. 7. Multiple medical issues. 8. History of deep vein thrombosis. RECOMMENDATIONS: This 62-year-old gentleman presented with multiple complex medical issues, we will monitor the patient closely. I will recommend calcium gluconate and hypokalemic regime and hemodialysis. Otherwise, I would also recommend monitor PT/INR closely. Continue the rest of medications. Prognosis guarded because of multiple complex medical conditions. See orders for details. MMODL / IJN: [id number] /
[2022-08-04] MEDS ORDERED: PANTOPRAZOLE 40 MG TABLET PO SCH (07:30)
[2022-08-04] MEDS ORDERED: TRIPHROCAPS PO SCH (09:00)
[2022-08-04] MEDS ORDERED: ATORVASTATIN 10 MG TAB PO SCH (09:00)
== END 2022-08-04 00:16 | disposition left against medical advice (07) | DRG 640 ==
LOC: EC 10:42 → 3SCARD 15:03
PROVIDERS: ADMIT Hospitalist; ATTEND Hospitalist
PROC: 5A1D70Z Performance of Urinary Filtration, Intermittent, Less than 6 Hours Per Day (ICD-10-PCS; principal; 2022-08-03)
DX: E87.5 Hyperkalemia (principal); N18.6 End stage renal disease; U07.1 COVID-19; I12.0 Hypertensive chronic kidney disease with stage 5 chronic kidney disease or end stage renal disease; Z94.2 Lung transplant status; Z99.2 Dependence on renal dialysis; E11.22 Type 2 diabetes mellitus with diabetic chronic kidney disease; R79.1 Abnormal coagulation profile; T45.515A Adverse effect of anticoagulants, initial encounter; Z79.01 Long term (current) use of anticoagulants; Z82.49 Family history of ischemic heart disease and other diseases of the circulatory system; Z83.3 Family history of diabetes mellitus; Z86.718 Personal history of other venous thrombosis and embolism; Z95.2 Presence of prosthetic heart valve; Z80.6 Family history of leukemia
CPT/HCPCS: 36415; 80048; 80053; 83735; 84100; 85025; 85610; 85730; 87635; 90935; 93005

== ENCOUNTER → 2024-01-02 | Outpatient (CLI) | payer MEDICARE ==
--- NOTE | 2024-01-02 15:41 | P.SLEEP ---
History of Present Illness DATE: 01/02/2024 CONSULTATION/NEW PATIENT EVALUATION HISTORY OF PRESENT ILLNESS/SLEEP-WAKE EVALUATION: 63 year old gentleman had been evaluated in the sleep center for possible obstructive sleep apnea hypopnea syndrome. Patient has history of obstructive sleep apnea hypopnea syndrome diagnosed in another institution about 13 years ago. At that time she was treated with CPAP for about 4 years and then because he said to lung transplant and normalization of his oxygen level history of using CPAP. Presently he again developed oxygen desaturation during the sleep and using oxygen supplement now 2 L/m 24 hours a day. SLEEP SCHEDULE: Usually sleep schedule 9 PM to 9 AM 7 days a week. FALLING ASLEEP: Patient has difficulties with falling asleep, although no TV in bedroom. DURING SLEEP: Patient usually sleeps on the side position wakes up from sleep 2 times with one episode of nocturia, episodes of choking, gasping for air and palpitations. No history of hypnogogical hallucinations, sleep paralysis, or cataplexy. DURING THE DAY/WAKE STATE: In the morning patient wake up tired, falling asleep during the day. [place] sleepiness scale is significantly increased to 16. Patient may take 2 naps during the day. PAST MEDICAL HISTORY: Sarcoidosis of the lungs and kidney, arterial fibrillation episodes. PAST SURGICAL HISTORY: Bilateral lung transplant, tricuspid valve repair, kidney transplant. MEDICATIONS: Carvedilol 250 mg 1-1/2 tablet twice a day, pantoprazole 40 mg once a day, prednisone 5 mg once a day, Fosamax 70 mg once a day, atorvastatin once a week, insulin, Lasix 20 mg once a day in the morning as needed, warfarin 1 mg once a day, tacrolimus 1 mg 3-1/2 cups. Twice a day, mycophenolate 250 mg 2 capsules twice a day. SOCIAL HISTORY: Negative for smoking or using alcohol. FAMILY HISTORY: Hypertension, stroke, asthma, lung problems, diabetes. REVIEW OF SYSTEMS: Multiple awakenings from sleep, sleepiness during the day. No fevers. No double vision. No recent chest pain. No shortness of breath. No abdominal pain. No bleeding episodes. No blood in urine. No seizure episodes. PHYSICAL EXAMINATION: GENERAL: A pleasant patient without any distress. VITAL SIGNS: BP 116/78 , HR 98 , RR 16 , weight 179 pounds, height 5 foot 8-1/4 inches, body mass index 27.0 . HEENT: NICOLASA FRYE. Evaluation of oropharynx showed tongue protrudes midline, low position of soft palate Mallampati 2-3. NECK: Supple. No JVD. Thyroid is not palpable. 17 inches in circumference. LUNGS: Clear to percussion and to auscultation. Good air exchange. No wheezing or rhonchi. HEART: S1, S2 regular. No murmurs, gallops or rubs. ABDOMEN: Soft and nontender. Bowel sounds are present. No organomegaly appreciated. EXTREMITIES: No clubbing or cyanosis. QUILL WORKER: Awake, alert, and oriented x3. Cranial nerves 2 to 7 intact. There is no fasciculation or atrophy noted. No focal deficits observed. ASSESSMENT: 1. Awakenings from sleep with choking and gasping for air, small oropharyngeal airspace position of soft palate Mallampati 23, significant sleepiness with [place] Sleepiness Scale 16, wide neck 17 inches in circumference, history of obstructive sleep apnea in the past. Obstructive sleep apnea hypopnea syndrome . 2. Status post bilateral lung transplant for sarcoidosis. 3. Status post kidney transplant. 4. Diabetes mellitus. 5 acid reflux. 6 . Status post tricuspid while repair. 7. History of 6 episodes of paroxysmal atrial fibrillation. 8. Status post Covid 19 2 times. PLAN: 1. Polysomnography for evaluation of patient's breathing during sleep. 2. Following plan after reading sleep study. 3. No driving if feel any sleepiness. Patient is aware of civil and criminal liability for unsafe driving. 4. Sleep hygiene with regular sleep time for at least 7.5-8 hours. 5. Watching weight. Thank you very much for referring this patient for consultation. Sincerely, Anastacio Anderson MD, PhD, FAASM. Diplomat of [place] [employer], Sleep Medicine Board by [place] [employer] [place] [employer] [facility] [place] Past Medical History Past Medical History: Diabetes Mellitus, Deep Vein Thrombosis (DVT), Hypertension, Renal Disease, Respiratory Disorder Additional Past Medical History / Comment(s): Sarcodosis,Hemodialysis MoWeFr,hx dvt left leg. 12/25/19 clots removed from left arm fistula History of Any Multi-Drug Resistant Organisms: VRE Date of last positivie culture/infection: 01/11/21 MDRO Source:: VRE BLOOD Past Surgical History: AICD, Back Surgery, Cardiac Valve Replacement, Cholecystectomy, Hernia Repair, Orthopedic Surgery, Pacemaker Additional Past Surgical History / Comment(s): Bilateral lung transplant w/ valve replacement(not sure which valve)-04-25-2016. COLONOSCOPY. RT HAND SURGERY. HEMODIALYSIS CATH. AV SHUNT LT UPPER ARM- 06/11/17. KIDNEY TRANSPLANT 03/12/23 Past Anesthesia/Blood Transfusion Reactions: Motion Sickness Type of Cardiac Device: Permanent Pacemaker, AICD Device Placement Date:: 03-28-2011 Smoking Status: Never smoker - Past Family History Father Family Medical History: Cancer, Osteoarthritis (OA) Additional Family Medical History / Comment(s): Father is with history of leukemia and sarcoidosis. Strong family history of sarcoidosis on his father's side. Mother Additional Family Medical History / Comment(s): Mother is after her fifth myocardial infarction with history of diabetes. Brother(s) Additional Family Medical History / Comment(s): Patient has a brother and sister with sarcoidosis. Patient has 6 children with no major medical problems. None have been diagnosed with sarcoidosis. Medications and Allergies Home Medications Medication Instructions Recorded Confirmed Type Pantoprazole Sodium 40 mg PO DAILY 01/04/17 08/03/22 History predniSONE 5 mg PO DIRECTED 04/29/18 08/03/22 History Lidocaine-Prilocaine Cream [Emla 1 applic TOPICAL MOWEFR PRN 12/29/19 08/03/22 History Cream 2.5%/2.5%] Sulfamethox-Tmp 400-80Mg [Bactrim 1 tab PO TUTHSA 08/16/20 08/03/22 History SS 400-80 mg] Warfarin [Coumadin] 2.5 mg PO MOWEFRSA 08/17/20 08/03/22 History Warfarin [Coumadin] 3.75 mg PO SUTUTH@2100 08/17/20 08/03/22 History Ondansetron [Zofran] 4 mg PO TID PRN 12/22/20 08/03/22 History Triphrocaps 1 tab PO DAILY 12/22/20 08/03/22 History Tacrolimus [Prograf] 4 mg PO BID 12/23/20 08/03/22 History Atorvastatin [Lipitor] 10 mg PO DAILY 08/03/22 08/03/22 History Azithromycin [Zithromax] 250 mg PO DIRECTED 08/03/22 08/03/22 History Azithromycin [Zithromax] See Taper PO DIRECTED 08/03/22 08/03/22 History Calcium Acetate [Phoslo] 1,334 mg PO BID-W/MEALS 08/03/22 08/03/22 History Gabapentin 300 mg PO HS 08/03/22 08/03/22 History Magnebind 250-300mg 2 tab PO BID-W/MEALS 08/03/22 08/03/22 History Midodrine (Unknown Strength) 1 dose PO DIRECTED PRN 08/03/22 08/03/22 History Montelukast [Singulair] 10 mg PO HS 08/03/22 08/03/22 History Ondansetron Odt [Zofran Odt] 4 mg PO Q8HR PRN 08/03/22 08/03/22 History Promethazine HCl/Codeine 5 ml PO Q8H PRN 08/03/22 08/03/22 History [Promethazine HCl/Codeine Syrup] carvediloL [Coreg] 12.5 mg PO BID 08/03/22 08/03/22 History predniSONE See Taper PO DIRECTED 08/03/22 08/03/22 History Allergies Allergy/AdvReac Type Severity Reaction Status Date / Time meperidine [From Demerol] Allergy Rash/Hives Verified 12/16/23 09:32 Sleep Note - Sleep Note Sleep Note: Temperature: Pulse Rate: Respiratory Rate: Blood Pressure: SpO2: Height: Weight: BMI: Neck Circumference:
== END ==
LOC: 3 N SLEEP 14:01
PROVIDERS: ATTEND Internal Medicine
DX: G47.33 Obstructive sleep apnea (adult) (pediatric) (principal); E11.9 Type 2 diabetes mellitus without complications; K21.9 Gastro-esophageal reflux disease without esophagitis; U09.9 Post COVID-19 condition, unspecified; I48.0 Paroxysmal atrial fibrillation; G47.10 Hypersomnia, unspecified; G47.8 Other sleep disorders; J39.2 Other diseases of pharynx; I10 Essential (primary) hypertension; Z94.0 Kidney transplant status; Z94.2 Lung transplant status; Z87.09 Personal history of other diseases of the respiratory system; Z98.890 Other specified postprocedural states; Z86.718 Personal history of other venous thrombosis and embolism; Z95.0 Presence of cardiac pacemaker; Z88.8 Allergy status to other drugs, medicaments and biological substances; Z79.01 Long term (current) use of anticoagulants; Z79.899 Other long term (current) drug therapy
CPT/HCPCS: 99211

== ENCOUNTER → 2024-06-18 | Outpatient (CLI) | payer MEDICARE | END | disposition home or self-care (01) | LOC: LABPRL 10:15 | PROVIDERS: ATTEND Internal Medicine Nephrology | DX: Z48.298 Encounter for aftercare following other organ transplant | CPT/HCPCS: 80053; 80061; 82306; 83735; 83970; 84100; 85025 ==

== ENCOUNTER → 2025-06-11 | Outpatient (CLI) | payer MEDICARE ==
[~2025-06-11] MED LIST changes: -BENZOCAINE SPRAY 1 CAN MUCOUS MEM ONE; -MIDAZOLAM 2 MG/2 ML VIAL IV ONE; -SODIUM CHLORIDE 0.9% 1,000 ML IV ONE; -SODIUM CHLORIDE 0.9% 1,000 ML IV SCH; +SODIUM CHLORIDE 0.9% 250 ML in EMPTY BAG 1 BAG IV PRN; +SODIUM CHLORIDE 0.9% 500 ML 500 ML in EMPTY BAG 1 BAG IV PRN; -fentaNYL (PF) 50 MCG/ML 2 ML AMP IV ONE; -fentaNYL (PF) 50 MCG/ML 2 ML AMP ONE
[2025-06-11 12:11] VITALS: BP 119/74; PULSE 72; RESP 16; TEMP 97.2
[2025-06-11 12:48] LABS: ALT 32 U/L (4-49); AST 34 U/L (17-59); African American GFR (CKD) 37 (>60 ml/min/1.73 sqM); Albumin 4.0 g/dL (3.5-5.0); Alkaline Phosphatase 89 U/L (38-126); Anion Gap 8 mmol/L; Blood Urea Nitrogen 37 mg/dL (9-20); Calcium 9.2 mg/dL (8.4-10.2); Carbon Dioxide 23 mmol/L (22-30); Chloride 105 mmol/L (98-107); Glucose 104 mg/dL (74-99); Magnesium 1.7 mg/dL (1.6-2.3); Non-African American GFR(CKD) 32 (>60 ml/min/1.73 sqM); Potassium 4.4 mmol/L (3.5-5.1); Sodium 136 mmol/L (137-145); Total Protein 6.6 g/dL (6.3-8.2)
[2025-06-11 12:53] LABS: Basophils # (A) 0.02 10*3/uL (0.00-0.10); Basophils % (A) 0.4 %; Eosinophils # (A) 0.08 10*3/uL (0.04-0.35); Eosinophils % (A) 1.7 %; HCT 42.1 % (39.6-50.0); HGB 13.3 g/dL (13.0-17.0); Immature Platelet Fraction 5.7 % (1.1-6.1); Lymphocytes # (A) 1.45 10*3/uL (0.90-5.00); Lymphocytes % (A) 30.3 %; MCH 26.5 pg (27.0-32.0); MCHC 31.6 g/dL (32.0-37.0); MCV 84.0 fL (80.0-97.0); Monocytes # (A) 0.66 10*3/uL (0.20-1.00); Monocytes % (A) 13.8 %; Neutrophils # (A) 2.49 10*3/uL (1.80-7.70); Neutrophils % (A) 51.9 %; RBC 5.01 10*6/uL (4.40-5.60); RDW 14.3 % (11.5-14.5); WBC 4.79 10*3/uL (4.50-10.00)
[2025-06-11 13:20] LABS: RBC Morphology Normal
[2025-06-11 13:21] LABS: Platelet Count 88 10*3/uL (140-440)
[2025-06-11 20:12] LABS: Cholesterol 111.00 mg/dL (0.00-200.00); HDL Cholesterol 62.60 mg/dL (40.00-60.00); LDL Cholesterol,Calculated 37.5 mg/dL (0.0-131.0); Prostate Specific Antigen 1.93 ng/mL (0.000-4.500); Triglycerides 54.40 mg/dL (0.00-149.00); VLDL Calculation 10.88 mg/dL (5.00-40.00)
== END ==
LOC: PROCWHC3 11:44
PROVIDERS: ATTEND Internal Medicine Nephrology
DX: E11.22 Type 2 diabetes mellitus with diabetic chronic kidney disease (principal); N18.32 Chronic kidney disease, stage 3b; E11.43 Type 2 diabetes mellitus with diabetic autonomic (poly)neuropathy; N25.81 Secondary hyperparathyroidism of renal origin; E55.9 Vitamin D deficiency, unspecified; E78.5 Hyperlipidemia, unspecified; Z12.5 Encounter for screening for malignant neoplasm of prostate; Z94.0 Kidney transplant status; Z79.4 Long term (current) use of insulin; Z79.891 Long term (current) use of opiate analgesic
CPT/HCPCS: 36591; 80053; 80061; 82306; 83036; 83735; 83970; 84100; 84153; 85025